=== PATIENT | female | born 1940 | race Two or more races ===

== ENCOUNTER 2020-02-18 16:39 | Inpatient (IN) | payer MEDICAID ==
[~2020-02-18] VITALS: Ht 152.4 cm; Wt 72.6 kg
--- NOTE | 2020-02-18 00:45 | NUR ---
NURSE NOTES: Spoke to Dr. salomon. Informed pt on BIPAP and pt on NPO, Pt on IVF NS @50ml/hr, made him aware. Per Doctor its up to dr. Byrne judgement if he is gonna change the IVF to dextrose. No signs of hypoglycemia noted.
[2020-02-18] MEDS ORDERED: COZAAR25 MG ORAL (16:43)
--- NOTE | 2020-02-18 16:50 | Emergency Room Report ---
History of Present Illness General Chief Complaint: Dyspnea/Respdistress Source: Patient Present Illness HPI Disclaimer: Please note that this report is being documented using [employer] software[employer] technology. This can lead to erroneous entry secondary to incorrect interpretation by the dictating instrument. HPI: 79-year-old Nepalese-speaking female with a history of hypertension and hyperlipidemia presents for evaluation of shortness of breath. Symptoms worsening over the past few days. She reports fevers, generalized fatigue, mild headache. Denies chest pain or palpitations. Denies wheezing. Intermittent cough. Unknown COVID-19 status. She arrives from home. Denies diabetes, COPD, asthma or other lung disease. Denies smoking. Family on route to provide additional information. She was found hypoxic by EMS and only improved to 88% on 15 L nonrebreather. PMH: Hypertension, hypercholesterolemia PSH: Reviewed Allergies: Reviewed Social Hx: Non-smoker Allergies: Coded Allergies: No Known Allergies (Unverified , 02/18/20) COVID-19 Screening Contact w/high risk pt: No Experienced COVID-19 symptoms?: Yes COVID-19 Testing performed CHIEF OF PRODUCTION: No Patient History Now: No Nursing Documentation-PMH Hx Hypertension: Yes Review of Systems All Other Systems: negative except mentioned in HPI Physical Exam Vital Signs Date Time Temp Pulse Resp B/P (MAP) Pulse Ox O2 Delivery O2 Flow Rate FiO2 02/18/20 16:40 99.9 97 18 135/106 (116) 85 Non-Rebreather 15.0 General: Awake and alert, uncomfortable, respiratory distress HEENT: NC/AT. EOMI. Cardiovascular: Borderline tachycardia. Resp: Tachypnea, increased work of breathing. 85% on 15 L nonrebreather. Abdomen: Abdomen is soft, nondistended. Nontender Skin: Intact. No abrasions, laceration or rash over the exposed skin MSK: Normal tone and bulk. Moving all extremities. No obvious deformity. Neuro: Awake and alert. Mentating appropriately. Procedures Critical Care Time Critical Care Time Total critical care time: Approximately 45 minutes Due to a high probability of clinically significant, life threatening deterioration, the patient required the highest level of preparedness to intervene emergently and I personally spent this critical care time directly and personally managing the patient. This critical care time included obtaining a history, examining the patient, pulse oximetry, ordering and reviewing studies, ordering treatments, evaluating response to treatment and updating management plan as needed, frequent reassessment and discussion with other providers as well as arranging for ultimate disposition. This critical to care time was performed to assess and manage the high probability of life-threatening deterioration that could result in multiorgan failure. This critical care time is separate from the separately billable procedures and treating other patients. Medical Decision Making Diagnostic Impression: Primary Impression: Pneumonia due to COVID-19 virus Additional Impressions: Sepsis JARETH (acute kidney injury) Hypoxia UTI (urinary tract infection) Elevated d-dimer ER Course Is an 79-year-old female presents for evaluation of shortness of breath. Concern for pneumonia, bronchitis, COVID-19 infection, influenza, pneumothorax, COPD exacerbation, asthma exacerbation, ACS, sepsis among others. Patient started on BiPAP on arrival. Chest x-ray shows diffuse patchy infiltrates consistent with pneumonia. Treated with ceftriaxone azithromycin and IV steroids. Family is arrived stating that she has been sick for several days and the whole family has had flulike symptoms. She states that the patient is DNI and is filled out a new POLST form. These are accordance with her wishes not to be on mechanical intubation but would allow for some chest compressions. I expressed that chest compressions may be futile if intubation is now performed though she states this is how she wants to be treated. Consented to BiPAP and facemask oxygen as well as antibiotics and IV fluids as needed. Lactate elevated. Receiving IV fluids and bicarbonate. D-dimer elevated. Treated with Lovenox. UTI identified as well the patient already received ceftriaxone. Will await culture and sensitivity. Admitted to SDU under Dr. Evans who is panel physician today. Sepsis reevaluation: I, Dr. Lucas Pierre, reevaluated the patient Capillary refill: Less than 2 seconds MAP: 68 Heart rate: 85 Respiratory rate: 22 Initial Lactate: 7.6 Repeat Lactate: 2.8 Pressors: Not indicated No signs of fluid overload Laboratory Tests Test 02/18/20 17:18 02/18/20 17:30 02/18/20 18:18 White Blood Count 19.8 K/UL (4.8-10.8) H Red Blood Count 4.26 M/UL (4.20-5.40) Hemoglobin 13.2 G/DL (12.0-16.0) Hematocrit 39.8 % (37.0-47.0) Mean Corpuscular Volume 93 FL (80-99) Mean Corpuscular Hemoglobin 31.0 PG (27.0-31.0) Mean Corpuscular Hemoglobin Concent 33.2 G/DL (32.0-36.0) Red Cell Distribution Width 13.0 % (11.6-14.8) Platelet Count 306 K/UL (150-450) Mean Platelet Volume 7.5 FL (6.5-10.1) Neutrophils (%) (Auto) % (45.0-75.0) Lymphocytes (%) (Auto) % (20.0-45.0) Monocytes (%) (Auto) % (1.0-10.0) Eosinophils (%) (Auto) % (0.0-3.0) Basophils (%) (Auto) % (0.0-2.0) Neutrophils % (Manual) Pending Lymphocytes % (Manual) Pending Platelet Estimate Pending Platelet Morphology Pending Prothrombin Time 11.6 SEC (9.30-11.50) H Prothrombin Time INR 1.1 (0.9-1.1) Activated Partial Thromboplast Time 38 SEC (23-33) H D-Dimer Pending Sodium Level 132 MMOL/L (136-145) L Potassium Level 3.6 MMOL/L (3.5-5.1) Chloride Level 96 MMOL/L (98-107) L Carbon Dioxide Level 15 MMOL/L (21-32) L Anion Gap 21 mmol/L (5-15) H Blood Urea Nitrogen 51 mg/dL (7-18) H Creatinine 3.3 MG/DL (0.55-1.30) H Estimated Glomerular Filtration Rate 13.4 mL/min (>60) Glucose Level 171 MG/DL (74-106) H Lactic Acid Level 7.10 mmol/L (0.4-2.0) H Calcium Level 8.4 MG/DL (8.5-10.1) L Phosphorus Level 6.5 MG/DL (2.5-4.9) H Magnesium Level 2.2 MG/DL (1.8-2.4) Ferritin 1187 NG/ML (8-388) H Total Bilirubin 1.1 MG/DL (0.2-1.0) H Direct Bilirubin 0.0 MG/DL (0.0-0.3) Aspartate Amino Transferase (AST) 76 U/L (15-37) H Alanine Aminotransferase (ALT) 24 U/L (12-78) Alkaline Phosphatase 84 U/L (46-116) Lactate Dehydrogenase 627 U/L (81-234) H Total Creatine Kinase 157 U/L (26-308) Creatine Kinase MB 3.7 NG/ML (0.0-3.6) H Creatine Kinase MB Relative Index 2.3 Troponin I 0.965 ng/mL (0.000-0.056) C-Reactive Protein, Quantitative Pending Pro-B-Type Natriuretic Peptide 09322 pg/mL (0-125) H Total Protein 8.4 G/DL (6.4-8.2) H Albumin 2.7 G/DL (3.4-5.0) L Globulin 5.7 g/dL Albumin/Globulin Ratio 0.5 (1.0-2.7) L Lipase 85 U/L (73-393) Arterial Blood pH 7.319 (7.350-7.450) Arterial Blood Partial Pressure CO2 26.5 mmHg (35.0-45.0) L Arterial Blood Partial Pressure O2 mmHg (75.0-100.0) Arterial Blood HCO3 13.3 mmol/L (22.0-26.0) *L Arterial Blood Oxygen Saturation 87.5 % (95-100) *L Arterial Blood Base Excess -11.1 (-2-2) *L Trevon Test Positive Urine Color Pending Urine Appearance Pending Urine pH Pending Urine Specific [place] Pending Urine Protein Pending Urine Glucose (UA) Pending Urine Ketones Pending Urine Blood Pending Urine Nitrite Pending Urine Bilirubin Pending Urine Urobilinogen Pending Urine Leukocyte Esterase Pending Microbiology Date/Time Source Procedure Growth Status 02/18/20 17:30 Nasopharynx SARS-CoV-2 RdRp Gene Assay - Final Complete EKG Diagnostic Results Troponin ordered: Yes When was troponin ordered?: Feb 18, 2020 EKG Time: 17:45 Rate: normal Rhythm: NSR Other Impression Sinus rhythm with occasional PVC, left axis deviation. Inferior Q waves and diffuse T wave inversions. Rhythm Strip Diag. Results Rhythm Strip Time: 17:45 EP Interpretation: yes Rate: 90s Rhythm: other - PVCs Chest X-Ray Diagnostic Results Chest X-Ray Diagnostic Results : Chest X-Ray Ordered: Yes # of Views/Limited/Complete: 1 View Indication: Shortness of Breath EP Interpretation: Yes PA Xray: Interpretation reviewed Interpretation: no effusion - Bilateral patchy infiltrates consistent with pneumonia, no pneumothorax, other Impression: Other - Bilateral pneumonia Electronically Signed by: Electronically signed by Dr. Lucas Pierre MD Last Vital Signs Date Time Temp Pulse Resp B/P (MAP) Pulse Ox O2 Delivery O2 Flow Rate FiO2 02/18/20 16:40 99.9 97 18 135/106 (116) 85 Non-Rebreather 15.0 Disposition: ADMITTED INPATIENT Condition: Serious Lucas Pierre MD Feb 18, 2020 16:50
[2020-02-18] MEDS ORDERED: dexAMETHasone 10mg/ml Inj IV ONE (17:00)
[2020-02-18] MEDS ORDERED: Azithromycin 500 MG in NS 275 ML IVPB ONE (17:00)
[2020-02-18] MEDS ORDERED: cefTRIAXone 1 GM in NS 55 ML IV ONE (17:00)
--- NOTE | 2020-02-18 17:44 | NUR ---
Michelle pedraza in EDM - 02/18/20 at 1745 by GRACE ED Nurse Note: Pt unable to recall the name of her home meds.
--- NOTE | 2020-02-18 17:50 | NUR ---
ED Nurse Note:pt. was BIBA from home with respiratory distress pt. is A/Ox4, blood urine and covid swab sent tolabs, pt. placed on wad blanking press adjuster, then after ABG results she was placed on bi0pap per MD order, given iv fluids and meds
[2020-02-18] MEDS ORDERED: Sodium Bicarbonate 50ml Carp IV ONE (18:00)
[2020-02-18 18:02] LABS: CALCIUM 8.4 MG/DL (8.5-10.1); CREATININE 3.3 MG/DL (0.55-1.30); POTASSIUM 3.6 MMOL/L (3.5-5.1)
[2020-02-18 18:20] VITALS: BP 119/79
[2020-02-18 18:20] LABS: ALBUMIN 2.7 G/DL (3.4-5.0); BILIRUBIN,TOTAL 1.1 MG/DL (0.2-1.0); CKMB 3.7 NG/ML (0.0-3.6); PHOSPHORUS 6.5 MG/DL (2.5-4.9)
[2020-02-18 18:26] LABS: ALBUMIN/GLOBULIN RATIO 0.5 (1.0-2.7)
[2020-02-18] MEDS ORDERED: Sodium Chloride 2,200 ML IVLG ONE (18:30)
[2020-02-18 18:40] LABS: INR 1.1 (0.9-1.1)
[2020-02-18 18:41] LABS: HEMATOCRIT 39.8 % (37.0-47.0); HEMOGLOBIN 13.2 G/DL (12.0-16.0); MEAN CORPUSCULAR VOLUME 93 FL (80-99); PLATELET COUNT 306 K/UL (150-450); RED BLOOD COUNT 4.26 M/UL (4.20-5.40); WHITE BLOOD COUNT 19.8 K/UL (4.8-10.8)
[2020-02-18 19:13] LABS: APPEARANCE,URINE SLIGHTLY CLOUDY; BILIRUBIN, URINE NEGATIVE (NEGATIVE); COLOR,URINE PALE YELLOW; GLUCOSE, URINE (UA) NEGATIVE (NEGATIVE); KETONES,URINE NEGATIVE (NEGATIVE); LEUKOCYTE ESTERASE ,URINE 3+ (NEGATIVE); NITRITE,URINE NEGATIVE (NEGATIVE); PH,URINE 5 (4.5-8.0); PROTEIN,URINE 1+ (NEGATIVE); UROBILINOGEN,URINE NORMAL MG/DL (0.0-1.0)
--- NOTE | 2020-02-18 19:25 | NUR ---
ED Nurse Note: Recieved report from am nurse to resume care, pt in bed resting quietly, on BIPAP, tolerating well with o2 sat of 99%, pt is setswana speaking, has patent IV site in left AC area with fluids infusing, site intact, pt lactic level re-drawn and sent due to elevation, will resume care as ordered and continue to closely monitor.
[2020-02-18 19:30] VITALS: BP 145/80
[2020-02-18] MEDS ORDERED: Enoxaparin 100mg Inj SUBQ SCH (20:00)
[2020-02-18 21:00] VITALS: BP 155/83
--- NOTE | 2020-02-18 21:00 | NUR ---
ED Nurse Note: Pt continues to rest quietly in bed,a wake and alert, all iv fluids completed, tolerated well site intact and patent, pt remains on BIPAP, appears to be tolerating well, denies pain, no sob noted at rest, pt repeat lactic reported to MD, pt remains on Covid isolation precautions, will continue to closely monitor and preapare for hospital admission when bed is available.
[2020-02-18 22:00] VITALS: BP 152/80
--- NOTE | 2020-02-18 22:15 | NUR ---
ED Nurse Note: Pt has ready room for hospital admission, pt remains in bed awake and alert and on bipap for resp distress, tolerating well with o2 sat=99%, iv site intact and patent with fluids infusing, pt has all belongings and list completed, verbal report called to floor nurse OCHOA Otto, pt taken to unit via gurney with ACLS protocols with monitoring under Covid isolation precautions. nad noted during pt transport.
--- NOTE | 2020-02-18 22:30 | NUR ---
NURSE NOTES: Informed Dr. Evans pt needs polst for DNI ordered will refer to AM. Per Dr. torres pt wishes.
--- NOTE | 2020-02-18 22:48 | NUR ---
NURSE NOTES: Received pt from ER report from Elva, pt on BIPAP with settings 14/5, fio2-100%. O2 sat- 90%. LAC g20- intact and patent. Pt has no signs of respiratory distress, respiratory rate is normal, pt BP - 170/123. NSR in the cardiac rehabilitation program director, pt able to follow simple commands, alert oriented x 3, mostly togolese speaking, able to verbalize understanding. No pain noted. Not in distress. Pt gown provided, weighed pt, skin assessment done- no skin issues noted. Belongings noted 2 necklace and 1 set of earrings at pt bedside. Able to move side to side. Contacted Dr. Evans, unable to left voicemail. Awaiting for response. Bed in lowest position, bed in locked, alarm- on , call light within reach. Continue to plan of care.
--- NOTE | 2020-02-18 23:00 | NUR ---
NURSE NOTES: Inserted barker fr 16, intact and secured draining yellow urine.
[2020-02-19] VITALS: BP 220/103
--- NOTE | 2020-02-19 | NUR ---
NURSE NOTES: Noted BP 220/103, no pain noted. Informed Dr. Barboza ordered given prn.Will rechecked BP.
--- NOTE | 2020-02-19 03:07 | NUR ---
NURSE NOTES: Still noted BP 189/100 - given PRN meds as ordered. Pt is asymptomatic, no pain noted at this time.
--- NOTE | 2020-02-19 03:16 | NUR ---
NURSE NOTES: Polst received from ER for selective treatment, keep in the chart.
--- NOTE | 2020-02-19 03:28 | NUR ---
NURSE NOTES: Rechecked BP- 154/68. Continue to monitor pt closely.
[2020-02-19 04:00] VITALS: BP 151/70
--- NOTE | 2020-02-19 06:04 | NUR ---
NURSE NOTES: Not in respiratory distress, o2 sat- 100%. Pt not in pain. Continue to monitor BP.
[2020-02-19 06:25] LABS: HEMATOCRIT 35.1 % (37.0-47.0); HEMOGLOBIN 12.2 G/DL (12.0-16.0); MEAN CORPUSCULAR VOLUME 90 FL (80-99); PLATELET COUNT 291 K/UL (150-450); RED BLOOD COUNT 3.89 M/UL (4.20-5.40); RED CELL DISTRIBUTION WIDTH 12.8 % (11.6-14.8); WHITE BLOOD COUNT 16.7 K/UL (4.8-10.8)
--- NOTE | 2020-02-19 07:05 | NUR ---
NURSE NOTES: Received patient report from OCHOA Otto. Pt on BIPAP 14/5 FiO2 100%, no respiratory distress noted at this time. No pain or discomfort noted. Patient with L hand 22G SL and L AC 20G with NS @50ml/hr, IV site patent and intact. Bed in lowest position, locked with side rails x3 up. Call light within reach.
--- NOTE | 2020-02-19 07:10 | NUR ---
NURSE HAND-OFF REPORT: Important Events on Shift: Pt BP: high 150-170's Dr. Barboza aware, PRN meds given, onBIPAP, admission Patient Status: Guarded and critical Diet: NPO Pending Orders: None Pending Results/Labs: NOne Pending MD notification: None Latest Vital Signs: Temperature 97.7 , Pulse 88 , B/P 175 /90 , Respiratory Rate 23 , O2 SAT 98 , Bi-pap, O2 Flow Rate 15.0 . Vital Sign Comment: Hypertensive EKG Rhythm: Sinus Rhythm Rhythm change?: N MD Notified?: - MD Response: Latest Navarro Fall Score: 30 Fall Risk: Medium Risk Safety Measures: Call light Within Reach, Bed Alarm Zone 2, Side Rails Side Rails x3, Bed position Low and Locked. Fall Precautions: Yellow Socks Yellow Gown Door Sign Patient Fall Education Report given to [Connor RN].
[2020-02-19 07:52] LABS: ALANINE AMINOTRANSFERASE 46 U/L (12-78); ALBUMIN 2.4 G/DL (3.4-5.0); ALBUMIN/GLOBULIN RATIO 0.5 (1.0-2.7); ALKALINE PHOSPHATASE 73 U/L (46-116); ANION GAP 16 mmol/L (5-15); ASPARTATE AMINO TRANSFERASE 84 U/L (15-37); BILIRUBIN,TOTAL 0.6 MG/DL (0.2-1.0); BLOOD UREA NITROGEN 52 mg/dL (7-18); CALCIUM 7.8 MG/DL (8.5-10.1); CARBON DIOXIDE 22 MMOL/L (21-32); CHLORIDE 101 MMOL/L (98-107); CHOLESTEROL 188 MG/DL (< 200); CREATINE KINASE 134 U/L (26-308); CREATININE 2.2 MG/DL (0.55-1.30); GAMMA GLUTAMYL TRANSPEPTIDASE 12 U/L (5-85); HDL CHOLESTEROL 14 MG/DL (40-60); LACTATE DEHYDROGENASE 721 U/L (81-234); PHOSPHORUS 3.9 MG/DL (2.5-4.9); POTASSIUM 3.4 MMOL/L (3.5-5.1); SODIUM 139 MMOL/L (136-145); TRIGLYCERIDES 195 MG/DL (30-150)
[2020-02-19 08:00] VITALS: BP 159/74
--- NOTE | 2020-02-19 08:24 | Diagnostic Imaging Report ---
Indication: Shortness of breath Technique: One view of the chest Comparison: none Findings: There are extensive bilateral infiltrates, right greater than left. The heart is mildly enlarged. The pleural spaces are grossly clear. Impression: Bilateral extensive infiltrates, likely pneumonia but could also represent pulmonary edema. Correlate with clinical findings
[2020-02-19] MEDS: cefTRIAXone 1 GM in D5W 55 ML IVPB SCH (11:00)
[2020-02-19] MEDS: dexAMETHasone 10mg/ml Inj IV SCH (11:00)
--- NOTE | 2020-02-19 11:03 | Cardiac Electrophysiology PN ---
Subjective Subjective [id number] Objective Last 24 Hour Vital Signs Date Time Temp Pulse Resp B/P (MAP) Pulse Ox O2 Delivery O2 Flow Rate FiO2 02/19/20 09:10 90 169/74 02/19/20 08:40 90 02/19/20 07:15 90 25 97 100 02/19/20 05:54 175/90 02/19/20 04:00 97.7 88 23 151/70 (97) 98 02/19/20 04:00 Bi-pap 02/19/20 04:00 100 02/19/20 03:30 86 27 98 100 02/19/20 03:00 189/100 02/19/20 00:32 78 02/19/20 00:25 Bi-pap 02/19/20 00:19 220/103 02/19/20 00:00 97.9 89 22 220/103 (142) 98 02/19/20 00:00 100 02/18/20 23:17 Bi-pap 02/18/20 23:12 86 23 94 Bi-Pap 100 02/18/20 23:10 86 23 94 100 02/18/20 23:03 Bi-pap 02/18/20 22:52 86 02/18/20 22:25 98.8 80 20 152/80 99 Bi-pap 15.0 100 02/18/20 22:00 98.8 80 20 152/80 99 Bi-pap 15.0 100 02/18/20 21:00 98.8 82 20 155/83 98 Bi-pap 15.0 100 02/18/20 20:59 80 20 100 100 02/18/20 19:30 98.8 83 22 145/80 99 Bi-pap 15.0 100 02/18/20 18:20 99.9 103 22 119/79 99 Bi-pap 100 02/18/20 18:20 99 22 Non-Rebreather 15.0 100 02/18/20 18:01 99 22 95 100 02/18/20 16:40 99.9 97 18 135/106 (116) 85 Non-Rebreather 15.0 Intake and Output 02/18/20 02/19/20 19:00 07:00 Intake Total 400 ml Output Total 600 ml Balance -200 ml Intake IV Total 400 ml Output Urine Total 600 ml # Voids 1 Laboratory Tests Test 02/18/20 17:18 02/18/20 17:30 02/18/20 18:18 02/18/20 19:30 White Blood Count 19.8 K/UL (4.8-10.8) H Red Blood Count 4.26 M/UL (4.20-5.40) Hemoglobin 13.2 G/DL (12.0-16.0) Hematocrit 39.8 % (37.0-47.0) Mean Corpuscular Volume 93 FL (80-99) Mean Corpuscular Hemoglobin 31.0 PG (27.0-31.0) Mean Corpuscular Hemoglobin Concent 33.2 G/DL (32.0-36.0) Red Cell Distribution Width 13.0 % (11.6-14.8) Platelet Count 306 K/UL (150-450) Mean Platelet Volume 7.5 FL (6.5-10.1) Neutrophils (%) (Auto) % (45.0-75.0) Lymphocytes (%) (Auto) % (20.0-45.0) Monocytes (%) (Auto) % (1.0-10.0) Eosinophils (%) (Auto) % (0.0-3.0) Basophils (%) (Auto) % (0.0-2.0) Differential Total Cells Counted 100 Neutrophils % (Manual) 87 % (45-75) H Lymphocytes % (Manual) 4 % (20-45) L Monocytes % (Manual) 1 % (1-10) Eosinophils % (Manual) 0 % (0-3) Basophils % (Manual) 0 % (0-2) Band Neutrophils 8 % (0-8) Platelet Estimate Adequate Platelet Morphology Normal Red Blood Cell Morphology Normal Prothrombin Time 11.6 SEC (9.30-11.50) H Prothromb Time International Ratio 1.1 (0.9-1.1) Activated Partial Thromboplast Time 38 SEC (23-33) H D-Dimer 5.12 mg/L FEU (0.00-0.49) H Sodium Level 132 MMOL/L (136-145) L Potassium Level 3.6 MMOL/L (3.5-5.1) Chloride Level 96 MMOL/L (98-107) L Carbon Dioxide Level 15 MMOL/L (21-32) L Anion Gap 21 mmol/L (5-15) H Blood Urea Nitrogen 51 mg/dL (7-18) H Creatinine 3.3 MG/DL (0.55-1.30) H Estimat Glomerular Filtration Rate 13.4 mL/min (>60) Glucose Level 171 MG/DL (74-106) H Lactic Acid Level 7.10 mmol/L (0.4-2.0) H 2.80 mmol/L (0.66-2.22) H Calcium Level 8.4 MG/DL (8.5-10.1) L Phosphorus Level 6.5 MG/DL (2.5-4.9) H Magnesium Level 2.2 MG/DL (1.8-2.4) Ferritin 1187 NG/ML (8-388) H Total Bilirubin 1.1 MG/DL (0.2-1.0) H Direct Bilirubin 0.0 MG/DL (0.0-0.3) Aspartate Amino Transf (AST/SGOT) 76 U/L (15-37) H Alanine Aminotransferase (ALT/SGPT) 24 U/L (12-78) Alkaline Phosphatase 84 U/L (46-116) Lactate Dehydrogenase 627 U/L (81-234) H Total Creatine Kinase 157 U/L (26-308) Creatine Kinase MB 3.7 NG/ML (0.0-3.6) H Creatine Kinase MB Relative Index 2.3 Troponin I 0.965 ng/mL (0.000-0.056) C-Reactive Protein, Quantitative Pending Pro-B-Type Natriuretic Peptide 06174 pg/mL (0-125) H Total Protein 8.4 G/DL (6.4-8.2) H Albumin 2.7 G/DL (3.4-5.0) L Globulin 5.7 g/dL Albumin/Globulin Ratio 0.5 (1.0-2.7) L Lipase 85 U/L (73-393) Arterial Blood pH 7.319 (7.350-7.450) Arterial Blood Partial Pressure CO2 26.5 mmHg (35.0-45.0) L Arterial Blood Partial Pressure O2 mmHg (75.0-100.0) Arterial Blood HCO3 13.3 mmol/L (22.0-26.0) *L Arterial Blood Oxygen Saturation 87.5 % (95-100) *L Arterial Blood Base Excess -11.1 (-2-2) *L Trevon Test Positive Urine Color Pale yellow Urine Appearance Slightly cloudy Urine pH 5 (4.5-8.0) Urine Specific [place] 1.005 (1.005-1.035) Urine Protein 1+ (NEGATIVE) H Urine Glucose (UA) Negative (NEGATIVE) Urine Ketones Negative (NEGATIVE) Urine Blood 3+ (NEGATIVE) H Urine Nitrite Negative (NEGATIVE) Urine Bilirubin Negative (NEGATIVE) Urine Urobilinogen Normal MG/DL (0.0-1.0) Urine Leukocyte Esterase 3+ (NEGATIVE) H Urine RBC 15-20 /HPF (0 - 2) H Urine WBC 20-30 /HPF (0 - 2) H Urine Squamous Epithelial Cells Many /LPF (NONE/OCC) H Urine Bacteria Many /HPF (NONE) H Test 02/19/20 03:35 White Blood Count 16.7 K/UL (4.8-10.8) H Red Blood Count 3.89 M/UL (4.20-5.40) L Hemoglobin 12.2 G/DL (12.0-16.0) Hematocrit 35.1 % (37.0-47.0) L Mean Corpuscular Volume 90 FL (80-99) Mean Corpuscular Hemoglobin 31.4 PG (27.0-31.0) H Mean Corpuscular Hemoglobin Concent 34.7 G/DL (32.0-36.0) Red Cell Distribution Width 12.8 % (11.6-14.8) Platelet Count 291 K/UL (150-450) Mean Platelet Volume 7.1 FL (6.5-10.1) Neutrophils (%) (Auto) % (45.0-75.0) Lymphocytes (%) (Auto) % (20.0-45.0) Monocytes (%) (Auto) % (1.0-10.0) Eosinophils (%) (Auto) % (0.0-3.0) Basophils (%) (Auto) % (0.0-2.0) Differential Total Cells Counted 100 Neutrophils % (Manual) 89 % (45-75) H Lymphocytes % (Manual) 8 % (20-45) L Monocytes % (Manual) 3 % (1-10) Eosinophils % (Manual) 0 % (0-3) Basophils % (Manual) 0 % (0-2) Band Neutrophils 0 % (0-8) Platelet Estimate Adequate Platelet Morphology Normal Red Blood Cell Morphology Normal Sodium Level 139 MMOL/L (136-145) Potassium Level 3.4 MMOL/L (3.5-5.1) L Chloride Level 101 MMOL/L (98-107) Carbon Dioxide Level 22 MMOL/L (21-32) Anion Gap 16 mmol/L (5-15) H Blood Urea Nitrogen 52 mg/dL (7-18) H Creatinine 2.2 MG/DL (0.55-1.30) H Estimat Glomerular Filtration Rate 21.4 mL/min (>60) Glucose Level 120 MG/DL (74-106) H Lactic Acid Level 1.70 mmol/L (0.4-2.0) Uric Acid 9.2 MG/DL (2.6-7.2) H Calcium Level 7.8 MG/DL (8.5-10.1) L Phosphorus Level 3.9 MG/DL (2.5-4.9) Magnesium Level 2.1 MG/DL (1.8-2.4) Total Bilirubin 0.6 MG/DL (0.2-1.0) Gamma Glutamyl Transpeptidase 12 U/L (5-85) Aspartate Amino Transf (AST/SGOT) 84 U/L (15-37) H Alanine Aminotransferase (ALT/SGPT) 46 U/L (12-78) Alkaline Phosphatase 73 U/L (46-116) Lactate Dehydrogenase 721 U/L (81-234) H Total Creatine Kinase 134 U/L (26-308) C-Reactive Protein, Quantitative Pending Pro-B-Type Natriuretic Peptide 59172 pg/mL (0-125) H Total Protein 7.5 G/DL (6.4-8.2) Albumin 2.4 G/DL (3.4-5.0) L Globulin 5.1 g/dL Albumin/Globulin Ratio 0.5 (1.0-2.7) L Triglycerides Level 195 MG/DL (30-150) H Cholesterol Level 188 MG/DL (< 200) LDL Cholesterol 97 mg/dL (<100) HDL Cholesterol 14 MG/DL (40-60) L Cholesterol/HDL Ratio 13.4 (3.3-4.4) H Microbiology Date/Time Source Procedure Growth Status 02/18/20 17:30 Nasopharynx SARS-CoV-2 RdRp Gene Assay - Final Complete Adonay Guerra MD Feb 19, 2020 11:03
--- NOTE | 2020-02-19 11:14 | NUR ---
Right Of Way WorkerOrthodontic Technician Assistant 79 y/o female transported via ambulance from home CC: shortness of breath, fever. O2 saturation at 60% on room air SI: Respiratory Failure, COVID PNA, Leukocytosis Temp-99.9, HR 97, RR 18, 15L, BIPAP 14/5, O2 sat 98% WBC 16.7, K+ 3.4, Troponin 0.965, U/A Leuk Est 3+, WBC 20-30, Bacteria-Many, Blood-3+ cxray-Bilateral extensive infiltrates. IS: Lasix IV BID Rocephin IV QD Dexamethasone IV QD Apresoline IV Lovenox SQ BID Admit to Step Down Unit Step Down Status DCP: Pending hospitalization
[2020-02-19 12:00] VITALS: BP 161/72
--- NOTE | 2020-02-19 12:00 | Consultation ---
DATE OF CONSULTATION: 02/19/2020 INFECTIOUS DISEASES CONSULTATION CONSULTING PHYSICIAN: Genaro Sun MD PRIMARY ATTENDING PHYSICIAN: Gerson Evans MD REASON FOR CONSULTATION: COVID-19 disease, sepsis, UTI. HISTORY OF PRESENT ILLNESS: This is an 79-year-old female admitted yesterday from home complaining of shortness of breath, fever, fatigue. In the past few days, was hypoxemic when seen by paramedics and had O2 saturation of 88% on 15 L nonrebreather, currently she is on BiPAP. PAST MEDICAL HISTORY: Significant for hypertension and hyperlipidemia. ALLERGIES: No known drug allergies. MEDICATIONS: Get a dose of enoxaparin, sodium chloride, sodium bicarb, ceftriaxone, dexamethasone, dose of azithromycin in the ER. Currently amlodipine, hydralazine, and Tylenol. SOCIAL HISTORY: Single. No history of alcohol, drug abuse, or smoking. REVIEW OF SYSTEMS: Limited. She has cough and shortness of breath. PHYSICAL EXAMINATION: VITAL SIGNS: Temperature 97.7, pulse 90, blood pressure 169/74. GENERAL APPEARANCE: Seems overweight, well developed. HEAD AND NECK: [place] conjunctiva. HEART: Normal rate. LUNGS: On BiPAP, FiO2 100%. Slightly decreased sounds. ABDOMEN: Soft. EXTREMITIES: No edema. NEUROLOGIC: Awake, alert, responsive. LABORATORY AND DIAGNOSTIC DATA: WBC 16.7, hemoglobin 12.2, hematocrit 35.2, platelet 281. WBC at the time of admission was 19.8. Sodium 139, potassium 3.4, chloride 101, bicarb 22, BUN 52, creatinine 2.2. Creatinine at the time of admission was 3.3. Lactic acid is 1.7. Lactic acid at the time of admission was 7.1. Albumin is 2.4. LDH is 721. COVID-19 test was positive. Chest x-ray shows bilateral extensive infiltrate, pneumonia, and pulmonary edema. UA shows wbc's of 20 to 30, bacteria many, blood 3+. IMPRESSION: 1. Sepsis. 2. COVID-19 pneumonia. 3. Acute renal failure. 4. Hypoxemic respiratory failure. 5. Pyuria, bacteriuria, may have UTI. 6. Lactic acidosis. 7. Hypertension. 8. Hyperlipidemia. RECOMMENDATION: We will continue with ceftriaxone and dexamethasone. Because of acute renal failure, cannot use Remdesivir now. At the end of my exam, I thank Dr. Evans, for involving me in the care of this patient. Genaro Sun M.D. DR: Ted JOB#: [id number] CC: KEV
--- NOTE | 2020-02-19 13:30 | Consultation ---
DATE OF CONSULTATION: 02/19/2020 CARDIOLOGY CONSULTATION CONSULTING PHYSICIAN: Adonay Guerra MD. REFERRING PHYSICIAN: Gerson Evans MD. REASON FOR CONSULTATION: Tachycardia and hypoxia. HISTORY OF PRESENT ILLNESS: The patient is an 79-year-old speaking lady with history of hypertension and hyperlipidemia presented to the emergency room with increasing shortness of breath for the last few days. The patient denies any chest pain or palpitation. The patient arrives from home. Denies any COPD, asthma, diabetes, or smoking. The patient was hypoxic by paramedics but improved to 88% only on 15 L nonrebreather face mask. The patient was placed on BiPAP. At the time of my evaluation, the patient is on BiPAP and cannot communicate very well in view of her respiratory status. REVIEW OF SYSTEMS: Cannot be obtained. PAST MEDICAL HISTORY: As mentioned above. FAMILY HISTORY: Noncontributory. SOCIAL HISTORY: Nonsmoker. ALLERGIES: No known drug allergies. PHYSICAL EXAMINATION: VITAL SIGNS: Show blood pressure was 175/90, pulse is 90, respirations 25, temperature 97.7. HEAD AND SHOWED: No JVD. LUNGS: Decreased breath sounds. CARDIOVASCULAR: Regular S1 and S2 with no gallop. ABDOMEN: Soft. EXTREMITIES: No pitting edema. LABORATORY AND DIAGNOSTIC DATA: Labs show white count was 19.8, hemoglobin of 13.2, platelet count is 306. Sodium is 139, potassium 3.4, BUN of 52, creatinine 2.2, and glucose of 120. [place] 0[place] [address]. ASSESSMENT AND PLAN: 1. Congestive heart failure with BNP of more than 15,000. We will get an echocardiogram to evaluate for ejection fraction and wall motion abnormality. Start the patient on Lasix 40 mg IV b.i.d. especially the patient also has renal failure. 2. Elevated troponin could be due to renal failure in view of creatinine of . Repeat cardiac enzymes. The patient does not have any chest pain. We will repeat EKG and echocardiogram. 3. COVID pneumonia. The patient is on BiPAP. 4. Accelerated hypertension on amlodipine 5 mg b.i.d. and p.r.n. IV hydralazine. I will add Lasix for heart failure and BNP of more than 16,000 until we get echocardiogram. In the meantime, the patient continues on BiPAP. It is of note the patient's EKG shows sinus rhythm with LVH with ST-T wave abnormality and may be due to hypertensive heart disease. 5. Respiratory failure due to COVID. The patient is on BiPAP as well as dexamethasone. Thank you very much for allowing me to participate in the care of this patient. Please do not hesitate to contact me for any questions regarding my evaluation. Sincerely, Adonay Guerra M.D. DR: Aida JOB#: [id number] CC:
--- NOTE | 2020-02-19 15:32 | Consultation ---
Consult Note Consult Note I am asked to evaluate the patient at the request of Dr. Esteban for management of renal failure and fluid and electrolyte management Chief Complaint: Dyspnea/Respdistress HPI: 79-year-old [place] Islander-speaking female with a history of hypertension and hyperlipidemia presents for evaluation of shortness of breath. Symptoms worsening over the past few days. She reports fevers, generalized fatigue, mild headache. Denies chest pain or palpitations. Denies wheezing. Intermittent cough. Unknown COVID-19 status. She arrives from home. Denies diabetes, COPD, asthma or other lung disease. Denies smoking. Family on route to provide additional information. She was found hypoxic by EMS and only improved to 88% on 15 L nonrebreather. PMH: Hypertension, hypercholesterolemia Social Hx: Non-smoker Allergies: No Known Allergies (Unverified , 02/18/20) COVID-19 Screening Contact w/high risk pt: No Experienced COVID-19 symptoms?: Yes COVID-19 Testing performed PLANT OPERATIONS WORKER: No Hx Hypertension: Yes Vital Signs Date Time Temp Pulse Resp B/P (MAP) Pulse Ox O2 Delivery O2 Flow Rate FiO2 02/18/20 16:40 99.9 97 18 135/106 (116) 85 Non-Rebreather 15.0 Patient seen in room 237. Currently on BiPAP. PHYSICAL EXAMINATION: VITAL SIGNS: Temperature 97.7, pulse 90, blood pressure 169/74. GENERAL APPEARANCE: Seems overweight, well developed. HEAD AND NECK: [place] conjunctiva. HEART: Normal rate. LUNGS: On BiPAP, FiO2 100%. Slightly decreased sounds. ABDOMEN: Soft. EXTREMITIES: No edema. NEUROLOGIC: Awake, alert, responsive. LABORATORY AND DIAGNOSTIC DATA: WBC 16.7, hemoglobin 12.2, hematocrit 35.2, platelet 281. WBC at the time of admission was 19.8. Sodium 139, potassium 3.4, chloride 101, bicarb 22, BUN 52, creatinine 2.2. Creatinine at the time of admission was 3.3. Lactic acid is 1.7. Lactic acid at the time of admission was 7.1. Albumin is 2.4. LDH is 721. COVID-19 test was positive. Chest x-ray shows bilateral extensive infiltrate, pneumonia, and pulmonary edema. UA shows wbc's of 20 to 30, bacteria many, blood 3+. Assessment/Plan Acute renal failure Possible underlying chronic kidney disease Hypoxic respiratory failure Sepsis, COVID-19 pneumonia UTI Hypertension, uncontrolled Hyperlipemia Elevated troponin I Electrolyte abnormalities Slow hydrate, normal saline Watch renal parameters on Lasix Recheck chest x-ray tomorrow Keep the blood pressure in check Avoid nephrotoxic's Monitor electrolytes and urine output Per consultants Per orders Reji Byrne MD Feb 19, 2020 15:32
[2020-02-19 16:00] VITALS: BP 172/90
--- NOTE | 2020-02-19 19:10 | NUR ---
NURSE HAND-OFF REPORT: Important Events on Shift:NA Patient Status: Stable Diet: NPO Pending Orders: NA Pending Results/Labs:Chest XRAY inn AM Pending MD notification:NA Latest Vital Signs: Temperature 98.0 , Pulse 90 , B/P 172 /90 , Respiratory Rate 23 , O2 SAT 96 , Bi-pap, O2 Flow Rate 15.0 . Vital Sign Comment: Episodes of High BP EKG Rhythm: Sinus Rhythm Rhythm change?: N MD Notified?: - MD Response: Latest Navarro Fall Score: 30 Fall Risk: Medium Risk Safety Measures: Call light Within Reach, Bed Alarm Zone 2, Side Rails Side Rails x3, Bed position Low and Locked. Fall Precautions: Yellow Socks Yellow Gown Door Sign Patient Fall Education Report given to OCHOA Grimm.
[2020-02-19 20:00] VITALS: BP 166/73
--- NOTE | 2020-02-19 20:00 | NUR ---
NURSE NOTES: Report received from OCHOA Nettles. Observed pt lying in the bed, awake. SR noted. On bipap, saturating at 94%. IV on L H 22G, intact. L AC 20G, running NS at 50cc/hr. Reposition done. Bed in the lowest position. Side rails up x3. Bed alarm on. Will continue to monitor.
[2020-02-19] MEDS: Dyna-Hex 2% Top Sol 2oz TOPIC SCH (20:11)
[2020-02-19] MEDS: Metoprolol Tartrate 12.5mg TAB ORAL SCH (20:12)
--- NOTE | 2020-02-19 21:00 | NUR ---
NURSE NOTES: PO meds given, tolerating, no coughing or difficulty swallowing noted.
--- NOTE | 2020-02-19 21:29 | History and Physical Report ---
DATE OF ADMISSION: 02/18/2020 HISTORY OF PRESENT ILLNESS: The patient is a British-speaking female, presented with shortness of breath and some cough for a couple of days. She also had fever and fatigue and chills and body aches. Denied nausea, vomiting, or diarrhea. Denies chest pain. The patient also basically has leukocytosis. Apparently, the patient has elevated troponin, also had hypoxemia, was on BiPAP, and was found to be positive for cough with pneumonia according to the ER doctor, and was also admitted for acute renal failure, sepsis, hypoxia, and COVID-positive pneumonia. PAST MEDICAL HISTORY: Significant for hypertension and GERD. PAST SURGICAL HISTORY: None. SOCIAL HISTORY: Denies history of smoking. Denies history of alcohol abuse. Denies history of drug abuse. FAMILY HISTORY: Noncontributory. MEDICATIONS: Losartan 25 mg daily. ALLERGIES: No known allergies. REVIEW OF SYSTEMS: CONSTITUTIONAL: Denies headaches. RESPIRATORY: Reports shortness of breath and cough for a couple of days. CARDIOVASCULAR: Denies chest pain or orthopnea. GASTROINTESTINAL: Denies nausea, vomiting, or diarrhea. EXTREMITIES: Denies pain. NEUROLOGIC: Denies change in speech pattern. Feels very weak and has generalized body weakness and body pain. PHYSICAL EXAMINATION: VITAL SIGNS: Temperature 98, pulse is 90, blood pressure 170/90. HEENT: PERRLA. NECK: Supple. CHEST: Clear to auscultation. CARDIOVASCULAR: Regular rate and rhythm. No murmurs or extra sounds. GASTROINTESTINAL: Soft, nontender, nondistended. EXTREMITIES: No edema. Has generalized weakness. Reflexes on both sides. Moves all 4 extremities. LABORATORY DATA: WBC of 19.8, hemoglobin of 13.2, platelets 306. Sodium 139, potassium of 3.4, BUN of 52, creatinine of 2.2, carbon dioxide of 22. Troponin of 0.433. ASSESSMENT AND PLAN: Acute renal failure, elevated hypoxia, sepsis, respiratory failure, COVID-positive pneumonia, acute renal failure, and borderline low potassium and sepsis and elevated troponin. I have basically consulted Dr. Byrne, Dr. Guerra, Dr. Aroldo Briggs, Dr. Genaro Sun for the above-mentioned abnormal labs and abnormal symptoms and abnormal imaging. Elevated troponin treatment and diagnostic will be done with the help of Dr. Guerra, the powerbuilder. Gerson Evans M.D. DR: STEPHANIA JOB#: [id number] CC:
--- NOTE | 2020-02-19 21:44 | Consultation ---
DATE OF CONSULTATION: 02/19/2020 PULMONARY CONSULTATION HISTORY OF PRESENT ILLNESS: This is an 79-year-old female who came to the hospital with shortness of breath. She was found to be hypoxemic. She was placed on a BiPAP. She was markedly hypoxic, on oxygen. She underwent rapid COVID testing, which was positive. She underwent a chest x-ray, which showed that she has bilateral extensive infiltrates, suggestive of a pneumonic process. The patient was admitted to the hospital and currently is on BiPAP. PAST MEDICAL HISTORY: Not known except for history of hypertension, hyperlipidemia, . SURGERIES: None. CURRENT MEDICATIONS: Include Rocephin, amlodipine, aspirin, Lipitor, Decadron, Lasix. She received Lovenox as well. REVIEW OF SYSTEMS: Not reliable. PHYSICAL EXAMINATION: GENERAL: An 79-year-old female. HEENT: Unremarkable. LUNGS: Clear breath sounds bilaterally. ABDOMEN: Soft. EXTREMITIES: There is no edema. NEUROLOGIC: Nonfocal. VITAL SIGNS: Blood pressure 170/90, heart rate 94, respirations 18, O2 sat 96% on BiPAP, 100% FiO2. LABORATORY DATA: Lab testing shows white count 15.7, otherwise normal CBC. BMP notable for creatinine 2.2, lactic acid 2.8, now 1.7. Troponin 0.43, now 0.34. Albumin 2.4, AST 84. ABG shows pH of 7.31, pCO2 26, pO2 not known. Coags show D-dimer of 5.1. IMPRESSION: 1. COVID-19 pneumonia. 2. Respiratory failure, on BiPAP. 3. Renal failure. 4. Troponin leak. DISCUSSION: Admit to the hospital. The patient has been seen by ID specialist. She has been started on Decadron. I recommend initiating anticoagulation with Lovenox. However, with renal failure, this may be an issue. Also, remdesivir cannot be used because of renal failure. We will continue BiPAP. Follow carefully. Aroldo Briggs M.D. DR: SALAZAR JOB#: [id number] CC:
--- NOTE | 2020-02-19 22:56 | NUR ---
Pt lying in the bed, sleeping. SR noted. On bipap, 15/5, 100%, 94% noted. Reposition done. Will continue to monitor.
[2020-02-20] VITALS (26 sets, daily range): BP systolic 108–167; BP diastolic 35–64
--- NOTE | 2020-02-20 02:15 | Cardiology Report ---
APPROVED REPORT EKG Measurement Heart Spcs21MGNS ND [id number] [id number] <Conclusion> Sinus rhythm with occasional premature ventricular complexes and premature atrial complexes Possible Left atrial enlargement Left axis deviation Left ventricular hypertrophy Nonspecific ST and T wave abnormality Prolonged QT Abnormal ECG
--- NOTE | 2020-02-20 02:27 | Cardiology Report ---
APPROVED REPORT EXAM: Two-dimensional and M-mode echocardiogram with Doppler and color Doppler. INDICATION Cardiac Disease: CAD M-Mode DIMENSIONS IVSd1.2 (0.7-1.1cm)Left Atrium (MM)3.7 (1.6-4.0cm) LVDd3.6 (3.5-5.6cm)Aortic Root2.8 (2.0-3.7cm) PWd1.1 (0.7-1.1cm)Aortic Cusp Exc.1.6 (1.5-2.0cm) IVSs1.4 cmEPSS0.5 (>1.0cm) LVDs2.1 (2.5-4.0cm) PWs1.7 cm <Conclusion> Technically difficult study due to poor acoustical windows pt on a ventilator poor vavlualdefinition . Left ventricular ejection fraction estimated to be 65-70 %. Mild left ventricular hypertrophy. Anterior Echo-free space, may be due to pericardial fat or effusion. All other cardiac chamber sizes are within normal limits. Focal aortic valve sclerosis with adequate cusp excursion. Thickened mitral valve leaflets with normal excursion. Mitral annulus and aortic root calcification. Pulmonic valve not well visualized. Tricuspid valve not well visualized. IVC at normal size with physiologic collapse. A color flow and spectral Doppler study was performed and revealed: Mild aortic regurgitation. Trace mitral regurgitation. Mitral diastolic velocities suggest reduced left ventricular relaxation c/w mild LV diastolic dysfunction (Grade I ). Mild tricuspid regurgitation. Tricuspid systolic velocities suggests peak right ventricular systolic pressure of 36 mmHg,consistent with mild pulmonary hypertension.
[2020-02-20] MEDS ORDERED: dilTIAZem Premix 125mg/125ml 125 ML IVPB SCH (02:45)
[2020-02-20] MEDS ORDERED: dilTIAZem HCl 25mg/5ml Inj IVP SCH (03:00)
--- NOTE | 2020-02-20 03:10 | NUR ---
NURSE NOTES: Pt converted to Afib RVR with HR of 160s, BP 135/75. notified and new order received, and carried out. Will continue to monitor.
--- NOTE | 2020-02-20 04:00 | NUR ---
NURSE NOTES: Pt started on cardizem drip at this time. Afib, HR of 150s, pt awake, calm. Will continue to monitor.
--- NOTE | 2020-02-20 05:30 | NUR ---
NURSE NOTES: pt converted to back to SR on 10mg cardizem drip. No change in condition noted. Will continue to monitor.
[2020-02-20 06:00] LABS: ALBUMIN 2.2 G/DL (3.4-5.0); ALBUMIN/GLOBULIN RATIO 0.4 (1.0-2.7); BILIRUBIN,TOTAL 0.6 MG/DL (0.2-1.0); CALCIUM 8.5 MG/DL (8.5-10.1); CREATININE 1.4 MG/DL (0.55-1.30)
[2020-02-20 06:07] LABS: PHOSPHORUS 3.1 MG/DL (2.5-4.9)
--- NOTE | 2020-02-20 07:20 | NUR ---
NURSE NOTES: RECEIVED REPORT FROM ABDULLAHI HOURLY SHIFT MANAGER OF NOC SHIFT. RECEIVED PT ON DROPLET ISOLATION ROOM ,PT IS POSITIVE FOR COVID 19. PT IS DNI STATUS.RECEIVED PT WITH HOB ELEVATED 45 DEGREE USING BIPAP 14/5,FIO2 100%,O2 SAT 94%.PT IS NPO EXCEPT FOR P.O MEDICATIONS. PT RECEIVING CARDIZEM DRIP 2.5MG/HR CONNECTED TO H.L ON LT AC ,DRIP INFUSING WELL. PT IS ICU STATUS. FULL BODY ASSESSMENT DONE. PT WITH F/C DRAINING WELL YELLOW URINE COLOR. WILL CONT TO MONITOR.
--- NOTE | 2020-02-20 08:03 | NUR ---
NURSE HAND-OFF REPORT: On cardizem drip 2.5mg/hr. SR noted. BP stable. Important Events on Shift: tolerating bipap, saturating 93%. Patient Status: Diet: NPO noted. Pending Orders: [] Pending Results/Labs:[] Pending MD notification:[] Latest Vital Signs: Temperature 99.0 , Pulse 87 , B/P 127 /52 , Respiratory Rate 28 , O2 SAT 95 , Bi-pap, O2 Flow Rate 15.0 . Vital Sign Comment: [] EKG Rhythm: Sinus Rhythm Rhythm change?: N MD Notified?: - MD Response: Latest Navarro Fall Score: 30 Fall Risk: Medium Risk Safety Measures: Call light Within Reach, Bed Alarm Zone 2, Side Rails Side Rails x3, Bed position Low and Locked. Fall Precautions: Yellow Socks Yellow Gown Door Sign Patient Fall Education Report given to OCHOA Nieto.
[2020-02-20] MEDS: dexAMETHasone 10mg/ml Inj IV SCH (09:38)
[2020-02-20] MEDS: Aspirin EC 81mg tab ORAL SCH ×2 (09:38→10:30)
[2020-02-20] MEDS: Metoprolol Tartrate 12.5mg TAB ORAL SCH ×2 (10:31→21:07)
[2020-02-20] MEDS: cefTRIAXone 1 GM in D5W 55 ML IVPB SCH (10:43)
--- NOTE | 2020-02-20 12:20 | Diagnostic Imaging Report ---
Indication: Reason For Exam: COUGH Technique: One view of the chest Comparison: 02/18/2020 Findings: Bilateral infiltrates are unchanged. The heart is enlarged. There is a small left pleural effusion Impression: Small left pleural effusion. Otherwise unchanged over 2 days
--- NOTE | 2020-02-20 12:26 | Diagnostic Imaging Report ---
Indication: Reason For Exam: DVT Technique: Grayscale and duplex images of the bilateral lower extremity veins Comparison: None Findings: Bilaterally, grayscale and duplex images demonstrate no evidence of intraluminal thrombus. Normal phasic Doppler waveforms, demonstrating normal augmentation response and no evidence of valvular insufficiency. Greater saphenous vein(s) and tibial veins are patent. Normal compressibility. Impression: Negative for evidence of lower extremity deep venous thrombosis bilaterally
--- NOTE | 2020-02-20 12:34 | NUR ---
Inventory PlannerAcademic Services Coordinator SI: Respiratory Failure, COVID PNA, Leukocytosis, ARF Temp-98.8, HR 81, RR 26, 141/46 15L, BIPAP 100% 14/5, O2 sat 95% WBC 16.7, K+ 3.4, Troponin 0.316, BUN 49, creatinine 1.4 IS: Lasix IV BID KCL IV Rocephin IV QD Dexamethasone IV QD Apresoline IV Lovenox SQ BID Diltiazem IVP Step Down Status
--- NOTE | 2020-02-20 13:16 | Nephrology Progress Note ---
Assessment/Plan Problem List: (1) JARETH (acute kidney injury) (2) Pneumonia due to COVID-19 virus (3) UTI (urinary tract infection) (4) Sepsis (5) Hypoxia (6) Elevated troponin I level Assessment Acute renal failure Possible underlying chronic kidney disease Hypoxic respiratory failure Sepsis, COVID-19 pneumonia UTI Hypertension, uncontrolled Hyperlipemia Elevated troponin I Electrolyte abnormalities Plan February 19: Serum creatinine lowering. Abnormal electrolyte noted and addressed. Continue pulmonary care. Blood pressure under control. Continue to monitor renal parameters. Medication list reviewed. Slow hydrate, normal saline Watch renal parameters on Lasix Recheck chest x-ray tomorrow Keep the blood pressure in check Avoid nephrotoxic's Monitor electrolytes and urine output Per consultants Per orders Subjective ROS Limited/Unobtainable: Yes Objective Objective Last 24 Hour Vital Signs Date Time Temp Pulse Resp B/P (MAP) Pulse Ox O2 Delivery O2 Flow Rate FiO2 02/20/20 12:00 82 02/20/20 12:00 98.6 86 27 126/42 (70) 93 02/20/20 11:00 82 26 141/46 (77) 94 02/20/20 10:31 81 130/46 02/20/20 10:30 81 130/46 02/20/20 10:00 83 26 124/49 (74) 94 02/20/20 09:00 28 126/53 (77) 95 02/20/20 08:00 Bi-pap 02/20/20 08:00 98.8 81 130/46 (74) 02/20/20 08:00 100 02/20/20 07:34 83 02/20/20 07:00 87 127/52 (77) 02/20/20 06:45 87 121/50 (73) 02/20/20 06:30 84 108/43 (64) 02/20/20 06:15 86 112/40 (64) 02/20/20 06:00 85 111/37 (61) 02/20/20 05:45 79 108/51 (70) 02/20/20 05:30 90 28 129/46 (73) 95 02/20/20 05:15 120 28 129/46 (73) 95 02/20/20 05:00 145 24 120/55 (76) 93 02/20/20 04:45 159 28 121/57 (78) 95 02/20/20 04:30 150 28 112/48 (69) 95 02/20/20 04:15 150 28 117/50 (72) 95 02/20/20 04:00 100 02/20/20 04:00 99.0 140 28 117/54 (75) 93 02/20/20 04:00 150 02/20/20 04:00 Bi-pap 02/20/20 03:02 160 137/75 02/20/20 02:43 137 36 92 100 02/20/20 00:00 Bi-pap 02/20/20 00:00 99.0 62 28 153/64 (93) 94 02/20/20 00:00 89 02/19/20 23:00 61 29 95 100 02/19/20 20:12 97 166/73 02/19/20 20:00 Bi-pap 02/19/20 20:00 98.7 93 20 166/73 (104) 94 02/19/20 20:00 100 02/19/20 20:00 93 02/19/20 19:02 97 31 93 100 02/19/20 17:31 172/90 02/19/20 17:31 90 172/90 02/19/20 16:00 100 02/19/20 16:00 90 02/19/20 16:00 98.0 90 23 172/90 (117) 96 02/19/20 16:00 Bi-pap 02/19/20 15:25 96 27 94 100 Intake and Output 02/19/20 02/20/20 19:00 07:00 Intake Total 630 ml 405.0 ml Output Total 700 ml 1500 ml Balance -70 ml -1095.0 ml Intake IV Total 630 ml 405.0 ml Output Urine Total 700 ml 1500 ml Current Medications Medications (Trade) Dose Ordered Sig/Eze Route PRN Reason Start Time Stop Time Status Last Admin Dose Admin Acetaminophen (Tylenol) 500 mg Q6H PRN ORAL Mild Pain (Pain Scale 1-3) 02/19/20 00:00 03/20/20 00:00 Amlodipine Besylate (Norvasc) 5 mg BID ORAL 02/19/20 09:00 03/20/20 08:59 02/20/20 10:30 Aspirin (Ecotrin) 81 mg DAILY ORAL 02/20/20 09:00 04/05/20 08:59 02/20/20 10:30 Atorvastatin Calcium (Lipitor) 10 mg BEDTIME ORAL 02/19/20 21:00 05/19/20 20:59 02/19/20 20:11 Ceftriaxone Sodium 1 gm/ Dextrose 55 ml @ 110 mls/hr Q24H IVPB 02/19/20 11:00 02/26/20 10:59 02/20/20 10:43 Chlorhexidine Gluconate (Carole-Hex 2%) 1 applic DAILY@2000 TOPIC 02/19/20 20:00 05/19/20 19:59 02/19/20 20:11 Clonidine HCl (Catapres Tab) 0.1 mg Q4H PRN ORAL BP over 166 systolic 02/19/20 15:45 05/19/20 15:44 Dexamethasone Sodium Phosphate (Decadron 10mg/ ml Inj) 6 mg DAILY IV 02/19/20 10:15 02/28/20 09:01 02/20/20 09:38 Diltiazem HCl 125 ml @ 0 mls/hr Q24H IVPB 02/20/20 02:45 02/21/20 02:44 02/20/20 04:00 Furosemide (Lasix) 40 mg EVERY 12 HOURS IV 02/19/20 21:00 03/20/20 20:59 02/19/20 20:12 Hydralazine HCl (Apresoline) 10 mg Q2H PRN IV For High Blood Pressure 02/19/20 00:30 05/19/20 00:29 02/19/20 17:31 Metoprolol Tartrate (Lopressor) 12.5 mg Q12HR ORAL 02/19/20 21:00 05/19/20 20:59 02/20/20 10:31 Potassium Chloride 100 ml @ 100 mls/hr Q1H IVPB 02/20/20 10:30 02/20/20 14:29 02/20/20 12:16 Sodium Chloride 1,000 ml @ 50 mls/hr Q20H IV 02/18/20 21:30 03/19/20 21:29 02/19/20 17:30 Laboratory Tests 02/19/20 18:00: Troponin I 0.342H 02/20/20 03:00: Troponin I 0.316H, Sodium Level 145, Potassium Level 3.0L, Chloride Level 105, Carbon Dioxide Level 28, Anion Gap 12, Blood Urea Nitrogen 49H, Creatinine 1.4H, Estimat Glomerular Filtration Rate 36.2, Glucose Level 129H, Hemoglobin A1c 6.0, Uric Acid 9.7H, Calcium Level 8.5, Phosphorus Level 3.1, Magnesium Level 2.4, Total Bilirubin 0.6, Aspartate Amino Transf (AST/SGOT) 54H, Alanine Aminotransferase (ALT/SGPT) 42, Alkaline Phosphatase 85, Pro-B-Type Natriuretic Peptide 6344H, Total Protein 7.8, Albumin 2.2L, Globulin 5.6, Albumin/Globulin Ratio 0.4L Height (Feet): 5 Weight (Pounds): 160 General Appearance: mild distress EENT: other - On BiPAP Cardiovascular: normal rate Respiratory/Chest: decreased breath sounds Abdomen: distended Reji Byrne MD Feb 20, 2020 13:16
--- NOTE | 2020-02-20 13:30 | NUR ---
DR SANDERS CAME TO SEE THE PT AND ORDER TO STOOP CARDIZEN DRIP AND STARTED ON CARDIZEN 60MG P.O QID. ALL NEW ORDERS NOTED AND CARRIED OUT. PT CONT ON ICU STATUS . WILL CONT TO MONITOR.
--- NOTE | 2020-02-20 13:33 | NUR ---
RADIOLOGY DEPT., CHEST X-RAY DONE.-P.DYE
--- NOTE | 2020-02-20 13:40 | Infectious Diseases Prog Note ---
Assessment/Plan Assessment/Plan IMPRESSION: 1. Sepsis. 2. COVID-19 pneumonia. 3. Acute renal failure.improving 4. Hypoxemic respiratory failure. 5. Pyuria, bacteriuria, may have UTI. 6. Lactic acidosis. 7. Hypertension. 8. Hyperlipidemia. RECOMMENDATION: We will continue with ceftriaxone and dexamethasone. Subjective ROS Limited/Unobtainable: Yes Constitutional: Denies: fever Allergies: Coded Allergies: No Known Allergies (Unverified , 02/18/20) Objective Last 24 Hour Vital Signs Date Time Temp Pulse Resp B/P (MAP) Pulse Ox O2 Delivery O2 Flow Rate FiO2 02/20/20 12:00 Bi-pap 02/20/20 12:00 82 02/20/20 12:00 98.6 86 27 126/42 (70) 93 02/20/20 12:00 100 02/20/20 11:00 82 26 141/46 (77) 94 02/20/20 10:31 81 130/46 02/20/20 10:30 81 130/46 02/20/20 10:00 83 26 124/49 (74) 94 02/20/20 09:00 28 126/53 (77) 95 02/20/20 08:00 Bi-pap 02/20/20 08:00 98.8 81 130/46 (74) 02/20/20 08:00 100 02/20/20 07:34 83 02/20/20 07:00 87 127/52 (77) 02/20/20 06:45 87 121/50 (73) 02/20/20 06:30 84 108/43 (64) 02/20/20 06:15 86 112/40 (64) 02/20/20 06:00 85 111/37 (61) 02/20/20 05:45 79 108/51 (70) 02/20/20 05:30 90 28 129/46 (73) 95 02/20/20 05:15 120 28 129/46 (73) 95 02/20/20 05:00 145 24 120/55 (76) 93 02/20/20 04:45 159 28 121/57 (78) 95 02/20/20 04:30 150 28 112/48 (69) 95 02/20/20 04:15 150 28 117/50 (72) 95 02/20/20 04:00 100 02/20/20 04:00 99.0 140 28 117/54 (75) 93 02/20/20 04:00 150 02/20/20 04:00 Bi-pap 02/20/20 03:02 160 137/75 02/20/20 02:43 137 36 92 100 02/20/20 00:00 Bi-pap 02/20/20 00:00 99.0 62 28 153/64 (93) 94 02/20/20 00:00 89 02/19/20 23:00 61 29 95 100 02/19/20 20:12 97 166/73 02/19/20 20:00 Bi-pap 02/19/20 20:00 98.7 93 20 166/73 (104) 94 02/19/20 20:00 100 02/19/20 20:00 93 02/19/20 19:02 97 31 93 100 02/19/20 17:31 172/90 02/19/20 17:31 90 172/90 02/19/20 16:00 100 02/19/20 16:00 90 02/19/20 16:00 98.0 90 23 172/90 (117) 96 02/19/20 16:00 Bi-pap 02/19/20 15:25 96 27 94 100 Height (Feet): 5 Weight (Pounds): 160 HEENT: mucous membranes moist Respiratory/Chest: decreased breath sounds, other - on BIPAP Cardiovascular: normal rate Abdomen: soft, non tender Neurologic/Psychiatric: alert, responsive Microbiology Date/Time Source Procedure Growth Status 02/18/20 17:30 Nasopharynx SARS-CoV-2 RdRp Gene Assay - Final Complete Laboratory Tests Test 02/19/20 18:00 02/20/20 03:00 Troponin I 0.342 ng/mL (0.000-0.056) 0.316 ng/mL (0.000-0.056) Sodium Level 145 MMOL/L (136-145) Potassium Level 3.0 MMOL/L (3.5-5.1) L Chloride Level 105 MMOL/L (98-107) Carbon Dioxide Level 28 MMOL/L (21-32) Anion Gap 12 mmol/L (5-15) Blood Urea Nitrogen 49 mg/dL (7-18) H Creatinine 1.4 MG/DL (0.55-1.30) H Estimat Glomerular Filtration Rate 36.2 mL/min (>60) Glucose Level 129 MG/DL (74-106) H Hemoglobin A1c 6.0 % (4.3-6.0) Uric Acid 9.7 MG/DL (2.6-7.2) H Calcium Level 8.5 MG/DL (8.5-10.1) Phosphorus Level 3.1 MG/DL (2.5-4.9) Magnesium Level 2.4 MG/DL (1.8-2.4) Total Bilirubin 0.6 MG/DL (0.2-1.0) Aspartate Amino Transf (AST/SGOT) 54 U/L (15-37) H Alanine Aminotransferase (ALT/SGPT) 42 U/L (12-78) Alkaline Phosphatase 85 U/L (46-116) Pro-B-Type Natriuretic Peptide 6344 pg/mL (0-125) H Total Protein 7.8 G/DL (6.4-8.2) Albumin 2.2 G/DL (3.4-5.0) L Globulin 5.6 g/dL Albumin/Globulin Ratio 0.4 (1.0-2.7) L Current Medications Medications (Trade) Dose Ordered Sig/Eze Route PRN Reason Start Time Stop Time Status Last Admin Dose Admin Acetaminophen (Tylenol) 500 mg Q6H PRN ORAL Mild Pain (Pain Scale 1-3) 02/19/20 00:00 03/20/20 00:00 Amlodipine Besylate (Norvasc) 5 mg BID ORAL 02/19/20 09:00 03/20/20 08:59 02/20/20 10:30 Aspirin (Ecotrin) 81 mg DAILY ORAL 02/20/20 09:00 04/05/20 08:59 02/20/20 10:30 Atorvastatin Calcium (Lipitor) 10 mg BEDTIME ORAL 02/19/20 21:00 05/19/20 20:59 02/19/20 20:11 Ceftriaxone Sodium 1 gm/ Dextrose 55 ml @ 110 mls/hr Q24H IVPB 02/19/20 11:00 02/26/20 10:59 02/20/20 10:43 Chlorhexidine Gluconate (Carole-Hex 2%) 1 applic DAILY@2000 TOPIC 02/19/20 20:00 05/19/20 19:59 02/19/20 20:11 Clonidine HCl (Catapres Tab) 0.1 mg Q4H PRN ORAL BP over 166 systolic 02/19/20 15:45 05/19/20 15:44 Dexamethasone Sodium Phosphate (Decadron 10mg/ ml Inj) 6 mg DAILY IV 02/19/20 10:15 02/28/20 09:01 02/20/20 09:38 Diltiazem HCl 125 ml @ 0 mls/hr Q24H IVPB 02/20/20 02:45 02/21/20 02:44 02/20/20 04:00 Furosemide (Lasix) 40 mg EVERY 12 HOURS IV 02/19/20 21:00 03/20/20 20:59 02/19/20 20:12 Hydralazine HCl (Apresoline) 10 mg Q2H PRN IV For High Blood Pressure 02/19/20 00:30 05/19/20 00:29 02/19/20 17:31 Metoprolol Tartrate (Lopressor) 12.5 mg Q12HR ORAL 02/19/20 21:00 05/19/20 20:59 02/20/20 10:31 Potassium Chloride 100 ml @ 100 mls/hr Q1H IVPB 02/20/20 10:30 02/20/20 14:29 02/20/20 12:16 Sodium Chloride 1,000 ml @ 50 mls/hr Q20H IV 02/18/20 21:30 03/19/20 21:29 02/19/20 17:30 Genaro Sun MD Feb 20, 2020 13:40
--- NOTE | 2020-02-20 14:37 | Pulmonology Progress Note ---
Subjective ROS Limited/Unobtainable: Yes Interval Events: None new Constitutional: Reports: no symptoms HEENT: Repors: no symptoms Respiratory: Reports: no symptoms Cardiovascular: Reports: no symptoms Gastrointestinal/Abdominal: Reports: no symptoms Genitourinary: Reports: no symptoms Allergies: Coded Allergies: No Known Allergies (Unverified , 02/18/20) Objective Last 24 Hour Vital Signs Date Time Temp Pulse Resp B/P (MAP) Pulse Ox O2 Delivery O2 Flow Rate FiO2 02/20/20 14:00 83 25 122/53 (76) 95 02/20/20 13:00 85 26 123/47 (72) 94 02/20/20 12:00 Bi-pap 02/20/20 12:00 82 02/20/20 12:00 98.6 86 27 126/42 (70) 93 02/20/20 12:00 100 02/20/20 11:00 82 26 141/46 (77) 94 02/20/20 10:31 81 130/46 02/20/20 10:30 81 130/46 02/20/20 10:00 83 26 124/49 (74) 94 02/20/20 09:00 28 126/53 (77) 95 02/20/20 08:00 Bi-pap 02/20/20 08:00 98.8 81 130/46 (74) 02/20/20 08:00 100 02/20/20 07:34 83 02/20/20 07:09 84 26 95 100 02/20/20 07:00 87 127/52 (77) 02/20/20 06:45 87 121/50 (73) 02/20/20 06:30 84 108/43 (64) 02/20/20 06:15 86 112/40 (64) 02/20/20 06:00 85 111/37 (61) 02/20/20 05:45 79 108/51 (70) 02/20/20 05:30 90 28 129/46 (73) 95 02/20/20 05:15 120 28 129/46 (73) 95 02/20/20 05:00 145 24 120/55 (76) 93 02/20/20 04:45 159 28 121/57 (78) 95 02/20/20 04:30 150 28 112/48 (69) 95 02/20/20 04:15 150 28 117/50 (72) 95 02/20/20 04:00 100 02/20/20 04:00 99.0 140 28 117/54 (75) 93 02/20/20 04:00 150 02/20/20 04:00 Bi-pap 02/20/20 03:02 160 137/75 02/20/20 02:43 137 36 92 100 02/20/20 00:00 Bi-pap 02/20/20 00:00 99.0 62 28 153/64 (93) 94 02/20/20 00:00 89 02/19/20 23:00 61 29 95 100 02/19/20 20:12 97 166/73 02/19/20 20:00 Bi-pap 02/19/20 20:00 98.7 93 20 166/73 (104) 94 02/19/20 20:00 100 02/19/20 20:00 93 02/19/20 19:02 97 31 93 100 02/19/20 17:31 172/90 02/19/20 17:31 90 172/90 02/19/20 16:00 100 02/19/20 16:00 90 02/19/20 16:00 98.0 90 23 172/90 (117) 96 02/19/20 16:00 Bi-pap 02/19/20 15:25 96 27 94 100 Intake and Output 02/19/20 02/20/20 19:00 07:00 Intake Total 630 ml 405.0 ml Output Total 700 ml 1500 ml Balance -70 ml -1095.0 ml Intake IV Total 630 ml 405.0 ml Output Urine Total 700 ml 1500 ml General Appearance: no acute distress HEENT: normocephalic Respiratory: chest wall non-tender, lungs clear Cardiovascular: normal peripheral pulses Abdomen: normal bowel sounds Microbiology Date/Time Source Procedure Growth Status 02/18/20 17:30 Nasopharynx SARS-CoV-2 RdRp Gene Assay - Final Complete Laboratory Tests 02/19/20 18:00: Troponin I 0.342H 02/20/20 03:00: Troponin I 0.316H, Sodium Level 145, Potassium Level 3.0L, Chloride Level 105, Carbon Dioxide Level 28, Anion Gap 12, Blood Urea Nitrogen 49H, Creatinine 1.4H, Estimat Glomerular Filtration Rate 36.2, Glucose Level 129H, Hemoglobin A1c 6.0, Uric Acid 9.7H, Calcium Level 8.5, Phosphorus Level 3.1, Magnesium Level 2.4, Total Bilirubin 0.6, Aspartate Amino Transf (AST/SGOT) 54H, Alanine Aminotransferase (ALT/SGPT) 42, Alkaline Phosphatase 85, Pro-B-Type Natriuretic Peptide 6344H, Total Protein 7.8, Albumin 2.2L, Globulin 5.6, Albumin/Globulin Ratio 0.4L Current Medications Medications (Trade) Dose Ordered Sig/Eze Route PRN Reason Start Time Stop Time Status Last Admin Dose Admin Acetaminophen (Tylenol) 500 mg Q6H PRN ORAL Mild Pain (Pain Scale 1-3) 02/19/20 00:00 03/20/20 00:00 Amlodipine Besylate (Norvasc) 5 mg BID ORAL 02/19/20 09:00 03/20/20 08:59 02/20/20 10:30 Aspirin (Ecotrin) 81 mg DAILY ORAL 02/20/20 09:00 04/05/20 08:59 02/20/20 10:30 Atorvastatin Calcium (Lipitor) 10 mg BEDTIME ORAL 02/19/20 21:00 05/19/20 20:59 02/19/20 20:11 Ceftriaxone Sodium 1 gm/ Dextrose 55 ml @ 110 mls/hr Q24H IVPB 02/19/20 11:00 02/26/20 10:59 02/20/20 10:43 Chlorhexidine Gluconate (Carole-Hex 2%) 1 applic DAILY@2000 TOPIC 02/19/20 20:00 05/19/20 19:59 02/19/20 20:11 Clonidine HCl (Catapres Tab) 0.1 mg Q4H PRN ORAL BP over 166 systolic 02/19/20 15:45 05/19/20 15:44 Dexamethasone Sodium Phosphate (Decadron 10mg/ ml Inj) 6 mg DAILY IV 02/19/20 10:15 02/28/20 09:01 02/20/20 09:38 Diltiazem HCl 125 ml @ 0 mls/hr Q24H IVPB 02/20/20 02:45 02/21/20 02:44 02/20/20 04:00 Furosemide (Lasix) 40 mg EVERY 12 HOURS IV 02/19/20 21:00 03/20/20 20:59 02/20/20 14:06 Hydralazine HCl (Apresoline) 10 mg Q2H PRN IV For High Blood Pressure 02/19/20 00:30 05/19/20 00:29 02/19/20 17:31 Metoprolol Tartrate (Lopressor) 12.5 mg Q12HR ORAL 02/19/20 21:00 05/19/20 20:59 02/20/20 10:31 Sodium Chloride 1,000 ml @ 50 mls/hr Q20H IV 02/18/20 21:30 03/19/20 21:29 02/20/20 13:30 Assessment/Plan Assessment/Plan IMPRESSION: 1. COVID-19 pneumonia. 2. Respiratory failure, on BiPAP. 3. Renal failure.Improved 4. Troponin leak. DISCUSSION: Continue Decadron. Start Lovenox, creatinine now 1.4I Defer Remdesivir use to ID Continue BiPAP. FiO2 100% Jorge Pollock Omar Syed MD Feb 20, 2020 14:37
--- NOTE | 2020-02-20 15:56 | Cardiology Report ---
APPROVED REPORT EKG Measurement Heart [id number] <Conclusion> Atrial fibrillation with rapid ventricular response Left axis deviation Voltage criteria for left ventricular hypertrophy Marked ST abnormality, possible lateral subendocardial injury Abnormal ECG
--- NOTE | 2020-02-20 16:03 | Cardiac Electrophysiology PN ---
Assessment/Plan Assessment/Plan 1. Congestive heart failure with BNP of more than 15,000. EF 60% on Lasix 40 mg IV b.i.d. 2. Elevated troponin could be due to renal failure The patient does not have any chest pain and echocardiogram Nl EF 3. Atrial fib with RVR. DC Cardizem drip. Start Cardizem 60Q6hr. 4. Accelerated hypertension DC amlodipine Continue Lasix and Cardizem 5. Respiratory failure due to COVID. The patient is on BiPAP as well as dexamethasone. Subjective Subjective Transferred to ICU on Cardizem drip for atrial fib with RVR Objective Last 24 Hour Vital Signs Date Time Temp Pulse Resp B/P (MAP) Pulse Ox O2 Delivery O2 Flow Rate FiO2 02/20/20 15:00 75 24 118/52 (74) 92 02/20/20 14:00 83 25 122/53 (76) 95 02/20/20 13:00 85 26 123/47 (72) 94 02/20/20 12:00 Bi-pap 02/20/20 12:00 82 02/20/20 12:00 98.6 86 27 126/42 (70) 93 02/20/20 12:00 100 02/20/20 11:00 82 26 141/46 (77) 94 02/20/20 10:31 81 130/46 02/20/20 10:30 81 130/46 02/20/20 10:00 83 26 124/49 (74) 94 02/20/20 09:00 28 126/53 (77) 95 02/20/20 08:00 Bi-pap 02/20/20 08:00 98.8 81 130/46 (74) 02/20/20 08:00 100 02/20/20 07:34 83 02/20/20 07:09 84 26 95 100 02/20/20 07:00 87 127/52 (77) 02/20/20 06:45 87 121/50 (73) 02/20/20 06:30 84 108/43 (64) 02/20/20 06:15 86 112/40 (64) 02/20/20 06:00 85 111/37 (61) 02/20/20 05:45 79 108/51 (70) 02/20/20 05:30 90 28 129/46 (73) 95 02/20/20 05:15 120 28 129/46 (73) 95 02/20/20 05:00 145 24 120/55 (76) 93 02/20/20 04:45 159 28 121/57 (78) 95 02/20/20 04:30 150 28 112/48 (69) 95 02/20/20 04:15 150 28 117/50 (72) 95 02/20/20 04:00 100 02/20/20 04:00 99.0 140 28 117/54 (75) 93 02/20/20 04:00 150 02/20/20 04:00 Bi-pap 02/20/20 03:02 160 137/75 02/20/20 02:43 137 36 92 100 02/20/20 00:00 Bi-pap 02/20/20 00:00 99.0 62 28 153/64 (93) 94 02/20/20 00:00 89 02/19/20 23:00 61 29 95 100 02/19/20 20:12 97 166/73 02/19/20 20:00 Bi-pap 02/19/20 20:00 98.7 93 20 166/73 (104) 94 02/19/20 20:00 100 02/19/20 20:00 93 02/19/20 19:02 97 31 93 100 02/19/20 17:31 172/90 02/19/20 17:31 90 172/90 Intake and Output 02/19/20 02/20/20 19:00 07:00 Intake Total 630 ml 405.0 ml Output Total 700 ml 1500 ml Balance -70 ml -1095.0 ml Intake IV Total 630 ml 405.0 ml Output Urine Total 700 ml 1500 ml Laboratory Tests Test 02/19/20 18:00 02/20/20 03:00 Troponin I 0.342 ng/mL (0.000-0.056) 0.316 ng/mL (0.000-0.056) Sodium Level 145 MMOL/L (136-145) Potassium Level 3.0 MMOL/L (3.5-5.1) L Chloride Level 105 MMOL/L (98-107) Carbon Dioxide Level 28 MMOL/L (21-32) Anion Gap 12 mmol/L (5-15) Blood Urea Nitrogen 49 mg/dL (7-18) H Creatinine 1.4 MG/DL (0.55-1.30) H Estimat Glomerular Filtration Rate 36.2 mL/min (>60) Glucose Level 129 MG/DL (74-106) H Hemoglobin A1c 6.0 % (4.3-6.0) Uric Acid 9.7 MG/DL (2.6-7.2) H Calcium Level 8.5 MG/DL (8.5-10.1) Phosphorus Level 3.1 MG/DL (2.5-4.9) Magnesium Level 2.4 MG/DL (1.8-2.4) Total Bilirubin 0.6 MG/DL (0.2-1.0) Aspartate Amino Transf (AST/SGOT) 54 U/L (15-37) H Alanine Aminotransferase (ALT/SGPT) 42 U/L (12-78) Alkaline Phosphatase 85 U/L (46-116) Pro-B-Type Natriuretic Peptide 6344 pg/mL (0-125) H Total Protein 7.8 G/DL (6.4-8.2) Albumin 2.2 G/DL (3.4-5.0) L Globulin 5.6 g/dL Albumin/Globulin Ratio 0.4 (1.0-2.7) L Microbiology Date/Time Source Procedure Growth Status 02/18/20 17:30 Nasopharynx SARS-CoV-2 RdRp Gene Assay - Final Complete Objective HEAD AND SHOWED: No JVD. LUNGS: Decreased breath sounds. CARDIOVASCULAR: Regular S1 and S2 with no gallop. ABDOMEN: Soft. EXTREMITIES: No pitting edema. Adonay Guerra MD Feb 20, 2020 16:03
[2020-02-20] MEDS ORDERED: SIMVASTATIN10 MG ORAL (16:54)
[2020-02-20] MEDS ORDERED: METOPROLOL SUCC50 MG ORAL (16:54)
[2020-02-20] MEDS: dilTIAZem HCl 60mg tab ORAL SCH (17:41)
--- NOTE | 2020-02-20 19:15 | NUR ---
NURSE NOTES: Report received from OCHOA Cardozo. Upon assessment pt is awake, alert, [place] speaking. PERRLA. Able to make needs known. 5-lead EKG shows SR at 87 BPM. BP elevated at 163/59. Afebrile. Saturating 99% on BiPAP with settings of 14/5 100% fiO2. RLQ sounds auscultated. Left hand gauge #22 patent and intact; Lef AC gauge #20 patent and intact running NS at 50 mL/hr. Pt is NPO. Continues to ask for water. No distress noted. Bed kept in lowest and locked position. Call light within reach. Side rails up x3. Will monitor.
--- NOTE | 2020-02-20 21:25 | General Progress Note ---
Subjective ROS Limited/Unobtainable: Yes Allergies: Coded Allergies: No Known Allergies (Unverified , 02/18/20) Objective Last 24 Hour Vital Signs Date Time Temp Pulse Resp B/P (MAP) Pulse Ox O2 Delivery O2 Flow Rate FiO2 02/20/20 21:07 80 167/59 02/20/20 19:30 88 23 92 100 02/20/20 18:00 100 02/20/20 18:00 85 26 111/35 (60) 94 02/20/20 17:41 89 127/47 02/20/20 17:00 89 26 127/47 (73) 94 02/20/20 16:00 Bi-pap 02/20/20 16:00 97.9 83 28 123/48 (73) 92 02/20/20 16:00 82 02/20/20 15:20 84 16 100 100 02/20/20 15:00 75 24 118/52 (74) 92 02/20/20 14:00 83 25 122/53 (76) 95 02/20/20 13:00 85 26 123/47 (72) 94 02/20/20 12:00 Bi-pap 02/20/20 12:00 82 02/20/20 12:00 98.6 86 27 126/42 (70) 93 02/20/20 12:00 100 02/20/20 11:00 82 26 141/46 (77) 94 02/20/20 10:35 84 29 92 90 02/20/20 10:31 81 130/46 02/20/20 10:30 81 130/46 02/20/20 10:00 83 26 124/49 (74) 94 02/20/20 09:00 28 126/53 (77) 95 02/20/20 08:00 Bi-pap 02/20/20 08:00 98.8 81 130/46 (74) 02/20/20 08:00 100 02/20/20 07:34 83 02/20/20 07:09 84 26 95 100 02/20/20 07:00 87 127/52 (77) 02/20/20 06:45 87 121/50 (73) 02/20/20 06:30 84 108/43 (64) 02/20/20 06:15 86 112/40 (64) 02/20/20 06:00 85 111/37 (61) 02/20/20 05:45 79 108/51 (70) 02/20/20 05:30 90 28 129/46 (73) 95 02/20/20 05:15 120 28 129/46 (73) 95 02/20/20 05:00 145 24 120/55 (76) 93 02/20/20 04:45 159 28 121/57 (78) 95 02/20/20 04:30 150 28 112/48 (69) 95 02/20/20 04:15 150 28 117/50 (72) 95 02/20/20 04:00 100 02/20/20 04:00 99.0 140 28 117/54 (75) 93 02/20/20 04:00 150 02/20/20 04:00 Bi-pap 02/20/20 03:02 160 137/75 02/20/20 02:43 137 36 92 100 02/20/20 00:00 Bi-pap 02/20/20 00:00 99.0 62 28 153/64 (93) 94 02/20/20 00:00 89 02/19/20 23:00 61 29 95 100 Intake and Output 02/19/20 02/20/20 19:00 07:00 Intake Total 630 ml 405.0 ml Output Total 700 ml 1500 ml Balance -70 ml -1095.0 ml IV Total 630 ml 405.0 ml Output Urine Total 700 ml 1500 ml Laboratory Tests 02/20/20 03:00: Sodium Level 145, Potassium Level 3.0L, Chloride Level 105, Carbon Dioxide Level 28, Anion Gap 12, Blood Urea Nitrogen 49H, Creatinine 1.4H, Estimat Glomerular Filtration Rate 36.2, Glucose Level 129H, Hemoglobin A1c 6.0, Uric Acid 9.7H, Calcium Level 8.5, Phosphorus Level 3.1, Magnesium Level 2.4, Total Bilirubin 0.6, Aspartate Amino Transf (AST/SGOT) 54H, Alanine Aminotransferase (ALT/SGPT) 42, Alkaline Phosphatase 85, Troponin I 0.316H, Pro-B-Type Natriuretic Peptide 6344H, Total Protein 7.8, Albumin 2.2L, Globulin 5.6, Albumin/Globulin Ratio 0.4L Height (Feet): 5 Weight (Pounds): 160 Assessment/Plan Problem List: (1) UTI (urinary tract infection) ICD Codes: N39.0 - Urinary tract infection, site not specified SNOMED: 75804634 (2) Hypoxia ICD Codes: R09.02 - Hypoxemia; J12.82 - Pneumonia due to coronavirus disease 2019 SNOMED: 752755469 (3) Sepsis ICD Codes: A41.9 - Sepsis, unspecified organism SNOMED: 07044726 (4) JARETH (acute kidney injury) ICD Codes: N17.9 - Acute kidney failure, unspecified SNOMED: 50565852, 7386228 (5) Pneumonia due to COVID-19 virus ICD Codes: U07.1 - COVID-19; J12.82 - Pneumonia due to coronavirus disease 2019 SNOMED: 523266534812024429 Status: progressing Assessment/Plan: afebrile s/p hypoxic covid + resp insuff sepsis pna abx per id Gerson Evans MD Feb 20, 2020 21:25
[2020-02-20] MEDS: Dyna-Hex 2% Top Sol 2oz TOPIC SCH (22:39)
[2020-02-21] VITALS (7 sets, daily range): BP systolic 130–177; BP diastolic 64–97
[2020-02-21] MEDS: Acetaminophen 500mg (ES) tab ORAL PRN (00:35)
[2020-02-21] MEDS: dilTIAZem HCl 60mg tab ORAL SCH ×4 (00:36→17:55)
--- NOTE | 2020-02-21 01:12 | NUR ---
NURSE NOTES: Pt c/o generalized pain throughout body. Repositioned as needed and gave tylenol PRN. Currently observed sleeping. Will monitor.
--- NOTE | 2020-02-21 03:10 | NUR ---
NURSE NOTES: BP 176/63. HR 78 bpm. Hydralazine PRN given. Will monitor.
--- NOTE | 2020-02-21 07:00 | NUR ---
NURSE HAND-OFF REPORT: Important Events on Shift: Hypertensive episode of SBP 176 Patient Status: Stable Diet: NPO for BiPAP Pending Orders: N Pending Results/Labs: Pending MD notification: Latest Vital Signs: Temperature 97.9 , Pulse 88 , B/P 112 /94 , Respiratory Rate 22 , O2 SAT 94 , Bi-pap, O2 Flow Rate 15.0 . Vital Sign Comment: WNL EKG Rhythm: Sinus Rhythm Rhythm change?: N MD Notified?: - MD Response: Latest Navarro Fall Score: 30 Fall Risk: Medium Risk Safety Measures: Call light Within Reach, Bed Alarm Zone 1, Side Rails Side Rails x3, Bed position Low and Locked. Fall Precautions: Yellow Socks Yellow Gown Door Sign Patient Fall Education Report given to OCHOA Hernandez.
--- NOTE | 2020-02-21 07:15 | NUR ---
NURSE NOTES: RECEIVED REPORT FROM [employer] [facility]. RECEIVED PT ON DROPLET PRECAUTION ISOLATION ROOM . PT IS COVID -19 POSITIVE. RECEIVED PT WITH HOB ELEVATED 45 DEGREE ,USING BIPAP 14/5 , FIO2 100%,o2 sat 95% ,noted at this time. PTN REPOSITIONED IN BED MADE COMFORTABLE POSSIBLE. F/C DRAINING WELL YELLOW URINE COLOR . H.L ON LT AC G# 20 PATENT RECEIVING NS @ 50cc/hrs INFUSING WELL. FULL BODY ASSESSMENT DONE. WILL CONT TRO MONITOR.
[2020-02-21] MEDS ORDERED: Enoxaparin 40mg Inj SUBQ SCH (09:00)
--- NOTE | 2020-02-21 09:12 | Infectious Diseases Prog Note ---
Assessment/Plan Assessment/Plan IMPRESSION: 1. Sepsis. 2. COVID-19 pneumonia. 3. Acute renal failure.improving 4. Hypoxemic respiratory failure. 5. Pyuria, bacteriuria, may have UTI. 6. Lactic acidosis. 7. Hypertension. 8. Hyperlipidemia. RECOMMENDATION: We will continue with ceftriaxone and dexamethasone. f/u CBC & BMP Subjective ROS Limited/Unobtainable: Yes Constitutional: Denies: fever Respiratory: Reports: shortness of breath Allergies: Coded Allergies: No Known Allergies (Unverified , 02/18/20) Objective Last 24 Hour Vital Signs Date Time Temp Pulse Resp B/P (MAP) Pulse Ox O2 Delivery O2 Flow Rate FiO2 02/21/20 07:30 80 18 99 100 02/21/20 06:11 88 112/94 02/21/20 04:00 80 02/21/20 04:00 Bi-pap 02/21/20 04:00 97.9 77 22 130/64 (86) 94 02/21/20 04:00 100 02/21/20 03:00 100 176/73 (107) 02/21/20 03:00 176/73 02/21/20 01:24 79 28 92 100 02/21/20 01:05 97.2 02/21/20 00:36 82 152/81 02/21/20 00:00 Bi-pap 02/21/20 00:00 97.2 80 18 152/81 (104) 96 02/21/20 00:00 76 02/20/20 21:07 80 167/59 02/20/20 20:00 100 02/20/20 20:00 Bi-pap 02/20/20 20:00 97.2 88 24 167/59 (95) 92 02/20/20 19:30 88 23 92 100 02/20/20 19:06 87 02/20/20 18:00 100 02/20/20 18:00 85 26 111/35 (60) 94 02/20/20 17:41 89 127/47 02/20/20 17:00 89 26 127/47 (73) 94 02/20/20 16:00 Bi-pap 02/20/20 16:00 97.9 83 28 123/48 (73) 92 02/20/20 16:00 82 02/20/20 15:20 84 16 100 100 02/20/20 15:00 75 24 118/52 (74) 92 02/20/20 14:00 83 25 122/53 (76) 95 02/20/20 13:00 85 26 123/47 (72) 94 02/20/20 12:00 Bi-pap 02/20/20 12:00 82 02/20/20 12:00 98.6 86 27 126/42 (70) 93 02/20/20 12:00 100 02/20/20 11:00 82 26 141/46 (77) 94 02/20/20 10:35 84 29 92 90 02/20/20 10:31 81 130/46 02/20/20 10:30 81 130/46 02/20/20 10:00 83 26 124/49 (74) 94 Height (Feet): 5 Weight (Pounds): 160 HEENT: mucous membranes moist Respiratory/Chest: lungs clear, other - on BIPAP Cardiovascular: normal rate Abdomen: soft, non tender Extremities: no edema Neurologic/Psychiatric: alert, responsive Microbiology Date/Time Source Procedure Growth Status 02/18/20 18:18 Urine,Clean Catch Urine Culture - Preliminary Gram Negative Moody Resulted 02/18/20 17:30 Nasopharynx SARS-CoV-2 RdRp Gene Assay - Final Complete Current Medications Medications (Trade) Dose Ordered Sig/Eze Route PRN Reason Start Time Stop Time Status Last Admin Dose Admin Acetaminophen (Tylenol) 500 mg Q6H PRN ORAL Mild Pain (Pain Scale 1-3) 02/19/20 00:00 03/20/20 00:00 02/21/20 00:35 Aspirin (Ecotrin) 81 mg DAILY ORAL 02/20/20 09:00 04/05/20 08:59 02/20/20 10:30 Atorvastatin Calcium (Lipitor) 10 mg BEDTIME ORAL 02/19/20 21:00 05/19/20 20:59 02/20/20 21:07 Ceftriaxone Sodium 1 gm/ Dextrose 55 ml @ 110 mls/hr Q24H IVPB 02/19/20 11:00 02/26/20 10:59 02/20/20 10:43 Chlorhexidine Gluconate (Carole-Hex 2%) 1 applic DAILY@2000 TOPIC 02/19/20 20:00 05/19/20 19:59 02/20/20 22:39 Clonidine HCl (Catapres Tab) 0.1 mg Q4H PRN ORAL BP over 166 systolic 02/19/20 15:45 05/19/20 15:44 Dexamethasone Sodium Phosphate (Decadron 10mg/ ml Inj) 6 mg DAILY IV 02/19/20 10:15 02/28/20 09:01 02/20/20 09:38 Diltiazem HCl (Cardizem Tab) 60 mg EVERY 6 HOURS ORAL 02/20/20 18:00 03/21/20 17:59 02/21/20 06:11 Enoxaparin Sodium (Lovenox) 40 mg DAILY SUBQ 02/21/20 09:00 05/21/20 08:59 Furosemide (Lasix) 40 mg EVERY 12 HOURS IV 02/19/20 21:00 03/20/20 20:59 02/20/20 21:10 Hydralazine HCl (Apresoline) 10 mg Q2H PRN IV For High Blood Pressure 02/19/20 00:30 05/19/20 00:29 02/21/20 03:00 Metoprolol Tartrate (Lopressor) 12.5 mg Q12HR ORAL 02/19/20 21:00 05/19/20 20:59 02/20/20 21:07 Sodium Chloride 1,000 ml @ 50 mls/hr Q20H IV 02/18/20 21:30 03/19/20 21:29 02/20/20 13:30 Genaro Sun MD Feb 21, 2020 09:12
[2020-02-21] MEDS: Aspirin EC 81mg tab ORAL SCH (09:36)
[2020-02-21] MEDS: Metoprolol Tartrate 12.5mg TAB ORAL SCH ×2 (09:36→20:40)
[2020-02-21] MEDS: dexAMETHasone 10mg/ml Inj IV SCH (09:36)
--- NOTE | 2020-02-21 10:12 | NUR ---
RD ASSESSMENT & RECOMMENDATIONS SEE CARE ACTIVITY FOR COMPLETE ASSESSMENT DAILY ESTIMATED NEEDS: Needs based on Pulmonary, 53kg adj 25-30 kcals/kg 0111-3951 total kcals 1-1.5 g protein/kg 53-80 g total protein 25-30 mL/kg 3995-8261 total fluid mLs NUTRITION DIAGNOSIS: Altered nutrition related lab values r/t clinical status as evidenced by low K(3.0), elev BUN(49), creat(1.4), and elev BNP(6344). CURRENT DIET: NPO PO DIET RECOMMENDATIONS: Advance as able to Low Na diet / texture as tolerated ADDITIONAL RECOMMENDATIONS: 1) Monitor resp status and ability to eat/ feed 2) Maintain daily wts on calibrated bed scale 3) Consider D5 while NPO 4) Replete lytes as needed
--- NOTE | 2020-02-21 10:15 | Pulmonology Progress Note ---
Subjective ROS Limited/Unobtainable: Yes Interval Events: Remains on BiPAP Constitutional: Reports: no symptoms HEENT: Repors: no symptoms Respiratory: Reports: no symptoms Cardiovascular: Reports: no symptoms Gastrointestinal/Abdominal: Reports: no symptoms Genitourinary: Reports: no symptoms Allergies: Coded Allergies: No Known Allergies (Unverified , 02/18/20) Objective Last 24 Hour Vital Signs Date Time Temp Pulse Resp B/P (MAP) Pulse Ox O2 Delivery O2 Flow Rate FiO2 02/21/20 09:36 85 155/73 02/21/20 08:00 98.0 85 22 155/73 (100) 96 02/21/20 07:30 80 18 99 100 02/21/20 06:11 88 112/94 02/21/20 04:00 80 02/21/20 04:00 Bi-pap 02/21/20 04:00 97.9 77 22 130/64 (86) 94 02/21/20 04:00 100 02/21/20 03:00 100 176/73 (107) 02/21/20 03:00 176/73 02/21/20 01:24 79 28 92 100 02/21/20 01:05 97.2 02/21/20 00:36 82 152/81 02/21/20 00:00 Bi-pap 02/21/20 00:00 97.2 80 18 152/81 (104) 96 02/21/20 00:00 76 02/20/20 21:07 80 167/59 02/20/20 20:00 100 02/20/20 20:00 Bi-pap 02/20/20 20:00 97.2 88 24 167/59 (95) 92 02/20/20 19:30 88 23 92 100 02/20/20 19:06 87 02/20/20 18:00 100 02/20/20 18:00 85 26 111/35 (60) 94 02/20/20 17:41 89 127/47 02/20/20 17:00 89 26 127/47 (73) 94 02/20/20 16:00 Bi-pap 02/20/20 16:00 97.9 83 28 123/48 (73) 92 02/20/20 16:00 82 02/20/20 15:20 84 16 100 100 02/20/20 15:00 75 24 118/52 (74) 92 02/20/20 14:00 83 25 122/53 (76) 95 02/20/20 13:00 85 26 123/47 (72) 94 02/20/20 12:00 Bi-pap 02/20/20 12:00 82 02/20/20 12:00 98.6 86 27 126/42 (70) 93 02/20/20 12:00 100 02/20/20 11:00 82 26 141/46 (77) 94 02/20/20 10:35 84 29 92 90 02/20/20 10:31 81 130/46 02/20/20 10:30 81 130/46 Intake and Output 02/20/20 02/21/20 19:00 07:00 Intake Total 820.0 ml 700 ml Output Total 1200 ml 1300 ml Balance -380.0 ml -600 ml Intake Oral 100 ml 100 ml IV Total 720.0 ml 600 ml Output Urine Total 1200 ml 1300 ml General Appearance: no acute distress HEENT: normocephalic Respiratory: chest wall non-tender, lungs clear Cardiovascular: normal peripheral pulses Abdomen: normal bowel sounds Microbiology Date/Time Source Procedure Growth Status 02/18/20 18:18 Urine,Clean Catch Urine Culture - Preliminary Gram Negative Moody Resulted 02/18/20 17:30 Nasopharynx SARS-CoV-2 RdRp Gene Assay - Final Complete Current Medications Medications (Trade) Dose Ordered Sig/Eze Route PRN Reason Start Time Stop Time Status Last Admin Dose Admin Acetaminophen (Tylenol) 500 mg Q6H PRN ORAL Mild Pain (Pain Scale 1-3) 02/19/20 00:00 03/20/20 00:00 02/21/20 00:35 Aspirin (Ecotrin) 81 mg DAILY ORAL 02/20/20 09:00 04/05/20 08:59 02/21/20 09:36 Atorvastatin Calcium (Lipitor) 10 mg BEDTIME ORAL 02/19/20 21:00 05/19/20 20:59 02/20/20 21:07 Ceftriaxone Sodium 1 gm/ Dextrose 55 ml @ 110 mls/hr Q24H IVPB 02/19/20 11:00 02/26/20 10:59 02/20/20 10:43 Chlorhexidine Gluconate (Carole-Hex 2%) 1 applic DAILY@2000 TOPIC 02/19/20 20:00 05/19/20 19:59 02/20/20 22:39 Clonidine HCl (Catapres Tab) 0.1 mg Q4H PRN ORAL BP over 166 systolic 02/19/20 15:45 05/19/20 15:44 Dexamethasone Sodium Phosphate (Decadron 10mg/ ml Inj) 6 mg DAILY IV 02/19/20 10:15 02/28/20 09:01 02/21/20 09:36 Diltiazem HCl (Cardizem Tab) 60 mg EVERY 6 HOURS ORAL 02/20/20 18:00 03/21/20 17:59 02/21/20 06:11 Enoxaparin Sodium (Lovenox) 40 mg DAILY SUBQ 02/21/20 09:00 05/21/20 08:59 02/21/20 09:35 Furosemide (Lasix) 40 mg EVERY 12 HOURS IV 02/19/20 21:00 03/20/20 20:59 02/20/20 21:10 Hydralazine HCl (Apresoline) 10 mg Q2H PRN IV For High Blood Pressure 02/19/20 00:30 05/19/20 00:29 02/21/20 03:00 Metoprolol Tartrate (Lopressor) 12.5 mg Q12HR ORAL 02/19/20 21:00 05/19/20 20:59 02/21/20 09:36 Sodium Chloride 1,000 ml @ 50 mls/hr Q20H IV 02/18/20 21:30 03/19/20 21:29 02/21/20 09:49 Assessment/Plan Assessment/Plan IMPRESSION: 1. COVID-19 pneumonia. 2. Respiratory failure, on BiPAP. 3. Renal failure.Improved 4. Troponin leak. DISCUSSION: Continue Decadron. Start Lovenox, creatinine now 1.4 Defer Remdesivir use to ID Continue BiPAP. Saturating 96%. FiO2 100%. Discussed with RN Jorge Pollock Omar Syed MD Feb 21, 2020 10:14
--- NOTE | 2020-02-21 10:47 | Nephrology Progress Note ---
Assessment/Plan Problem List: (1) JARETH (acute kidney injury) (2) Pneumonia due to COVID-19 virus (3) UTI (urinary tract infection) (4) Sepsis (5) Hypoxia (6) Elevated troponin I level Assessment Acute renal failure Possible underlying chronic kidney disease Hypoxic respiratory failure Sepsis, COVID-19 pneumonia UTI Hypertension, uncontrolled Hyperlipemia Elevated troponin I Electrolyte abnormalities Plan February 20: No CHEM panel drawn today. Previously low potassium replaced. Medication reviewed. Check lab tomorrow. Continue per consultants. February 19: Serum creatinine lowering. Abnormal electrolyte noted and addressed. Continue pulmonary care. Blood pressure under control. Continue to monitor renal parameters. Medication list reviewed. Slow hydrate, normal saline Watch renal parameters on Lasix Recheck chest x-ray tomorrow Keep the blood pressure in check Avoid nephrotoxic's Monitor electrolytes and urine output Per consultants Per orders Subjective ROS Limited/Unobtainable: Yes Objective Objective Last 24 Hour Vital Signs Date Time Temp Pulse Resp B/P (MAP) Pulse Ox O2 Delivery O2 Flow Rate FiO2 02/21/20 09:36 85 155/73 02/21/20 08:00 100 02/21/20 08:00 98.0 85 22 155/73 (100) 96 02/21/20 08:00 88 02/21/20 08:00 Bi-pap 02/21/20 07:30 80 18 99 100 02/21/20 06:11 88 112/94 02/21/20 04:00 80 02/21/20 04:00 Bi-pap 02/21/20 04:00 97.9 77 22 130/64 (86) 94 02/21/20 04:00 100 02/21/20 03:00 100 176/73 (107) 02/21/20 03:00 176/73 02/21/20 01:24 79 28 92 100 02/21/20 01:05 97.2 02/21/20 00:36 82 152/81 02/21/20 00:00 Bi-pap 02/21/20 00:00 97.2 80 18 152/81 (104) 96 02/21/20 00:00 76 02/20/20 21:07 80 167/59 02/20/20 20:00 100 02/20/20 20:00 Bi-pap 02/20/20 20:00 97.2 88 24 167/59 (95) 92 02/20/20 19:30 88 23 92 100 02/20/20 19:06 87 02/20/20 18:00 100 02/20/20 18:00 85 26 111/35 (60) 94 02/20/20 17:41 89 127/47 02/20/20 17:00 89 26 127/47 (73) 94 02/20/20 16:00 Bi-pap 02/20/20 16:00 97.9 83 28 123/48 (73) 92 02/20/20 16:00 82 02/20/20 15:20 84 16 100 100 02/20/20 15:00 75 24 118/52 (74) 92 02/20/20 14:00 83 25 122/53 (76) 95 02/20/20 13:00 85 26 123/47 (72) 94 02/20/20 12:00 Bi-pap 02/20/20 12:00 82 02/20/20 12:00 98.6 86 27 126/42 (70) 93 02/20/20 12:00 100 02/20/20 11:00 82 26 141/46 (77) 94 Intake and Output 02/20/20 02/21/20 19:00 07:00 Intake Total 820.0 ml 700 ml Output Total 1200 ml 1300 ml Balance -380.0 ml -600 ml Intake Oral 100 ml 100 ml IV Total 720.0 ml 600 ml Output Urine Total 1200 ml 1300 ml Height (Feet): 5 Weight (Pounds): 160 General Appearance: mild distress EENT: other - On BiPAP Cardiovascular: normal rate - Mid 80s Respiratory/Chest: decreased breath sounds Abdomen: distended Reji Byrne MD Feb 21, 2020 10:47
--- NOTE | 2020-02-21 12:20 | NUR ---
Farm Equipment AssemblerChief Strategy Officer SI: Respiratory Failure, COVID PNA, Leukocytosis, ARF Temp-98 (ax), HR 85, RR 22, 155/73 15L, BIPAP 100% 14/5, O2 sat 96% WBC 16.7, K+ 3.4, Troponin 0.316, BUN 49, creatinine 1.4 cxray 02-20-20 unchanged, bilateral infiltrates, small left pleural effusion IS: Lasix IV BID KCL IV @100ml/hr Rocephin IV QD Dexamethasone IV QD Lovenox SQ BID cardizem gtt Step Down Status
[2020-02-21] MEDS: cefTRIAXone 1 GM in D5W 55 ML IVPB SCH (12:53)
[2020-02-21] MEDS ORDERED: NS 275ml ONE (14:06)
--- NOTE | 2020-02-21 16:20 | NUR ---
NURSE NOTES:PT WITH HI B/P 177/97, MEDICATED WITH HYDRALAZINE 10ML/0.5 ML IVP FOR HI B/P PER M.D ORDERS. WILL CONT TO MONITOR.
--- NOTE | 2020-02-21 16:22 | Cardiac Electrophysiology PN ---
Assessment/Plan Assessment/Plan 1. Congestive heart failure with BNP of more than 15,000. EF 60% on Lasix 40 mg IV b.i.d. 2. Elevated troponin could be due to renal failure The patient does not have any chest pain and echocardiogram Nl EF 3. Atrial fib with RVR. On Cardizem 60Q6hr. Add Eliquis 5 bid 4. Accelerated hypertension. Continue Lasix 40 iv bid and Cardizem 5. Respiratory failure due to COVID. The patient is on BiPAP as well as dexamethasone. Transfer to [facility] Subjective Subjective In ICU on Cardizem po for atrial fib with RVR. In SR Objective Last 24 Hour Vital Signs Date Time Temp Pulse Resp B/P (MAP) Pulse Ox O2 Delivery O2 Flow Rate FiO2 02/21/20 15:10 75 23 95 100 02/21/20 12:56 80 172/80 02/21/20 12:00 Bi-pap 02/21/20 12:00 100 02/21/20 12:00 98.2 80 22 172/80 (110) 95 02/21/20 11:44 65 02/21/20 11:30 77 24 96 100 02/21/20 09:36 85 155/73 02/21/20 08:00 100 02/21/20 08:00 98.0 85 22 155/73 (100) 96 02/21/20 08:00 88 02/21/20 08:00 Bi-pap 02/21/20 07:30 80 18 99 100 02/21/20 06:11 88 112/94 02/21/20 04:00 80 02/21/20 04:00 Bi-pap 02/21/20 04:00 97.9 77 22 130/64 (86) 94 02/21/20 04:00 100 02/21/20 03:00 100 176/73 (107) 02/21/20 03:00 176/73 02/21/20 01:24 79 28 92 100 02/21/20 01:05 97.2 02/21/20 00:36 82 152/81 02/21/20 00:00 Bi-pap 02/21/20 00:00 97.2 80 18 152/81 (104) 96 02/21/20 00:00 76 02/20/20 21:07 80 167/59 02/20/20 20:00 100 02/20/20 20:00 Bi-pap 02/20/20 20:00 97.2 88 24 167/59 (95) 92 02/20/20 19:30 88 23 92 100 02/20/20 19:06 87 02/20/20 18:00 100 02/20/20 18:00 85 26 111/35 (60) 94 02/20/20 17:41 89 127/47 02/20/20 17:00 89 26 127/47 (73) 94 Intake and Output 02/20/20 02/21/20 19:00 07:00 Intake Total 820.0 ml 700 ml Output Total 1200 ml 1300 ml Balance -380.0 ml -600 ml Intake Oral 100 ml 100 ml IV Total 720.0 ml 600 ml Output Urine Total 1200 ml 1300 ml Microbiology Date/Time Source Procedure Growth Status 02/18/20 18:18 Urine,Clean Catch Urine Culture - Preliminary Gram Negative Moody Resulted 02/18/20 17:30 Nasopharynx SARS-CoV-2 RdRp Gene Assay - Final Complete Objective HEAD AND SHOWED: No JVD. LUNGS: Decreased breath sounds. CARDIOVASCULAR: Regular S1 and S2 with no gallop. ABDOMEN: Soft. EXTREMITIES: No pitting edema. Adonay Guerra MD Feb 21, 2020 16:22
[2020-02-21] MEDS: Eliquis 5mg tablet ORAL SCH (17:55)
--- NOTE | 2020-02-21 19:10 | NUR ---
NURSE NOTES: Received report from OCHOA Cardozo. Pt is seen in semi- vo's position. Pt is on BIPAP with settings 14/5, fio2- 100%. Pt is alert oriented x 3, follow simple commands. Pt open eyes spontaneously. O2sat- 99%, with no signs of respiratory distress. Pt has no pain noted. Pt is NPO, MD aware. With Left hand g22 and LAC g20 intact and patent running NS @50ml/ hr. BP- 157/67. Bed in lowest position, call light within reach. Continue to monitor pt.
--- NOTE | 2020-02-21 19:25 | NUR ---
HAND-OFF: Report given to .SIDNEY PACKER.
--- NOTE | 2020-02-21 20:25 | General Progress Note ---
Subjective ROS Limited/Unobtainable: Yes Allergies: Coded Allergies: No Known Allergies (Unverified , 02/18/20) Objective Last 24 Hour Vital Signs Date Time Temp Pulse Resp B/P (MAP) Pulse Ox O2 Delivery O2 Flow Rate FiO2 02/21/20 19:25 78 17 96 100 02/21/20 17:55 76 177/97 02/21/20 16:19 177/97 02/21/20 16:00 100 02/21/20 16:00 Bi-pap 02/21/20 16:00 97.8 76 22 177/97 (123) 95 02/21/20 15:36 77 02/21/20 15:10 75 23 95 100 02/21/20 12:56 80 172/80 02/21/20 12:00 Bi-pap 02/21/20 12:00 100 02/21/20 12:00 98.2 80 22 172/80 (110) 95 02/21/20 11:44 65 02/21/20 11:30 77 24 96 100 02/21/20 09:36 85 155/73 02/21/20 08:00 100 02/21/20 08:00 98.0 85 22 155/73 (100) 96 02/21/20 08:00 88 02/21/20 08:00 Bi-pap 02/21/20 07:30 80 18 99 100 02/21/20 06:11 88 112/94 02/21/20 04:00 80 02/21/20 04:00 Bi-pap 02/21/20 04:00 97.9 77 22 130/64 (86) 94 02/21/20 04:00 100 02/21/20 03:00 100 176/73 (107) 02/21/20 03:00 176/73 02/21/20 01:24 79 28 92 100 02/21/20 01:05 97.2 02/21/20 00:36 82 152/81 02/21/20 00:00 Bi-pap 02/21/20 00:00 97.2 80 18 152/81 (104) 96 02/21/20 00:00 76 02/20/20 21:07 80 167/59 Intake and Output 02/20/20 02/21/20 19:00 07:00 Intake Total 820.0 ml 700 ml Output Total 1200 ml 1300 ml Balance -380.0 ml -600 ml Intake Oral 100 ml 100 ml IV Total 720.0 ml 600 ml Output Urine Total 1200 ml 1300 ml Height (Feet): 5 Weight (Pounds): 160 Assessment/Plan Problem List: (1) UTI (urinary tract infection) ICD Codes: N39.0 - Urinary tract infection, site not specified SNOMED: 07686845 (2) Hypoxia ICD Codes: R09.02 - Hypoxemia; J12.82 - Pneumonia due to coronavirus disease 2019 SNOMED: 419697856 (3) Sepsis ICD Codes: A41.9 - Sepsis, unspecified organism SNOMED: 76451715 (4) JARETH (acute kidney injury) ICD Codes: N17.9 - Acute kidney failure, unspecified SNOMED: 25434137, 1397706 (5) Pneumonia due to COVID-19 virus ICD Codes: U07.1 - COVID-19; J12.82 - Pneumonia due to coronavirus disease 2018 SNOMED: 241678739265256780 Status: progressing Assessment/Plan: no change reviewed chart poor intake covid + resp insuff sepsis pna abx per id Gerson Evans MD Feb 21, 2020 20:25
[2020-02-21] MEDS: Dyna-Hex 2% Top Sol 2oz TOPIC SCH (20:39)
[2020-02-22] VITALS: BP 153/68
[2020-02-22] MEDS: dilTIAZem HCl 60mg tab ORAL SCH ×5 (00:08→23:43)
--- NOTE | 2020-02-22 02:12 | NUR ---
NURSE NOTES: Sponge bath given, pt has no signs of respiratory distress. No any pain noted. o2 sat- 98%. Continue current management.
[2020-02-22 04:00] VITALS: BP 144/76
--- NOTE | 2020-02-22 04:31 | NUR ---
NURSE NOTES: Pt is lying in bed in semi- vo's position. No signs of respiratory distress. o2 sat- 95%. No pain noted. Continue to monitor pt.
--- NOTE | 2020-02-22 06:06 | NUR ---
NURSE NOTES: Pt is sleeping in bed, o2 sat- 98%. No signs of distress. BS- 130mg/dl.
[2020-02-22 07:09] LABS: HEMATOCRIT 40.9 % (37.0-47.0); HEMOGLOBIN 12.8 G/DL (12.0-16.0); MEAN CORPUSCULAR VOLUME 95 FL (80-99); PLATELET COUNT 425 K/UL (150-450); RED BLOOD COUNT 4.29 M/UL (4.20-5.40); RED CELL DISTRIBUTION WIDTH 13.5 % (11.6-14.8); WHITE BLOOD COUNT 14.2 K/UL (4.8-10.8)
--- NOTE | 2020-02-22 07:10 | NUR ---
RESPIRATORY THERAPY NOTES Titrated O2 to 80% FiO2 and is tolerating well with no signs of respiratory distress or sob noted at this time. SpO2 96% HR 88. Will continue to monitor. RN aware.
--- NOTE | 2020-02-22 07:15 | NUR ---
NURSE HAND-OFF REPORT: Important Events on Shift: Pt is stable, Pt stillon NS at 50ml/hr, NPO x 3 days- referred to [facility] Patient Status: Stable and guarded Diet: NPO except meds Pending Orders: None Pending Results/Labs: None Pending MD notification: None Latest Vital Signs: Temperature 98.5 , Pulse 76 , B/P 154 /66 , Respiratory Rate 19 , O2 SAT 96 , Bi-pap, O2 Flow Rate 15.0 . Vital Sign Comment: WNL EKG Rhythm: Sinus Rhythm Rhythm change?: N MD Notified?: - MD Response: Latest Navarro Fall Score: 30 Fall Risk: Medium Risk Safety Measures: Call light Within Reach, Bed Alarm Zone 1, Side Rails Side Rails x3, Bed position Low and Locked. Fall Precautions: Yellow Socks Yellow Gown Door Sign Patient Fall Education Report given to [Brayden RN].
--- NOTE | 2020-02-22 07:18 | NUR ---
NURSE NOTES: Received report from OCHOA Davila. Patient is resting in bed, in stable condition. No s/sx of SOB, breathing is even and unlabored, on Bipap 14/5 FiO2 100% SpO2 100%. Informed RT to titrate FiO2 as tolerated. Denies any presence of pain or discomfort at this time. Bed is in lowest position, brakes engaged. Call light is kept within easy reach. Will continue to monitor patient.
[2020-02-22 08:00] VITALS: BP 147/57
[2020-02-22 08:00] LABS: ALBUMIN 2.3 G/DL (3.4-5.0); ALBUMIN/GLOBULIN RATIO 0.4 (1.0-2.7); BILIRUBIN,TOTAL 0.6 MG/DL (0.2-1.0); CALCIUM 8.9 MG/DL (8.5-10.1); CREATININE 1.4 MG/DL (0.55-1.30); PHOSPHORUS 2.5 MG/DL (2.5-4.9); POTASSIUM 4.3 MMOL/L (3.5-5.1)
[2020-02-22] MEDS: Metoprolol Tartrate 12.5mg TAB ORAL SCH ×2 (09:33→21:00)
[2020-02-22] MEDS: Aspirin EC 81mg tab ORAL SCH (09:33)
[2020-02-22] MEDS: dexAMETHasone 10mg/ml Inj IV SCH (09:34)
[2020-02-22] MEDS: Eliquis 5mg tablet ORAL SCH ×2 (09:34→17:06)
[2020-02-22] MEDS: cefTRIAXone 1 GM in D5W 55 ML IVPB SCH (10:17)
--- NOTE | 2020-02-22 10:44 | Nephrology Progress Note ---
Assessment/Plan Problem List: (1) JARETH (acute kidney injury) (2) Pneumonia due to COVID-19 virus (3) UTI (urinary tract infection) (4) Sepsis (5) Hypoxia (6) Elevated troponin I level Assessment Acute renal failure Possible underlying chronic kidney disease Hypoxic respiratory failure Sepsis, COVID-19 pneumonia UTI Hypertension, uncontrolled Hyperlipemia Elevated troponin I Electrolyte abnormalities Plan February 21: Labs reviewed. Serum sodium rising. Change IV to D5W. Continue to monitor renal parameters. Continue per pulmonary. Patient remains on BiPAP. February 20: No CHEM panel drawn today. Previously low potassium replaced. Medication reviewed. Check lab tomorrow. Continue per consultants. February 19: Serum creatinine lowering. Abnormal electrolyte noted and addressed. Continue pulmonary care. Blood pressure under control. Continue to monitor renal parameters. Medication list reviewed. Slow hydrate, normal saline Watch renal parameters on Lasix Recheck chest x-ray tomorrow Keep the blood pressure in check Avoid nephrotoxic's Monitor electrolytes and urine output Per consultants Per orders Subjective ROS Limited/Unobtainable: Yes Objective Objective Last 24 Hour Vital Signs Date Time Temp Pulse Resp B/P (MAP) Pulse Ox O2 Delivery O2 Flow Rate FiO2 02/22/20 09:33 91 147/57 02/22/20 08:00 83 02/22/20 08:00 98.3 91 17 147/57 (87) 93 91 91 02/22/20 08:00 80 02/22/20 08:00 Bi-pap 02/22/20 07:10 88 16 96 80 02/22/20 05:08 76 154/66 02/22/20 04:00 100 02/22/20 04:00 75 02/22/20 04:00 Bi-pap 02/22/20 04:00 98.5 76 19 144/76 (98) 96 02/22/20 02:37 78 18 97 100 02/22/20 00:08 80 153/68 02/22/20 00:00 98.5 80 20 153/68 (96) 95 02/22/20 00:00 72 02/22/20 00:00 Bi-pap 02/21/20 22:38 80 16 95 100 02/21/20 20:40 78 157/67 02/21/20 20:00 100 02/21/20 20:00 Bi-pap 1/7/21 20:00 76 02/21/20 20:00 98.1 85 21 157/67 (97) 98 02/21/20 19:25 78 17 96 100 02/21/20 17:55 76 177/97 02/21/20 16:19 177/97 02/21/20 16:00 100 02/21/20 16:00 Bi-pap 02/21/20 16:00 97.8 76 22 177/97 (123) 95 02/21/20 15:36 77 02/21/20 15:10 75 23 95 100 02/21/20 12:56 80 172/80 02/21/20 12:00 Bi-pap 02/21/20 12:00 100 02/21/20 12:00 98.2 80 22 172/80 (110) 95 02/21/20 11:44 65 02/21/20 11:30 77 24 96 100 Intake and Output 02/21/20 02/22/20 19:00 07:00 Intake Total 755 ml 600 ml Output Total 1000 ml 1000 ml Balance -245 ml -400 ml Intake Oral 150 ml 50 ml IV Total 605 ml 550 ml Output Urine Total 1000 ml 1000 ml Current Medications Medications (Trade) Dose Ordered Sig/Eze Route PRN Reason Start Time Stop Time Status Last Admin Dose Admin Acetaminophen (Tylenol) 500 mg Q6H PRN ORAL Mild Pain (Pain Scale 1-3) 02/19/20 00:00 03/20/20 00:00 02/21/20 00:35 Apixaban (Eliquis) 5 mg BID ORAL 02/21/20 18:00 05/21/20 17:59 02/22/20 09:34 Aspirin (Ecotrin) 81 mg DAILY ORAL 02/20/20 09:00 04/05/20 08:59 02/22/20 09:33 Atorvastatin Calcium (Lipitor) 10 mg BEDTIME ORAL 02/19/20 21:00 05/19/20 20:59 02/21/20 20:39 Ceftriaxone Sodium 1 gm/ Dextrose 55 ml @ 110 mls/hr Q24H IVPB 02/19/20 11:00 02/26/20 10:59 02/22/20 10:17 Chlorhexidine Gluconate (Carole-Hex 2%) 1 applic DAILY@2000 TOPIC 02/19/20 20:00 05/19/20 19:59 02/21/20 20:39 Clonidine HCl (Catapres Tab) 0.1 mg Q4H PRN ORAL BP over 166 systolic 02/19/20 15:45 05/19/20 15:44 Dexamethasone Sodium Phosphate (Decadron 10mg/ ml Inj) 6 mg DAILY IV 02/19/20 10:15 02/28/20 09:01 02/22/20 09:34 Diltiazem HCl (Cardizem Tab) 60 mg EVERY 6 HOURS ORAL 02/20/20 18:00 03/21/20 17:59 02/22/20 05:08 Furosemide (Lasix) 40 mg EVERY 12 HOURS IV 02/19/20 21:00 03/20/20 20:59 02/22/20 09:35 Hydralazine HCl (Apresoline) 10 mg Q2H PRN IV For High Blood Pressure 02/19/20 00:30 05/19/20 00:29 02/21/20 16:19 Metoprolol Tartrate (Lopressor) 12.5 mg Q12HR ORAL 02/19/20 21:00 05/19/20 20:59 02/22/20 09:33 Potassium Chloride (K-Dur) 20 meq TWICE A DAY ORAL 02/21/20 18:00 02/22/20 17:59 02/22/20 09:34 Laboratory Tests 02/22/20 03:50: White Blood Count 14.2H, Red Blood Count 4.29, Hemoglobin 12.8, Hematocrit 40.9, Mean Corpuscular Volume 95, Mean Corpuscular Hemoglobin 29.9, Mean Corpuscular Hemoglobin Concent 31.3L, Red Cell Distribution Width 13.5, Platelet Count 425, Mean Platelet Volume 6.5, Neutrophils (%) (Auto) , Lymphocytes (%) (Auto) , Monocytes (%) (Auto) , Eosinophils (%) (Auto) , Basophils (%) (Auto) , Neutrophils % (Manual) [Pending], Lymphocytes % (Manual) [Pending], Platelet Estimate [Pending], Platelet Morphology [Pending], Sodium Level 152H, Potassium Level 4.3, Chloride Level 112H, Carbon Dioxide Level 29, Anion Gap 11, Blood Urea Nitrogen 65H, Creatinine 1.4H, Estimat Glomerular Filtration Rate 36.2, Glucose Level 127H, Calcium Level 8.9, Phosphorus Level 2.5, Magnesium Level 2.7H, Total Bilirubin 0.6, Aspartate Amino Transf (AST/SGOT) 60H, Alanine Aminotransferase (ALT/SGPT) 43, Alkaline Phosphatase 104, C-Reactive Protein, Quantitative [Pending], Pro-B-Type Natriuretic Peptide 952H, Total Protein 8.0, Albumin 2.3L, Globulin 5.7, Albumin/Globulin Ratio 0.4L Height (Feet): 5 Weight (Pounds): 160 General Appearance: mild distress Cardiovascular: tachycardia Respiratory/Chest: decreased breath sounds Abdomen: distended Reji Byrne MD Feb 22, 2020 10:44
--- NOTE | 2020-02-22 11:50 | Infectious Diseases Prog Note ---
Assessment/Plan Assessment/Plan IMPRESSION: 1. Leukocytosis improving 2. COVID-19 pneumonia. 3. Acute renal failure.improving 4. Hypoxemic respiratory failure. 5. UTI. 6. Lactic acidosis. 7. Hypertension. 8. Hyperlipidemia. RECOMMENDATION: We will continue with ceftriaxone and dexamethasone. Subjective ROS Limited/Unobtainable: Yes Allergies: Coded Allergies: No Known Allergies (Unverified , 02/18/20) Objective Last 24 Hour Vital Signs Date Time Temp Pulse Resp B/P (MAP) Pulse Ox O2 Delivery O2 Flow Rate FiO2 02/22/20 09:33 91 147/57 02/22/20 08:00 83 02/22/20 08:00 98.3 91 17 147/57 (87) 93 91 91 02/22/20 08:00 80 02/22/20 08:00 Bi-pap 02/22/20 07:10 88 16 96 80 02/22/20 05:08 76 154/66 02/22/20 04:00 100 02/22/20 04:00 75 02/22/20 04:00 Bi-pap 02/22/20 04:00 98.5 76 19 144/76 (98) 96 02/22/20 02:37 78 18 97 100 02/22/20 00:08 80 153/68 02/22/20 00:00 98.5 80 20 153/68 (96) 95 02/22/20 00:00 72 02/22/20 00:00 Bi-pap 02/21/20 22:38 80 16 95 100 02/21/20 20:40 78 157/67 02/21/20 20:00 100 02/21/20 20:00 Bi-pap 02/21/20 20:00 76 02/21/20 20:00 98.1 85 21 157/67 (97) 98 02/21/20 19:25 78 17 96 100 02/21/20 17:55 76 177/97 02/21/20 16:19 177/97 02/21/20 16:00 100 02/21/20 16:00 Bi-pap 02/21/20 16:00 97.8 76 22 177/97 (123) 95 02/21/20 15:36 77 02/21/20 15:10 75 23 95 100 02/21/20 12:56 80 172/80 02/21/20 12:00 Bi-pap 02/21/20 12:00 100 02/21/20 12:00 98.2 80 22 172/80 (110) 95 Height (Feet): 5 Weight (Pounds): 160 HEENT: mucous membranes moist Respiratory/Chest: other - on BIPAP, FIO2=80% Cardiovascular: normal rate Abdomen: soft, non tender Extremities: no edema Neurologic/Psychiatric: other - sleeping Laboratory Tests Test 02/22/20 03:50 White Blood Count 14.2 K/UL (4.8-10.8) H Red Blood Count 4.29 M/UL (4.20-5.40) Hemoglobin 12.8 G/DL (12.0-16.0) Hematocrit 40.9 % (37.0-47.0) Mean Corpuscular Volume 95 FL (80-99) Mean Corpuscular Hemoglobin 29.9 PG (27.0-31.0) Mean Corpuscular Hemoglobin Concent 31.3 G/DL (32.0-36.0) L Red Cell Distribution Width 13.5 % (11.6-14.8) Platelet Count 425 K/UL (150-450) Mean Platelet Volume 6.5 FL (6.5-10.1) Neutrophils (%) (Auto) % (45.0-75.0) Lymphocytes (%) (Auto) % (20.0-45.0) Monocytes (%) (Auto) % (1.0-10.0) Eosinophils (%) (Auto) % (0.0-3.0) Basophils (%) (Auto) % (0.0-2.0) Differential Total Cells Counted 100 Neutrophils % (Manual) 91 % (45-75) H Lymphocytes % (Manual) 4 % (20-45) L Monocytes % (Manual) 5 % (1-10) Eosinophils % (Manual) 0 % (0-3) Basophils % (Manual) 0 % (0-2) Band Neutrophils 0 % (0-8) Platelet Estimate Adequate Platelet Morphology Normal Hypochromasia 1+ Sodium Level 152 MMOL/L (136-145) H Potassium Level 4.3 MMOL/L (3.5-5.1) Chloride Level 112 MMOL/L (98-107) H Carbon Dioxide Level 29 MMOL/L (21-32) Anion Gap 11 mmol/L (5-15) Blood Urea Nitrogen 65 mg/dL (7-18) H Creatinine 1.4 MG/DL (0.55-1.30) H Estimat Glomerular Filtration Rate 36.2 mL/min (>60) Glucose Level 127 MG/DL (74-106) H Calcium Level 8.9 MG/DL (8.5-10.1) Phosphorus Level 2.5 MG/DL (2.5-4.9) Magnesium Level 2.7 MG/DL (1.8-2.4) H Total Bilirubin 0.6 MG/DL (0.2-1.0) Aspartate Amino Transf (AST/SGOT) 60 U/L (15-37) H Alanine Aminotransferase (ALT/SGPT) 43 U/L (12-78) Alkaline Phosphatase 104 U/L (46-116) C-Reactive Protein, Quantitative Pending Pro-B-Type Natriuretic Peptide 952 pg/mL (0-125) H Total Protein 8.0 G/DL (6.4-8.2) Albumin 2.3 G/DL (3.4-5.0) L Globulin 5.7 g/dL Albumin/Globulin Ratio 0.4 (1.0-2.7) L Current Medications Medications (Trade) Dose Ordered Sig/Eze Route PRN Reason Start Time Stop Time Status Last Admin Dose Admin Acetaminophen (Tylenol) 500 mg Q6H PRN ORAL Mild Pain (Pain Scale 1-3) 02/19/20 00:00 03/20/20 00:00 02/21/20 00:35 Apixaban (Eliquis) 5 mg BID ORAL 02/21/20 18:00 05/21/20 17:59 02/22/20 09:34 Aspirin (Ecotrin) 81 mg DAILY ORAL 02/20/20 09:00 04/05/20 08:59 02/22/20 09:33 Atorvastatin Calcium (Lipitor) 10 mg BEDTIME ORAL 02/19/20 21:00 05/19/20 20:59 02/21/20 20:39 Ceftriaxone Sodium 1 gm/ Dextrose 55 ml @ 110 mls/hr Q24H IVPB 02/19/20 11:00 02/26/20 10:59 02/22/20 10:17 Chlorhexidine Gluconate (Carole-Hex 2%) 1 applic DAILY@2000 TOPIC 02/19/20 20:00 4/5/21 19:59 02/21/20 20:39 Clonidine HCl (Catapres Tab) 0.1 mg Q4H PRN ORAL BP over 166 systolic 02/19/20 15:45 05/19/20 15:44 Dexamethasone Sodium Phosphate (Decadron 10mg/ ml Inj) 6 mg DAILY IV 02/19/20 10:15 02/28/20 09:01 02/22/20 09:34 Dextrose 1,000 ml @ 50 mls/hr Q20H IV 02/22/20 10:45 03/23/20 10:44 Diltiazem HCl (Cardizem Tab) 60 mg EVERY 6 HOURS ORAL 02/20/20 18:00 03/21/20 17:59 02/22/20 05:08 Furosemide (Lasix) 40 mg EVERY 12 HOURS IV 02/19/20 21:00 03/20/20 20:59 02/22/20 09:35 Hydralazine HCl (Apresoline) 10 mg Q2H PRN IV For High Blood Pressure 02/19/20 00:30 05/19/20 00:29 02/21/20 16:19 Metoprolol Tartrate (Lopressor) 12.5 mg Q12HR ORAL 02/19/20 21:00 05/19/20 20:59 02/22/20 09:33 Potassium Chloride (K-Dur) 20 meq DAILY ORAL 02/22/20 10:45 02/22/20 17:59 Genaro Sun MD Feb 22, 2020 11:50
[2020-02-22 12:00] VITALS: BP 125/47
--- NOTE | 2020-02-22 12:00 | NUR ---
NURSE NOTES: Dr. Briggs at nurse station, informed Dr. Briggs weaning patient from BiPAP, current setting 14/5 FiO2 80% SpO2 95% and continuing to wean as tolerated. Dr. Briggs acknowledged and gave no new orders at this time. Will continue to monitor patient.
--- NOTE | 2020-02-22 12:50 | NUR ---
Plant ControllerGetterer SI: Respiratory Failure, COVID PNA, Leukocytosis, ARF Temp-98.3 (ax), HR 91, RR 20, 125/47 15L, BIPAP 80% 14/5, O2 sat 94% WBC 14.2, NA+ 152, BUN 65, creatinine 1.4 IS: Lasix IV BID Rocephin IV QD Dexamethasone IV QD Eliquis PO BID Apresoline IV q 2 hr prn Step Down Status
--- NOTE | 2020-02-22 14:12 | Pulmonology Progress Note ---
Subjective ROS Limited/Unobtainable: Yes Interval Events: Remains on BiPAP Constitutional: Reports: no symptoms HEENT: Repors: no symptoms Respiratory: Reports: no symptoms Cardiovascular: Reports: no symptoms Gastrointestinal/Abdominal: Reports: no symptoms Genitourinary: Reports: no symptoms Allergies: Coded Allergies: No Known Allergies (Unverified , 02/18/20) Objective Last 24 Hour Vital Signs Date Time Temp Pulse Resp B/P (MAP) Pulse Ox O2 Delivery O2 Flow Rate FiO2 02/22/20 12:00 Bi-pap 02/22/20 12:00 74 02/22/20 12:00 80 02/22/20 12:00 98.3 89 20 125/47 (73) 94 89 89 02/22/20 11:50 84 125/43 02/22/20 11:20 86 18 97 80 02/22/20 09:33 91 147/57 02/22/20 08:00 83 02/22/20 08:00 98.3 91 17 147/57 (87) 93 91 91 02/22/20 08:00 80 02/22/20 08:00 Bi-pap 02/22/20 07:10 88 16 96 80 02/22/20 05:08 76 154/66 02/22/20 04:00 100 02/22/20 04:00 75 02/22/20 04:00 Bi-pap 02/22/20 04:00 98.5 76 19 144/76 (98) 96 02/22/20 02:37 78 18 97 100 02/22/20 00:08 80 153/68 02/22/20 00:00 98.5 80 20 153/68 (96) 95 02/22/20 00:00 72 02/22/20 00:00 Bi-pap 02/21/20 22:38 80 16 95 100 02/21/20 20:40 78 157/67 02/21/20 20:00 100 02/21/20 20:00 Bi-pap 02/21/20 20:00 76 02/21/20 20:00 98.1 85 21 157/67 (97) 98 02/21/20 19:25 78 17 96 100 02/21/20 17:55 76 177/97 02/21/20 16:19 177/97 02/21/20 16:00 100 02/21/20 16:00 Bi-pap 02/21/20 16:00 97.8 76 22 177/97 (123) 95 02/21/20 15:36 77 02/21/20 15:10 75 23 95 100 Intake and Output 02/21/20 02/22/20 19:00 07:00 Intake Total 755 ml 600 ml Output Total 1000 ml 1000 ml Balance -245 ml -400 ml Intake Oral 150 ml 50 ml IV Total 605 ml 550 ml Output Urine Total 1000 ml 1000 ml General Appearance: no acute distress HEENT: normocephalic Respiratory: chest wall non-tender, lungs clear Cardiovascular: normal peripheral pulses Abdomen: normal bowel sounds Laboratory Tests 02/22/20 03:50: White Blood Count 14.2H, Red Blood Count 4.29, Hemoglobin 12.8, Hematocrit 40.9, Mean Corpuscular Volume 95, Mean Corpuscular Hemoglobin 29.9, Mean Corpuscular Hemoglobin Concent 31.3L, Red Cell Distribution Width 13.5, Platelet Count 425, Mean Platelet Volume 6.5, Neutrophils (%) (Auto) , Lymphocytes (%) (Auto) , Monocytes (%) (Auto) , Eosinophils (%) (Auto) , Basophils (%) (Auto) , Differential Total Cells Counted 100, Neutrophils % (Manual) 91H, Lymphocytes % (Manual) 4L, Monocytes % (Manual) 5, Eosinophils % (Manual) 0, Basophils % (Manual) 0, Band Neutrophils 0, Platelet Estimate Adequate, Platelet Morphology Normal, Hypochromasia 1+, Sodium Level 152H, Potassium Level 4.3, Chloride Level 112H, Carbon Dioxide Level 29, Anion Gap 11, Blood Urea Nitrogen 65H, Creatinine 1.4H, Estimat Glomerular Filtration Rate 36.2, Glucose Level 127H, Calcium Level 8.9, Phosphorus Level 2.5, Magnesium Level 2.7H, Total Bilirubin 0.6, Aspartate Amino Transf (AST/SGOT) 60H, Alanine Aminotransferase (ALT/SGPT) 43, Alkaline Phosphatase 104, C-Reactive Protein, Quantitative [Pending], Pro-B-Type Natriur etic Peptide 952H, Total Protein 8.0, Albumin 2.3L, Globulin 5.7, Albumin/Globulin Ratio 0.4L Current Medications Medications (Trade) Dose Ordered Sig/Eze Route PRN Reason Start Time Stop Time Status Last Admin Dose Admin Acetaminophen (Tylenol) 500 mg Q6H PRN ORAL Mild Pain (Pain Scale 1-3) 02/19/20 00:00 03/20/20 00:00 02/21/20 00:35 Apixaban (Eliquis) 5 mg BID ORAL 02/21/20 18:00 05/21/20 17:59 02/22/20 09:34 Aspirin (Ecotrin) 81 mg DAILY ORAL 02/20/20 09:00 04/05/20 08:59 02/22/20 09:33 Atorvastatin Calcium (Lipitor) 10 mg BEDTIME ORAL 02/19/20 21:00 05/19/20 20:59 02/21/20 20:39 Ceftriaxone Sodium 1 gm/ Dextrose 55 ml @ 110 mls/hr Q24H IVPB 02/19/20 11:00 02/26/20 10:59 02/22/20 10:17 Chlorhexidine Gluconate (Carole-Hex 2%) 1 applic DAILY@2000 TOPIC 02/19/20 20:00 05/19/20 19:59 02/21/20 20:39 Clonidine HCl (Catapres Tab) 0.1 mg Q4H PRN ORAL BP over 166 systolic 02/19/20 15:45 05/19/20 15:44 Dexamethasone Sodium Phosphate (Decadron 10mg/ ml Inj) 6 mg DAILY IV 02/19/20 10:15 02/28/20 09:01 02/22/20 09:34 Dextrose 1,000 ml @ 50 mls/hr Q20H IV 02/22/20 10:45 03/23/20 10:44 02/22/20 11:50 Diltiazem HCl (Cardizem Tab) 60 mg EVERY 6 HOURS ORAL 02/20/20 18:00 03/21/20 17:59 02/22/20 11:50 Furosemide (Lasix) 40 mg EVERY 12 HOURS IV 02/19/20 21:00 03/20/20 20:59 02/22/20 09:35 Hydralazine HCl (Apresoline) 10 mg Q2H PRN IV For High Blood Pressure 02/19/20 00:30 05/19/20 00:29 02/21/20 16:19 Metoprolol Tartrate (Lopressor) 12.5 mg Q12HR ORAL 1/5/21 21:00 05/19/20 20:59 02/22/20 09:33 Potassium Chloride (K-Dur) 20 meq DAILY ORAL 02/22/20 10:45 02/22/20 17:59 Assessment/Plan Assessment/Plan IMPRESSION: 1. COVID-19 pneumonia. 2. Respiratory failure, on BiPAP. 3. Renal failure.Improved 4. Troponin leak. DISCUSSION: Continue Decadron. Start Lovenox, creatinine now 1.4 Defer Remdesivir use to ID Continue BiPAP. Saturating 96%. FiO2 now decreased to 80%. Discussed with RN Jorge Pollock Omar Syed MD Feb 22, 2020 14:12
--- NOTE | 2020-02-22 15:27 | Cardiac Electrophysiology PN ---
Assessment/Plan Assessment/Plan 1. Congestive heart failure with BNP of more than 15,000. EF 60% on Lasix 40 mg IV b.i.d. 2. Elevated troponin could be due to renal failure No CP and echocardiogram Nl EF 3. Atrial fib with RVR. On Cardizem 60Q6hr and Eliquis 5 bid 4. Accelerated hypertension. Continue Lasix 40 iv bid and Cardizem 5. Respiratory failure due to COVID. The patient is on BiPAP as well as dexamethasone. Transfer to tele [facility] Subjective In SR on Cardizem po for atrial fib with RVR. On BIPAP and 80% Fio2 Objective Last 24 Hour Vital Signs Date Time Temp Pulse Resp B/P (MAP) Pulse Ox O2 Delivery O2 Flow Rate FiO2 02/22/20 14:56 70 02/22/20 12:00 Bi-pap 02/22/20 12:00 74 02/22/20 12:00 80 02/22/20 12:00 98.3 89 20 125/47 (73) 94 89 89 02/22/20 11:50 84 125/43 02/22/20 11:20 86 18 97 80 02/22/20 09:33 91 147/57 02/22/20 08:00 83 02/22/20 08:00 98.3 91 17 147/57 (87) 93 91 91 02/22/20 08:00 80 02/22/20 08:00 Bi-pap 02/22/20 07:10 88 16 96 80 02/22/20 05:08 76 154/66 02/22/20 04:00 100 02/22/20 04:00 75 02/22/20 04:00 Bi-pap 02/22/20 04:00 98.5 76 19 144/76 (98) 96 02/22/20 02:37 78 18 97 100 02/22/20 00:08 80 153/68 02/22/20 00:00 98.5 80 20 153/68 (96) 95 02/22/20 00:00 72 02/22/20 00:00 Bi-pap 02/21/20 22:38 80 16 95 100 02/21/20 20:40 78 157/67 02/21/20 20:00 100 02/21/20 20:00 Bi-pap 02/21/20 20:00 76 02/21/20 20:00 98.1 85 21 157/67 (97) 98 02/21/20 19:25 78 17 96 100 02/21/20 17:55 76 177/97 02/21/20 16:19 177/97 02/21/20 16:00 100 02/21/20 16:00 Bi-pap 02/21/20 16:00 97.8 76 22 177/97 (123) 95 02/21/20 15:36 77 Intake and Output 02/21/20 02/22/20 19:00 07:00 Intake Total 755 ml 600 ml Output Total 1000 ml 1000 ml Balance -245 ml -400 ml Intake Oral 150 ml 50 ml IV Total 605 ml 550 ml Output Urine Total 1000 ml 1000 ml Laboratory Tests Test 02/22/20 03:50 White Blood Count 14.2 K/UL (4.8-10.8) H Red Blood Count 4.29 M/UL (4.20-5.40) Hemoglobin 12.8 G/DL (12.0-16.0) Hematocrit 40.9 % (37.0-47.0) Mean Corpuscular Volume 95 FL (80-99) Mean Corpuscular Hemoglobin 29.9 PG (27.0-31.0) Mean Corpuscular Hemoglobin Concent 31.3 G/DL (32.0-36.0) L Red Cell Distribution Width 13.5 % (11.6-14.8) Platelet Count 425 K/UL (150-450) Mean Platelet Volume 6.5 FL (6.5-10.1) Neutrophils (%) (Auto) % (45.0-75.0) Lymphocytes (%) (Auto) % (20.0-45.0) Monocytes (%) (Auto) % (1.0-10.0) Eosinophils (%) (Auto) % (0.0-3.0) Basophils (%) (Auto) % (0.0-2.0) Differential Total Cells Counted 100 Neutrophils % (Manual) 91 % (45-75) H Lymphocytes % (Manual) 4 % (20-45) L Monocytes % (Manual) 5 % (1-10) Eosinophils % (Manual) 0 % (0-3) Basophils % (Manual) 0 % (0-2) Band Neutrophils 0 % (0-8) Platelet Estimate Adequate Platelet Morphology Normal Hypochromasia 1+ Sodium Level 152 MMOL/L (136-145) H Potassium Level 4.3 MMOL/L (3.5-5.1) Chloride Level 112 MMOL/L (98-107) H Carbon Dioxide Level 29 MMOL/L (21-32) Anion Gap 11 mmol/L (5-15) Blood Urea Nitrogen 65 mg/dL (7-18) H Creatinine 1.4 MG/DL (0.55-1.30) H Estimat Glomerular Filtration Rate 36.2 mL/min (>60) Glucose Level 127 MG/DL (74-106) H Calcium Level 8.9 MG/DL (8.5-10.1) Phosphorus Level 2.5 MG/DL (2.5-4.9) Magnesium Level 2.7 MG/DL (1.8-2.4) H Total Bilirubin 0.6 MG/DL (0.2-1.0) Aspartate Amino Transf (AST/SGOT) 60 U/L (15-37) H Alanine Aminotransferase (ALT/SGPT) 43 U/L (12-78) Alkaline Phosphatase 104 U/L (46-116) C-Reactive Protein, Quantitative Pending Pro-B-Type Natriuretic Peptide 952 pg/mL (0-125) H Total Protein 8.0 G/DL (6.4-8.2) Albumin 2.3 G/DL (3.4-5.0) L Globulin 5.7 g/dL Albumin/Globulin Ratio 0.4 (1.0-2.7) L Objective HEAD AND SHOWED: No JVD. LUNGS: Decreased breath sounds. CARDIOVASCULAR: Regular S1 and S2 with no gallop. ABDOMEN: Soft. EXTREMITIES: No pitting edema. Adonay Guerra MD Feb 22, 2020 15:27
--- NOTE | 2020-02-22 15:28 | Cardiac Electrophysiology PN ---
Assessment/Plan Assessment/Plan 1. Congestive heart failure with BNP of more than 15,000. EF 60% on Lasix 40 mg IV b.i.d. 2. Elevated troponin could be due to renal failure No CP and echocardiogram Nl EF On Lopressor 12.5 bid 3. Atrial fib with RVR. On Cardizem 60Q6hr, Lopressor 12.5 bid and Eliquis 5 bid 4. Accelerated hypertension. Continue Lasix 40 iv bid, Lopressor and Cardizem 5. Respiratory failure due to COVID. The patient is on BiPAP as well as dexamethasone. Transfer to tele Subjective Subjective In SR on Cardizem and lopressor po for atrial fib with RVR. On BIPAP and 80% Fio2 Objective Last 24 Hour Vital Signs Date Time Temp Pulse Resp B/P (MAP) Pulse Ox O2 Delivery O2 Flow Rate FiO2 02/22/20 14:56 70 02/22/20 12:00 Bi-pap 02/22/20 12:00 74 02/22/20 12:00 80 02/22/20 12:00 98.3 89 20 125/47 (73) 94 89 89 02/22/20 11:50 84 125/43 02/22/20 11:20 86 18 97 80 02/22/20 09:33 91 147/57 02/22/20 08:00 83 02/22/20 08:00 98.3 91 17 147/57 (87) 93 91 91 02/22/20 08:00 80 02/22/20 08:00 Bi-pap 02/22/20 07:10 88 16 96 80 02/22/20 05:08 76 154/66 02/22/20 04:00 100 02/22/20 04:00 75 02/22/20 04:00 Bi-pap 02/22/20 04:00 98.5 76 19 144/76 (98) 96 02/22/20 02:37 78 18 97 100 02/22/20 00:08 80 153/68 02/22/20 00:00 98.5 80 20 153/68 (96) 95 02/22/20 00:00 72 02/22/20 00:00 Bi-pap 02/21/20 22:38 80 16 95 100 02/21/20 20:40 78 157/67 02/21/20 20:00 100 02/21/20 20:00 Bi-pap 02/21/20 20:00 76 02/21/20 20:00 98.1 85 21 157/67 (97) 98 02/21/20 19:25 78 17 96 100 02/21/20 17:55 76 177/97 02/21/20 16:19 177/97 02/21/20 16:00 100 02/21/20 16:00 Bi-pap 02/21/20 16:00 97.8 76 22 177/97 (123) 95 02/21/20 15:36 77 Intake and Output 02/21/20 02/22/20 19:00 07:00 Intake Total 755 ml 600 ml Output Total 1000 ml 1000 ml Balance -245 ml -400 ml Intake Oral 150 ml 50 ml IV Total 605 ml 550 ml Output Urine Total 1000 ml 1000 ml Laboratory Tests Test 02/22/20 03:50 White Blood Count 14.2 K/UL (4.8-10.8) H Red Blood Count 4.29 M/UL (4.20-5.40) Hemoglobin 12.8 G/DL (12.0-16.0) Hematocrit 40.9 % (37.0-47.0) Mean Corpuscular Volume 95 FL (80-99) Mean Corpuscular Hemoglobin 29.9 PG (27.0-31.0) Mean Corpuscular Hemoglobin Concent 31.3 G/DL (32.0-36.0) L Red Cell Distribution Width 13.5 % (11.6-14.8) Platelet Count 425 K/UL (150-450) Mean Platelet Volume 6.5 FL (6.5-10.1) Neutrophils (%) (Auto) % (45.0-75.0) Lymphocytes (%) (Auto) % (20.0-45.0) Monocytes (%) (Auto) % (1.0-10.0) Eosinophils (%) (Auto) % (0.0-3.0) Basophils (%) (Auto) % (0.0-2.0) Differential Total Cells Counted 100 Neutrophils % (Manual) 91 % (45-75) H Lymphocytes % (Manual) 4 % (20-45) L Monocytes % (Manual) 5 % (1-10) Eosinophils % (Manual) 0 % (0-3) Basophils % (Manual) 0 % (0-2) Band Neutrophils 0 % (0-8) Platelet Estimate Adequate Platelet Morphology Normal Hypochromasia 1+ Sodium Level 152 MMOL/L (136-145) H Potassium Level 4.3 MMOL/L (3.5-5.1) Chloride Level 112 MMOL/L (98-107) H Carbon Dioxide Level 29 MMOL/L (21-32) Anion Gap 11 mmol/L (5-15) Blood Urea Nitrogen 65 mg/dL (7-18) H Creatinine 1.4 MG/DL (0.55-1.30) H Estimat Glomerular Filtration Rate 36.2 mL/min (>60) Glucose Level 127 MG/DL (74-106) H Calcium Level 8.9 MG/DL (8.5-10.1) Phosphorus Level 2.5 MG/DL (2.5-4.9) Magnesium Level 2.7 MG/DL (1.8-2.4) H Total Bilirubin 0.6 MG/DL (0.2-1.0) Aspartate Amino Transf (AST/SGOT) 60 U/L (15-37) H Alanine Aminotransferase (ALT/SGPT) 43 U/L (12-78) Alkaline Phosphatase 104 U/L (46-116) C-Reactive Protein, Quantitative Pending Pro-B-Type Natriuretic Peptide 952 pg/mL (0-125) H Total Protein 8.0 G/DL (6.4-8.2) Albumin 2.3 G/DL (3.4-5.0) L Globulin 5.7 g/dL Albumin/Globulin Ratio 0.4 (1.0-2.7) L Objective HEAD AND SHOWED: No JVD. LUNGS: Decreased breath sounds. CARDIOVASCULAR: Regular S1 and S2 with no gallop. ABDOMEN: Soft. EXTREMITIES: No pitting edema. Adonay Guerra MD Feb 22, 2020 15:28
[2020-02-22 15:53] VITALS: BP 157/67
--- NOTE | 2020-02-22 16:12 | NUR ---
NURSE NOTES: Dr. Guerra at nurse station, made aware patient has episodes of PVCs, Dr. Guerra acknowledged and gave no new orders at this time. Will continue to monitor patient.
--- NOTE | 2020-02-22 17:58 | NUR ---
RESPIRATORY NOTE: Patient placed back on 100% FiO2 due to desaturation of 87%. Patient SpO2 now at 94% and is stable with no signs of respiratory distress or shortness of breath noted. Will continue to monitor. Rn aware.
--- NOTE | 2020-02-22 19:14 | NUR ---
NURSE HAND-OFF REPORT: Important Events on Shift: Patient Status: Stable Diet: NPO except ice chips and medications. Pending Orders: None Pending Results/Labs:None Pending MD notification:None Latest Vital Signs: Temperature 97.3 , Pulse 71 , B/P 157 /67 , Respiratory Rate 20 , O2 SAT 93 , Bi-pap, O2 Flow Rate 15.0 . Vital Sign Comment: Stable EKG Rhythm: Sinus Rhythm Rhythm change?: N MD Notified?: - MD Response: Latest Navarro Fall Score: 30 Fall Risk: Medium Risk Safety Measures: Call light Within Reach, Bed Alarm Zone 1, Side Rails Side Rails x3, Bed position Low and Locked. Fall Precautions: Yellow Socks Yellow Gown Door Sign Patient Fall Education Report given to OCHOA Flaherty.
--- NOTE | 2020-02-22 19:37 | NUR ---
NURSE NOTES: Report received from OCHOA Owen. Patient is awake on bed, alert and oriented x 3. compliance monitor is in place shows sinus rhythm with no chest pain reported. With Bipap 14/5, FiO2 100 %. On NPO except medication, may crush meds. With Cano catheter f-16, drained via gravity. IV site is on left hand g-22 running D5W @ 50 cc/hour, and IV site on right AC g-20 saline locked that is patent and intact. Safety measures are in place, bed in lowest and locked position, side rails up x 2, call light button and bedside table within reach, instructed to call for any assistance needed, will continue plan of care.
[2020-02-22 20:00] VITALS: BP 164/65
--- NOTE | 2020-02-22 20:10 | General Progress Note ---
Subjective ROS Limited/Unobtainable: Yes Allergies: Coded Allergies: No Known Allergies (Unverified , 02/18/20) Objective Last 24 Hour Vital Signs Date Time Temp Pulse Resp B/P (MAP) Pulse Ox O2 Delivery O2 Flow Rate FiO2 02/22/20 19:37 75 15 97 80 02/22/20 18:00 100 02/22/20 17:06 71 157/67 02/22/20 16:00 Bi-pap 02/22/20 16:00 71 02/22/20 15:53 97.3 82 20 157/67 (97) 93 82 82 02/22/20 15:20 84 17 96 80 02/22/20 14:56 70 02/22/20 12:00 Bi-pap 02/22/20 12:00 74 02/22/20 12:00 80 02/22/20 12:00 98.3 89 20 125/47 (73) 94 89 89 02/22/20 11:50 84 125/43 02/22/20 11:20 86 18 97 80 02/22/20 09:33 91 147/57 02/22/20 08:00 83 02/22/20 08:00 98.3 91 17 147/57 (87) 93 91 91 02/22/20 08:00 80 02/22/20 08:00 Bi-pap 02/22/20 07:10 88 16 96 80 02/22/20 05:08 76 154/66 02/22/20 04:00 100 02/22/20 04:00 75 02/22/20 04:00 Bi-pap 02/22/20 04:00 98.5 76 19 144/76 (98) 96 02/22/20 02:37 78 18 97 100 02/22/20 00:08 80 153/68 02/22/20 00:00 98.5 80 20 153/68 (96) 95 02/22/20 00:00 72 02/22/20 00:00 Bi-pap 02/21/20 22:38 80 16 95 100 02/21/20 20:40 78 157/67 Intake and Output 02/21/20 02/22/20 19:00 07:00 Intake Total 755 ml 600 ml Output Total 1000 ml 1000 ml Balance -245 ml -400 ml Intake Oral 150 ml 50 ml IV Total 605 ml 550 ml Output Urine Total 1000 ml 1000 ml Laboratory Tests 02/22/20 03:50: White Blood Count 14.2H, Red Blood Count 4.29, Hemoglobin 12.8, Hematocrit 40.9, Mean Corpuscular Volume 95, Mean Corpuscular Hemoglobin 29.9, Mean Corpuscular Hemoglobin Concent 31.3L, Red Cell Distribution Width 13.5, Platelet Count 425, Mean Platelet Volume 6.5, Neutrophils (%) (Auto) , Lymphocytes (%) (Auto) , Monocytes (%) (Auto) , Eosinophils (%) (Auto) , Basophils (%) (Auto) , Differential Total Cells Counted 100, Neutrophils % (Manual) 91H, Lymphocytes % (Manual) 4L, Monocytes % (Manual) 5, Eosinophils % (Manual) 0, Basophils % (Manual) 0, Band Neutrophils 0, Platelet Estimate Adequate, Platelet Morphology Normal, Hypochromasia 1+, Sodium Level 152H, Potassium Level 4.3, Chloride Level 112H, Carbon Dioxide Level 29, Anion Gap 11, Blood Urea Nitrogen 65H, Creatinine 1.4H, Estimat Glomerular Filtration Rate 36.2, Glucose Level 127H, Calcium Level 8.9, Phosphorus Level 2.5, Magnesium Level 2.7H, Total Bilirubin 0.6, Aspartate Amino Transf (AST/SGOT) 60H, Alanine Aminotransferase (ALT/SGPT) 43, Alkaline Phosphatase 104, C-Reactive Protein, Quantitative [Pending], Pro-B-Type Natriuretic Peptide 952H, Total Protein 8.0, Albumin 2.3L, Globulin 5.7, Albumin/Globulin Ratio 0.4L Height (Feet): 5 Weight (Pounds): 160 Assessment/Plan Problem List: (1) UTI (urinary tract infection) ICD Codes: N39.0 - Urinary tract infection, site not specified SNOMED: 03371293 (2) Hypoxia ICD Codes: R09.02 - Hypoxemia; J12.82 - Pneumonia due to coronavirus disease 2019 SNOMED: 341149900 (3) Sepsis ICD Codes: A41.9 - Sepsis, unspecified organism SNOMED: 16563028 (4) JARETH (acute kidney injury) ICD Codes: N17.9 - Acute kidney failure, unspecified SNOMED: 81170120, 8533563 (5) Pneumonia due to COVID-19 virus ICD Codes: U07.1 - COVID-19; J12.82 - Pneumonia due to coronavirus disease 2019 SNOMED: [id number] Status: progressing Assessment/Plan: uti supportive care poor po intake covid + resp insuff sepsis pna abx per id Gerson Evans MD Feb 22, 2020 20:10
--- NOTE | 2020-02-22 21:10 | NUR ---
NURSE NOTES: Oral medications given, crushed and mixed with small amount of apple sauce, no aspiration noted, able to tolerate thickened liquids. Will closely monitor.
[2020-02-23] VITALS: BP 163/67
[2020-02-23 04:00] VITALS: BP 158/57
[2020-02-23] MEDS: dilTIAZem HCl 60mg tab ORAL SCH ×4 (05:19→23:57)
--- NOTE | 2020-02-23 06:54 | NUR ---
NURSE HAND-OFF REPORT: Important Events on Shift: Patient has been sating 95-96% on Bipap, no complaints of destaration nor chest pain reported Patient Status: Patient is awake on bed, alert and oriented x 4. Plan of care endorsed. Diet: NPO except medications. Pending Orders: none Pending Results/Labs:none Pending MD notification:none Latest Vital Signs: Temperature 97.4 , Pulse 79 , B/P 163 /67 , Respiratory Rate 19 , O2 SAT 97 , Bi-pap, O2 Flow Rate 15.0 . Vital Sign Comment: stable EKG Rhythm: Sinus Rhythm Rhythm change?: N MD Notified?: - MD Response: Latest Navarro Fall Score: 30 Fall Risk: Medium Risk Safety Measures: Call light Within Reach, Bed Alarm Zone 1, Side Rails Side Rails x3, Bed position Low and Locked. Fall Precautions: Yellow Socks Yellow Gown Door Sign Patient Fall Education Report given to OCHOA Owen.
--- NOTE | 2020-02-23 07:14 | NUR ---
NURSE NOTES: Received report from OCHOA Flaherty. Patient is resting in bed in stable condition. No s/sx of SOB, breathing is even and unlabored, on Bipap 14/5 FiO2 100% SpO2 95%. Denies any presence of pain or discomfort at this time. Bed is in lowest position, brakes engaged. Call light is kept within easy reach. Will continue to monitor patient.
[2020-02-23 07:48] VITALS: BP 143/55
[2020-02-23] MEDS: Eliquis 5mg tablet ORAL SCH ×2 (09:40→17:13)
[2020-02-23] MEDS: Metoprolol Tartrate 12.5mg TAB ORAL SCH ×2 (09:40→20:17)
[2020-02-23] MEDS: dexAMETHasone 10mg/ml Inj IV SCH (09:40)
[2020-02-23] MEDS: Aspirin EC 81mg tab ORAL SCH (09:40)
[2020-02-23] MEDS: cefTRIAXone 1 GM in D5W 55 ML IVPB SCH (10:31)
--- NOTE | 2020-02-23 10:37 | Infectious Diseases Prog Note ---
Assessment/Plan Assessment/Plan IMPRESSION: 1. Leukocytosis improving 2. COVID-19 pneumonia. 3. Acute renal failure.improving 4. Hypoxemic respiratory failure. 5. UTI. 6. Lactic acidosis. 7. Hypertension. 8. Hyperlipidemia. RECOMMENDATION: continue ceftriaxone and dexamethasone. Started on tapering from BIPAP f/u CBC Subjective ROS Limited/Unobtainable: Yes Constitutional: Denies: fever Allergies: Coded Allergies: No Known Allergies (Unverified , 02/18/20) Objective Last 24 Hour Vital Signs Date Time Temp Pulse Resp B/P (MAP) Pulse Ox O2 Delivery O2 Flow Rate FiO2 02/23/20 09:40 75 143/55 02/23/20 08:00 Bi-pap 02/23/20 08:00 80 02/23/20 08:00 76 02/23/20 07:48 97.3 75 19 143/55 (84) 97 02/23/20 06:52 67 14 94 80 02/23/20 05:19 79 163/67 02/23/20 04:00 Bi-pap 02/23/20 04:00 97.4 77 19 158/57 (90) 97 02/23/20 04:00 100 02/23/20 03:45 79 02/23/20 03:29 63 16 97 80 02/23/20 00:00 98.5 79 16 163/67 (99) 99 02/23/20 00:00 Bi-pap 02/23/20 00:00 100 02/22/20 23:43 73 164/65 02/22/20 23:43 79 02/22/20 23:09 73 22 98 90 02/22/20 21:00 82 164/65 02/22/20 20:00 Bi-pap 02/22/20 20:00 98.0 82 19 164/65 (98) 97 02/22/20 19:37 75 15 97 100 02/22/20 19:24 82 02/22/20 18:00 100 02/22/20 17:06 71 157/67 02/22/20 16:00 Bi-pap 02/22/20 16:00 71 02/22/20 15:53 97.3 82 20 157/67 (97) 93 82 82 02/22/20 15:20 84 17 96 80 02/22/20 14:56 70 02/22/20 12:00 Bi-pap 02/22/20 12:00 74 02/22/20 12:00 80 02/22/20 12:00 98.3 89 20 125/47 (73) 94 89 89 02/22/20 11:50 84 125/43 02/22/20 11:20 86 18 97 80 Height (Feet): 5 Weight (Pounds): 160 HEENT: mucous membranes moist Respiratory/Chest: other - on BIPAP, FIO2=80% Cardiovascular: normal rate Abdomen: soft, non tender Extremities: no edema Neurologic/Psychiatric: alert, responsive Current Medications Medications (Trade) Dose Ordered Sig/Eze Route PRN Reason Start Time Stop Time Status Last Admin Dose Admin Acetaminophen (Tylenol) 500 mg Q6H PRN ORAL Mild Pain (Pain Scale 1-3) 02/19/20 00:00 03/20/20 00:00 02/21/20 00:35 Apixaban (Eliquis) 5 mg BID ORAL 02/21/20 18:00 05/21/20 17:59 02/23/20 09:40 Aspirin (ASA) 81 mg DAILY ORAL 02/24/20 09:00 04/09/20 08:59 Atorvastatin Calcium (Lipitor) 10 mg BEDTIME ORAL 02/19/20 21:00 05/19/20 20:59 02/22/20 21:00 Ceftriaxone Sodium 1 gm/ Dextrose 55 ml @ 110 mls/hr Q24H IVPB 02/19/20 11:00 02/26/20 10:59 02/23/20 10:31 Clonidine HCl (Catapres Tab) 0.1 mg Q4H PRN ORAL BP over 166 systolic 02/19/20 15:45 05/19/20 15:44 Dexamethasone Sodium Phosphate (Decadron 10mg/ ml Inj) 6 mg DAILY IV 02/19/20 10:15 02/28/20 09:01 02/23/20 09:40 Dextrose 1,000 ml @ 50 mls/hr Q20H IV 02/22/20 10:45 03/23/20 10:44 02/23/20 06:11 Diltiazem HCl (Cardizem Tab) 60 mg EVERY 6 HOURS ORAL 02/20/20 18:00 03/21/20 17:59 02/23/20 05:19 Furosemide (Lasix) 40 mg EVERY 12 HOURS IV 02/19/20 21:00 03/20/20 20:59 02/23/20 09:41 Hydralazine HCl (Apresoline) 10 mg Q2H PRN IV For High Blood Pressure 02/19/20 00:30 05/19/20 00:29 02/21/20 16:19 Metoprolol Tartrate (Lopressor) 12.5 mg Q12HR ORAL 02/19/20 21:00 05/19/20 20:59 02/23/20 09:40 Genaro Sun MD Feb 23, 2020 10:37
--- NOTE | 2020-02-23 11:21 | Nephrology Progress Note ---
Assessment/Plan Problem List: (1) JARETH (acute kidney injury) (2) Pneumonia due to COVID-19 virus (3) UTI (urinary tract infection) (4) Sepsis (5) Hypoxia (6) Elevated troponin I level Assessment Acute renal failure Possible underlying chronic kidney disease Hypoxic respiratory failure Sepsis, COVID-19 pneumonia UTI Hypertension, uncontrolled Hyperlipemia Elevated troponin I Electrolyte abnormalities Plan February 22: No labs drawn today. Medication list reviewed. Patient remains on BiPAP. Patient is a DNI. Continue to monitor renal parameters and electro lytes. Continue per consultants. February 21: Labs reviewed. Serum sodium rising. Change IV to D5W. Continue to monitor renal parameters. Continue per pulmonary. Patient remains on BiPAP. February 20: No CHEM panel drawn today. Previously low potassium replaced. Medication reviewed. Check lab tomorrow. Continue per consultants. February 19: Serum creatinine lowering. Abnormal electrolyte noted and addressed. Continue pulmonary care. Blood pressure under control. Continue to monitor renal parameters. Medication list reviewed. Slow hydrate, normal saline Watch renal parameters on Lasix Recheck chest x-ray tomorrow Keep the blood pressure in check Avoid nephrotoxic's Monitor electrolytes and urine output Per consultants Per orders Subjective ROS Limited/Unobtainable: Yes Objective Objective Last 24 Hour Vital Signs Date Time Temp Pulse Resp B/P (MAP) Pulse Ox O2 Delivery O2 Flow Rate FiO2 02/23/20 09:40 75 143/55 02/23/20 08:00 Bi-pap 02/23/20 08:00 80 02/23/20 08:00 76 02/23/20 07:48 97.3 75 19 143/55 (84) 97 02/23/20 06:52 67 14 94 80 02/23/20 05:19 79 163/67 02/23/20 04:00 Bi-pap 02/23/20 04:00 97.4 77 19 158/57 (90) 97 02/23/20 04:00 100 02/23/20 03:45 79 02/23/20 03:29 63 16 97 80 02/23/20 00:00 98.5 79 16 163/67 (99) 99 02/23/20 00:00 Bi-pap 02/23/20 00:00 100 02/22/20 23:43 73 164/65 02/22/20 23:43 79 02/22/20 23:09 73 22 98 90 02/22/20 21:00 82 164/65 02/22/20 20:00 Bi-pap 02/22/20 20:00 98.0 82 19 164/65 (98) 97 02/22/20 19:37 75 15 97 100 02/22/20 19:24 82 02/22/20 18:00 100 02/22/20 17:06 71 157/67 02/22/20 16:00 Bi-pap 02/22/20 16:00 71 02/22/20 15:53 97.3 82 20 157/67 (97) 93 82 82 02/22/20 15:20 84 17 96 80 02/22/20 14:56 70 02/22/20 12:00 Bi-pap 02/22/20 12:00 74 02/22/20 12:00 80 02/22/20 12:00 98.3 89 20 125/47 (73) 94 89 89 02/22/20 11:50 84 125/43 Intake and Output 02/22/20 02/23/20 19:00 07:00 Intake Total 505 ml 420 ml Output Total 1200 ml 1000 ml Balance -695 ml -580 ml Intake Oral 100 ml 120 ml IV Total 405 ml 300 ml Output Urine Total 1200 ml 1000 ml No CHEM panel drawn today Height (Feet): 5 Weight (Pounds): 160 General Appearance: mild distress EENT: other - On BiPAP Cardiovascular: normal rate Respiratory/Chest: decreased breath sounds Abdomen: distended Reji Byrne MD Feb 23, 2020 11:21
[2020-02-23 12:00] VITALS: BP 146/45
--- NOTE | 2020-02-23 12:35 | NUR ---
NURSE NOTES: Dr. Briggs at nurse station, made aware patient is still on Bipap 14/5 FiO2 80%, patient unable to be weaned below FiO2 70% patient noted desaturating to SpO2 88%. Patient comfortable on Bipap 14/5 FiO2 80% SpO2 96%. Dr. Briggs acknowledged and gave no new orders at this time. Will continue to monitor patient.
--- NOTE | 2020-02-23 12:51 | Pulmonology Progress Note ---
Subjective ROS Limited/Unobtainable: Yes Interval Events: Remains on BiPAP HEENT: Repors: no symptoms Respiratory: Reports: no symptoms Cardiovascular: Reports: no symptoms Gastrointestinal/Abdominal: Reports: no symptoms Genitourinary: Reports: no symptoms Allergies: Coded Allergies: No Known Allergies (Unverified , 02/18/20) Objective Last 24 Hour Vital Signs Date Time Temp Pulse Resp B/P (MAP) Pulse Ox O2 Delivery O2 Flow Rate FiO2 02/23/20 12:00 97.1 69 19 146/45 (78) 96 02/23/20 12:00 80 02/23/20 12:00 Bi-pap 02/23/20 11:36 69 147/45 02/23/20 09:40 75 143/55 02/23/20 08:00 Bi-pap 02/23/20 08:00 80 02/23/20 08:00 76 02/23/20 07:48 97.3 75 19 143/55 (84) 97 02/23/20 06:52 67 14 94 80 02/23/20 05:19 79 163/67 02/23/20 04:00 Bi-pap 02/23/20 04:00 97.4 77 19 158/57 (90) 97 02/23/20 04:00 100 02/23/20 03:45 79 02/23/20 03:29 63 16 97 80 02/23/20 00:00 98.5 79 16 163/67 (99) 99 02/23/20 00:00 Bi-pap 02/23/20 00:00 100 02/22/20 23:43 73 164/65 02/22/20 23:43 79 02/22/20 23:09 73 22 98 90 02/22/20 21:00 82 164/65 02/22/20 20:00 Bi-pap 02/22/20 20:00 98.0 82 19 164/65 (98) 97 02/22/20 19:37 75 15 97 100 02/22/20 19:24 82 02/22/20 18:00 100 02/22/20 17:06 71 157/67 02/22/20 16:00 Bi-pap 02/22/20 16:00 71 02/22/20 15:53 97.3 82 20 157/67 (97) 93 82 82 02/22/20 15:20 84 17 96 80 1/8/21 14:56 70 Intake and Output 02/22/20 02/23/20 19:00 07:00 Intake Total 505 ml 420 ml Output Total 1200 ml 1000 ml Balance -695 ml -580 ml Intake Oral 100 ml 120 ml IV Total 405 ml 300 ml Output Urine Total 1200 ml 1000 ml General Appearance: no acute distress HEENT: normocephalic Respiratory: chest wall non-tender, lungs clear Cardiovascular: normal peripheral pulses Abdomen: normal bowel sounds Current Medications Medications (Trade) Dose Ordered Sig/Eze Route PRN Reason Start Time Stop Time Status Last Admin Dose Admin Acetaminophen (Tylenol) 500 mg Q6H PRN ORAL Mild Pain (Pain Scale 1-3) 02/19/20 00:00 03/20/20 00:00 02/21/20 00:35 Apixaban (Eliquis) 5 mg BID ORAL 02/21/20 18:00 05/21/20 17:59 02/23/20 09:40 Aspirin (ASA) 81 mg DAILY ORAL 02/24/20 09:00 04/09/20 08:59 Atorvastatin Calcium (Lipitor) 10 mg BEDTIME ORAL 02/19/20 21:00 05/19/20 20:59 02/22/20 21:00 Ceftriaxone Sodium 1 gm/ Dextrose 55 ml @ 110 mls/hr Q24H IVPB 02/19/20 11:00 02/26/20 10:59 02/23/20 10:31 Clonidine HCl (Catapres Tab) 0.1 mg Q4H PRN ORAL BP over 166 systolic 02/19/20 15:45 05/19/20 15:44 Dexamethasone Sodium Phosphate (Decadron 10mg/ ml Inj) 6 mg DAILY IV 02/19/20 10:15 02/28/20 09:01 02/23/20 09:40 Dextrose 1,000 ml @ 50 mls/hr Q20H IV 02/22/20 10:45 03/23/20 10:44 02/23/20 06:11 Diltiazem HCl (Cardizem Tab) 60 mg EVERY 6 HOURS ORAL 02/20/20 18:00 03/21/20 17:59 02/23/20 11:36 Furosemide (Lasix) 40 mg EVERY 12 HOURS IV 02/19/20 21:00 03/20/20 20:59 02/23/20 09:41 Hydralazine HCl (Apresoline) 10 mg Q2H PRN IV For High Blood Pressure 02/19/20 00:30 05/19/20 00:29 02/21/20 16:19 Metoprolol Tartrate (Lopressor) 12.5 mg Q12HR ORAL 02/19/20 21:00 05/19/20 20:59 02/23/20 09:40 Assessment/Plan Assessment/Plan IMPRESSION: 1. COVID-19 pneumonia. 2. Respiratory failure, on BiPAP. 3. Renal failure.Improved 4. Troponin leak. DISCUSSION: Continue Decadron. On Lovenox, creatinine now 1.4 Defer Remdesivir use to ID Continue BiPAP. Saturating 96%. FiO2 now decreased to 80%. Discussed with RN Jorge Pollock Omar Syed MD Feb 23, 2020 12:51
[2020-02-23 16:00] VITALS: BP 154/57
--- NOTE | 2020-02-23 19:06 | Cardiac Electrophysiology PN ---
Assessment/Plan Assessment/Plan 1. Congestive heart failure with BNP of more than 15,000. EF 60% on Lasix 40 mg IV b.i.d. 2. Elevated troponin could be due to renal failure No CP and echo Nl EF. On Lopressor 12.5 bid 3. Atrial fib with RVR. On Cardizem 60 Q 6hr, Lopressor 12.5 bid and Eliquis 5 bid 4. Accelerated hypertension. Continue Lasix 40 iv bid, Lopressor and Cardizem 5. Respiratory failure due to COVID. The patient is on BiPAP as well as dexamethasone. Subjective Subjective In SR on Cardizem and Lopressor for atrial fib with RVR. On BIPAP 14/5 and 80% Fio2 Objective Last 24 Hour Vital Signs Date Time Temp Pulse Resp B/P (MAP) Pulse Ox O2 Delivery O2 Flow Rate FiO2 02/23/20 17:12 78 154/57 02/23/20 16:00 80 02/23/20 16:00 Bi-pap 02/23/20 16:00 75 02/23/20 16:00 97.5 79 19 154/57 (89) 96 02/23/20 15:15 68 16 92 80 02/23/20 12:00 97.1 69 19 146/45 (78) 96 02/23/20 12:00 80 02/23/20 12:00 Bi-pap 02/23/20 12:00 70 02/23/20 11:36 69 147/45 02/23/20 10:35 65 15 93 80 02/23/20 09:40 75 143/55 02/23/20 08:00 Bi-pap 02/23/20 08:00 80 02/23/20 08:00 76 02/23/20 07:48 97.3 75 19 143/55 (84) 97 02/23/20 06:52 67 14 94 80 02/23/20 05:19 79 163/67 02/23/20 04:00 Bi-pap 02/23/20 04:00 97.4 77 19 158/57 (90) 97 02/23/20 04:00 100 02/23/20 03:45 79 02/23/20 03:29 63 16 97 80 02/23/20 00:00 98.5 79 16 163/67 (99) 99 02/23/20 00:00 Bi-pap 02/23/20 00:00 100 02/22/20 23:43 73 164/65 02/22/20 23:43 79 02/22/20 23:09 73 22 98 90 02/22/20 21:00 82 164/65 02/22/20 20:00 Bi-pap 02/22/20 20:00 98.0 82 19 164/65 (98) 97 02/22/20 19:37 75 15 97 100 02/22/20 19:24 82 Intake and Output 02/22/20 02/23/20 19:00 07:00 Intake Total 505 ml 420 ml Output Total 1200 ml 1000 ml Balance -695 ml -580 ml Intake Oral 100 ml 120 ml IV Total 405 ml 300 ml Output Urine Total 1200 ml 1000 ml Objective HEAD AND SHOWED: No JVD. LUNGS: Decreased breath sounds. CARDIOVASCULAR: Regular S1 and S2 with no gallop. ABDOMEN: Soft. EXTREMITIES: No pitting edema. Adonay Guerra MD Feb 23, 2020 19:06
--- NOTE | 2020-02-23 19:23 | NUR ---
NURSE HAND-OFF REPORT: Important Events on Shift: Patient Status: Stable Diet: NPO except ice chips and medications. Pending Orders: None Pending Results/Labs:None Pending MD notification:None Latest Vital Signs: Temperature 97.5 , Pulse 78 , B/P 154 /57 , Respiratory Rate 19 , O2 SAT 96 , Bi-pap, O2 Flow Rate 15.0 . Vital Sign Comment: Stable EKG Rhythm: Sinus Rhythm Rhythm change?: N MD Notified?: - MD Response: Latest Navarro Fall Score: 30 Fall Risk: Medium Risk Safety Measures: Call light Within Reach, Bed Alarm Zone 1, Side Rails Side Rails x3, Bed position Low and Locked. Fall Precautions: Yellow Socks Yellow Gown Door Sign Patient Fall Education Report given to OCHOA Kay.
--- NOTE | 2020-02-23 19:30 | NUR ---
NURSE NOTES: Received report from OCHOA Owen. Pt is asleep, not in acute distress. On Bipap 14/5, FiO2 80%, saturating 98%. Vital signs are stable. Cano catheter is intact and patent. Peripheral IV in left AC 20G is intact and patent running D5W @ 50cc/hr. No skin issues noted. Bed is locked and in lowest position, bed alarm on, call light is with the pt. Head of bed is elevated. Will continue to monitor pt. Will continue with the plan of care.
--- NOTE | 2020-02-23 19:38 | General Progress Note ---
Subjective ROS Limited/Unobtainable: Yes Allergies: Coded Allergies: No Known Allergies (Unverified , 02/18/20) Objective Last 24 Hour Vital Signs Date Time Temp Pulse Resp B/P (MAP) Pulse Ox O2 Delivery O2 Flow Rate FiO2 02/23/20 17:12 78 154/57 02/23/20 16:00 80 02/23/20 16:00 Bi-pap 02/23/20 16:00 75 02/23/20 16:00 97.5 79 19 154/57 (89) 96 02/23/20 15:15 68 16 92 80 02/23/20 12:00 97.1 69 19 146/45 (78) 96 02/23/20 12:00 80 02/23/20 12:00 Bi-pap 02/23/20 12:00 70 02/23/20 11:36 69 147/45 02/23/20 10:35 65 15 93 80 02/23/20 09:40 75 143/55 02/23/20 08:00 Bi-pap 02/23/20 08:00 80 02/23/20 08:00 76 02/23/20 07:48 97.3 75 19 143/55 (84) 97 02/23/20 06:52 67 14 94 80 02/23/20 05:19 79 163/67 02/23/20 04:00 Bi-pap 02/23/20 04:00 97.4 77 19 158/57 (90) 97 02/23/20 04:00 100 02/23/20 03:45 79 02/23/20 03:29 63 16 97 80 02/23/20 00:00 98.5 79 16 163/67 (99) 99 02/23/20 00:00 Bi-pap 02/23/20 00:00 100 02/22/20 23:43 73 164/65 02/22/20 23:43 79 02/22/20 23:09 73 22 98 90 02/22/20 21:00 82 164/65 02/22/20 20:00 Bi-pap 02/22/20 20:00 98.0 82 19 164/65 (98) 97 Intake and Output 02/22/20 02/23/20 19:00 07:00 Intake Total 505 ml 420 ml Output Total 1200 ml 1000 ml Balance -695 ml -580 ml Intake Oral 100 ml 120 ml IV Total 405 ml 300 ml Output Urine Total 1200 ml 1000 ml Height (Feet): 5 Weight (Pounds): 160 Assessment/Plan Problem List: (1) UTI (urinary tract infection) ICD Codes: N39.0 - Urinary tract infection, site not specified SNOMED: 62673195 (2) Hypoxia ICD Codes: R09.02 - Hypoxemia; J12.82 - Pneumonia due to coronavirus disease 2019 SNOMED: 194894469 (3) Sepsis ICD Codes: A41.9 - Sepsis, unspecified organism SNOMED: 11419645 (4) JARETH (acute kidney injury) ICD Codes: N17.9 - Acute kidney failure, unspecified SNOMED: 19715791, 5063451 (5) Pneumonia due to COVID-19 virus ICD Codes: U07.1 - COVID-19; J12.82 - Pneumonia due to coronavirus disease 2019 SNOMED: 987641513312815658 Status: progressing Assessment/Plan: worsening azotemia improving leukocytosis hypernatremia due to dehydration covid + resp insuff sepsis pna abx per id Gerson Evans MD Feb 23, 2020 19:38
[2020-02-23 20:00] VITALS: BP 152/63
--- NOTE | 2020-02-23 22:30 | NUR ---
NURSE NOTES: Initial assessment done. Evening medications given. Pt is tolerating Bipap setting with O2 saturation 96-99%. Vital signs are stable. Pt denies pain. Will continue to closely monitor pt. Will continue with the plan of care.
[2020-02-24] VITALS: BP 142/67
--- NOTE | 2020-02-24 01:00 | NUR ---
NURSE NOTES: Sponge bath given. Gown and linens changed. Pt is turned and reposition. No skin issues noted. Denies pain. Tolerating BiPap setting saturating 96-99%. Will continue to closely monitor pt.
[2020-02-24 04:00] VITALS: BP 140/58
--- NOTE | 2020-02-24 04:00 | NUR ---
NURSE NOTES: Pt is asleep, not in acute distress. Tolerating Bipap setting saturating 96-99%. Vital signs remain stable. Will continue to monitor pt.
[2020-02-24] MEDS: dilTIAZem HCl 60mg tab ORAL SCH ×4 (05:06→23:50)
--- NOTE | 2020-02-24 07:13 | Pulmonology Progress Note ---
Subjective ROS Limited/Unobtainable: Yes Interval Events: Remains on BiPAP HEENT: Repors: no symptoms Respiratory: Reports: no symptoms Cardiovascular: Reports: no symptoms Gastrointestinal/Abdominal: Reports: no symptoms Genitourinary: Reports: no symptoms Allergies: Coded Allergies: No Known Allergies (Unverified , 02/18/20) Objective Last 24 Hour Vital Signs Date Time Temp Pulse Resp B/P (MAP) Pulse Ox O2 Delivery O2 Flow Rate FiO2 02/24/20 05:06 75 140/58 02/24/20 04:00 Bi-pap 02/24/20 04:00 66 02/24/20 04:00 98.0 75 17 140/58 (85) 98 02/24/20 04:00 80 02/24/20 02:33 72 26 95 80 02/24/20 00:00 98.1 73 18 142/67 (92) 98 02/24/20 00:00 71 02/24/20 00:00 Bi-pap 02/23/20 23:57 74 132/59 02/23/20 23:49 80 26 96 Bi-Pap 100 02/23/20 23:49 80 26 96 80 02/23/20 20:17 80 152/63 02/23/20 20:00 98.4 77 19 152/63 (92) 97 02/23/20 20:00 75 02/23/20 20:00 Bi-pap 02/23/20 20:00 80 02/23/20 19:54 78 23 98 80 02/23/20 17:12 78 154/57 02/23/20 16:00 80 02/23/20 16:00 Bi-pap 02/23/20 16:00 75 02/23/20 16:00 97.5 79 19 154/57 (89) 96 02/23/20 15:15 68 16 92 80 02/23/20 12:00 97.1 69 19 146/45 (78) 96 02/23/20 12:00 80 02/23/20 12:00 Bi-pap 02/23/20 12:00 70 02/23/20 11:36 69 147/45 02/23/20 10:35 65 15 93 80 02/23/20 09:40 75 143/55 02/23/20 08:00 Bi-pap 02/23/20 08:00 80 02/23/20 08:00 76 02/23/20 07:48 97.3 75 19 143/55 (84) 97 Intake and Output 02/23/20 02/24/20 19:00 07:00 Intake Total 50 ml 661.67 ml Output Total 700 ml 600 ml Balance -650 ml 61.67 ml Intake Oral 120 ml IV Total 50 ml 541.67 ml Output Urine Total 700 ml 600 ml General Appearance: no acute distress HEENT: normocephalic Respiratory: chest wall non-tender, lungs clear Cardiovascular: normal peripheral pulses Abdomen: normal bowel sounds Current Medications Medications (Trade) Dose Ordered Sig/Eze Route PRN Reason Start Time Stop Time Status Last Admin Dose Admin Acetaminophen (Tylenol) 500 mg Q6H PRN ORAL Mild Pain (Pain Scale 1-3) 02/19/20 00:00 03/20/20 00:00 02/21/20 00:35 Apixaban (Eliquis) 5 mg BID ORAL 02/21/20 18:00 05/21/20 17:59 02/23/20 17:13 Aspirin (ASA) 81 mg DAILY ORAL 02/24/20 09:00 04/09/20 08:59 Atorvastatin Calcium (Lipitor) 10 mg BEDTIME ORAL 02/19/20 21:00 05/19/20 20:59 02/23/20 20:16 Ceftriaxone Sodium 1 gm/ Dextrose 55 ml @ 110 mls/hr Q24H IVPB 02/19/20 11:00 02/26/20 10:59 02/23/20 10:31 Clonidine HCl (Catapres Tab) 0.1 mg Q4H PRN ORAL BP over 166 systolic 02/19/20 15:45 05/19/20 15:44 Dexamethasone Sodium Phosphate (Decadron 10mg/ ml Inj) 6 mg DAILY IV 02/19/20 10:15 02/28/20 09:01 02/23/20 09:40 Dextrose 1,000 ml @ 50 mls/hr Q20H IV 02/22/20 10:45 03/23/20 10:44 02/24/20 02:10 Diltiazem HCl (Cardizem Tab) 60 mg EVERY 6 HOURS ORAL 02/20/20 18:00 03/21/20 17:59 02/24/20 05:06 Furosemide (Lasix) 40 mg EVERY 12 HOURS IV 02/19/20 21:00 03/20/20 20:59 02/23/20 20:17 Hydralazine HCl (Apresoline) 10 mg Q2H PRN IV For High Blood Pressure 02/19/20 00:30 05/19/20 00:29 02/21/20 16:19 Metoprolol Tartrate (Lopressor) 12.5 mg Q12HR ORAL 02/19/20 21:00 05/19/20 20:59 02/23/20 20:17 Assessment/Plan Assessment/Plan IMPRESSION: 1. COVID-19 pneumonia. 2. Respiratory failure, on BiPAP. 3. Renal failure.Improved 4. Troponin leak. DISCUSSION: Continue Decadron. On Lovenox, creatinine now 1.4 Defer Remdesivir use to ID Continue BiPAP. Saturating 96%. FiO2 now decreased to 80%. Discussed with RN Jorge Pollock Omar Syed MD Feb 24, 2020 07:13
--- NOTE | 2020-02-24 07:24 | NUR ---
NURSE HAND-OFF REPORT: Important Events on Shift:None Patient Status: DNI Diet: NPO Pending Orders: N Pending Results/Labs:n Pending MD notification:n Latest Vital Signs: Temperature 98.0 , Pulse 75 , B/P 140 /58 , Respiratory Rate 17 , O2 SAT 98 , Bi-pap, O2 Flow Rate 15.0 . Vital Sign Comment: Stable EKG Rhythm: Sinus Rhythm Rhythm change?: N MD Notified?: - MD Response: Latest Navarro Fall Score: 30 Fall Risk: Medium Risk Safety Measures: Call light Within Reach, Bed Alarm Zone 1, Side Rails Side Rails x3, Bed position Low and Locked. Fall Precautions: Yellow Socks Yellow Gown Door Sign Patient Fall Education Report given to lavell Ferrell RN.
--- NOTE | 2020-02-24 07:25 | NUR ---
NURSE NOTES: Received patient in bed awake. Bipap in place, no acute distress. IV line intact and patent. FC intact, draining yellow colored urine. HOB elevated. Bed locked in low position. Call light within reach. Will continue plan of care.
[2020-02-24 08:00] VITALS: BP 138/53
[2020-02-24 08:18] LABS: HEMATOCRIT 40.3 % (37.0-47.0); HEMOGLOBIN 13.2 G/DL (12.0-16.0); MEAN CORPUSCULAR VOLUME 94 FL (80-99); PLATELET COUNT 430 K/UL (150-450); RED BLOOD COUNT 4.29 M/UL (4.20-5.40); WHITE BLOOD COUNT 17.6 K/UL (4.8-10.8)
[2020-02-24] MEDS: Eliquis 5mg tablet ORAL SCH ×2 (08:43→17:08)
[2020-02-24] MEDS: Metoprolol Tartrate 12.5mg TAB ORAL SCH ×2 (08:43→20:00)
[2020-02-24] MEDS: dexAMETHasone 10mg/ml Inj IV SCH (08:43)
[2020-02-24] MEDS: Aspirin Baby 81mg ORAL SCH (08:44)
[2020-02-24 08:45] LABS: ALBUMIN 2.3 G/DL (3.4-5.0); ALBUMIN/GLOBULIN RATIO 0.5 (1.0-2.7); BILIRUBIN,TOTAL 0.5 MG/DL (0.2-1.0); CALCIUM 8.8 MG/DL (8.5-10.1); CREATININE 1.6 MG/DL (0.55-1.30); PHOSPHORUS 4.2 MG/DL (2.5-4.9); POTASSIUM 3.5 MMOL/L (3.5-5.1)
--- NOTE | 2020-02-24 11:40 | NUR ---
NURSE NOTES: Dr Sun aware of wbc 17.6, no new orders.
[2020-02-24 12:00] VITALS: BP 130/70
[2020-02-24] MEDS: cefTRIAXone 1 GM in D5W 55 ML IVPB SCH (12:10)
--- NOTE | 2020-02-24 13:30 | NUR ---
NURSE NOTES: Dr Palomares made aware that patient needs stool softener, left message, awaiting response.
--- NOTE | 2020-02-24 15:53 | Nephrology Progress Note ---
Assessment/Plan Problem List: (1) JARETH (acute kidney injury) (2) Pneumonia due to COVID-19 virus (3) UTI (urinary tract infection) (4) Sepsis (5) Hypoxia (6) Elevated troponin I level Assessment Acute renal failure Possible underlying chronic kidney disease Hypoxic respiratory failure Sepsis, COVID-19 pneumonia UTI Hypertension, uncontrolled Hyperlipemia Elevated troponin I Electrolyte abnormalities Plan February 23: Labs reviewed. Serum creatinine up to 1.6. Serum sodium 152. D5W IV to be continued patient remains on intravenous Lasix. Allopurinol for high uric acid added chest x-ray ordered. February 22: No labs drawn today. Medication list reviewed. Patient remains on BiPAP. Patient is a DNI. Continue to monitor renal parameters and electrolytes. Continue per consultants. February 21: Labs reviewed. Serum sodium rising. Change IV to D5W. Continue to monitor renal parameters. Continue per pulmonary. Patient remains on BiPAP. February 20: No CHEM panel drawn today. Previously low potassium replaced. Medication reviewed. Check lab tomorrow. Continue per consultants. February 19: Serum creatinine lowering. Abnormal electrolyte noted and addressed. Continue pulmonary care. Blood pressure under control. Continue to monitor renal parameters. Medication list reviewed. Slow hydrate, normal saline Watch renal parameters on Lasix Recheck chest x-ray tomorrow Keep the blood pressure in check Avoid nephrotoxic's Monitor electrolytes and urine output Per consultants Per orders Subjective ROS Limited/Unobtainable: Yes Objective Objective Last 24 Hour Vital Signs Date Time Temp Pulse Resp B/P (MAP) Pulse Ox O2 Delivery O2 Flow Rate FiO2 02/24/20 12:16 69 130/70 02/24/20 12:00 80 02/24/20 12:00 70 02/24/20 12:00 Bi-pap 02/24/20 12:00 96.8 69 18 130/70 (90) 97 02/24/20 11:23 75 26 98 80 02/24/20 08:43 75 138/53 02/24/20 08:00 80 02/24/20 08:00 78 02/24/20 08:00 96.8 75 18 138/53 (81) 94 02/24/20 08:00 Bi-pap 02/24/20 07:12 70 16 97 80 02/24/20 05:06 75 140/58 02/24/20 04:00 Bi-pap 02/24/20 04:00 66 02/24/20 04:00 98.0 75 17 140/58 (85) 98 02/24/20 04:00 80 02/24/20 02:33 72 26 95 80 02/24/20 00:00 98.1 73 18 142/67 (92) 98 02/24/20 00:00 71 02/24/20 00:00 Bi-pap 02/23/20 23:57 74 132/59 02/23/20 23:49 80 26 96 Bi-Pap 100 02/23/20 23:49 80 26 96 80 02/23/20 20:17 80 152/63 02/23/20 20:00 98.4 77 19 152/63 (92) 97 02/23/20 20:00 75 02/23/20 20:00 Bi-pap 02/23/20 20:00 80 02/23/20 19:54 78 23 98 80 02/23/20 17:12 78 154/57 02/23/20 16:00 80 02/23/20 16:00 Bi-pap 02/23/20 16:00 75 02/23/20 16:00 97.5 79 19 154/57 (89) 96 Intake and Output 02/23/20 02/24/20 19:00 07:00 Intake Total 50 ml 661.67 ml Output Total 700 ml 600 ml Balance -650 ml 61.67 ml Intake Oral 120 ml IV Total 50 ml 541.67 ml Output Urine Total 700 ml 600 ml Current Medications Medications (Trade) Dose Ordered Sig/Eze Route PRN Reason Start Time Stop Time Status Last Admin Dose Admin Acetaminophen (Tylenol) 500 mg Q6H PRN ORAL Mild Pain (Pain Scale 1-3) 02/19/20 00:00 03/20/20 00:00 02/21/20 00:35 Allopurinol (allopurinoL) 300 mg DAILY ORAL 02/25/20 09:00 03/26/20 08:59 UNV Allopurinol (allopurinoL) 300 mg ONCE ONCE ORAL 02/24/20 16:00 02/24/20 16:01 UNV Apixaban (Eliquis) 5 mg BID ORAL 02/21/20 18:00 05/21/20 17:59 02/24/20 08:43 Aspirin (ASA) 81 mg DAILY ORAL 02/24/20 09:00 04/09/20 08:59 02/24/20 08:44 Atorvastatin Calcium (Lipitor) 10 mg BEDTIME ORAL 02/19/20 21:00 05/19/20 20:59 02/23/20 20:16 Ceftriaxone Sodium 1 gm/ Dextrose 55 ml @ 110 mls/hr Q24H IVPB 02/19/20 11:00 02/26/20 10:59 02/24/20 12:10 Clonidine HCl (Catapres Tab) 0.1 mg Q4H PRN ORAL BP over 166 systolic 02/19/20 15:45 05/19/20 15:44 Dexamethasone Sodium Phosphate (Decadron 10mg/ ml Inj) 6 mg DAILY IV 02/19/20 10:15 02/28/20 09:01 02/24/20 08:43 Dextrose 1,000 ml @ 75 mls/hr [id number] IV 02/22/20 10:45 03/23/20 10:44 02/24/20 02:10 Diltiazem HCl (Cardizem Tab) 60 mg EVERY 6 HOURS ORAL 02/20/20 18:00 03/21/20 17:59 02/24/20 12:16 Furosemide (Lasix) 40 mg EVERY 12 HOURS IV 02/19/20 21:00 03/20/20 20:59 02/24/20 08:43 Hydralazine HCl (Apresoline) 10 mg Q2H PRN IV For High Blood Pressure 02/19/20 00:30 05/19/20 00:29 02/21/20 16:19 Metoprolol Tartrate (Lopressor) 12.5 mg Q12HR ORAL 02/19/20 21:00 05/19/20 20:59 02/24/20 08:43 Laboratory Tests 02/24/20 07:45: White Blood Count 17.6H, Red Blood Count 4.29, Hemoglobin 13.2, Hematocrit 40.3, Mean Corpuscular Volume 94, Mean Corpuscular Hemoglobin 30.9, Mean Corpuscular Hemoglobin Concent 32.8, Red Cell Distribution Width 15.0H, Platelet Count 430, Mean Platelet Volume 7.3, Neutrophils (%) (Auto) , Lymphocytes (%) (Auto) , Monocytes (%) (Auto) , Eosinophils (%) (Auto) , Basophils (%) (Auto) , Differential Total Cells Counted 100, Neutrophils % (Manual) 93H, Lymphocytes % (Manual) 2L, Monocytes % (Manual) 5, Eosinophils % (Manual) 0, Basophils % (Manual) 0, Band Neutrophils 0, Platelet Estimate Adequate, Platelet Morphology Normal, Anisocytosis 1+, Sodium Level 152H, Potassium Level 3.5, Chloride Level 111H, Carbon Dioxide Level 32, Anion Gap 9, Blood Urea Nitrogen 82H, Creatinine 1.6H, Estimat Glomerular Filtration Rate 31.0, Glucose Level 152H, Uric Acid 13.3H, Calcium Level 8.8, Phosphorus Level 4.2, Magnesium Level 2.7H, Total Bilirubin 0.5, Aspartate Amino Transf (AST/SGOT) 70H, Alanine Aminotransferase (ALT/SGPT) 51, Alkaline Phosphatase 99, C-Reactive Protein, Quantitative [Pending], Pro-B-Type Natriuretic Peptide 285H, Total Protein 7.4, Albumin 2.3L, Globulin 5.1, Albumin/Globulin Ratio 0.5L Height (Feet): 5 Weight (Pounds): 160 General Appearance: no apparent distress EENT: other - On BiPAP Cardiovascular: normal rate Respiratory/Chest: decreased breath sounds Abdomen: distended Reji Byrne MD Feb 24, 2020 15:53
[2020-02-24 16:00] VITALS: BP 148/65
--- NOTE | 2020-02-24 17:57 | General Progress Note ---
Subjective ROS Limited/Unobtainable: Yes Allergies: Coded Allergies: No Known Allergies (Unverified , 02/18/20) Objective Last 24 Hour Vital Signs Date Time Temp Pulse Resp B/P (MAP) Pulse Ox O2 Delivery O2 Flow Rate FiO2 02/24/20 17:07 80 148/65 02/24/20 16:00 70 02/24/20 16:00 97.5 80 21 148/65 (92) 95 02/24/20 15:26 77 21 97 70 02/24/20 12:16 69 130/70 02/24/20 12:00 80 02/24/20 12:00 70 02/24/20 12:00 Bi-pap 02/24/20 12:00 96.8 69 18 130/70 (90) 97 02/24/20 11:23 75 26 98 80 02/24/20 08:43 75 138/53 02/24/20 08:00 80 02/24/20 08:00 78 02/24/20 08:00 96.8 75 18 138/53 (81) 94 02/24/20 08:00 Bi-pap 02/24/20 07:12 70 16 97 80 02/24/20 05:06 75 140/58 02/24/20 04:00 Bi-pap 02/24/20 04:00 66 02/24/20 04:00 98.0 75 17 140/58 (85) 98 02/24/20 04:00 80 02/24/20 02:33 72 26 95 80 02/24/20 00:00 98.1 73 18 142/67 (92) 98 02/24/20 00:00 71 02/24/20 00:00 Bi-pap 02/23/20 23:57 74 132/59 02/23/20 23:49 80 26 96 Bi-Pap 100 02/23/20 23:49 80 26 96 80 02/23/20 20:17 80 152/63 02/23/20 20:00 98.4 77 19 152/63 (92) 97 02/23/20 20:00 75 02/23/20 20:00 Bi-pap 02/23/20 20:00 80 02/23/20 19:54 78 23 98 80 Intake and Output 02/23/20 02/24/20 19:00 07:00 Intake Total 50 ml 661.67 ml Output Total 700 ml 600 ml Balance -650 ml 61.67 ml Intake Oral 120 ml IV Total 50 ml 541.67 ml Output Urine Total 700 ml 600 ml Laboratory Tests 02/24/20 07:45: White Blood Count 17.6H, Red Blood Count 4.29, Hemoglobin 13.2, Hematocrit 40.3, Mean Corpuscular Volume 94, Mean Corpuscular Hemoglobin 30.9, Mean Corpuscular Hemoglobin Concent 32.8, Red Cell Distribution Width 15.0H, Platelet Count 430, Mean Platelet Volume 7.3, Neutrophils (%) (Auto) , Lymphocytes (%) (Auto) , Monocytes (%) (Auto) , Eosinophils (%) (Auto) , Basophils (%) (Auto) , Differential Total Cells Counted 100, Neutrophils % (Manual) 93H, Lymphocytes % (Manual) 2L, Monocytes % (Manual) 5, Eosinophils % (Manual) 0, Basophils % (Manual) 0, Band Neutrophils 0, Platelet Estimate Adequate, Platelet Morphology Normal, Anisocytosis 1+, Sodium Level 152H, Potassium Level 3.5, Chloride Level 111H, Carbon Dioxide Level 32, Anion Gap 9, Blood Urea Nitrogen 82H, Creatinine 1.6H, Estimat Glomerular Filtration Rate 31.0, Glucose Level 152H, Uric Acid 13.3H, Calcium Level 8.8, Phosphorus Level 4.2, Magnesium Level 2.7H, Total Bilirubin 0.5, Aspartate Amino Transf (AST/SGOT) 70H, Alanine Aminotransferase (ALT/SGPT) 51, Alkaline Phosphatase 99, C-Reactive Protein, Quantitative [Pending], Pro-B-Type Natriuretic Peptide 285H, Total Protein 7.4, Albumin 2.3L, Globulin 5.1, Albumin/Globulin Ratio 0.5L Height (Feet): 5 Weight (Pounds): 160 Assessment/Plan Problem List: (1) UTI (urinary tract infection) ICD Codes: N39.0 - Urinary tract infection, site not specified SNOMED: 31219976 (2) Hypoxia ICD Codes: R09.02 - Hypoxemia; J12.82 - Pneumonia due to coronavirus disease 2019 SNOMED: 219125147 (3) Sepsis ICD Codes: A41.9 - Sepsis, unspecified organism SNOMED: 14459226 (4) JARETH (acute kidney injury) ICD Codes: N17.9 - Acute kidney failure, unspecified SNOMED: 52329895, 4095649 (5) Pneumonia due to COVID-19 virus ICD Codes: U07.1 - COVID-19; J12.82 - Pneumonia due to coronavirus disease 2018 SNOMED: 585650788223766367 Status: progressing Assessment/Plan: continue supportive rx not improving afebrile covid + resp insuff sepsis pna abx per id Gerson Evans MD Feb 24, 2020 17:57
--- NOTE | 2020-02-24 19:13 | NUR ---
NURSE HAND-OFF REPORT: Important Events on Shift: RT titrated bipap to 70%, tolerating well. Still awaiting stool softener orders from Dr Palomares. Patient Status: alert Diet: npo except meds and ice chips Pending Orders: Pending Results/Labs: Pending MD notification: Latest Vital Signs: Temperature 97.5 , Pulse 80 , B/P 148 /65 , Respiratory Rate 21 , O2 SAT 95 , Bi-pap, O2 Flow Rate 15.0 . Vital Sign Comment: EKG Rhythm: Sinus Rhythm Rhythm change?: N MD Notified?: - MD Response: Latest Navarro Fall Score: 30 Fall Risk: Medium Risk Safety Measures: Call light Within Reach, Bed Alarm Zone 1, Side Rails Side Rails x3, Bed position Low and Locked. Fall Precautions: Yellow Socks Yellow Gown Door Sign Patient Fall Education Report given to Brody PACKER.
--- NOTE | 2020-02-24 19:20 | NUR ---
NURSE NOTES: Received report from Mariaelena RN, pt. in bed awake, appears to be A/O x's 3- able to make needs known, no signs or symptoms of acute cardiac or respiratory distress noted, bed alarm on, side rails x's 3 and safety brakes engaged, call light within easy reach, pt. appears to be tolerating current BIPAP settings well 14/5 fio2 at 70%- no distress noted- sating at 96%, pt. is NPO per endorsement, Cano intact and draining to gravity, pt. appears to be resting comfortably in bed, Left AC 20G running D5W at 75cc/hr- iv intact and patent, isolation precautions observed, safety measures continued, will continue with plan of care.
[2020-02-24 20:00] VITALS: BP 121/51
[2020-02-25] VITALS: BP 106/66
--- NOTE | 2020-02-25 | NUR ---
NURSE NOTES: complete bed bath given- all linens changed, oral care provided, pt. appears to be tolerating current BIPAP settings well- sating at 98%- no signs of distress noted- pt. appears to be resting comfortably in bed, repositioned and turned pt., isolation precautions observed, will continue to monitor pt. and with plan of care.
[2020-02-25 04:00] VITALS: BP 133/55
[2020-02-25] MEDS: dilTIAZem HCl 60mg tab ORAL SCH ×4 (05:04→23:12)
--- NOTE | 2020-02-25 06:53 | NUR ---
NURSE HAND-OFF REPORT: Important Events on Shift:none Patient Status: stable Diet: NPO Pending Orders: Pending Results/Labs: Pending MD notification: Latest Vital Signs: Temperature 98.2 , Pulse 73 , B/P 136 /58 , Respiratory Rate 18 , O2 SAT 97 , Bi-pap, O2 Flow Rate 15.0 . Vital Sign Comment: EKG Rhythm: Sinus Rhythm Rhythm change?: N MD Notified?: - MD Response: Latest Navarro Fall Score: 30 Fall Risk: Medium Risk Safety Measures: Call light Within Reach, Bed Alarm Zone 1, Side Rails Side Rails x3, Bed position Low and Locked. Fall Precautions: Yellow Socks Yellow Gown Door Sign Patient Fall Education Report given to OCHOA Neves- aware to f/u on any abnormal am labs.
--- NOTE | 2020-02-25 07:10 | NUR ---
RESPIRATORY NOTE: Pt received on Bipap with current settings. 27/06 RR:14, 75%. Alarms are on and audible. Foam tape in place. No facial wounds found. No SOB noted at this time. Will continue to monitor.
--- NOTE | 2020-02-25 07:25 | NUR ---
NURSE NOTES: Pt received from Reginaldo PACKER. Pt in bed resting. Bipap in place. Bed low and locked, call light within reach. No distress noted.
[2020-02-25 07:53] LABS: ALBUMIN 2.3 G/DL (3.4-5.0); ALBUMIN/GLOBULIN RATIO 0.5 (1.0-2.7); BILIRUBIN,TOTAL 0.5 MG/DL (0.2-1.0); CALCIUM 8.4 MG/DL (8.5-10.1); CREATININE 1.7 MG/DL (0.55-1.30); PHOSPHORUS 4.4 MG/DL (2.5-4.9); POTASSIUM 3.5 MMOL/L (3.5-5.1)
[2020-02-25 08:00] VITALS: BP 132/55
--- NOTE | 2020-02-25 08:18 | NUR ---
RD ASSESSMENT & RECOMMENDATIONS SEE CARE ACTIVITY FOR COMPLETE ASSESSMENT DAILY ESTIMATED NEEDS: Needs based on Pulmonary, 53kg adj 25-30 kcals/kg 6195-2917 total kcals 1-1.5 g protein/kg 53-80 g total protein 25-30 mL/kg 3217-9218 total fluid mLs NUTRITION DIAGNOSIS: Altered nutrition related lab values r/t clinical status as evidenced by low K(3.0-> wnl), elev BUN(49->94), creat(1.7), elev Na (150), and elev BNP(63030->282) on Lasix. . CURRENT DIET: NPO PO DIET RECOMMENDATIONS: Advance as able to Low Na diet / texture as tolerated ENTERAL NUTRITION RECOMMENDATIONS: CONSIDER LOW RATE OF NGT FEEDS IF NOT SAFE FOR ORAL DIET, REMAINS ON BIPAP to provide ADDITIONAL RECOMMENDATIONS: 1) Monitor resp status and ability to eat/ feed- NPO DAY 7 TODAY -> nonoral feeds? -> low rate of NGT feeds vs TPN if unable to wean from BIPAP 2) Maintain daily wts on calibrated bed scale 3) Monitor lytes, replete as needed 4) Maintain D5 while NPO .
[2020-02-25] MEDS: dexAMETHasone 10mg/ml Inj IV SCH (09:44)
[2020-02-25] MEDS: Metoprolol Tartrate 12.5mg TAB ORAL SCH ×2 (09:45→20:51)
[2020-02-25] MEDS: Aspirin Baby 81mg ORAL SCH (09:46)
[2020-02-25] MEDS: Eliquis 5mg tablet ORAL SCH ×2 (09:46→17:42)
[2020-02-25] MEDS: cefTRIAXone 1 GM in D5W 55 ML IVPB SCH (10:17)
--- NOTE | 2020-02-25 10:26 | Cardiac Electrophysiology PN ---
Assessment/Plan Assessment/Plan 1. Congestive heart failure with BNP of more than 15,000. EF 60% on Lasix 40 mg IV b.i.d. 2. Elevated troponin could be due to renal failure No CP and echo Nl EF. On Lopressor 12.5 bid 3. Atrial fib with RVR. On Cardizem 60 Q 6hr, Lopressor 12.5 bid and Eliquis 5 bid 4. Accelerated hypertension. Continue Lasix 40 iv bid Lopressor and Cardizem 5. Respiratory failure due to COVID on BiPAP as well as dexamethasone. DW RN Subjective Subjective In SR on Cardizem and Lopressor. On BIPAP 14/5 and 80% Fio2. No atrial fib overnight Objective Last 24 Hour Vital Signs Date Time Temp Pulse Resp B/P (MAP) Pulse Ox O2 Delivery O2 Flow Rate FiO2 02/25/20 09:45 73 132/55 02/25/20 08:00 70 02/25/20 08:00 70 02/25/20 08:00 97.3 73 20 132/55 (80) 97 02/25/20 05:04 73 136/58 02/25/20 04:00 Bi-pap 02/25/20 04:00 70 02/25/20 04:00 98.2 71 18 133/55 (81) 97 02/25/20 03:30 73 21 92 75 02/25/20 02:41 68 02/25/20 00:00 70 02/25/20 00:00 Bi-pap 02/25/20 00:00 98.1 73 18 106/66 (79) 97 02/24/20 23:50 73 144/61 02/24/20 23:18 68 02/24/20 23:03 70 18 96 70 02/24/20 20:00 Bi-pap 02/24/20 20:00 73 116/79 02/24/20 20:00 98.3 70 20 121/51 (74) 96 02/24/20 20:00 70 02/24/20 19:30 75 25 96 70 02/24/20 19:30 75 02/24/20 17:07 80 148/65 02/24/20 16:00 70 02/24/20 16:00 97.5 80 21 148/65 (92) 95 02/24/20 16:00 Bi-pap 02/24/20 16:00 68 02/24/20 15:26 77 21 97 70 02/24/20 12:16 69 130/70 02/24/20 12:00 80 02/24/20 12:00 70 02/24/20 12:00 Bi-pap 02/24/20 12:00 96.8 69 18 130/70 (90) 97 02/24/20 11:23 75 26 98 80 Intake and Output 02/24/20 02/25/20 19:00 07:00 Intake Total 605 ml 750 ml Output Total 700 ml 600 ml Balance -95 ml 150 ml IV Total 605 ml 750 ml Output Urine Total 700 ml 600 ml Laboratory Tests Test 02/25/20 04:22 Sodium Level 150 MMOL/L (136-145) H Potassium Level 3.5 MMOL/L (3.5-5.1) Chloride Level 109 MMOL/L (98-107) H Carbon Dioxide Level 31 MMOL/L (21-32) Anion Gap 11 mmol/L (5-15) Blood Urea Nitrogen 94 mg/dL (7-18) H Creatinine 1.7 MG/DL (0.55-1.30) H Estimat Glomerular Filtration Rate 28.9 mL/min (>60) Glucose Level 146 MG/DL (74-106) H Calcium Level 8.4 MG/DL (8.5-10.1) L Phosphorus Level 4.4 MG/DL (2.5-4.9) Magnesium Level 2.7 MG/DL (1.8-2.4) H Total Bilirubin 0.5 MG/DL (0.2-1.0) Aspartate Amino Transf (AST/SGOT) 102 U/L (15-37) H Alanine Aminotransferase (ALT/SGPT) 85 U/L (12-78) H Alkaline Phosphatase 96 U/L (46-116) Total Protein 7.4 G/DL (6.4-8.2) Albumin 2.3 G/DL (3.4-5.0) L Globulin 5.1 g/dL Albumin/Globulin Ratio 0.5 (1.0-2.7) L Objective HEAD AND SHOWED: No JVD. LUNGS: Decreased breath sounds. CARDIOVASCULAR: Regular S1 and S2 with no gallop. ABDOMEN: Soft. EXTREMITIES: No pitting edema. Adonay Guerra MD Feb 25, 2020 10:25
--- NOTE | 2020-02-25 10:57 | Pulmonology Progress Note ---
Subjective ROS Limited/Unobtainable: Yes Interval Events: Remains on BiPAP HEENT: Repors: no symptoms Respiratory: Reports: no symptoms Cardiovascular: Reports: no symptoms Gastrointestinal/Abdominal: Reports: no symptoms Genitourinary: Reports: no symptoms Allergies: Coded Allergies: No Known Allergies (Unverified , 02/18/20) Objective Last 24 Hour Vital Signs Date Time Temp Pulse Resp B/P (MAP) Pulse Ox O2 Delivery O2 Flow Rate FiO2 02/25/20 09:45 73 132/55 02/25/20 08:00 70 02/25/20 08:00 70 02/25/20 08:00 97.3 73 20 132/55 (80) 97 02/25/20 05:04 73 136/58 02/25/20 04:00 Bi-pap 02/25/20 04:00 70 02/25/20 04:00 98.2 71 18 133/55 (81) 97 02/25/20 03:30 73 21 92 75 02/25/20 02:41 68 02/25/20 00:00 70 02/25/20 00:00 Bi-pap 02/25/20 00:00 98.1 73 18 106/66 (79) 97 02/24/20 23:50 73 144/61 02/24/20 23:18 68 02/24/20 23:03 70 18 96 70 02/24/20 20:00 Bi-pap 02/24/20 20:00 73 116/79 02/24/20 20:00 98.3 70 20 121/51 (74) 96 02/24/20 20:00 70 02/24/20 19:30 75 25 96 70 02/24/20 19:30 75 02/24/20 17:07 80 148/65 02/24/20 16:00 70 02/24/20 16:00 97.5 80 21 148/65 (92) 95 02/24/20 16:00 Bi-pap 02/24/20 16:00 68 02/24/20 15:26 77 21 97 70 02/24/20 12:16 69 130/70 02/24/20 12:00 80 02/24/20 12:00 70 02/24/20 12:00 Bi-pap 02/24/20 12:00 96.8 69 18 130/70 (90) 97 02/24/20 11:23 75 26 98 80 Intake and Output 02/24/20 02/25/20 19:00 07:00 Intake Total 605 ml 750 ml Output Total 700 ml 600 ml Balance -95 ml 150 ml IV Total 605 ml 750 ml Output Urine Total 700 ml 600 ml General Appearance: no acute distress HEENT: normocephalic Respiratory: chest wall non-tender, lungs clear Cardiovascular: normal peripheral pulses Abdomen: normal bowel sounds Laboratory Tests 02/25/20 04:22: Sodium Level 150H, Potassium Level 3.5, Chloride Level 109H, Carbon Dioxide Level 31, Anion Gap 11, Blood Urea Nitrogen 94H, Creatinine 1.7H, Estimat Glome rular Filtration Rate 28.9, Glucose Level 146H, Calcium Level 8.4L, Phosphorus Level 4.4, Magnesium Level 2.7H, Total Bilirubin 0.5, Aspartate Amino Transf (AST/SGOT) 102H, Alanine Aminotransferase (ALT/SGPT) 85H, Alkaline Phosphatase 96, Total Protein 7.4, Albumin 2.3L, Globulin 5.1, Albumin/Globulin Ratio 0.5L Current Medications Medications (Trade) Dose Ordered Sig/Eze Route PRN Reason Start Time Stop Time Status Last Admin Dose Admin Acetaminophen (Tylenol) 500 mg Q6H PRN ORAL Mild Pain (Pain Scale 1-3) 02/19/20 00:00 03/20/20 00:00 02/21/20 00:35 Allopurinol (allopurinoL) 300 mg DAILY ORAL 02/25/20 09:00 03/26/20 08:59 02/25/20 09:46 Apixaban (Eliquis) 5 mg BID ORAL 02/21/20 18:00 05/21/20 17:59 02/25/20 09:46 Aspirin (ASA) 81 mg DAILY ORAL 02/24/20 09:00 04/09/20 08:59 02/25/20 09:46 Atorvastatin Calcium (Lipitor) 10 mg BEDTIME ORAL 02/19/20 21:00 05/19/20 20:59 02/24/20 20:00 Ceftriaxone Sodium 1 gm/ Dextrose 55 ml @ 110 mls/hr Q24H IVPB 02/19/20 11:00 02/26/20 10:59 02/25/20 10:17 Clonidine HCl (Catapres Tab) 0.1 mg Q4H PRN ORAL BP over 166 systolic 02/19/20 15:45 05/19/20 15:44 Dexamethasone Sodium Phosphate (Decadron 10mg/ ml Inj) 6 mg DAILY IV 02/19/20 10:15 02/28/20 09:01 02/25/20 09:44 Dextrose 1,000 ml @ 75 mls/hr [id number] IV 02/22/20 10:45 03/23/20 10:44 02/25/20 09:47 Diltiazem HCl (Cardizem Tab) 60 mg EVERY 6 HOURS ORAL 02/20/20 18:00 03/21/20 17:59 02/25/20 05:04 Furosemide (Lasix) 40 mg EVERY 12 HOURS IV 02/19/20 21:00 03/20/20 20:59 02/25/20 09:45 Hydralazine HCl (Apresoline) 10 mg Q2H PRN IV For High Blood Pressure 02/19/20 00:30 05/19/20 00:29 02/21/20 16:19 Metoprolol Tartrate (Lopressor) 12.5 mg Q12HR ORAL 02/19/20 21:00 05/19/20 20:59 02/25/20 09:45 Assessment/Plan Assessment/Plan IMPRESSION: 1. COVID-19 pneumonia. 2. Respiratory failure, on BiPAP. 3. Renal failure.Improved 4. Troponin leak. DISCUSSION: Continue Decadron. On Lovenox, creatinine now 1.4 Defer Remdesivir use to ID Continue BiPAP. Saturating 96%. FiO2 now decreased to 80m -> 70%%. Discussed with RN Jorge Pollock Omar Syed MD Feb 25, 2020 10:57
--- NOTE | 2020-02-25 11:00 | NUR ---
[employer] FAXED TO [facility] (02/22-02/24) FX [phone] PH [phone]
[2020-02-25 12:00] VITALS: BP 133/65
--- NOTE | 2020-02-25 12:12 | Infectious Diseases Prog Note ---
Assessment/Plan Assessment/Plan IMPRESSION: 1. Leukocytosis 2. COVID-19 pneumonia. 3. Acute renal failure.improving 4. Hypoxemic respiratory failure. 5. UTI. 6. Lactic acidosis. 7. Hypertension. 8. Hyperlipidemia. 9. Hypernatremia RECOMMENDATION: continue ceftriaxone and dexamethasone. Started on tapering from BIPAP f/u CBC Subjective ROS Limited/Unobtainable: Yes Constitutional: Denies: fever Allergies: Coded Allergies: No Known Allergies (Unverified , 02/18/20) Objective Last 24 Hour Vital Signs Date Time Temp Pulse Resp B/P (MAP) Pulse Ox O2 Delivery O2 Flow Rate FiO2 02/25/20 09:45 73 132/55 02/25/20 08:00 Bi-pap 02/25/20 08:00 70 02/25/20 08:00 70 02/25/20 08:00 97.3 73 20 132/55 (80) 97 02/25/20 05:04 73 136/58 02/25/20 04:00 Bi-pap 02/25/20 04:00 70 02/25/20 04:00 98.2 71 18 133/55 (81) 97 02/25/20 03:30 73 21 92 75 02/25/20 02:41 68 02/25/20 00:00 70 02/25/20 00:00 Bi-pap 02/25/20 00:00 98.1 73 18 106/66 (79) 97 02/24/20 23:50 73 144/61 02/24/20 23:18 68 02/24/20 23:03 70 18 96 70 02/24/20 20:00 Bi-pap 02/24/20 20:00 73 116/79 02/24/20 20:00 98.3 70 20 121/51 (74) 96 02/24/20 20:00 70 02/24/20 19:30 75 25 96 70 02/24/20 19:30 75 02/24/20 17:07 80 148/65 02/24/20 16:00 70 02/24/20 16:00 97.5 80 21 148/65 (92) 95 02/24/20 16:00 Bi-pap 02/24/20 16:00 68 02/24/20 15:26 77 21 97 70 02/24/20 12:16 69 130/70 Height (Feet): 5 Weight (Pounds): 160 HEENT: mucous membranes moist Respiratory/Chest: other - on BIPAP 70% FIO2 Cardiovascular: normal rate Abdomen: soft, non tender Extremities: no edema Neurologic/Psychiatric: alert, responsive Laboratory Tests Test 02/25/20 04:22 Sodium Level 150 MMOL/L (136-145) H Potassium Level 3.5 MMOL/L (3.5-5.1) Chloride Level 109 MMOL/L (98-107) H Carbon Dioxide Level 31 MMOL/L (21-32) Anion Gap 11 mmol/L (5-15) Blood Urea Nitrogen 94 mg/dL (7-18) H Creatinine 1.7 MG/DL (0.55-1.30) H Estimat Glomerular Filtration Rate 28.9 mL/min (>60) Glucose Level 146 MG/DL (74-106) H Calcium Level 8.4 MG/DL (8.5-10.1) L Phosphorus Level 4.4 MG/DL (2.5-4.9) Magnesium Level 2.7 MG/DL (1.8-2.4) H Total Bilirubin 0.5 MG/DL (0.2-1.0) Aspartate Amino Transf (AST/SGOT) 102 U/L (15-37) H Alanine Aminotransferase (ALT/SGPT) 85 U/L (12-78) H Alkaline Phosphatase 96 U/L (46-116) Total Protein 7.4 G/DL (6.4-8.2) Albumin 2.3 G/DL (3.4-5.0) L Globulin 5.1 g/dL Albumin/Globulin Ratio 0.5 (1.0-2.7) L Current Medications Medications (Trade) Dose Ordered Sig/Eze Route PRN Reason Start Time Stop Time Status Last Admin Dose Admin Acetaminophen (Tylenol) 500 mg Q6H PRN ORAL Mild Pain (Pain Scale 1-3) 02/19/20 00:00 03/20/20 00:00 02/21/20 00:35 Allopurinol (allopurinoL) 300 mg DAILY ORAL 02/25/20 09:00 03/26/20 08:59 02/25/20 09:46 Apixaban (Eliquis) 5 mg BID ORAL 02/21/20 18:00 05/21/20 17:59 02/25/20 09:46 Aspirin (ASA) 81 mg DAILY ORAL 02/24/20 09:00 04/09/20 08:59 02/25/20 09:46 Atorvastatin Calcium (Lipitor) 10 mg BEDTIME ORAL 02/19/20 21:00 05/19/20 20:59 02/24/20 20:00 Ceftriaxone Sodium 1 gm/ Dextrose 55 ml @ 110 mls/hr Q24H IVPB 02/19/20 11:00 02/26/20 10:59 02/25/20 10:17 Clonidine HCl (Catapres Tab) 0.1 mg Q4H PRN ORAL BP over 166 systolic 02/19/20 15:45 05/19/20 15:44 Dexamethasone Sodium Phosphate (Decadron 10mg/ ml Inj) 6 mg DAILY IV 02/19/20 10:15 02/28/20 09:01 02/25/20 09:44 Dextrose 1,000 ml @ 75 mls/hr [id number] IV 02/22/20 10:45 03/23/20 10:44 02/25/20 09:47 Diltiazem HCl (Cardizem Tab) 60 mg EVERY 6 HOURS ORAL 02/20/20 18:00 03/21/20 17:59 02/25/20 05:04 Furosemide (Lasix) 40 mg EVERY 12 HOURS IV 02/19/20 21:00 03/20/20 20:59 02/25/20 09:45 Hydralazine HCl (Apresoline) 10 mg Q2H PRN IV For High Blood Pressure 02/19/20 00:30 05/19/20 00:29 02/21/20 16:19 Metoprolol Tartrate (Lopressor) 12.5 mg Q12HR ORAL 02/19/20 21:00 05/19/20 20:59 02/25/20 09:45 Genaro Sun MD Feb 25, 2020 12:12
--- NOTE | 2020-02-25 13:33 | Nephrology Progress Note ---
Assessment/Plan Problem List: (1) JARETH (acute kidney injury) (2) Pneumonia due to COVID-19 virus (3) UTI (urinary tract infection) (4) Sepsis (5) Hypoxia (6) Elevated troponin I level Assessment Acute renal failure Possible underlying chronic kidney disease Hypoxic respiratory failure Sepsis, COVID-19 pneumonia UTI Hypertension, uncontrolled Hyperlipemia Elevated troponin I Electrolyte abnormalities Plan February 24: Labs reviewed. Serum sodium lower at 150. Serum creatinine slightly higher at 1.7. Will discuss with cardiology regarding possible decreases on Lasix dosage. Today's chest x-ray is pending. February 23: Labs reviewed. Serum creatinine up to 1.6. Serum sodium 152. D5W IV to be continued patient remains on intravenous Lasix. Allopurinol for high uric acid added chest x-ray ordered. February 22: No labs drawn today. Medication list reviewed. Patient remains on BiPAP. Patient is a DNI. Continue to monitor renal parameters and electrolytes. Continue per consultants. February 21: Labs reviewed. Serum sodium rising. Change IV to D5W. Continue to monitor renal parameters. Continue per pulmonary. Patient remains on BiPAP. February 20: No CHEM panel drawn today. Previously low potassium replaced. Medication reviewed. Check lab tomorrow. Continue per consultants. February 19: Serum creatinine lowering. Abnormal electrolyte noted and addressed. Continue pulmonary care. Blood pressure under control. Continue to monitor renal parameters. Medication list reviewed. Slow hydrate, normal saline Watch renal parameters on Lasix Recheck chest x-ray tomorrow Keep the blood pressure in check Avoid nephrotoxic's Monitor electrolytes and urine output Per consultants Per orders Subjective ROS Limited/Unobtainable: Yes Objective Objective Last 24 Hour Vital Signs Date Time Temp Pulse Resp B/P (MAP) Pulse Ox O2 Delivery O2 Flow Rate FiO2 02/25/20 12:00 70 02/25/20 12:00 Bi-pap 02/25/20 12:00 71 02/25/20 12:00 97.7 87 18 133/65 (87) 94 02/25/20 09:45 73 132/55 02/25/20 08:00 Bi-pap 02/25/20 08:00 70 02/25/20 08:00 70 02/25/20 08:00 97.3 73 20 132/55 (80) 97 02/25/20 05:04 73 136/58 02/25/20 04:00 Bi-pap 02/25/20 04:00 70 02/25/20 04:00 98.2 71 18 133/55 (81) 97 02/25/20 03:30 73 21 92 75 02/25/20 02:41 68 02/25/20 00:00 70 02/25/20 00:00 Bi-pap 02/25/20 00:00 98.1 73 18 106/66 (79) 97 02/24/20 23:50 73 144/61 02/24/20 23:18 68 02/24/20 23:03 70 18 96 70 02/24/20 20:00 Bi-pap 02/24/20 20:00 73 116/79 02/24/20 20:00 98.3 70 20 121/51 (74) 96 02/24/20 20:00 70 02/24/20 19:30 75 25 96 70 02/24/20 19:30 75 02/24/20 17:07 80 148/65 02/24/20 16:00 70 02/24/20 16:00 97.5 80 21 148/65 (92) 95 02/24/20 16:00 Bi-pap 02/24/20 16:00 68 02/24/20 15:26 77 21 97 70 Intake and Output 02/24/20 02/25/20 19:00 07:00 Intake Total 605 ml 750 ml Output Total 700 ml 600 ml Balance -95 ml 150 ml IV Total 605 ml 750 ml Output Urine Total 700 ml 600 ml Current Medications Medications (Trade) Dose Ordered Sig/Eze Route PRN Reason Start Time Stop Time Status Last Admin Dose Admin Acetaminophen (Tylenol) 500 mg Q6H PRN ORAL Mild Pain (Pain Scale 1-3) 02/19/20 00:00 03/20/20 00:00 02/21/20 00:35 Allopurinol (allopurinoL) 300 mg DAILY ORAL 02/25/20 09:00 03/26/20 08:59 02/25/20 09:46 Apixaban (Eliquis) 5 mg BID ORAL 02/21/20 18:00 05/21/20 17:59 02/25/20 09:46 Aspirin (ASA) 81 mg DAILY ORAL 02/24/20 09:00 04/09/20 08:59 02/25/20 09:46 Atorvastatin Calcium (Lipitor) 10 mg BEDTIME ORAL 02/19/20 21:00 05/19/20 20:59 02/24/20 20:00 Ceftriaxone Sodium 1 gm/ Dextrose 55 ml @ 110 mls/hr Q24H IVPB 02/19/20 11:00 02/26/20 10:59 02/25/20 10:17 Clonidine HCl (Catapres Tab) 0.1 mg Q4H PRN ORAL BP over 166 systolic 02/19/20 15:45 05/19/20 15:44 Dexamethasone Sodium Phosphate (Decadron 10mg/ ml Inj) 6 mg DAILY IV 02/19/20 10:15 02/28/20 09:01 02/25/20 09:44 Dextrose 1,000 ml @ 75 mls/hr [id number] IV 02/22/20 10:45 03/23/20 10:44 02/25/20 09:47 Diltiazem HCl (Cardizem Tab) 60 mg EVERY 6 HOURS ORAL 02/20/20 18:00 03/21/20 17:59 02/25/20 05:04 Furosemide (Lasix) 40 mg EVERY 12 HOURS IV 02/19/20 21:00 03/20/20 20:59 02/25/20 09:45 Hydralazine HCl (Apresoline) 10 mg Q2H PRN IV For High Blood Pressure 02/19/20 00:30 05/19/20 00:29 02/21/20 16:19 Metoprolol Tartrate (Lopressor) 12.5 mg Q12HR ORAL 02/19/20 21:00 05/19/20 20:59 02/25/20 09:45 Laboratory Tests 02/25/20 04:22: Sodium Level 150H, Potassium Level 3.5, Chloride Level 109H, Carbon Dioxide Level 31, Anion Gap 11, Blood Urea Nitrogen 94H, Creatinine 1.7H, Estimat Glomerular Filtration Rate 28.9, Glucose Level 146H, Calcium Level 8.4L, Phosphorus Level 4.4, Magnesium Level 2.7H, Total Bilirubin 0.5, Aspartate Amino Transf (AST/SGOT) 102H, Alanine Aminotransferase (ALT/SGPT) 85H, Alkaline Phosphatase 96, Total Protein 7.4, Albumin 2.3L, Globulin 5.1, Albumin/Globulin Ratio 0.5L Height (Feet): 5 Weight (Pounds): 160 General Appearance: no apparent distress EENT: other - Remains on BiPAP Cardiovascular: normal rate Respiratory/Chest: decreased breath sounds Abdomen: distended Reji Byrne MD Feb 25, 2020 13:33
--- NOTE | 2020-02-25 13:44 | Diagnostic Imaging Report ---
Indication: Shortness of breath Technique: One view of the chest Comparison: 02/20/2020 Findings: Bilateral infiltrates are unchanged. The heart size is borderline enlarged. Impression: Unchanged, over one day, findings as above.
--- NOTE | 2020-02-25 14:00 | NUR ---
[employer] Picker SI: Respiratory Failure, COVID PNA, Leukocytosis, ARF Temp-97.7 (ax), HR 71, RR 18, 133/65 15L, BIPAP 70% 14/5, O2 sat 94% WBC 17.6, NA+ 150, BUN 94, creatinine 1.7 IS: Lasix IV BID Rocephin IV QD Dexamethasone IV QD Eliquis PO BID Apresoline IV q 2 hr prn Step Down Status
[2020-02-25 16:00] VITALS: BP 127/52
--- NOTE | 2020-02-25 18:42 | NUR ---
NURSE HAND-OFF REPORT: Important Events on Shift:[No remarkable events, pt tolerating bipap well but desats when off. Discussed with Dr. Suarez that pt has not had a bm since the 4th. ] Patient Status: [DNI] Diet: [NPO] Pending Orders: [] Pending Results/Labs:[] Pending MD notification:[] Latest Vital Signs: Temperature 97.3 , Pulse 75 , B/P 127 /52 , Respiratory Rate 19 , O2 SAT 97 , Bi-pap, O2 Flow Rate 15.0 . Vital Sign Comment: [] EKG Rhythm: Sinus Rhythm Rhythm change?: N MD Notified?: - MD Response: Latest Navarro Fall Score: 30 Fall Risk: Medium Risk Safety Measures: Call light Within Reach, Bed Alarm Zone 1, Side Rails Side Rails x3, Bed position Low and Locked. Fall Precautions: Yellow Socks Yellow Gown Door Sign Patient Fall Education Report given to [Pending rn assignment]. Addendum: 02/25/20 at 1919 by Laurel Neves RN Report given to Perla PACKER
--- NOTE | 2020-02-25 19:08 | NUR ---
NURSE NOTES: Received report from OCHOA Barragan, PT is A/O x3 and Slovenian with simple Vietnamese and verbally responsive. No SOB or acute distress noted. monitoring tech shows SR. No pain noted. Pt appears to be tolerating current BIPAP settings well 14/5 fio2 @ 70% saturation @ 96%. Pt is NPO per endorsement. Pt has a barker which is intact and draining to gravity with evonne urine. Pt has a LFA 22G running D5W at 75cc/hr which is intact and patent. Bed alarm on with side rails x 3 and safety brakes engaged and in lowest position. Call light placed within reach. Will continue with plan of care.
[2020-02-25 20:00] VITALS: BP 127/50
--- NOTE | 2020-02-25 20:39 | General Progress Note ---
Subjective ROS Limited/Unobtainable: Yes Allergies: Coded Allergies: No Known Allergies (Unverified , 02/18/20) Objective Last 24 Hour Vital Signs Date Time Temp Pulse Resp B/P (MAP) Pulse Ox O2 Delivery O2 Flow Rate FiO2 02/25/20 20:37 70 02/25/20 20:37 Bi-pap 02/25/20 19:25 76 16 98 75 02/25/20 17:41 75 127/52 02/25/20 16:00 70 02/25/20 16:00 97.3 87 19 127/52 (77) 97 02/25/20 16:00 Bi-pap 02/25/20 16:00 78 02/25/20 15:03 75 16 97 75 02/25/20 13:31 72 133/65 02/25/20 12:00 70 02/25/20 12:00 Bi-pap 02/25/20 12:00 71 02/25/20 12:00 97.7 87 18 133/65 (87) 94 02/25/20 11:00 70 14 95 75 02/25/20 09:45 73 132/55 02/25/20 08:00 Bi-pap 02/25/20 08:00 70 02/25/20 08:00 70 02/25/20 08:00 97.3 73 20 132/55 (80) 97 02/25/20 07:10 75 18 96 75 02/25/20 05:04 73 136/58 02/25/20 04:00 Bi-pap 02/25/20 04:00 70 02/25/20 04:00 98.2 71 18 133/55 (81) 97 02/25/20 03:30 73 21 92 75 02/25/20 02:41 68 02/25/20 00:00 70 02/25/20 00:00 Bi-pap 02/25/20 00:00 98.1 73 18 106/66 (79) 97 02/24/20 23:50 73 144/61 02/24/20 23:18 68 02/24/20 23:03 70 18 96 70 Intake and Output 02/24/20 02/25/20 19:00 07:00 Intake Total 605 ml 750 ml Output Total 700 ml 600 ml Balance -95 ml 150 ml IV Total 605 ml 750 ml Output Urine Total 700 ml 600 ml Laboratory Tests 02/25/20 04:22: Sodium Level 150H, Potassium Level 3.5, Chloride Level 109H, Carbon Dioxide Level 31, Anion Gap 11, Blood Urea Nitrogen 94H, Creatinine 1.7H, Estimat Glomerular Filtration Rate 28.9, Glucose Level 146H, Calcium Level 8.4L, Phosphorus Level 4.4, Magnesium Level 2.7H, Total Bilirubin 0.5, Aspartate Amino Transf (AST/SGOT) 102H, Alanine Aminotransferase (ALT/SGPT) 85H, Alkaline Phosphatase 96, Total Protein 7.4, Albumin 2.3L, Globulin 5.1, Albumin/Globulin Ratio 0.5L Height (Feet): 5 Weight (Pounds): 160 Assessment/Plan Problem List: (1) UTI (urinary tract infection) ICD Codes: N39.0 - Urinary tract infection, site not specified SNOMED: 62292332 (2) Hypoxia ICD Codes: R09.02 - Hypoxemia; J12.82 - Pneumonia due to coronavirus disease 2019 SNOMED: 559266181 (3) Sepsis ICD Codes: A41.9 - Sepsis, unspecified organism SNOMED: 84050932 (4) JARETH (acute kidney injury) ICD Codes: N17.9 - Acute kidney failure, unspecified SNOMED: 85908553, 8532483 (5) Pneumonia due to COVID-19 virus ICD Codes: U07.1 - COVID-19; J12.82 - Pneumonia due to coronavirus disease 2019 SNOMED: 215788061466106517 Status: progressing Assessment/Plan: malnutrition afebrile no acute events intermittent hypoxia covid + resp insuff sepsis pna abx per id Gerson Evans MD Feb 25, 2020 20:39
--- NOTE | 2020-02-25 21:38 | General Progress Note ---
Subjective Allergies: Coded Allergies: No Known Allergies (Unverified , 02/18/20) Objective Last 24 Hour Vital Signs Date Time Temp Pulse Resp B/P (MAP) Pulse Ox O2 Delivery O2 Flow Rate FiO2 02/25/20 20:51 76 127/52 02/25/20 20:37 70 02/25/20 20:37 Bi-pap 02/25/20 19:25 76 16 98 75 02/25/20 17:41 75 127/52 02/25/20 16:00 70 02/25/20 16:00 97.3 87 19 127/52 (77) 97 02/25/20 16:00 Bi-pap 02/25/20 16:00 78 02/25/20 15:03 75 16 97 75 02/25/20 13:31 72 133/65 02/25/20 12:00 70 02/25/20 12:00 Bi-pap 02/25/20 12:00 71 02/25/20 12:00 97.7 87 18 133/65 (87) 94 02/25/20 11:00 70 14 95 75 02/25/20 09:45 73 132/55 02/25/20 08:00 Bi-pap 02/25/20 08:00 70 02/25/20 08:00 70 02/25/20 08:00 97.3 73 20 132/55 (80) 97 02/25/20 07:10 75 18 96 75 02/25/20 05:04 73 136/58 02/25/20 04:00 Bi-pap 02/25/20 04:00 70 02/25/20 04:00 98.2 71 18 133/55 (81) 97 02/25/20 03:30 73 21 92 75 02/25/20 02:41 68 02/25/20 00:00 70 02/25/20 00:00 Bi-pap 02/25/20 00:00 98.1 73 18 106/66 (79) 97 02/24/20 23:50 73 144/61 02/24/20 23:18 68 02/24/20 23:03 70 18 96 70 Intake and Output 02/24/20 02/25/20 19:00 07:00 Intake Total 605 ml 750 ml Output Total 700 ml 600 ml Balance -95 ml 150 ml IV Total 605 ml 750 ml Output Urine Total 700 ml 600 ml Laboratory Tests 02/25/20 04:22: Sodium Level 150H, Potassium Level 3.5, Chloride Level 109H, Carbon Dioxide Level 31, Anion Gap 11, Blood Urea Nitrogen 94H, Creatinine 1.7H, Estimat Glomerular Filtration Rate 28.9, Glucose Level 146H, Calcium Level 8.4L, Phosphorus Level 4.4, Magnesium Level 2.7H, Total Bilirubin 0.5, Aspartate Amino Transf (AST/SGOT) 102H, Alanine Aminotransferase (ALT/SGPT) 85H, Alkaline Phosphatase 96, Total Protein 7.4, Albumin 2.3L, Globulin 5.1, Albumin/Globulin Ratio 0.5L Height (Feet): 5 Weight (Pounds): 160 Assessment/Plan Status: progressing Assessment/Plan: Assessment ---> NPO since 02/18, due to respiratory failure No BM x 6 days, partly since NPO COVID PNA Resp failure Renal failure abnormal LFT Elevated troponin malnutrition, low albumin Recommendations Gentle laxatives ---> consider short term TPN, until off of BIPAP - Defer to Renal follow labs and exam Respiratory care Colin Pollock MD Feb 25, 2020 21:38
--- NOTE | 2020-02-25 22:45 | Consultation ---
DATE OF CONSULTATION: 02/25/2020 GASTROENTEROLOGY CONSULTATION CONSULTING PHYSICIAN: Colin Palomares MD CHIEF COMPLAINT: I was asked to see this patient by Dr. Gerson Evans for evaluation of abdominal issues and nutrition and constipation. HISTORY OF PRESENT ILLNESS: The patient is an 79-year-old woman who presented to the hospital with shortness of breath. She was shortly thereafter diagnosed with COVID pneumonia and has been noted to have respiratory failure. She has been placed on BiPAP treatment and has been kept NPO since 02/19/2020, which was about 6 days ago. Patient was noted to not have any bowel movements for the same approximate time. Patient denies any abdominal pain, nausea, or vomiting. She is on around the clock BiPAP and therefore oral diet or tube feedings have not been able to be established. She is able to take medications with a sip of water without significant coughing or aspiration. PAST MEDICAL HISTORY: History of hypertension, history of gastroesophageal reflux disease, current COVID pneumonia, renal failure, respiratory failure, abnormal liver tests, which have been discovered during this admission. FAMILY HISTORY: Noncontributory. SOCIAL HISTORY: Patient is Ethiopian speaking. MEDICATIONS: See chart list for details. REVIEW OF SYSTEMS: Otherwise negative. PHYSICAL EXAMINATION: GENERAL: Elderly woman, seen in her room with BiPAP mask on. HEENT: Normocephalic and atraumatic. NECK: Supple. CHEST: Revealed scattered rhonchi. CARDIOVASCULAR: Revealed a regular rate. ABDOMEN: Soft, nontender, nondistended. Good bowel sounds. EXTREMITIES: Revealed no edema. LABORATORY DATA: Noted. ASSESSMENT: This patient has respiratory failure and she was unable to tolerate oral diet or tube feeding due to her compromised respiratory status. Since this has been going on for about 6 days, the patient will be a candidate at this time for possible total parenteral nutrition on a short-term basis to support her nutritional needs. Once the respiratory status improves, then a consideration will be made to oral nutritional therapy. In the meantime, the patient has also not had a bowel movement for several days, but this may be partially explained by lack of oral diet. RECOMMENDATIONS: 1. Laxatives either orally or rectally (I will try Dulcolax suppository first). 2. Respiratory toilet and pulmonary support. 3. Antibiotics per Infectious Disease. 4. Consider short-term total parenteral nutrition. 5. Follow laboratory parameters and exam. Thank you for asking me to participate in the care of this patient. Colin Palomares M.D. DR: IESHA JOB#: [id number] CC: KEV
[2020-02-26] VITALS: BP 124/54
--- NOTE | 2020-02-26 03:00 | NUR ---
NURSE NOTES: Pt has a moderate amount of stool after suppository given. Pt cleaned and optifoam replaced.
[2020-02-26 04:00] VITALS: BP 124/54
--- NOTE | 2020-02-26 04:00 | NUR ---
NURSE NOTES: Oral given to pt and tolerated well. Pt did not de saturate. Will endorse to next shift.
[2020-02-26] MEDS: dilTIAZem HCl 60mg tab ORAL SCH ×3 (05:01→17:35)
[2020-02-26 06:06] LABS: HEMATOCRIT 40.9 % (37.0-47.0); HEMOGLOBIN 13.6 G/DL (12.0-16.0); MEAN CORPUSCULAR VOLUME 95 FL (80-99); PLATELET COUNT 430 K/UL (150-450); RED BLOOD COUNT 4.32 M/UL (4.20-5.40); RED CELL DISTRIBUTION WIDTH 14.1 % (11.6-14.8)
[2020-02-26 07:02] LABS: ALBUMIN 2.5 G/DL (3.4-5.0); ALBUMIN/GLOBULIN RATIO 0.5 (1.0-2.7); BILIRUBIN,TOTAL 0.7 MG/DL (0.2-1.0); POTASSIUM 3.9 MMOL/L (3.5-5.1)
--- NOTE | 2020-02-26 07:10 | NUR ---
NURSE NOTES: Received report from OCHOA Duncan. Patient is AO x3. No pain or discomfort noted at this time. Patient on bipap 14/5 fio2 @ 70% saturation @ 95%. Pt has a LFA 22G running D5W at 75cc/hr, patent and intact. Pt has a barker draining well with evonne urine. Bed in lowest position locked, with side rails x2 up. Call light within reach.
[2020-02-26 07:22] LABS: PHOSPHORUS 5.7 MG/DL (2.5-4.9)
--- NOTE | 2020-02-26 07:25 | NUR ---
NURSE HAND-OFF REPORT: Important Events on Shift:Had a BM Patient Status: Stable Diet: NPO Pending Orders: Pending Results/Labs: Pending MD notification: Latest Vital Signs: Temperature 97.6 , Pulse 82 , B/P 124 /54 , Respiratory Rate 16 , O2 SAT 96 , Bi-pap, O2 Flow Rate 15.0 . Vital Sign Comment: EKG Rhythm: Sinus Rhythm Rhythm change?: N MD Notified?: - MD Response: Latest Navarro Fall Score: 30 Fall Risk: Medium Risk Safety Measures: Call light Within Reach, Bed Alarm Zone 1, Side Rails Side Rails x3, Bed position Low and Locked. Fall Precautions: Yellow Socks Yellow Gown Door Sign Patient Fall Education Report given to Bree.
[2020-02-26 07:29] LABS: CALCIUM 8.7 MG/DL (8.5-10.1)
[2020-02-26 08:00] VITALS: BP 137/63
[2020-02-26] MEDS: dexAMETHasone 10mg/ml Inj IV SCH (09:08)
[2020-02-26] MEDS: Eliquis 5mg tablet ORAL SCH ×2 (09:09→17:35)
[2020-02-26] MEDS: Metoprolol Tartrate 12.5mg TAB ORAL SCH ×2 (09:09→20:36)
[2020-02-26] MEDS: Aspirin Baby 81mg ORAL SCH (09:09)
--- NOTE | 2020-02-26 10:06 | Nephrology Progress Note ---
Assessment/Plan Problem List: (1) JARETH (acute kidney injury) (2) Pneumonia due to COVID-19 virus (3) UTI (urinary tract infection) (4) Sepsis (5) Hypoxia (6) Elevated troponin I level Assessment Acute renal failure Possible underlying chronic kidney disease Hypoxic respiratory failure Sepsis, COVID-19 pneumonia UTI Hypertension, uncontrolled Hyperlipemia Elevated troponin I Electrolyte abnormalities Plan February 25: Labs reviewed. Renal parameters are worsening. IV Lasix discontinued. Chest x-ray reviewed. Vitamin D level ordered. Continue to monitor renal parameters. February 24: Labs reviewed. Serum sodium lower at 150. Serum creatinine slightly higher at 1.7. Will discuss with cardiology regarding possible decreases on Lasix dosage. Today's chest x-ray is pending. February 23: Labs reviewed. Serum creatinine up to 1.6. Serum sodium 152. D5W IV to be continued patient remains on intravenous Lasix. Allopurinol for high u mary acid added chest x-ray ordered. February 22: No labs drawn today. Medication list reviewed. Patient remains on BiPAP. Patient is a DNI. Continue to monitor renal parameters and electrolytes. Continue per consultants. February 21: Labs reviewed. Serum sodium rising. Change IV to D5W. Continue to monitor renal parameters. Continue per pulmonary. Patient remains on BiPAP. February 20: No CHEM panel drawn today. Previously low potassium replaced. Medication reviewed. Check lab tomorrow. Continue per consultants. February 19: Serum creatinine lowering. Abnormal electrolyte noted and addressed. Continue pulmonary care. Blood pressure under control. Continue to monitor renal parameters. Medication list reviewed. Slow hydrate, normal saline Watch renal parameters on Lasix Recheck chest x-ray tomorrow Keep the blood pressure in check Avoid nephrotoxic's Monitor electrolytes and urine output Per consultants Per orders Subjective ROS Limited/Unobtainable: Yes Objective Objective Last 24 Hour Vital Signs Date Time Temp Pulse Resp B/P (MAP) Pulse Ox O2 Delivery O2 Flow Rate FiO2 02/26/20 09:09 71 142/63 02/26/20 05:01 82 124/54 02/26/20 04:00 70 02/26/20 04:00 97.6 72 16 124/54 (77) 96 02/26/20 04:00 82 02/26/20 04:00 Bi-pap 02/26/20 03:24 74 16 96 75 02/26/20 00:00 97.6 72 16 124/54 (77) 96 02/26/20 00:00 72 02/26/20 00:00 Bi-pap 02/25/20 23:30 77 14 97 75 02/25/20 23:12 76 127/52 02/25/20 20:51 76 127/52 02/25/20 20:37 70 02/25/20 20:37 Bi-pap 02/25/20 20:00 78 02/25/20 20:00 97.7 74 22 127/50 (75) 95 02/25/20 19:25 76 16 98 75 02/25/20 17:41 75 127/52 02/25/20 16:00 70 02/25/20 16:00 97.3 87 19 127/52 (77) 97 02/25/20 16:00 Bi-pap 02/25/20 16:00 78 02/25/20 15:03 75 16 97 75 02/25/20 13:31 72 133/65 02/25/20 12:00 70 02/25/20 12:00 Bi-pap 02/25/20 12:00 71 02/25/20 12:00 97.7 87 18 133/65 (87) 94 02/25/20 11:00 70 14 95 75 Intake and Output 02/25/20 02/26/20 19:00 07:00 Intake Total 120 ml Output Total 700 ml 650 ml Balance -700 ml -530 ml Intake Oral 120 ml Output Urine Total 700 ml 650 ml Current Medications Medications (Trade) Dose Ordered Sig/Eze Route PRN Reason Start Time Stop Time Status Last Admin Dose Admin Acetaminophen (Tylenol) 500 mg Q6H PRN ORAL Mild Pain (Pain Scale 1-3) 02/19/20 00:00 03/20/20 00:00 02/21/20 00:35 Allopurinol (allopurinoL) 300 mg DAILY ORAL 02/25/20 09:00 03/26/20 08:59 02/26/20 09:09 Apixaban (Eliquis) 5 mg BID ORAL 02/21/20 18:00 05/21/20 17:59 02/26/20 09:09 Aspirin (ASA) 81 mg DAILY ORAL 02/24/20 09:00 04/09/20 08:59 02/26/20 09:09 Atorvastatin Calcium (Lipitor) 10 mg BEDTIME ORAL 02/19/20 21:00 05/19/20 20:59 02/25/20 20:51 Ceftriaxone Sodium 1 gm/ Dextrose 55 ml @ 110 mls/hr Q24H IVPB 02/19/20 11:00 02/28/20 10:59 02/25/20 10:17 Clonidine HCl (Catapres Tab) 0.1 mg Q4H PRN ORAL BP over 166 systolic 02/19/20 15:45 05/19/20 15:44 Dexamethasone Sodium Phosphate (Decadron 10mg/ ml Inj) 6 mg DAILY IV 02/19/20 10:15 02/28/20 09:01 02/26/20 09:08 Dextrose 1,000 ml @ 75 mls/hr [id number] IV 02/22/20 10:45 03/23/20 10:44 02/25/20 23:12 Diltiazem HCl (Cardizem Tab) 60 mg EVERY 6 HOURS ORAL 02/20/20 18:00 03/21/20 17:59 02/26/20 05:01 Hydralazine HCl (Apresoline) 10 mg Q2H PRN IV For High Blood Pressure 02/19/20 00:30 05/19/20 00:29 02/21/20 16:19 Metoprolol Tartrate (Lopressor) 12.5 mg Q12HR ORAL 02/19/20 21:00 05/19/20 20:59 02/26/20 09:09 Laboratory Tests 02/26/20 05:25: White Blood Count 20.0H, Red Blood Count 4.32, Hemoglobin 13.6, Hematocrit 40.9, Mean Corpuscular Volume 95, Mean Corpuscular Hemoglobin 31.4H, Mean Corpuscular Hemoglobin Concent 33.2, Red Cell Distribution Width 14.1, Platelet Count 430, Mean Platelet Volume 7.3, Neutrophils (%) (Auto) , Lymphocytes (%) (Auto) , Monocytes (%) (Auto) , Eosinophils (%) (Auto) , Basophils (%) (Auto) , Neutrophils % (Manual) [Pending], Lymphocytes % (Manual) [Pending], Platelet Estimate [Pending], Platelet Morphology [Pending], Sodium Level 148H, Potassium Level 3.9, Chloride Level 107, Carbon Dioxide Level 26, Anion Gap 15, Blood Urea Nitrogen 118H, Creatinine 2.0H, Estimat Glomerular Filtration Rate 24.0, Glucose Level 153H, Uric Acid 11.4H, Calcium Level 8.7, Phosphorus Level 5.7H, Magnesium Level 2.9H, Total Bilirubin 0.7, Aspartate Amino Transf (AST/SGOT) 113H, Alanine Aminotransferase (ALT/SGPT) 112H, Alkaline Phosphatase 98, C- Reactive Protein, Quantitative 7.1H, Total Protein 7.4, Albumin 2.5L, Globulin 4.9, Albumin/Globulin Ratio 0.5L Height (Feet): 5 Weight (Pounds): 160 General Appearance: mild distress EENT: other - On BiPAP Cardiovascular: normal rate Respiratory/Chest: decreased breath sounds Abdomen: distended Reji Byrne MD Feb 26, 2020 10:06
--- NOTE | 2020-02-26 10:09 | Infectious Diseases Prog Note ---
Assessment/Plan Assessment/Plan IMPRESSION: 1. Leukocytosis worsening 2. COVID-19 pneumonia. 3. Acute renal failure.improving 4. Hypoxemic respiratory failure. 5. UTI. 6. Lactic acidosis. 7. Hypertension. 8. Hyperlipidemia. 9. Hypernatremia RECOMMENDATION: Discontinue ceftriaxone Continue dexamethasone. Started on tapering from BIPAP f/u CBC Subjective ROS Limited/Unobtainable: Yes Constitutional: Denies: fever Allergies: Coded Allergies: No Known Allergies (Unverified , 02/18/20) Objective Last 24 Hour Vital Signs Date Time Temp Pulse Resp B/P (MAP) Pulse Ox O2 Delivery O2 Flow Rate FiO2 02/26/20 09:09 71 142/63 02/26/20 05:01 82 124/54 02/26/20 04:00 70 02/26/20 04:00 97.6 72 16 124/54 (77) 96 02/26/20 04:00 82 02/26/20 04:00 Bi-pap 02/26/20 03:24 74 16 96 75 02/26/20 00:00 97.6 72 16 124/54 (77) 96 02/26/20 00:00 72 02/26/20 00:00 Bi-pap 02/25/20 23:30 77 14 97 75 02/25/20 23:12 76 127/52 02/25/20 20:51 76 127/52 02/25/20 20:37 70 02/25/20 20:37 Bi-pap 02/25/20 20:00 78 02/25/20 20:00 97.7 74 22 127/50 (75) 95 02/25/20 19:25 76 16 98 75 02/25/20 17:41 75 127/52 02/25/20 16:00 70 02/25/20 16:00 97.3 87 19 127/52 (77) 97 02/25/20 16:00 Bi-pap 02/25/20 16:00 78 02/25/20 15:03 75 16 97 75 02/25/20 13:31 72 133/65 02/25/20 12:00 70 02/25/20 12:00 Bi-pap 02/25/20 12:00 71 02/25/20 12:00 97.7 87 18 133/65 (87) 94 02/25/20 11:00 70 14 95 75 Height (Feet): 5 Weight (Pounds): 160 HEENT: mucous membranes moist Respiratory/Chest: other - on BIPAP, FIO2=70% Cardiovascular: normal rate Abdomen: soft, non tender Extremities: no edema Neurologic/Psychiatric: other - sleeping Laboratory Tests Test 02/26/20 05:25 White Blood Count 20.0 K/UL (4.8-10.8) H Red Blood Count 4.32 M/UL (4.20-5.40) Hemoglobin 13.6 G/DL (12.0-16.0) Hematocrit 40.9 % (37.0-47.0) Mean Corpuscular Volume 95 FL (80-99) Mean Corpuscular Hemoglobin 31.4 PG (27.0-31.0) H Mean Corpuscular Hemoglobin Concent 33.2 G/DL (32.0-36.0) Red Cell Distribution Width 14.1 % (11.6-14.8) Platelet Count 430 K/UL (150-450) Mean Platelet Volume 7.3 FL (6.5-10.1) Neutrophils (%) (Auto) % (45.0-75.0) Lymphocytes (%) (Auto) % (20.0-45.0) Monocytes (%) (Auto) % (1.0-10.0) Eosinophils (%) (Auto) % (0.0-3.0) Basophils (%) (Auto) % (0.0-2.0) Neutrophils % (Manual) Pending Lymphocytes % (Manual) Pending Platelet Estimate Pending Platelet Morphology Pending Sodium Level 148 MMOL/L (136-145) H Potassium Level 3.9 MMOL/L (3.5-5.1) Chloride Level 107 MMOL/L (98-107) Carbon Dioxide Level 26 MMOL/L (21-32) Anion Gap 15 mmol/L (5-15) Blood Urea Nitrogen 118 mg/dL (7-18) H Creatinine 2.0 MG/DL (0.55-1.30) H Estimat Glomerular Filtration Rate 24.0 mL/min (>60) Glucose Level 153 MG/DL (74-106) H Uric Acid 11.4 MG/DL (2.6-7.2) H Calcium Level 8.7 MG/DL (8.5-10.1) Phosphorus Level 5.7 MG/DL (2.5-4.9) H Magnesium Level 2.9 MG/DL (1.8-2.4) H Total Bilirubin 0.7 MG/DL (0.2-1.0) Aspartate Amino Transf (AST/SGOT) 113 U/L (15-37) H Alanine Aminotransferase (ALT/SGPT) 112 U/L (12-78) H Alkaline Phosphatase 98 U/L (46-116) C-Reactive Protein, Quantitative 7.1 mg/dL (0.00-0.90) H Total Protein 7.4 G/DL (6.4-8.2) Albumin 2.5 G/DL (3.4-5.0) L Globulin 4.9 g/dL Albumin/Globulin Ratio 0.5 (1.0-2.7) L Current Medications Medications (Trade) Dose Ordered Sig/Eze Route PRN Reason Start Time Stop Time Status Last Admin Dose Admin Acetaminophen (Tylenol) 500 mg Q6H PRN ORAL Mild Pain (Pain Scale 1-3) 02/19/20 00:00 03/20/20 00:00 02/21/20 00:35 Allopurinol (allopurinoL) 300 mg DAILY ORAL 02/25/20 09:00 03/26/20 08:59 02/26/20 09:09 Apixaban (Eliquis) 5 mg BID ORAL 02/21/20 18:00 05/21/20 17:59 02/26/20 09:09 Aspirin (ASA) 81 mg DAILY ORAL 02/24/20 09:00 04/09/20 08:59 02/26/20 09:09 Atorvastatin Calcium (Lipitor) 10 mg BEDTIME ORAL 02/19/20 21:00 05/19/20 20:59 02/25/20 20:51 Ceftriaxone Sodium 1 gm/ Dextrose 55 ml @ 110 mls/hr Q24H IVPB 02/19/20 11:00 02/28/20 10:59 02/25/20 10:17 Clonidine HCl (Catapres Tab) 0.1 mg Q4H PRN ORAL BP over 166 systolic 02/19/20 15:45 05/19/20 15:44 Dexamethasone Sodium Phosphate (Decadron 10mg/ ml Inj) 6 mg DAILY IV 02/19/20 10:15 02/28/20 09:01 02/26/20 09:08 Dextrose 1,000 ml @ 75 mls/hr [id number] IV 02/22/20 10:45 03/23/20 10:44 02/25/20 23:12 Diltiazem HCl (Cardizem Tab) 60 mg EVERY 6 HOURS ORAL 02/20/20 18:00 03/21/20 17:59 02/26/20 05:01 Hydralazine HCl (Apresoline) 10 mg Q2H PRN IV For High Blood Pressure 02/19/20 00:30 05/19/20 00:29 02/21/20 16:19 Metoprolol Tartrate (Lopressor) 12.5 mg Q12HR ORAL 02/19/20 21:00 05/19/20 20:59 02/26/20 09:09 Genaro Sun MD Feb 26, 2020 10:09
--- NOTE | 2020-02-26 10:54 | NUR ---
[employer] SI: Respiratory Failure, COVID PNA, Leukocytosis, ARF Temp-98.2 (ax), HR 71, RR 18, 137/63 BIPAP 14/5 FiO2 70% O2 sat 95% WBC 20.0, NA+ 148, BUN 118, creatinine 2.0 IS: Dexamethasone IV QD Eliquis PO BID Allopurinol PO QD ASA PO QD D5 IV @ 75cc/hr Cardizem PO q 6 h Lopressor PO Q 12 h Step Down Status
--- NOTE | 2020-02-26 11:56 | Cardiac Electrophysiology PN ---
Assessment/Plan Assessment/Plan 1. Congestive heart failure with BNP of more than 15,000. EF 60%. DC lasix in view of ARF 2. Elevated troponin could be due to renal failure No CP and echo Nl EF. On Lopressor 12.5 bid 3. Atrial fib with RVR. On Cardizem 60 Q 6hr, Lopressor 12.5 bid and Eliquis 5 bid 4. Accelerated hypertension. Continue Lopressor and Cardizem 5. Respiratory failure due to COVID on BiPAP as well as dexamethasone. 6. Acute renal failure BUN/Cr 118/2.0 . DC Lasix per Dr Chavez DAVIES RN Subjective Subjective In SR on Cardizem and Lopressor. On 70% Fio2. No atrial fib overnight Objective Last 24 Hour Vital Signs Date Time Temp Pulse Resp B/P (MAP) Pulse Ox O2 Delivery O2 Flow Rate FiO2 02/26/20 09:09 71 142/63 02/26/20 08:00 70 02/26/20 08:00 98.2 71 18 137/63 (87) 95 02/26/20 08:00 67 02/26/20 08:00 Bi-pap 02/26/20 05:01 82 124/54 02/26/20 04:00 70 02/26/20 04:00 97.6 72 16 124/54 (77) 96 02/26/20 04:00 82 02/26/20 04:00 Bi-pap 02/26/20 03:24 74 16 96 75 02/26/20 00:00 97.6 72 16 124/54 (77) 96 02/26/20 00:00 72 02/26/20 00:00 Bi-pap 02/25/20 23:30 77 14 97 75 02/25/20 23:12 76 127/52 02/25/20 20:51 76 127/52 02/25/20 20:37 70 02/25/20 20:37 Bi-pap 02/25/20 20:00 78 02/25/20 20:00 97.7 74 22 127/50 (75) 95 02/25/20 19:25 76 16 98 75 02/25/20 17:41 75 127/52 02/25/20 16:00 70 02/25/20 16:00 97.3 87 19 127/52 (77) 97 02/25/20 16:00 Bi-pap 02/25/20 16:00 78 02/25/20 15:03 75 16 97 75 02/25/20 13:31 72 133/65 02/25/20 12:00 70 02/25/20 12:00 Bi-pap 02/25/20 12:00 71 02/25/20 12:00 97.7 87 18 133/65 (87) 94 Intake and Output 02/25/20 02/26/20 19:00 07:00 Intake Total 120 ml Output Total 700 ml 650 ml Balance -700 ml -530 ml Intake Oral 120 ml Output Urine Total 700 ml 650 ml Laboratory Tests Test 02/26/20 05:25 White Blood Count 20.0 K/UL (4.8-10.8) H Red Blood Count 4.32 M/UL (4.20-5.40) Hemoglobin 13.6 G/DL (12.0-16.0) Hematocrit 40.9 % (37.0-47.0) Mean Corpuscular Volume 95 FL (80-99) Mean Corpuscular Hemoglobin 31.4 PG (27.0-31.0) H Mean Corpuscular Hemoglobin Concent 33.2 G/DL (32.0-36.0) Red Cell Distribution Width 14.1 % (11.6-14.8) Platelet Count 430 K/UL (150-450) Mean Platelet Volume 7.3 FL (6.5-10.1) Neutrophils (%) (Auto) % (45.0-75.0) Lymphocytes (%) (Auto) % (20.0-45.0) Monocytes (%) (Auto) % (1.0-10.0) Eosinophils (%) (Auto) % (0.0-3.0) Basophils (%) (Auto) % (0.0-2.0) Differential Total Cells Counted 100 Neutrophils % (Manual) 91 % (45-75) H Lymphocytes % (Manual) 5 % (20-45) L Monocytes % (Manual) 4 % (1-10) Eosinophils % (Manual) 0 % (0-3) Basophils % (Manual) 0 % (0-2) Band Neutrophils 0 % (0-8) Platelet Estimate Adequate Platelet Morphology Normal Hypochromasia 1+ Anisocytosis 1+ Sodium Level 148 MMOL/L (136-145) H Potassium Level 3.9 MMOL/L (3.5-5.1) Chloride Level 107 MMOL/L (98-107) Carbon Dioxide Level 26 MMOL/L (21-32) Anion Gap 15 mmol/L (5-15) Blood Urea Nitrogen 118 mg/dL (7-18) H Creatinine 2.0 MG/DL (0.55-1.30) H Estimat Glomerular Filtration Rate 24.0 mL/min (>60) Glucose Level 153 MG/DL (74-106) H Uric Acid 11.4 MG/DL (2.6-7.2) H Calcium Level 8.7 MG/DL (8.5-10.1) Phosphorus Level 5.7 MG/DL (2.5-4.9) H Magnesium Level 2.9 MG/DL (1.8-2.4) H Total Bilirubin 0.7 MG/DL (0.2-1.0) Aspartate Amino Transf (AST/SGOT) 113 U/L (15-37) H Alanine Aminotransferase (ALT/SGPT) 112 U/L (12-78) H Alkaline Phosphatase 98 U/L (46-116) C-Reactive Protein, Quantitative 7.1 mg/dL (0.00-0.90) H Total Protein 7.4 G/DL (6.4-8.2) Albumin 2.5 G/DL (3.4-5.0) L Globulin 4.9 g/dL Albumin/Globulin Ratio 0.5 (1.0-2.7) L Objective HEAD AND SHOWED: No JVD. LUNGS: Decreased breath sounds. CARDIOVASCULAR: Regular S1 and S2 with no gallop. ABDOMEN: Soft. EXTREMITIES: No pitting edema. Adonay Guerra MD Feb 26, 2020 11:56
[2020-02-26 12:00] VITALS: BP 131/80
--- NOTE | 2020-02-26 12:43 | Pulmonology Progress Note ---
Subjective ROS Limited/Unobtainable: Yes Interval Events: Remains on BiPAP Constitutional: Denies: fever HEENT: Repors: no symptoms Respiratory: Reports: no symptoms Cardiovascular: Reports: no symptoms Gastrointestinal/Abdominal: Reports: no symptoms Genitourinary: Reports: no symptoms Allergies: Coded Allergies: No Known Allergies (Unverified , 02/18/20) Objective Last 24 Hour Vital Signs Date Time Temp Pulse Resp B/P (MAP) Pulse Ox O2 Delivery O2 Flow Rate FiO2 02/26/20 12:28 95 131/80 02/26/20 12:00 97.9 95 18 131/80 (97) 95 02/26/20 12:00 Bi-pap 02/26/20 09:09 71 142/63 02/26/20 08:00 70 02/26/20 08:00 98.2 71 18 137/63 (87) 95 02/26/20 08:00 67 02/26/20 08:00 Bi-pap 02/26/20 05:01 82 124/54 02/26/20 04:00 70 02/26/20 04:00 97.6 72 16 124/54 (77) 96 02/26/20 04:00 82 02/26/20 04:00 Bi-pap 02/26/20 03:24 74 16 96 75 02/26/20 00:00 97.6 72 16 124/54 (77) 96 02/26/20 00:00 72 02/26/20 00:00 Bi-pap 02/25/20 23:30 77 14 97 75 02/25/20 23:12 76 127/52 02/25/20 20:51 76 127/52 02/25/20 20:37 70 02/25/20 20:37 Bi-pap 02/25/20 20:00 78 02/25/20 20:00 97.7 74 22 127/50 (75) 95 02/25/20 19:25 76 16 98 75 02/25/20 17:41 75 127/52 02/25/20 16:00 70 02/25/20 16:00 97.3 87 19 127/52 (77) 97 02/25/20 16:00 Bi-pap 02/25/20 16:00 78 02/25/20 15:03 75 16 97 75 02/25/20 13:31 72 133/65 Intake and Output 02/25/20 02/26/20 19:00 07:00 Intake Total 120 ml Output Total 700 ml 650 ml Balance -700 ml -530 ml Intake Oral 120 ml Output Urine Total 700 ml 650 ml General Appearance: no acute distress HEENT: normocephalic Respiratory: chest wall non-tender, lungs clear Cardiovascular: normal peripheral pulses Abdomen: normal bowel sounds Laboratory Tests 02/26/20 05:25: White Blood Count 20.0H, Red Blood Count 4.32, Hemoglobin 13.6, Hematocrit 40.9, Mean Corpuscular Volume 95, Mean Corpuscular Hemoglobin 31.4H, Mean Corpuscular Hemoglobin Concent 33.2, Red Cell Distribution Width 14.1, Platelet Count 430, Mean Platelet Volume 7.3, Neutrophils (%) (Auto) , Lymphocytes (%) (Auto) , Monocytes (%) (Auto) , Eosinophils (%) (Auto) , Basophils (%) (Auto) , Differential Total Cells Counted 100, Neutrophils % (Manual) 91H, Lymphocytes % (Manual) 5L, Monocytes % (Manual) 4, Eosinophils % (Manual) 0, Basophils % (Manual) 0, Band Neutrophils 0, Platelet Estimate Adequate, Platelet Morphology Normal, Hypochromasia 1+, Anisocytosis 1+, Sodium Level 148H, Potassium Level 3.9, Chloride Level 107, Carbon Dioxide Level 26, Anion Gap 15, Blood Urea Nitrogen 118H, Creatinine 2.0H, Estimat Glomerular Filtration Rate 24.0, Glucose Level 153H, Uric Acid 11.4H, Calcium Level 8.7, Phosphorus Level 5.7H, Magnesium Level 2.9H, Total Bilirubin 0.7, Aspartate Amino Transf (AST/SGOT) 113H, Alanine Aminotransferase (ALT/SGPT) 112H, Alkaline Phosphatase 98, C-Reactive Protein, Quantitative 7.1H, Total Protein 7.4, Albumin 2.5L, Globulin 4.9, Albumin/Globulin Ratio 0.5L Current Medications Medications (Trade) Dose Ordered Sig/Eze Route PRN Reason Start Time Stop Time Status Last Admin Dose Admin Acetaminophen (Tylenol) 500 mg Q6H PRN ORAL Mild Pain (Pain Scale 1-3) 02/19/20 00:00 03/20/20 00:00 02/21/20 00:35 Allopurinol (allopurinoL) 300 mg DAILY ORAL 02/25/20 09:00 03/26/20 08:59 02/26/20 09:09 Apixaban (Eliquis) 5 mg BID ORAL 02/21/20 18:00 05/21/20 17:59 02/26/20 09:09 Aspirin (ASA) 81 mg DAILY ORAL 02/24/20 09:00 04/09/20 08:59 02/26/20 09:09 Atorvastatin Calcium (Lipitor) 10 mg BEDTIME ORAL 02/19/20 21:00 05/19/20 20:59 02/25/20 20:51 Clonidine HCl (Catapres Tab) 0.1 mg Q4H PRN ORAL BP over 166 systolic 02/19/20 15:45 05/19/20 15:44 Dexamethasone Sodium Phosphate (Decadron 10mg/ ml Inj) 6 mg DAILY IV 02/19/20 10:15 02/28/20 09:01 02/26/20 09:08 Dextrose 1,000 ml @ 75 mls/hr [id number] IV 02/22/20 10:45 03/23/20 10:44 02/26/20 12:05 Diltiazem HCl (Cardizem Tab) 60 mg EVERY 6 HOURS ORAL 02/20/20 18:00 03/21/20 17:59 02/26/20 12:28 Hydralazine HCl (Apresoline) 10 mg Q2H PRN IV For High Blood Pressure 02/19/20 00:30 05/19/20 00:29 02/21/20 16:19 Metoprolol Tartrate (Lopressor) 12.5 mg Q12HR ORAL 02/19/20 21:00 05/19/20 20:59 02/26/20 09:09 Assessment/Plan Assessment/Plan IMPRESSION: 1. COVID-19 pneumonia. 2. Respiratory failure, on BiPAP. 3. Renal failure.Improved 4. Troponin leak. DISCUSSION: Continue Decadron. On Lovenox Defer Remdesivir use to ID Continue BiPAP. Saturating 96%. FiO2 now decreased to 80m -> 70%%. Discussed with RN Jorge Pollockmizi,Aroldo Miguel Angel MD Feb 26, 2020 12:43
[2020-02-26 16:00] VITALS: BP 113/57
[2020-02-26] MEDS ORDERED: Tubing IV Secondary IV ONE (17:32)
--- NOTE | 2020-02-26 18:18 | General Progress Note ---
Subjective Allergies: Coded Allergies: No Known Allergies (Unverified , 02/18/20) Subjective patient seen this am calm, comfortable (+) BIPAP (+) BM with suppository d/w Renal re starting TPN tomorrow Objective Last 24 Hour Vital Signs Date Time Temp Pulse Resp B/P (MAP) Pulse Ox O2 Delivery O2 Flow Rate FiO2 02/26/20 17:35 105 113/57 02/26/20 16:00 70 02/26/20 16:00 105 02/26/20 16:00 Bi-pap 02/26/20 16:00 98.0 99 18 113/57 (75) 96 02/26/20 13:40 75 16 96 75 02/26/20 12:28 95 131/80 02/26/20 12:00 78 02/26/20 12:00 70 02/26/20 12:00 97.9 95 18 131/80 (97) 95 02/26/20 12:00 Bi-pap 02/26/20 09:09 71 142/63 02/26/20 08:00 70 02/26/20 08:00 98.2 71 18 137/63 (87) 95 02/26/20 08:00 67 02/26/20 08:00 Bi-pap 02/26/20 07:30 76 15 99 75 02/26/20 05:01 82 124/54 02/26/20 04:00 70 02/26/20 04:00 97.6 72 16 124/54 (77) 96 02/26/20 04:00 82 02/26/20 04:00 Bi-pap 02/26/20 03:24 74 16 96 75 02/26/20 00:00 97.6 72 16 124/54 (77) 96 02/26/20 00:00 72 02/26/20 00:00 Bi-pap 02/25/20 23:30 77 14 97 75 02/25/20 23:12 76 127/52 02/25/20 20:51 76 127/52 02/25/20 20:37 70 02/25/20 20:37 Bi-pap 02/25/20 20:00 78 02/25/20 20:00 97.7 74 22 127/50 (75) 95 02/25/20 19:25 76 16 98 75 Intake and Output 02/25/20 02/26/20 19:00 07:00 Intake Total 120 ml Output Total 700 ml 650 ml Balance -700 ml -530 ml Intake Oral 120 ml Output Urine Total 700 ml 650 ml Laboratory Tests 02/26/20 05:25: White Blood Count 20.0H, Red Blood Count 4.32, Hemoglobin 13.6, Hematocrit 40.9, Mean Corpuscular Volume 95, Mean Corpuscular Hemoglobin 31.4H, Mean Corpuscular Hemoglobin Concent 33.2, Red Cell Distribution Width 14.1, Platelet Count 430, Mean Platelet Volume 7.3, Neutrophils (%) (Auto) , Lymphocytes (%) (Auto) , Monocytes (%) (Auto) , Eosinophils (%) (Auto) , Basophils (%) (Auto) , Differential Total Cells Counted 100, Neutrophils % (Manual) 91H, Lymphocytes % (Manual) 5L, Monocytes % (Manual) 4, Eosinophils % (Manual) 0, Basophils % (Manual) 0, Band Neutrophils 0, Platelet Estimate Adequate, Platelet Morphology Normal, Hypochromasia 1+, Anisocytosis 1+, Sodium Level 148H, Potassium Level 3.9, Chloride Level 107, Carbon Dioxide Level 26, Anion Gap 15, Blood Urea Nitrogen 118H, Creatinine 2.0H, Estimat Glomerular Filtration Rate 24.0, Glucose Level 153H, Uric Acid 11.4H, Calcium Level 8.7, Phosphorus Level 5.7H, Magnesium Level 2.9H, Total Bilirubin 0.7, Aspartate Amino Transf (AST/SGOT) 113H, Alanine Aminotransferase (ALT/SGPT) 112H, Alkaline Phosphatase 98, C-Reactive Protein, Quantitative 7.1H, Total Protein 7.4, Albumin 2.5L, Globulin 4.9, Albumin/Globulin Ratio 0.5L Height (Feet): 5 Weight (Pounds): 160 Objective WDWN NCAT, (+) BIPAP (+) coarse BS RR abd soft no edema Assessment/Plan Status: progressing Assessment/Plan: Assessment NPO due to respiratory failure/BIPAP COVID PNA Resp failure / BIPAP Renal failure abnormal LFT Elevated troponin malnutrition, low albumin constipation - resolved Recommendations PRN laxatives PICC line ordered for am TPN to be started tomorrow night watch renal parameters follow labs and exam Respiratory care Colin Pollock MD Feb 26, 2020 18:18
[2020-02-26] MEDS ORDERED: Lidocaine 1% Plain 30 ml INJ PRN (19:00)
[2020-02-26] MEDS ORDERED: Heparin1,000 units/500ml Premix(Conc:2 units/ml) IV PRN (19:00)
--- NOTE | 2020-02-26 19:05 | NUR ---
NURSE HAND-OFF REPORT: Important Events on Shift:New Picc line order, consent obtained Patient Status: Stable Diet: NPO Pending Orders: NA Pending Results/Labs:NA Pending MD notification:NA Latest Vital Signs: Temperature 98.0 , Pulse 84 , B/P 113 /57 , Respiratory Rate 15 , O2 SAT 98 , Bi-pap, O2 Flow Rate 15.0 . Vital Sign Comment: Stable EKG Rhythm: Sinus Tachycardia Rhythm change?: N MD Notified?: - MD Response: Latest Navarro Fall Score: 30 Fall Risk: Medium Risk Safety Measures: Call light Within Reach, Bed Alarm Zone 1, Side Rails Side Rails x3, Bed position Low and Locked. Fall Precautions: Yellow Socks Yellow Gown Door Sign Patient Fall Education Report given to OCHOA Duncan.
--- NOTE | 2020-02-26 19:29 | NUR ---
NURSE NOTES: Received report from OCHOA Giron. PT is A/O x3 and Hebrew speaking with simple Romanian and verbally responsive. No SOB or acute distress noted. personnel monitor shows SR. No pain noted. Pt appears to be tolerating current BIPAP settings well 14/5 Fio2 70% saturation @ 96%. Pt is NPO per endorsement with TPN pending. Pt has a barker which is intact and draining to gravity with evonne urine. Pt has a LFA 22G running D5W at 75cc/hr which is intact and patent. Bed alarm on with side rails x 2 and safety brakes engaged and in lowest position. Call light placed within reach. Will continue with plan of care.
[2020-02-26 20:00] VITALS: BP 113/54
[2020-02-26] MEDS: Dyna-Hex 2% Top Sol 2oz TOPIC SCH (20:00)
--- NOTE | 2020-02-26 22:03 | NUR ---
NURSE NOTES: PM care done along with oral which was tolerated well. Pt linens changed along with bed bath given.
--- NOTE | 2020-02-26 23:02 | General Progress Note ---
Subjective ROS Limited/Unobtainable: Yes Allergies: Coded Allergies: No Known Allergies (Unverified , 02/18/20) Objective Last 24 Hour Vital Signs Date Time Temp Pulse Resp B/P (MAP) Pulse Ox O2 Delivery O2 Flow Rate FiO2 02/26/20 20:36 87 113/57 02/26/20 20:00 83 02/26/20 20:00 98.2 87 20 113/54 (73) 97 02/26/20 19:35 Bi-pap 02/26/20 19:35 70 02/26/20 19:11 84 15 98 75 02/26/20 17:35 105 113/57 02/26/20 16:00 70 02/26/20 16:00 105 02/26/20 16:00 Bi-pap 02/26/20 16:00 98.0 99 18 113/57 (75) 96 02/26/20 13:40 75 16 96 75 02/26/20 12:28 95 131/80 02/26/20 12:00 78 02/26/20 12:00 70 02/26/20 12:00 97.9 95 18 131/80 (97) 95 02/26/20 12:00 Bi-pap 02/26/20 09:09 71 142/63 02/26/20 08:00 70 02/26/20 08:00 98.2 71 18 137/63 (87) 95 02/26/20 08:00 67 02/26/20 08:00 Bi-pap 02/26/20 07:30 76 15 99 75 02/26/20 05:01 82 124/54 02/26/20 04:00 70 02/26/20 04:00 97.6 72 16 124/54 (77) 96 02/26/20 04:00 82 02/26/20 04:00 Bi-pap 02/26/20 03:24 74 16 96 75 02/26/20 00:00 97.6 72 16 124/54 (77) 96 02/26/20 00:00 72 02/26/20 00:00 Bi-pap 02/25/20 23:30 77 14 97 75 02/25/20 23:12 76 127/52 Intake and Output 02/25/20 02/26/20 19:00 07:00 Intake Total 120 ml Output Total 700 ml 650 ml Balance -700 ml -530 ml Intake Oral 120 ml Output Urine Total 700 ml 650 ml Laboratory Tests 02/26/20 05:25: White Blood Count 20.0H, Red Blood Count 4.32, Hemoglobin 13.6, Hematocrit 40.9, Mean Corpuscular Volume 95, Mean Corpuscular Hemoglobin 31.4H, Mean Corpuscular Hemoglobin Concent 33.2, Red Cell Distribution Width 14.1, Platelet Count 430, Mean Platelet Volume 7.3, Neutrophils (%) (Auto) , Lymphocytes (%) (Auto) , Monocytes (%) (Auto) , Eosinophils (%) (Auto) , Basophils (%) (Auto) , Differential Total Cells Counted 100, Neutrophils % (Manual) 91H, Lymphocytes % (Manual) 5L, Monocytes % (Manual) 4, Eosinophils % (Manual) 0, Basophils % (Manual) 0, Band Neutrophils 0, Platelet Estimate Adequate, Platelet Morphology Normal, Hypochromasia 1+, Anisocytosis 1+, Sodium Level 148H, Potassium Level 3.9, Chloride Level 107, Carbon Dioxide Level 26, Anion Gap 15, Blood Urea Nitrogen 118H, Creatinine 2.0H, Estimat Glomerular Filtration Rate 24.0, Glucose Level 153H, Uric Acid 11.4H, Calcium Level 8.7, Phosphorus Level 5.7H, Magnesium Level 2.9H, Total Bilirubin 0.7, Aspartate Amino Transf (AST/SGOT) 113H, Alanine Aminotransferase (ALT/SGPT) 112H, Alkaline Phosphatase 98, C-Reactive Protein, Quantitative 7.1H, Total Protein 7.4, Albumin 2.5L, Globulin 4.9, Albumin/Globulin Ratio 0.5L Height (Feet): 5 Weight (Pounds): 160 Assessment/Plan Problem List: (1) UTI (urinary tract infection) ICD Codes: N39.0 - Urinary tract infection, site not specified SNOMED: 03795371 (2) Hypoxia ICD Codes: R09.02 - Hypoxemia; J12.82 - Pneumonia due to coronavirus disease 2019 SNOMED: 787306344 (3) Sepsis ICD Codes: A41.9 - Sepsis, unspecified organism SNOMED: 62058485 (4) JARETH (acute kidney injury) ICD Codes: N17.9 - Acute kidney failure, unspecified SNOMED: 91579300, 6561274 (5) Pneumonia due to COVID-19 virus ICD Codes: U07.1 - COVID-19; J12.82 - Pneumonia due to coronavirus disease 2019 SNOMED: 879643278474369916 Status: progressing Assessment/Plan: supportive care needs oxygen not improving covid + resp insuff sepsis pna abx per id Gerson Evans MD Feb 26, 2020 23:02
[2020-02-27] VITALS (7 sets, daily range): BP systolic 105–147; BP diastolic 48–76
[2020-02-27] MEDS: dilTIAZem HCl 60mg tab ORAL SCH ×2 (00:41→04:58)
[2020-02-27 06:00] LABS: HEMATOCRIT 40.1 % (37.0-47.0); MEAN CORPUSCULAR VOLUME 92 FL (80-99); PLATELET COUNT 405 K/UL (150-450); RED BLOOD COUNT 4.35 M/UL (4.20-5.40); RED CELL DISTRIBUTION WIDTH 13.2 % (11.6-14.8); WHITE BLOOD COUNT 19.8 K/UL (4.8-10.8)
[2020-02-27 06:51] LABS: ALBUMIN 2.2 G/DL (3.4-5.0); ALBUMIN/GLOBULIN RATIO 0.5 (1.0-2.7); BILIRUBIN,TOTAL 0.7 MG/DL (0.2-1.0); CREATININE 1.9 MG/DL (0.55-1.30); PHOSPHORUS 5.7 MG/DL (2.5-4.9); POTASSIUM 3.7 MMOL/L (3.5-5.1)
--- NOTE | 2020-02-27 07:09 | NUR ---
NURSE HAND-OFF REPORT: Important Events on Shift: Stable Picc today and TPN tonight Patient Status: Stable Diet: NPO Pending Orders: Pending Results/Labs: Pending MD notification: Latest Vital Signs: Temperature 98.0 , Pulse 61 , B/P 121 /49 , Respiratory Rate 15 , O2 SAT 96 , Bi-pap, O2 Flow Rate 15.0 . Vital Sign Comment: EKG Rhythm: Sinus Rhythm Rhythm change?: N MD Notified?: - MD Response: Latest Navarro Fall Score: 30 Fall Risk: Medium Risk Safety Measures: Call light Within Reach, Bed Alarm Zone 1, Side Rails Side Rails x3, Bed position Low and Locked. Fall Precautions: Yellow Socks Yellow Gown Door Sign Patient Fall Education Report given to Gifty.
--- NOTE | 2020-02-27 07:30 | NUR ---
NURSE NOTES: Received pt from RN Ivan, pt is awake and confused, pt has bipap 14/5 spo2 75%, pt has intact iv access LFA 22G is running well. Pt is on continues heart monitoring. Pt is NPO due to PICC placement. Pt has Cano cath in place is working well. no complain of pain at this moment. all needs attended, bed is locked and is in the lowest position, call light within easy reach. will continue to monitor.
[2020-02-27] MEDS: Aspirin Baby 81mg ORAL SCH (09:00)
[2020-02-27] MEDS: Eliquis 5mg tablet ORAL SCH ×2 (09:00→17:09)
[2020-02-27] MEDS: dexAMETHasone 10mg/ml Inj IV SCH (09:14)
[2020-02-27] MEDS: Metoprolol Tartrate 12.5mg TAB ORAL SCH (09:15)
--- NOTE | 2020-02-27 10:10 | Cardiac Electrophysiology PN ---
Assessment/Plan Assessment/Plan 1. Congestive heart failure with BNP of more than 15,000. EF 60%. Off lasix in view of ARF 2. Elevated troponin could be due to renal failure No CP and echo Nl EF. 3. Atrial fib with RVR. Increase Cardizem to 90 Q 8hr and DC Lopressor 12.5 bid On Eliquis 5 bid 4. Accelerated hypertension. Continue Cardizem 5. Respiratory failure due to COVID on BiPAP as well as dexamethasone. WBC still 20K 6. Acute renal failure BUN/Cr 118/2.0 . Off Lasix per Dr Byrne 7. NPO due to BIPAP. PICC line for TPN pending DW RN Subjective Subjective In SR on Cardizem and Lopressor. On BIPAP. No atrial fib overnight. PICC line for TPN pending. NPO due to BIPAP Objective Last 24 Hour Vital Signs Date Time Temp Pulse Resp B/P (MAP) Pulse Ox O2 Delivery O2 Flow Rate FiO2 02/27/20 09:15 66 120/49 02/27/20 08:00 96.8 66 19 120/49 (72) 98 02/27/20 08:00 75 02/27/20 08:00 Bi-pap 02/27/20 04:58 61 121/49 02/27/20 04:00 Bi-pap 02/27/20 04:00 98.0 60 15 121/49 (73) 96 02/27/20 04:00 70 02/27/20 04:00 61 02/27/20 03:30 65 16 96 75 02/27/20 00:41 64 107/48 02/27/20 00:00 Bi-pap 02/27/20 00:00 97.7 64 14 107/48 (67) 98 02/27/20 00:00 70 02/27/20 00:00 63 02/26/20 23:18 66 18 99 75 02/26/20 20:36 87 113/57 02/26/20 20:00 83 02/26/20 20:00 98.2 87 20 113/54 (73) 97 02/26/20 19:35 Bi-pap 02/26/20 19:35 70 02/26/20 19:11 84 15 98 75 02/26/20 17:35 105 113/57 02/26/20 16:00 70 02/26/20 16:00 105 02/26/20 16:00 Bi-pap 02/26/20 16:00 98.0 99 18 113/57 (75) 96 02/26/20 13:40 75 16 96 75 02/26/20 12:28 95 131/80 02/26/20 12:00 78 02/26/20 12:00 70 02/26/20 12:00 97.9 95 18 131/80 (97) 95 02/26/20 12:00 Bi-pap Intake and Output 02/26/20 02/27/20 19:00 07:00 Intake Total 100 ml 120 ml Output Total 800 ml 650 ml Balance -700 ml -530 ml Intake Oral 100 ml 120 ml Output Urine Total 800 ml 650 ml Laboratory Tests Test 02/27/20 05:28 White Blood Count 19.8 K/UL (4.8-10.8) H Red Blood Count 4.35 M/UL (4.20-5.40) Hemoglobin 13.0 G/DL (12.0-16.0) Hematocrit 40.1 % (37.0-47.0) Mean Corpuscular Volume 92 FL (80-99) Mean Corpuscular Hemoglobin 30.0 PG (27.0-31.0) Mean Corpuscular Hemoglobin Concent 32.5 G/DL (32.0-36.0) Red Cell Distribution Width 13.2 % (11.6-14.8) Platelet Count 405 K/UL (150-450) Mean Platelet Volume 8.0 FL (6.5-10.1) Neutrophils (%) (Auto) % (45.0-75.0) Lymphocytes (%) (Auto) % (20.0-45.0) Monocytes (%) (Auto) % (1.0-10.0) Eosinophils (%) (Auto) % (0.0-3.0) Basophils (%) (Auto) % (0.0-2.0) Differential Total Cells Counted 100 Neutrophils % (Manual) 93 % (45-75) H Lymphocytes % (Manual) 3 % (20-45) L Monocytes % (Manual) 4 % (1-10) Eosinophils % (Manual) 0 % (0-3) Basophils % (Manual) 0 % (0-2) Band Neutrophils 0 % (0-8) Platelet Estimate Adequate Platelet Morphology Normal Hypochromasia 1+ Sodium Level 148 MMOL/L (136-145) H Potassium Level 3.7 MMOL/L (3.5-5.1) Chloride Level 107 MMOL/L (98-107) Carbon Dioxide Level 28 MMOL/L (21-32) Anion Gap 13 mmol/L (5-15) Blood Urea Nitrogen 118 mg/dL (7-18) H Creatinine 1.9 MG/DL (0.55-1.30) H Estimat Glomerular Filtration Rate 25.5 mL/min (>60) Glucose Level 148 MG/DL (74-106) H Uric Acid 11.3 MG/DL (2.6-7.2) H Calcium Level 9.0 MG/DL (8.5-10.1) Phosphorus Level 5.7 MG/DL (2.5-4.9) H Magnesium Level 3.0 MG/DL (1.8-2.4) H Total Bilirubin 0.7 MG/DL (0.2-1.0) Aspartate Amino Transf (AST/SGOT) 90 U/L (15-37) H Alanine Aminotransferase (ALT/SGPT) 90 U/L (12-78) H Alkaline Phosphatase 90 U/L (46-116) C-Reactive Protein, Quantitative 2.2 mg/dL (0.00-0.90) H Pro-B-Type Natriuretic Peptide 383 pg/mL (0-125) H Total Protein 7.0 G/DL (6.4-8.2) Albumin 2.2 G/DL (3.4-5.0) L Globulin 4.8 g/dL Albumin/Globulin Ratio 0.5 (1.0-2.7) L Vitamin D 25-Hydroxy Pending 25-Hydroxy Vitamin D2 Pending 25-Hydroxy Vitamin D3 Pending Objective HEAD AND SHOWED: No JVD.BIPAP on LUNGS: Decreased breath sounds. CARDIOVASCULAR: Regular S1 and S2 with no gallop. ABDOMEN: Soft. EXTREMITIES: No pitting edema. Adonay Guerra MD Feb 27, 2020 10:10
--- NOTE | 2020-02-27 10:52 | NUR ---
NURSE NOTES: Dr Byrne visited pt and is aware about mg 3 ph 5.7 and other lab results and V/S, no new order received. will continue to monitor.
--- NOTE | 2020-02-27 10:56 | NUR ---
RD ASSESSMENT & RECOMMENDATIONS SEE CARE ACTIVITY FOR COMPLETE ASSESSMENT DAILY ESTIMATED NEEDS: Needs based on Pulmonary, 53kg abw 25-30 kcals/kg 8260-0536 total kcals 1-1.5 g protein/kg 53-80 g total protein 25-30 mL/kg 3347-7029 total fluid mLs NUTRITION DIAGNOSIS: Altered nutrition related lab values r/t clinical status as evidenced by low K(3.0-> wnl), elev BUN(49->94), creat(1.7), elev Na (150), and elev BNP(56578->282) on Lasix. . CURRENT DIET: NPO PARENTERAL NUTRITION RECOMMENDATIONS: D/AA Rate: 60 IL Rate: 6 Total Rate: 66 Volume: 1584 % Dextrose: 20 % AA: 5.0 Energy (kcals/kg): 1555 Protein (g/kg protein): 72 Nonprotein KCALS: 1267 GIR (mg CHO/kg/min): 2.8 % Fat KCALS: 19 NPC: N Ratio: 110:1 TPN Comment: - D20%, AA5.0% @60ml/hr + IL20% @6ml/hr-> total rate of 66ml/hr, all 3:1. - Start rate per MD, rec to start low @26ml/hr for 6 hrs, titrate slowly to goal. - TPN @goal meets 100% est needs - GIR<5 - IL<30% ADDITIONAL RECOMMENDATIONS: 1) Monitor resp status and ability to eat/ feed- NPO from adm -> nonoral feeds? -> low rate of NGT feeds vs TPN if unable to wean from BIPAP 2) Maintain daily wts on calibrated bed scale 3) Monitor lytes, replete as needed 4) Maintain D5 while NPO-> DC added D5 w/ TPN 5) Monitor BG, LFT's, lytes on TPN
--- NOTE | 2020-02-27 11:27 | NUR ---
NURSE NOTES: Dr Briggs visited pt and ordered to put pt on venturi mask, RT is aware and tried to put pt on venturi mask but SPO2 dropped immediately to 70, pt again backed to bipap, Dr Briggs notified and stated bipap is ok, noted and carried out. will continue to monitor.
--- NOTE | 2020-02-27 11:28 | NUR ---
Senior Director Of Global Commercial Technology SolutionsReplenishment Buyer SI: Respiratory Failure, COVID PNA, Leukocytosis, ARF Temp-96.8 (ax), HR 66, RR 19, 120/49 BIPAP 14/5 FiO2 75% O2 sat 98% WBC 19.8, NA+ 148, BUN 118, creatinine 1.9 IS: Dexamethasone IV QD Eliquis PO BID Allopurinol PO QD ASA PO QD D5 IV @ 75cc/hr Cardizem PO q 6 h TPN @ 66cc/hr Step Down Status
--- NOTE | 2020-02-27 12:26 | Nephrology Progress Note ---
Assessment/Plan Problem List: (1) JARETH (acute kidney injury) (2) Pneumonia due to COVID-19 virus (3) UTI (urinary tract infection) (4) Sepsis (5) Hypoxia (6) Elevated troponin I level Assessment Acute renal failure Possible underlying chronic kidney disease Hypoxic respiratory failure Sepsis, COVID-19 pneumonia UTI Hypertension, uncontrolled Hyperlipemia Elevated troponin I Electrolyte abnormalities Plan February 26: Labs reviewed. Discussed with GI. Initiating TPN as the patient has not been eating for the past 10 days. TPN ordered. Discussed with pharmacy and dietary. Continue to monitor electrolytes and renal parameters. Per orders. February 25: Labs reviewed. Renal parameters are worsening. IV Lasix discontinued. Chest x-ray reviewed. Vitamin D level ordered. Continue to monitor renal parameters. February 24: Labs reviewed. Serum sodium lower at 150. Serum creatinine slightly higher at 1.7. Will discuss with cardiology regarding possible decreases on Lasix dosage. Today's chest x-ray is pending. February 23: Labs reviewed. Serum creatinine up to 1.6. Serum sodium 152. D5W IV to be continued patient remains on intravenous Lasix. Allopurinol for high uric acid added chest x-ray ordered. February 22: No labs drawn today. Medication list reviewed. Patient remains on BiPAP. Patient is a DNI. Continue to monitor renal parameters and electrolytes. Continue per consultants. February 21: Labs reviewed. Serum sodium rising. Change IV to D5W. Continue to monitor renal parameters. Continue per pulmonary. Patient remains on BiPAP. February 20: No CHEM panel drawn today. Previously low potassium replaced. Medication reviewed. Check lab tomorrow. Continue per consultants. February 19: Serum creatinine lowering. Abnormal electrolyte noted and addressed. Continue pulmonary care. Blood pressure under control. Continue to monitor renal parameters. Medication list reviewed. Slow hydrate, normal saline Watch renal parameters on Lasix Recheck chest x-ray tomorrow Keep the blood pressure in check Avoid nephrotoxic's Monitor electrolytes and urine output Per consultants Per orders Subjective ROS Limited/Unobtainable: Yes Objective Objective Last 24 Hour Vital Signs Date Time Temp Pulse Resp B/P (MAP) Pulse Ox O2 Delivery O2 Flow Rate FiO2 02/27/20 12:00 75 02/27/20 12:00 97.9 65 19 105/58 (74) 96 02/27/20 12:00 Bi-pap 02/27/20 09:15 66 120/49 02/27/20 08:00 96.8 66 19 120/49 (72) 98 02/27/20 08:00 75 02/27/20 08:00 Bi-pap 02/27/20 07:47 65 02/27/20 07:20 68 16 98 75 02/27/20 04:58 61 121/49 02/27/20 04:00 Bi-pap 02/27/20 04:00 98.0 60 15 121/49 (73) 96 02/27/20 04:00 70 02/27/20 04:00 61 02/27/20 03:30 65 16 96 75 02/27/20 00:41 64 107/48 02/27/20 00:00 Bi-pap 02/27/20 00:00 97.7 64 14 107/48 (67) 98 02/27/20 00:00 70 02/27/20 00:00 63 02/26/20 23:18 66 18 99 75 02/26/20 20:36 87 113/57 02/26/20 20:00 83 02/26/20 20:00 98.2 87 20 113/54 (73) 97 02/26/20 19:35 Bi-pap 02/26/20 19:35 70 02/26/20 19:11 84 15 98 75 02/26/20 17:35 105 113/57 02/26/20 16:00 70 02/26/20 16:00 105 02/26/20 16:00 Bi-pap 02/26/20 16:00 98.0 99 18 113/57 (75) 96 02/26/20 13:40 75 16 96 75 02/26/20 12:28 95 131/80 Intake and Output 02/26/20 02/27/20 19:00 07:00 Intake Total 100 ml 195 ml Output Total 800 ml 650 ml Balance -700 ml -455 ml Intake Oral 100 ml 120 ml IV Total 75 ml Output Urine Total 800 ml 650 ml Current Medications Medications (Trade) Dose Ordered Sig/Eze Route PRN Reason Start Time Stop Time Status Last Admin Dose Admin Acetaminophen (Tylenol) 500 mg Q6H PRN ORAL Mild Pain (Pain Scale 1-3) 02/19/20 00:00 03/20/20 00:00 02/21/20 00:35 Allopurinol (allopurinoL) 300 mg DAILY ORAL 02/25/20 09:00 03/26/20 08:59 02/27/20 09:15 Apixaban (Eliquis) 5 mg BID ORAL 02/21/20 18:00 05/21/20 17:59 02/26/20 17:35 Aspirin (ASA) 81 mg DAILY ORAL 02/24/20 09:00 04/09/20 08:59 02/26/20 09:09 Atorvastatin Calcium (Lipitor) 10 mg BEDTIME ORAL 02/19/20 21:00 05/19/20 20:59 02/26/20 20:35 Chlorhexidine Gluconate (Carole-Hex 2%) 1 applic DAILY@2000 TOPIC 02/26/20 20:00 05/26/20 19:59 Clonidine HCl (Catapres Tab) 0.1 mg Q4H PRN ORAL BP over 166 systolic 02/19/20 15:45 05/19/20 15:44 Dexamethasone Sodium Phosphate (Decadron 10mg/ ml Inj) 6 mg DAILY IV 02/19/20 10:15 02/28/20 09:01 02/27/20 09:14 Dextrose 1,000 ml @ 0 mls/hr Q24H PRN IV PN interrupted or unavailable 02/27/20 20:00 03/28/20 19:59 Dextrose 1,000 ml @ 75 mls/hr [id number] IV 02/22/20 10:45 03/23/20 10:44 02/27/20 02:12 Dextrose (Dextrose 50%) 25 ml Q30M PRN IV Hypoglycemia 02/27/20 20:00 05/27/20 19:59 Dextrose (Dextrose 50%) 50 ml Q30M PRN IV Hypoglycemia 02/27/20 20:00 05/27/20 19:59 Diltiazem HCl (Cardizem Tab) 90 mg EVERY 8 HOURS ORAL 02/27/20 14:00 03/21/20 13:59 Fat Emulsion Intravenous 144 ml/Amino Acids/ Electrolytes/ Dextrose 1,584 ml @ 66 mls/hr Q24H IV 02/27/20 20:00 03/28/20 19:59 Heparin Sodium/ Sodium Chloride (Heparin 1000 units/500ml Premix) 1,000 unit ONCE PRN IV PICC 02/26/20 19:00 02/27/20 23:59 Hydralazine HCl (Apresoline) 10 mg Q2H PRN IV For High Blood Pressure 02/19/20 00:30 05/19/20 00:29 02/21/20 16:19 Lidocaine HCl (Xylocaine 1% 30ml) 30 ml ONCE PRN INJ PICC 02/26/20 19:00 02/27/20 23:59 Laboratory Tests 02/27/20 05:28: White Blood Count 19.8H, Red Blood Count 4.35, Hemoglobin 13.0, Hematocrit 40.1, Mean Corpuscular Volume 92, Mean Corpuscular Hemoglobin 30.0, Mean Corpuscular Hemoglobin Concent 32.5, Red Cell Distribution Width 13.2, Platelet Count 405, Mean Platelet Volume 8.0, Neutrophils (%) (Auto) , Lymphocytes (%) (Auto) , Monocytes (%) (Auto) , Eosinophils (%) (Auto) , Basophils (%) (Auto) , Differential Total Cells Counted 100, Neutrophils % (Manual) 93H, Lymphocytes % (Manual) 3L, Monocytes % (Manual) 4, Eosinophils % (Manual) 0, Basophils % (Manual) 0, Band Neutrophils 0, Platelet Estimate Adequate, Platelet Morphology Normal, Hypochromasia 1+, Sodium Level 148H, Potassium Level 3.7, Chloride Level 107, Carbon Dioxide Level 28, Anion Gap 13, Blood Urea Nitrogen 118H, Creatinine 1.9H, Estimat Glomerular Filtration Rate 25.5, Glucose Level 148H, Uric Acid 11.3H, Calcium Level 9.0, Phosphorus Level 5.7H, Magnesium Level 3.0H, Total Bilirubin 0.7, Aspartate Amino Transf (AST/SGOT) 90H, Alanine Aminotransferase (ALT/SGPT) 90H, Alkaline Phosphatase 90, C-Reactive Protein, Quantitative 2.2H, Pro-B-Type Natriuretic Peptide 383H, Total Protein 7.0, Albumin 2.2L, Globulin 4.8, Albumin/Globulin Ratio 0.5L, Vitamin D 25-Hydroxy [Pending], 25-Hydroxy Vitamin D2 [Pending], 25-Hydroxy Vitamin D3 [Pending] Height (Feet): 5 Weight (Pounds): 160 General Appearance: no apparent distress Cardiovascular: normal rate Respiratory/Chest: decreased breath sounds Abdomen: distended Reji Byrne MD Feb 27, 2020 12:26
[2020-02-27] MEDS: dilTIAZem HCl 90mg tab ORAL SCH ×2 (14:00→20:39)
--- NOTE | 2020-02-27 14:36 | Infectious Diseases Prog Note ---
Assessment/Plan Assessment/Plan IMPRESSION: 1. Leukocytosis 2. COVID-19 pneumonia. 3. Acute renal failure.improving 4. Hypoxemic respiratory failure. 5. UTI. 6. Lactic acidosis. 7. Hypertension. 8. Hyperlipidemia. 9. Hypernatremia RECOMMENDATION: Discontinue ceftriaxone Continue dexamethasone. Started on tapering from BIPAP f/u CBC Subjective ROS Limited/Unobtainable: Yes Constitutional: Denies: fever Allergies: Coded Allergies: No Known Allergies (Unverified , 02/18/20) Objective Last 24 Hour Vital Signs Date Time Temp Pulse Resp B/P (MAP) Pulse Ox O2 Delivery O2 Flow Rate FiO2 02/27/20 12:00 75 02/27/20 12:00 97.9 65 19 105/58 (74) 96 02/27/20 12:00 Bi-pap 02/27/20 11:42 69 02/27/20 10:40 67 16 98 75 02/27/20 09:15 66 120/49 02/27/20 08:00 96.8 66 19 120/49 (72) 98 02/27/20 08:00 75 02/27/20 08:00 Bi-pap 02/27/20 07:47 65 02/27/20 07:20 68 16 98 75 02/27/20 04:58 61 121/49 02/27/20 04:00 Bi-pap 02/27/20 04:00 98.0 60 15 121/49 (73) 96 02/27/20 04:00 70 02/27/20 04:00 61 02/27/20 03:30 65 16 96 75 02/27/20 00:41 64 107/48 02/27/20 00:00 Bi-pap 02/27/20 00:00 97.7 64 14 107/48 (67) 98 02/27/20 00:00 70 02/27/20 00:00 63 02/26/20 23:18 66 18 99 75 02/26/20 20:36 87 113/57 02/26/20 20:00 83 02/26/20 20:00 98.2 87 20 113/54 (73) 97 02/26/20 19:35 Bi-pap 02/26/20 19:35 70 02/26/20 19:11 84 15 98 75 02/26/20 17:35 105 113/57 02/26/20 16:00 70 02/26/20 16:00 105 02/26/20 16:00 Bi-pap 02/26/20 16:00 98.0 99 18 113/57 (75) 96 Height (Feet): 5 Weight (Pounds): 160 HEENT: mucous membranes moist Respiratory/Chest: other - on BIPAP Cardiovascular: normal rate Abdomen: soft, non tender Extremities: no edema Neurologic/Psychiatric: other - sleeping Laboratory Tests Test 02/27/20 05:28 White Blood Count 19.8 K/UL (4.8-10.8) H Red Blood Count 4.35 M/UL (4.20-5.40) Hemoglobin 13.0 G/DL (12.0-16.0) Hematocrit 40.1 % (37.0-47.0) Mean Corpuscular Volume 92 FL (80-99) Mean Corpuscular Hemoglobin 30.0 PG (27.0-31.0) Mean Corpuscular Hemoglobin Concent 32.5 G/DL (32.0-36.0) Red Cell Distribution Width 13.2 % (11.6-14.8) Platelet Count 405 K/UL (150-450) Mean Platelet Volume 8.0 FL (6.5-10.1) Neutrophils (%) (Auto) % (45.0-75.0) Lymphocytes (%) (Auto) % (20.0-45.0) Monocytes (%) (Auto) % (1.0-10.0) Eosinophils (%) (Auto) % (0.0-3.0) Basophils (%) (Auto) % (0.0-2.0) Differential Total Cells Counted 100 Neutrophils % (Manual) 93 % (45-75) H Lymphocytes % (Manual) 3 % (20-45) L Monocytes % (Manual) 4 % (1-10) Eosinophils % (Manual) 0 % (0-3) Basophils % (Manual) 0 % (0-2) Band Neutrophils 0 % (0-8) Platelet Estimate Adequate Platelet Morphology Normal Hypochromasia 1+ Sodium Level 148 MMOL/L (136-145) H Potassium Level 3.7 MMOL/L (3.5-5.1) Chloride Level 107 MMOL/L (98-107) Carbon Dioxide Level 28 MMOL/L (21-32) Anion Gap 13 mmol/L (5-15) Blood Urea Nitrogen 118 mg/dL (7-18) H Creatinine 1.9 MG/DL (0.55-1.30) H Estimat Glomerular Filtration Rate 25.5 mL/min (>60) Glucose Level 148 MG/DL (74-106) H Uric Acid 11.3 MG/DL (2.6-7.2) H Calcium Level 9.0 MG/DL (8.5-10.1) Phosphorus Level 5.7 MG/DL (2.5-4.9) H Magnesium Level 3.0 MG/DL (1.8-2.4) H Total Bilirubin 0.7 MG/DL (0.2-1.0) Aspartate Amino Transf (AST/SGOT) 90 U/L (15-37) H Alanine Aminotransferase (ALT/SGPT) 90 U/L (12-78) H Alkaline Phosphatase 90 U/L (46-116) C-Reactive Protein, Quantitative 2.2 mg/dL (0.00-0.90) H Pro-B-Type Natriuretic Peptide 383 pg/mL (0-125) H Total Protein 7.0 G/DL (6.4-8.2) Albumin 2.2 G/DL (3.4-5.0) L Globulin 4.8 g/dL Albumin/Globulin Ratio 0.5 (1.0-2.7) L Vitamin D 25-Hydroxy Pending 25-Hydroxy Vitamin D2 Pending 25-Hydroxy Vitamin D3 Pending Current Medications Medications (Trade) Dose Ordered Sig/Eze Route PRN Reason Start Time Stop Time Status Last Admin Dose Admin Acetaminophen (Tylenol) 500 mg Q6H PRN ORAL Mild Pain (Pain Scale 1-3) 02/19/20 00:00 03/20/20 00:00 02/21/20 00:35 Allopurinol (allopurinoL) 300 mg DAILY ORAL 02/25/20 09:00 03/26/20 08:59 02/27/20 09:15 Apixaban (Eliquis) 5 mg BID ORAL 02/21/20 18:00 05/21/20 17:59 02/26/20 17:35 Aspirin (ASA) 81 mg DAILY ORAL 02/24/20 09:00 04/09/20 08:59 02/26/20 09:09 Atorvastatin Calcium (Lipitor) 10 mg BEDTIME ORAL 02/19/20 21:00 05/19/20 20:59 02/26/20 20:35 Chlorhexidine Gluconate (Carole-Hex 2%) 1 applic DAILY@2000 TOPIC 02/26/20 20:00 05/26/20 19:59 Clonidine HCl (Catapres Tab) 0.1 mg Q4H PRN ORAL BP over 166 systolic 02/19/20 15:45 05/19/20 15:44 Dexamethasone Sodium Phosphate (Decadron 10mg/ ml Inj) 6 mg DAILY IV 02/19/20 10:15 02/28/20 09:01 02/27/20 09:14 Dextrose 1,000 ml @ 0 mls/hr Q24H PRN IV PN interrupted or unavailable 02/27/20 20:00 03/28/20 19:59 Dextrose 1,000 ml @ 75 mls/hr [id number] IV 02/22/20 10:45 02/27/20 19:59 02/27/20 02:12 Dextrose (Dextrose 50%) 25 ml Q30M PRN IV Hypoglycemia 02/27/20 20:00 05/27/20 19:59 Dextrose (Dextrose 50%) 50 ml Q30M PRN IV Hypoglycemia 02/27/20 20:00 05/27/20 19:59 Diltiazem HCl (Cardizem Tab) 90 mg EVERY 8 HOURS ORAL 02/27/20 14:00 03/21/20 13:59 Fat Emulsion Intravenous 144 ml/Amino Acids/ Electrolytes/ Dextrose 1,584 ml @ 66 mls/hr Q24H IV 02/27/20 20:00 03/28/20 19:59 Heparin Sodium/ Sodium Chloride (Heparin 1000 units/500ml Premix) 1,000 unit ONCE PRN IV PICC 02/26/20 19:00 02/27/20 23:59 Hydralazine HCl (Apresoline) 10 mg Q2H PRN IV For High Blood Pressure 02/19/20 00:30 05/19/20 00:29 02/21/20 16:19 Lidocaine HCl (Xylocaine 1% 30ml) 30 ml ONCE PRN INJ PICC 02/26/20 19:00 02/27/20 23:59 Genaro Sun MD Feb 27, 2020 14:36
--- NOTE | 2020-02-27 14:49 | Brief Operative Note ---
Immediate Post Operative Note Operative Note Pre-op Diagnosis: needs IV access Procedure: PICC Post-op Diagnosis: same Surgeon: Tre Ricardo Anesthesia: local Specimen: none Complications: none Fluids: none Implant(s) used?: No Uriel Ricardo MD Feb 27, 2020 14:49
--- NOTE | 2020-02-27 14:57 | Diagnostic Imaging Report ---
Indications: Needs long-term IV access Technique: Procedure performed at bedside. Procedural timeout performed. Ultrasound confirms patent compressible left basilic vein. Total sterile technique, including sterile probe cover and sterile gel, sterile gloves, hand hygiene, hat, mask,, sterile gown, large sterile drape, and preparation with 2% chlorhexidine utilized. Local anesthesia with 1% lidocaine. Under real-time ultrasound guidance, puncture basilic vein using 21-gauge needle, passage 0.018 guidewire, exchange for 4 Urdu peel-away sheath. 4 Urdu Bard dual-lumen power PICC cut to 47 cm. It was inserted through the peel-away sheath. Peel-away sheath and guidewire removed. Catheter fixed to the skin. Both catheter ports aspirated and flushed. Patient tolerated procedure well, without immediate complication. Followup chest x-ray obtained, documents catheter tip position at the cavoatrial junction Impression: Successful bedside placement of left arm PICC under sonographic guidance, as described above.
--- NOTE | 2020-02-27 17:03 | Pulmonology Progress Note ---
Subjective ROS Limited/Unobtainable: Yes Interval Events: Remains on BiPAP Constitutional: Denies: fever HEENT: Repors: no symptoms Respiratory: Reports: no symptoms Cardiovascular: Reports: no symptoms Gastrointestinal/Abdominal: Reports: no symptoms Genitourinary: Reports: no symptoms Allergies: Coded Allergies: No Known Allergies (Unverified , 02/18/20) Objective Last 24 Hour Vital Signs Date Time Temp Pulse Resp B/P (MAP) Pulse Ox O2 Delivery O2 Flow Rate FiO2 02/27/20 16:00 75 02/27/20 16:00 96.9 76 19 123/69 (87) 96 02/27/20 15:37 64 02/27/20 14:41 69 16 99 75 02/27/20 14:00 65 105/58 02/27/20 12:00 75 02/27/20 12:00 97.9 65 19 105/58 (74) 96 02/27/20 12:00 Bi-pap 02/27/20 11:42 69 02/27/20 10:40 67 16 98 75 02/27/20 09:15 66 120/49 02/27/20 08:00 96.8 66 19 120/49 (72) 98 02/27/20 08:00 75 02/27/20 08:00 Bi-pap 02/27/20 07:47 65 02/27/20 07:20 68 16 98 75 02/27/20 04:58 61 121/49 02/27/20 04:00 Bi-pap 02/27/20 04:00 98.0 60 15 121/49 (73) 96 02/27/20 04:00 70 02/27/20 04:00 61 02/27/20 03:30 65 16 96 75 02/27/20 00:41 64 107/48 02/27/20 00:00 Bi-pap 02/27/20 00:00 97.7 64 14 107/48 (67) 98 02/27/20 00:00 70 02/27/20 00:00 63 02/26/20 23:18 66 18 99 75 02/26/20 20:36 87 113/57 02/26/20 20:00 83 02/26/20 20:00 98.2 87 20 113/54 (73) 97 02/26/20 19:35 Bi-pap 02/26/20 19:35 70 02/26/20 19:11 84 15 98 75 02/26/20 17:35 105 113/57 Intake and Output 02/26/20 02/27/20 19:00 07:00 Intake Total 100 ml 195 ml Output Total 800 ml 650 ml Balance -700 ml -455 ml Intake Oral 100 ml 120 ml IV Total 75 ml Output Urine Total 800 ml 650 ml General Appearance: no acute distress HEENT: normocephalic Respiratory: chest wall non-tender, lungs clear Cardiovascular: normal peripheral pulses Abdomen: normal bowel sounds Laboratory Tests 02/27/20 05:28: White Blood Count 19.8H, Red Blood Count 4.35, Hemoglobin 13.0, Hematocrit 40.1, Mean Corpuscular Volume 92, Mean Corpuscular Hemoglobin 30.0, Mean Corpuscular Hemoglobin Concent 32.5, Red Cell Distribution Width 13.2, Platelet Count 405, Mean Platelet Volume 8.0, Neutrophils (%) (Auto) , Lymphocytes (%) (Auto) , Monocytes (%) (Auto) , Eosinophils (%) (Auto) , Basophils (%) (Auto) , Differential Total Cells Counted 100, Neutrophils % (Manual) 93H, Lymphocytes % (Manual) 3L, Monocytes % (Manual) 4, Eosinophils % (Manual) 0, Basophils % (Manual) 0, Band Neutrophils 0, Platelet Estimate Adequate, Platelet Morphology Normal, Hypochromasia 1+, Sodium Level 148H, Potassium Level 3.7, Chloride Level 107, Carbon Dioxide Level 28, Anion Gap 13, Blood Urea Nitrogen 118H, Creatinine 1.9H, Estimat Glomerular Filtration Rate 25.5, Glucose Level 148H, Uric Acid 11.3H, Calcium Level 9.0, Phosphorus Level 5.7H, Magnesium Level 3.0H, Total Bilirubin 0.7, Aspartate Amino Transf (AST/SGOT) 90H, Alanine Aminotransferase (ALT/SGPT) 90H, Alkaline Phosphatase 90, C-Reactive Protein, Quantitative 2.2H, Pro-B-Type Natriuretic Peptide 383H, Total Protein 7.0, Albumin 2.2L, Globulin 4.8, Albumin/Globulin Ratio 0.5L, Vitamin D 25-Hydroxy [Pending], 25-Hydroxy Vitamin D2 [Pending], 25-Hydroxy Vitamin D3 [Pending] Current Medications Medications (Trade) Dose Ordered Sig/Eze Route PRN Reason Start Time Stop Time Status Last Admin Dose Admin Acetaminophen (Tylenol) 500 mg Q6H PRN ORAL Mild Pain (Pain Scale 1-3) 02/19/20 00:00 03/20/20 00:00 02/21/20 00:35 Allopurinol (allopurinoL) 300 mg DAILY ORAL 02/25/20 09:00 03/26/20 08:59 02/27/20 09:15 Apixaban (Eliquis) 5 mg BID ORAL 02/21/20 18:00 05/21/20 17:59 02/26/20 17:35 Aspirin (ASA) 81 mg DAILY ORAL 02/24/20 09:00 04/09/20 08:59 02/26/20 09:09 Atorvastatin Calcium (Lipitor) 10 mg BEDTIME ORAL 02/19/20 21:00 05/19/20 20:59 02/26/20 20:35 Chlorhexidine Gluconate (Carole-Hex 2%) 1 applic DAILY@2000 TOPIC 02/26/20 20:00 05/26/20 19:59 Clonidine HCl (Catapres Tab) 0.1 mg Q4H PRN ORAL BP over 166 systolic 02/19/20 15:45 05/19/20 15:44 Dexamethasone Sodium Phosphate (Decadron 10mg/ ml Inj) 6 mg DAILY IV 02/19/20 10:15 02/28/20 09:01 02/27/20 09:14 Dextrose 1,000 ml @ 0 mls/hr Q24H PRN IV PN interrupted or unavailable 02/27/20 20:00 03/28/20 19:59 Dextrose 1,000 ml @ 75 mls/hr [id number] IV 02/22/20 10:45 02/27/20 19:59 02/27/20 02:12 Dextrose (Dextrose 50%) 25 ml Q30M PRN IV Hypoglycemia 02/27/20 20:00 05/27/20 19:59 Dextrose (Dextrose 50%) 50 ml Q30M PRN IV Hypoglycemia 02/27/20 20:00 05/27/20 19:59 Diltiazem HCl (Cardizem Tab) 90 mg EVERY 8 HOURS ORAL 02/27/20 14:00 03/21/20 13:59 Fat Emulsion Intravenous 144 ml/Amino Acids/ Electrolytes/ Dextrose 1,584 ml @ 66 mls/hr Q24H IV 02/27/20 20:00 03/28/20 19:59 Heparin Sodium/ Sodium Chloride (Heparin 1000 units/500ml Premix) 1,000 unit ONCE PRN IV PICC 02/26/20 19:00 02/27/20 23:59 Hydralazine HCl (Apresoline) 10 mg Q2H PRN IV For High Blood Pressure 02/19/20 00:30 05/19/20 00:29 02/21/20 16:19 Lidocaine HCl (Xylocaine 1% 30ml) 30 ml ONCE PRN INJ PICC 02/26/20 19:00 02/27/20 23:59 Assessment/Plan Assessment/Plan IMPRESSION: 1. COVID-19 pneumonia. 2. Respiratory failure, on BiPAP. 3. Renal failure.Improved 4. Troponin leak. DISCUSSION: Continue Decadron. On Lovenox Defer Remdesivir use to ID Continue BiPAP. Saturating 96%. FiO2 now decreased to 80m -> 70%%. Discussed with RN Jorge Pollock Omar Syed MD Feb 27, 2020 17:03
--- NOTE | 2020-02-27 19:20 | General Progress Note ---
Subjective ROS Limited/Unobtainable: Yes Allergies: Coded Allergies: No Known Allergies (Unverified , 02/18/20) Objective Last 24 Hour Vital Signs Date Time Temp Pulse Resp B/P (MAP) Pulse Ox O2 Delivery O2 Flow Rate FiO2 02/27/20 16:00 75 02/27/20 16:00 75 02/27/20 16:00 Bi-pap 02/27/20 16:00 96.9 76 19 123/69 (87) 96 02/27/20 15:37 64 02/27/20 14:41 69 16 99 75 02/27/20 14:00 65 105/58 02/27/20 12:00 75 02/27/20 12:00 97.9 65 19 105/58 (74) 96 02/27/20 12:00 Bi-pap 02/27/20 11:42 69 02/27/20 10:40 67 16 98 75 02/27/20 09:15 66 120/49 02/27/20 08:00 96.8 66 19 120/49 (72) 98 02/27/20 08:00 75 02/27/20 08:00 Bi-pap 02/27/20 07:47 65 02/27/20 07:20 68 16 98 75 02/27/20 04:58 61 121/49 02/27/20 04:00 Bi-pap 02/27/20 04:00 98.0 60 15 121/49 (73) 96 02/27/20 04:00 70 02/27/20 04:00 61 02/27/20 03:30 65 16 96 75 02/27/20 00:41 64 107/48 02/27/20 00:00 Bi-pap 02/27/20 00:00 97.7 64 14 107/48 (67) 98 02/27/20 00:00 70 02/27/20 00:00 63 02/26/20 23:18 66 18 99 75 02/26/20 20:36 87 113/57 02/26/20 20:00 83 02/26/20 20:00 98.2 87 20 113/54 (73) 97 02/26/20 19:35 Bi-pap 02/26/20 19:35 70 Intake and Output 02/26/20 02/27/20 19:00 07:00 Intake Total 100 ml 195 ml Output Total 800 ml 650 ml Balance -700 ml -455 ml Intake Oral 100 ml 120 ml IV Total 75 ml Output Urine Total 800 ml 650 ml Laboratory Tests 02/27/20 05:28: White Blood Count 19.8H, Red Blood Count 4.35, Hemoglobin 13.0, Hematocrit 40.1, Mean Corpuscular Volume 92, Mean Corpuscular Hemoglobin 30.0, Mean Corpuscular Hemoglobin Concent 32.5, Red Cell Distribution Width 13.2, Platelet Count 405, Mean Platelet Volume 8.0, Neutrophils (%) (Auto) , Lymphocytes (%) (Auto) , Monocytes (%) (Auto) , Eosinophils (%) (Auto) , Basophils (%) (Auto) , Differential Total Cells Counted 100, Neutrophils % (Manual) 93H, Lymphocytes % (Manual) 3L, Monocytes % (Manual) 4, Eosinophils % (Manual) 0, Basophils % (Manual) 0, Band Neutrophils 0, Platelet Estimate Adequate, Platelet Morphology Normal, Hypochromasia 1+, Sodium Level 148H, Potassium Level 3.7, Chloride Level 107, Carbon Dioxide Level 28, Anion Gap 13, Blood Urea Nitrogen 118H, Creatinine 1.9H, Estimat Glomerular Filtration Rate 25.5, Glucose Level 148H, Uric Acid 11.3H, Calcium Level 9.0, Phosphorus Level 5.7H, Magnesium Level 3.0H, Total Bilirubin 0.7, Aspartate Amino Transf (AST/SGOT) 90H, Alanine Aminotransferase (ALT/SGPT) 90H, Alkaline Phosphatase 90, C-Reactive Protein, Quantitative 2.2H, Pro-B-Type Natriuretic Peptide 383H, Total Protein 7.0, Albumin 2.2L, Globulin 4.8, Albumin/Globulin Ratio 0.5L, Vitamin D 25-Hydroxy [Pending], 25-Hydroxy Vitamin D2 [Pending], 25-Hydroxy Vitamin D3 [Pending] Height (Feet): 5 Weight (Pounds): 160 Assessment/Plan Problem List: (1) UTI (urinary tract infection) ICD Codes: N39.0 - Urinary tract infection, site not specified SNOMED: 61185247 (2) Hypoxia ICD Codes: R09.02 - Hypoxemia; J12.82 - Pneumonia due to coronavirus disease 2019 SNOMED: 754050115 (3) Sepsis ICD Codes: A41.9 - Sepsis, unspecified organism SNOMED: 37245608 (4) JARETH (acute kidney injury) ICD Codes: N17.9 - Acute kidney failure, unspecified SNOMED: 78222696, 4720622 (5) Pneumonia due to COVID-19 virus ICD Codes: U07.1 - COVID-19; J12.82 - Pneumonia due to coronavirus disease 2018 SNOMED: 595932918885559598 Status: progressing Assessment/Plan: oxygen supportive care covid + resp insuff sepsis pna reviewed chart and labs Gerson Evans MD Feb 27, 2020 19:19
--- NOTE | 2020-02-27 19:21 | NUR ---
NURSE HAND-OFF REPORT: Important Events on Shift:PT COULDN'T TOLERATE VENTURI MASK AND STILL ON BIPAP. TPN WILL START . Patient Status: Diet: Pending Orders: Pending Results/Labs: Pending MD notification: Latest Vital Signs: Temperature 96.9 , Pulse 76 , B/P 123 /69 , Respiratory Rate 19 , O2 SAT 96 , Bi-pap, O2 Flow Rate 15.0 . Vital Sign Comment: EKG Rhythm: Sinus Rhythm Rhythm change?: N MD Notified?: - MD Response: Latest Navarro Fall Score: 30 Fall Risk: Medium Risk Safety Measures: Call light Within Reach, Bed Alarm Zone 1, Side Rails Side Rails x3, Bed position Low and Locked. Fall Precautions: Yellow Socks Yellow Gown Door Sign Patient Fall Education Report given to . pt is sleeping and stable, no stress noted, endorsed plan of care, endorsed to monitor spo2.
--- NOTE | 2020-02-27 19:31 | NUR ---
NURSE NOTES: Received report from OCHOA Durbin. Pt is awake, Malian speaking. No signs of distress noted. traffic court referee shows SR, O2 saturation 98% on BiPAP 14/5, FiO2 75%. Pt is NPO. Cano is intact and draining well gravity. L FA 22g intact, running D5W 75cc/hr. L UA PICC inserted today, asymptomatic, flushes well. Code status noted and reinforced. HOB elevated, call light within reach, bed alarmed, locked, and in lowest position. Will continue plan of care. Will continue to monitor.
[2020-02-27] MEDS ORDERED: Dextrose 10% 1,000 ML IV PRN (20:00)
--- NOTE | 2020-02-27 20:15 | NUR ---
NURSE NOTES: Spoke with RT Baron about titrating FiO2 down. Pt's BiPAP setting 27/06, FiO2 60% down from FiO2 75%. Currently saturating at 95%. Will continue to monitor. Will continue plan of care.
[2020-02-27] MEDS: Dyna-Hex 2% Top Sol 2oz TOPIC SCH (20:39)
[2020-02-27] MEDS: TPN IV SCH ×2 (20:41)
[2020-02-27] MEDS: FAT EMULSION 20% IV SCH ×2 (20:41)
--- NOTE | 2020-02-27 20:48 | General Progress Note ---
Subjective Allergies: Coded Allergies: No Known Allergies (Unverified , 02/18/20) Subjective patient seen this am calm, comfortable (+) BIPAP d/w RN desaturates quickly off of BIPAP Objective Last 24 Hour Vital Signs Date Time Temp Pulse Resp B/P (MAP) Pulse Ox O2 Delivery O2 Flow Rate FiO2 02/27/20 20:39 78 134/59 02/27/20 19:30 74 21 99 60 02/27/20 16:00 75 02/27/20 16:00 75 02/27/20 16:00 Bi-pap 02/27/20 16:00 96.9 76 19 123/69 (87) 96 02/27/20 15:37 64 02/27/20 14:41 69 16 99 75 02/27/20 14:00 65 105/58 02/27/20 12:00 75 02/27/20 12:00 97.9 65 19 105/58 (74) 96 02/27/20 12:00 Bi-pap 02/27/20 11:42 69 02/27/20 10:40 67 16 98 75 02/27/20 09:15 66 120/49 02/27/20 08:00 96.8 66 19 120/49 (72) 98 02/27/20 08:00 75 02/27/20 08:00 Bi-pap 02/27/20 07:47 65 02/27/20 07:20 68 16 98 75 02/27/20 04:58 61 121/49 02/27/20 04:00 Bi-pap 02/27/20 04:00 98.0 60 15 121/49 (73) 96 02/27/20 04:00 70 02/27/20 04:00 61 02/27/20 03:30 65 16 96 75 02/27/20 00:41 64 107/48 02/27/20 00:00 Bi-pap 02/27/20 00:00 97.7 64 14 107/48 (67) 98 02/27/20 00:00 70 02/27/20 00:00 63 02/26/20 23:18 66 18 99 75 Intake and Output 02/26/20 02/27/20 19:00 07:00 Intake Total 100 ml 195 ml Output Total 800 ml 650 ml Balance -700 ml -455 ml Intake Oral 100 ml 120 ml IV Total 75 ml Output Urine Total 800 ml 650 ml Laboratory Tests 02/27/20 05:28: White Blood Count 19.8H, Red Blood Count 4.35, Hemoglobin 13.0, Hematocrit 40.1, Mean Corpuscular Volume 92, Mean Corpuscular Hemoglobin 30.0, Mean Corpuscular Hemoglobin Concent 32.5, Red Cell Distribution Width 13.2, Platelet Count 405, Mean Platelet Volume 8.0, Neutrophils (%) (Auto) , Lymphocytes (%) (Auto) , Monocytes (%) (Auto) , Eosinophils (%) (Auto) , Basophils (%) (Auto) , Differential Total Cells Counted 100, Neutrophils % (Manual) 93H, Lymphocytes % (Manual) 3L, Monocytes % (Manual) 4, Eosinophils % (Manual) 0, Basophils % (Manual) 0, Band Neutrophils 0, Platelet Estimate Adequate, Platelet Morphology Normal, Hypochromasia 1+, Sodium Level 148H, Potassium Level 3.7, Chloride Level 107, Carbon Dioxide Level 28, Anion Gap 13, Blood Urea Nitrogen 118H, Creatinine 1.9H, Estimat Glomerular Filtration Rate 25.5, Glucose Level 148H, Uric Acid 11.3H, Calcium Level 9.0, Phosphorus Level 5.7H, Magnesium Level 3.0H, Total Bilirubin 0.7, Aspartate Amino Transf (AST/SGOT) 90H, Alanine Aminotransferase (ALT/SGPT) 90H, Alkaline Phosphatase 90, C-Reactive Protein, Quantitative 2.2H, Pro-B-Type Natriuretic Peptide 383H, Total Protein 7.0, Albumin 2.2L, Globulin 4.8, Albumin/Globulin Ratio 0.5L, Vitamin D 25-Hydroxy [Pending], 25-Hydroxy Vitamin D2 [Pending], 25-Hydroxy Vitamin D3 [Pending] Height (Feet): 5 Weight (Pounds): 160 Objective WDWN NCAT, (+) BIPAP (+) coarse BS RR abd soft no edema Assessment/Plan Status: progressing Assessment/Plan: Assessment NPO due to respiratory failure/BIPAP COVID PNA Resp failure / BIPAP Renal failure abnormal LFT Elevated troponin malnutrition, low albumin constipation - resolved Recommendations PRN laxatives PICC line TPN to be started t watch renal parameters follow labs and exam Respiratory care Colin Pollock MD Feb 27, 2020 20:48
[2020-02-27] MEDS ORDERED: Fat Emulsion Iv 20% 250 ML IV SCH (21:00)
--- NOTE | 2020-02-27 21:35 | NUR ---
NURSE NOTES: Gave PM meds and started pt on TPN. Called Dr. Arnold to request Q6H accucheck. Orders received and read back. PICC line dressing changed. Pt tolerated well. Will continue to monitor.
[2020-02-27] MEDS: NovoLOG Insulin Flexpen SUBQ SCH (23:30)
--- NOTE | 2020-02-28 02:32 | NUR ---
NURSE NOTES: Pt remains stable at this time. No signs of distress noted. SpO2 94% on BiPAP 14/5, 60% FiO2. Will continue to monitor.
[2020-02-28 04:00] VITALS: BP 153/57
[2020-02-28] MEDS: dilTIAZem HCl 90mg tab ORAL SCH ×3 (05:01→21:17)
[2020-02-28] MEDS: NovoLOG Insulin Flexpen SUBQ SCH ×4 (05:24→23:34)
[2020-02-28 05:50] LABS: HEMATOCRIT 36.7 % (37.0-47.0); HEMOGLOBIN 11.9 G/DL (12.0-16.0); MEAN CORPUSCULAR VOLUME 93 FL (80-99); PLATELET COUNT 400 K/UL (150-450); RED BLOOD COUNT 3.96 M/UL (4.20-5.40); RED CELL DISTRIBUTION WIDTH 13.2 % (11.6-14.8); WHITE BLOOD COUNT 16.2 K/UL (4.8-10.8)
--- NOTE | 2020-02-28 05:51 | NUR ---
NURSE NOTES: Pt's FiO2 titrated down to 50%, SpO2 95%, tolerating well. Cleaned pt, turned, changed linens. Tolerated well. Will continue plan of care.
[2020-02-28 06:53] LABS: PHOSPHORUS 3.5 MG/DL (2.5-4.9)
--- NOTE | 2020-02-28 07:10 | NUR ---
NURSE HAND-OFF REPORT: Important Events on Shift:[Titrated FiO2 from 75% to 50%] Patient Status: [Stable] Diet: [NPO] Pending Orders: [NA] Pending Results/Labs:[NA] Pending MD notification:[NA] Latest Vital Signs: Temperature 96.3 , Pulse 73 , B/P 153 /57 , Respiratory Rate 17 , O2 SAT 96 , Bi-pap, O2 Flow Rate 15.0 . Vital Sign Comment: [Stable] EKG Rhythm: Sinus Rhythm Rhythm change?: N MD Notified?: - MD Response: Latest Navarro Fall Score: 30 Fall Risk: Medium Risk Safety Measures: Call light Within Reach, Bed Alarm Zone 1, Side Rails Side Rails x3, Bed position Low and Locked. Fall Precautions: Yellow Socks Yellow Gown Door Sign Patient Fall Education Report given to OCHOA Durbin].
--- NOTE | 2020-02-28 07:30 | NUR ---
NURSE NOTES: Received pt from OCHOA Noel, pt is awake and confused, pt has bipap 14/5 spo2 50%, pt has intact iv access LFA 22G SL and PICC DRAKE TPN is running. Pt is on continues heart monitoring. Pt is NPO due to bipap. Pt has Cano cath in place is working well. no complain of pain at this moment. all needs attended, bed is locked and is in the lowest position, call light within easy reach. will continue to monitor.
[2020-02-28 08:00] VITALS: BP 156/78
[2020-02-28 08:57] LABS: CALCIUM 8.9 MG/DL (8.5-10.1); CREATININE 1.5 MG/DL (0.55-1.30); POTASSIUM 3.4 MMOL/L (3.5-5.1)
[2020-02-28] MEDS: dexAMETHasone 10mg/ml Inj IV SCH (08:59)
[2020-02-28] MEDS: Eliquis 5mg tablet ORAL SCH ×2 (08:59→17:05)
[2020-02-28] MEDS: Aspirin Baby 81mg ORAL SCH (08:59)
[2020-02-28 09:01] LABS: ALBUMIN 2.1 G/DL (3.4-5.0); ALBUMIN/GLOBULIN RATIO 0.5 (1.0-2.7); BILIRUBIN,TOTAL 0.6 MG/DL (0.2-1.0)
--- NOTE | 2020-02-28 09:04 | Cardiac Electrophysiology PN ---
Assessment/Plan Assessment/Plan 1. Congestive heart failure with BNP of more than 15,000. EF 60%. Off Lasix in view of ARF 2. Elevated troponin could be due to renal failure No CP and echo Nl EF. 3. Atrial fib with RVR. On Cardizem 90 Q 8hr and off Lopressor On Eliquis 5 bid 4. Accelerated hypertension. Continue Cardizem 5. Respiratory failure due to COVID on BiPAP as well as dexamethasone. 6. Acute renal failure BUN/Cr 118/2.0 . Off Lasix per Dr Byrne Slightly better 7. NPO due to BIPAP. Got PICC line on TPN DW RN Subjective Subjective In SR on BIPAP. No atrial fib overnight.S/P PICC line for TPN . NPO except meds due to BIPAP Objective Last 24 Hour Vital Signs Date Time Temp Pulse Resp B/P (MAP) Pulse Ox O2 Delivery O2 Flow Rate FiO2 02/28/20 08:00 50 02/28/20 07:58 Bi-pap 02/28/20 07:00 76 17 93 50 02/28/20 05:01 73 153/57 02/28/20 04:58 50 02/28/20 04:00 96.3 74 17 153/57 (89) 96 02/28/20 04:00 60 02/28/20 04:00 73 02/28/20 04:00 Bi-pap 02/28/20 03:30 78 20 92 50 02/27/20 23:55 70 02/27/20 23:55 75 02/27/20 23:50 Bi-pap 02/27/20 23:50 96.6 79 21 147/76 (99) 95 02/27/20 23:30 65 28 97 50 02/27/20 20:39 78 134/59 02/27/20 20:00 Bi-pap 02/27/20 20:00 97.0 81 14 134/59 (84) 96 02/27/20 20:00 75 02/27/20 20:00 68 02/27/20 19:30 74 21 99 60 02/27/20 16:00 75 02/27/20 16:00 75 02/27/20 16:00 Bi-pap 02/27/20 16:00 96.9 76 19 123/69 (87) 96 02/27/20 15:37 64 02/27/20 14:41 69 16 99 75 02/27/20 14:00 65 105/58 02/27/20 12:00 75 02/27/20 12:00 97.9 65 19 105/58 (74) 96 02/27/20 12:00 Bi-pap 02/27/20 11:42 69 02/27/20 10:40 67 16 98 75 02/27/20 09:15 66 120/49 Intake and Output 02/27/20 02/28/20 19:00 07:00 Intake Total 675 ml 614.9 ml Output Total 850 ml 1000 ml Balance -175 ml -385.1 ml IV Total 675 ml 614.9 ml Output Urine Total 850 ml 1000 ml # Bowel Movements 1 Laboratory Tests Test 02/27/20 23:29 02/28/20 03:35 02/28/20 05:22 POC Whole Blood Glucose 308 MG/DL (74-106) H 245 MG/DL (74-106) H White Blood Count 16.2 K/UL (4.8-10.8) H Red Blood Count 3.96 M/UL (4.20-5.40) L Hemoglobin 11.9 G/DL (12.0-16.0) L Hematocrit 36.7 % (37.0-47.0) L Mean Corpuscular Volume 93 FL (80-99) Mean Corpuscular Hemoglobin 30.1 PG (27.0-31.0) Mean Corpuscular Hemoglobin Concent 32.4 G/DL (32.0-36.0) Red Cell Distribution Width 13.2 % (11.6-14.8) Platelet Count 400 K/UL (150-450) Mean Platelet Volume 7.6 FL (6.5-10.1) Neutrophils (%) (Auto) % (45.0-75.0) Lymphocytes (%) (Auto) % (20.0-45.0) Monocytes (%) (Auto) % (1.0-10.0) Eosinophils (%) (Auto) % (0.0-3.0) Basophils (%) (Auto) % (0.0-2.0) Neutrophils % (Manual) Pending Lymphocytes % (Manual) Pending Platelet Estimate Pending Platelet Morphology Pending Sodium Level 144 MMOL/L (136-145) Potassium Level 3.4 MMOL/L (3.5-5.1) L Chloride Level 112 MMOL/L (98-107) H Carbon Dioxide Level 26 MMOL/L (21-32) Anion Gap 6 mmol/L (5-15) Blood Urea Nitrogen 107 mg/dL (7-18) H Creatinine 1.5 MG/DL (0.55-1.30) H Estimat Glomerular Filtration Rate 33.4 mL/min (>60) Glucose Level 247 MG/DL (74-106) #H Uric Acid 9.4 MG/DL (2.6-7.2) H Calcium Level 8.9 MG/DL (8.5-10.1) Phosphorus Level 3.5 MG/DL (2.5-4.9) Magnesium Level 3.1 MG/DL (1.8-2.4) H Total Bilirubin Pending Aspartate Amino Transf (AST/SGOT) Pending Alanine Aminotransferase (ALT/SGPT) Pending Alkaline Phosphatase Pending C-Reactive Protein, Quantitative 2.0 mg/dL (0.00-0.90) H Pro-B-Type Natriuretic Peptide 168 pg/mL (0-125) H Total Protein Pending Albumin Pending Globulin Pending Objective HEAD AND SHOWED: No JVD.BIPAP on LUNGS: Decreased breath sounds. CARDIOVASCULAR: Regular S1 and S2 with no gallop. ABDOMEN: Soft. EXTREMITIES: No pitting edema. Adonay Guerra MD Feb 28, 2020 09:04
--- NOTE | 2020-02-28 09:27 | Infectious Diseases Prog Note ---
Assessment/Plan Assessment/Plan IMPRESSION: 1. Leukocytosis improving 2. COVID-19 pneumonia. 3. Acute renal failure.improving 4. Hypoxemic respiratory failure. 5. UTI. 6. Lactic acidosis. 7. Hypertension. 8. Hyperlipidemia. 9. Hypernatremia RECOMMENDATION: Finished dexamethasone course Continue tapering from BIPAP f/u CBC Subjective Constitutional: Denies: fever Allergies: Coded Allergies: No Known Allergies (Unverified , 02/18/20) Objective Last 24 Hour Vital Signs Date Time Temp Pulse Resp B/P (MAP) Pulse Ox O2 Delivery O2 Flow Rate FiO2 02/28/20 08:00 50 02/28/20 08:00 97.2 78 21 156/78 (104) 96 02/28/20 07:58 Bi-pap 02/28/20 07:00 76 17 93 50 02/28/20 05:01 73 153/57 02/28/20 04:58 50 02/28/20 04:00 96.3 74 17 153/57 (89) 96 02/28/20 04:00 60 02/28/20 04:00 73 02/28/20 04:00 Bi-pap 02/28/20 03:30 78 20 92 50 02/27/20 23:55 70 02/27/20 23:55 75 02/27/20 23:50 Bi-pap 02/27/20 23:50 96.6 79 21 147/76 (99) 95 02/27/20 23:30 65 28 97 50 02/27/20 20:39 78 134/59 02/27/20 20:00 Bi-pap 02/27/20 20:00 97.0 81 14 134/59 (84) 96 02/27/20 20:00 75 02/27/20 20:00 68 02/27/20 19:30 74 21 99 60 02/27/20 16:00 75 02/27/20 16:00 75 02/27/20 16:00 Bi-pap 02/27/20 16:00 96.9 76 19 123/69 (87) 96 02/27/20 15:37 64 02/27/20 14:41 69 16 99 75 02/27/20 14:00 65 105/58 02/27/20 12:00 75 02/27/20 12:00 97.9 65 19 105/58 (74) 96 02/27/20 12:00 Bi-pap 02/27/20 11:42 69 02/27/20 10:40 67 16 98 75 Height (Feet): 5 Weight (Pounds): 160 General Appearance: no acute distress HEENT: mucous membranes moist Respiratory/Chest: other - on BIPAP, FIO2=50% Cardiovascular: normal rate Abdomen: soft, non tender Extremities: no edema Neurologic/Psychiatric: alert, responsive Laboratory Tests Test 02/27/20 23:29 02/28/20 03:35 02/28/20 05:22 POC Whole Blood Glucose 308 MG/DL (74-106) H 245 MG/DL (74-106) H White Blood Count 16.2 K/UL (4.8-10.8) H Red Blood Count 3.96 M/UL (4.20-5.40) L Hemoglobin 11.9 G/DL (12.0-16.0) L Hematocrit 36.7 % (37.0-47.0) L Mean Corpuscular Volume 93 FL (80-99) Mean Corpuscular Hemoglobin 30.1 PG (27.0-31.0) Mean Corpuscular Hemoglobin Concent 32.4 G/DL (32.0-36.0) Red Cell Distribution Width 13.2 % (11.6-14.8) Platelet Count 400 K/UL (150-450) Mean Platelet Volume 7.6 FL (6.5-10.1) Neutrophils (%) (Auto) % (45.0-75.0) Lymphocytes (%) (Auto) % (20.0-45.0) Monocytes (%) (Auto) % (1.0-10.0) Eosinophils (%) (Auto) % (0.0-3.0) Basophils (%) (Auto) % (0.0-2.0) Neutrophils % (Manual) Pending Lymphocytes % (Manual) Pending Platelet Estimate Pending Platelet Morphology Pending Sodium Level 144 MMOL/L (136-145) Potassium Level 3.4 MMOL/L (3.5-5.1) L Chloride Level 112 MMOL/L (98-107) H Carbon Dioxide Level 26 MMOL/L (21-32) Anion Gap 6 mmol/L (5-15) Blood Urea Nitrogen 107 mg/dL (7-18) H Creatinine 1.5 MG/DL (0.55-1.30) H Estimat Glomerular Filtration Rate 33.4 mL/min (>60) Glucose Level 247 MG/DL (74-106) #H Uric Acid 9.4 MG/DL (2.6-7.2) H Calcium Level 8.9 MG/DL (8.5-10.1) Phosphorus Level 3.5 MG/DL (2.5-4.9) Magnesium Level 3.1 MG/DL (1.8-2.4) H Total Bilirubin 0.6 MG/DL (0.2-1.0) Aspartate Amino Transf (AST/SGOT) 88 U/L (15-37) H Alanine Aminotransferase (ALT/SGPT) 92 U/L (12-78) H Alkaline Phosphatase 87 U/L (46-116) C-Reactive Protein, Quantitative 2.0 mg/dL (0.00-0.90) H Pro-B-Type Natriuretic Peptide 168 pg/mL (0-125) H Total Protein 6.7 G/DL (6.4-8.2) Albumin 2.1 G/DL (3.4-5.0) L Globulin 4.6 g/dL Albumin/Globulin Ratio 0.5 (1.0-2.7) L Current Medications Medications (Trade) Dose Ordered Sig/Eze Route PRN Reason Start Time Stop Time Status Last Admin Dose Admin Acetaminophen (Tylenol) 500 mg Q6H PRN ORAL Mild Pain (Pain Scale 1-3) 02/19/20 00:00 03/20/20 00:00 02/21/20 00:35 Allopurinol (allopurinoL) 300 mg DAILY ORAL 02/25/20 09:00 03/26/20 08:59 02/28/20 08:59 Apixaban (Eliquis) 5 mg BID ORAL 02/21/20 18:00 05/21/20 17:59 02/28/20 08:59 Aspirin (ASA) 81 mg DAILY ORAL 02/24/20 09:00 04/09/20 08:59 02/28/20 08:59 Atorvastatin Calcium (Lipitor) 10 mg BEDTIME ORAL 02/19/20 21:00 05/19/20 20:59 02/27/20 20:39 Chlorhexidine Gluconate (Carole-Hex 2%) 1 applic DAILY@1999 TOPIC 02/26/20 20:00 05/26/20 19:59 02/27/20 20:39 Clonidine HCl (Catapres Tab) 0.1 mg Q4H PRN ORAL BP over 166 systolic 02/19/20 15:45 05/19/20 15:44 Dextrose 1,000 ml @ 0 mls/hr Q24H PRN IV PN interrupted or unavailable 02/27/20 20:00 03/28/20 19:59 Dextrose (Dextrose 50%) 25 ml Q30M PRN IV Hypoglycemia 02/27/20 20:15 05/27/20 20:14 Dextrose (Dextrose 50%) 50 ml Q30M PRN IV Hypoglycemia 02/27/20 20:15 05/27/20 20:14 Diltiazem HCl (Cardizem Tab) 90 mg EVERY 8 HOURS ORAL 02/27/20 14:00 03/21/20 13:59 02/28/20 05:01 Fat Emulsion Intravenous 144 ml/Amino Acids/ Electrolytes/ Dextrose 1,584 ml @ 66 mls/hr Q24H IV 02/27/20 20:00 03/28/20 19:59 02/27/20 20:41 Hydralazine HCl (Apresoline) 10 mg Q2H PRN IV For High Blood Pressure 02/19/20 00:30 05/19/20 00:29 02/21/20 16:19 Insulin Aspart (NovoLOG) EVERY 6 HOURS SUBQ 02/28/20 00:00 05/28/20 00:00 02/28/20 05:24 Genaro Sun MD Feb 28, 2020 09:27
--- NOTE | 2020-02-28 09:55 | NUR ---
NURSE NOTES: Dr Byrne is aware about K 3.4 mg 3.1 and other lab results and V/S, will F/U. Will continue to monitor.
--- NOTE | 2020-02-28 10:34 | NUR ---
RESPIRATORY NOTE: FiO2 titrated to 45%; SpO2 96% HR 67. Tolerating well with no signs of respiratory distress or shortness of breath noted at this time. RN notified. Will continue to monitor.
[2020-02-28 11:47] VITALS: BP 154/69
[2020-02-28] MEDS: Levemir Flexpen SUBQ SCH ×2 (11:54→20:39)
--- NOTE | 2020-02-28 12:24 | NUR ---
NURSE NOTES: Dr Briggs visited pt and is aware spo2 88-92% with 45% fio2, stated it is good, NNO, will continue to monitor.
--- NOTE | 2020-02-28 12:32 | Nephrology Progress Note ---
Assessment/Plan Problem List: (1) JARETH (acute kidney injury) (2) Pneumonia due to COVID-19 virus (3) UTI (urinary tract infection) (4) Sepsis (5) Hypoxia (6) Elevated troponin I level Assessment Acute renal failure Possible underlying chronic kidney disease Hypoxic respiratory failure Sepsis, COVID-19 pneumonia UTI Hypertension, uncontrolled Hyperlipemia Elevated troponin I Electrolyte abnormalities Plan February 27: Patient started on TPN since last night. Serum creatinine improving. Electrolytes and chemistries reviewed. Too early to make adjustment as TPN started just a few hours ago. We will continue to monitor electrolytes and renal parameters and adjust the TPN as needed. Continue to monitor renal parameters. February 26: Labs reviewed. Discussed with GI. Initiating TPN as the patient has not been eating for the past 10 days. TPN ordered. Discussed with pharmacy and dietary. Continue to monitor electrolytes and renal parameters. Per orders. February 25: Labs reviewed. Renal parameters are worsening. IV Lasix discontinued. Chest x-ray reviewed. Vitamin D level ordered. Continue to monitor renal parameters. February 24: Labs reviewed. Serum sodium lower at 150. Serum creatinine slightly higher at 1.7. Will discuss with cardiology regarding possible decreases on Lasix dosage. Today's chest x-ray is pending. February 23: Labs reviewed. Serum creatinine up to 1.6. Serum sodium 152. D5W IV to be continued patient remains on intravenous Lasix. Allopurinol for high uric acid added chest x-ray ordered. February 22: No labs drawn today. Medication list reviewed. Patient remains on BiPAP. Patient is a DNI. Continue to monitor renal parameters and electrolytes. Continue per consultants. February 21: Labs reviewed. Serum sodium rising. Change IV to D5W. Continue to monitor renal parameters. Continue per pulmonary. Patient remains on BiPAP. February 20: No CHEM panel drawn today. Previously low potassium replaced. Medic ation reviewed. Check lab tomorrow. Continue per consultants. February 19: Serum creatinine lowering. Abnormal electrolyte noted and addressed. Continue pulmonary care. Blood pressure under control. Continue to monitor renal parameters. Medication list reviewed. Slow hydrate, normal saline Watch renal parameters on Lasix Recheck chest x-ray tomorrow Keep the blood pressure in check Avoid nephrotoxic's Monitor electrolytes and urine output Per consultants Per orders Subjective ROS Limited/Unobtainable: Yes Objective Objective Last 24 Hour Vital Signs Date Time Temp Pulse Resp B/P (MAP) Pulse Ox O2 Delivery O2 Flow Rate FiO2 02/28/20 12:00 Bi-pap 02/28/20 11:47 96.4 83 25 154/69 (97) 91 02/28/20 11:27 77 02/28/20 10:30 67 20 96 45 02/28/20 10:00 45 02/28/20 08:00 50 02/28/20 08:00 97.2 78 21 156/78 (104) 96 02/28/20 07:58 Bi-pap 02/28/20 07:45 63 02/28/20 07:00 76 17 93 50 02/28/20 05:01 73 153/57 02/28/20 04:58 50 02/28/20 04:00 96.3 74 17 153/57 (89) 96 02/28/20 04:00 60 02/28/20 04:00 73 02/28/20 04:00 Bi-pap 02/28/20 03:30 78 20 92 50 02/27/20 23:55 70 02/27/20 23:55 75 02/27/20 23:50 Bi-pap 02/27/20 23:50 96.6 79 21 147/76 (99) 95 02/27/20 23:30 65 28 97 50 02/27/20 20:39 78 134/59 02/27/20 20:00 Bi-pap 02/27/20 20:00 97.0 81 14 134/59 (84) 96 02/27/20 20:00 75 02/27/20 20:00 68 02/27/20 19:30 74 21 99 60 02/27/20 16:00 75 02/27/20 16:00 75 02/27/20 16:00 Bi-pap 02/27/20 16:00 96.9 76 19 123/69 (87) 96 02/27/20 15:37 64 02/27/20 14:41 69 16 99 75 02/27/20 14:00 65 105/58 Intake and Output 02/27/20 02/28/20 19:00 07:00 Intake Total 675 ml 680.9 ml Output Total 850 ml 1000 ml Balance -175 ml -319.1 ml IV Total 675 ml 680.9 ml Output Urine Total 850 ml 1000 ml # Bowel Movements 1 Current Medications Medications (Trade) Dose Ordered Sig/Eze Route PRN Reason Start Time Stop Time Status Last Admin Dose Admin Acetaminophen (Tylenol) 500 mg Q6H PRN ORAL Mild Pain (Pain Scale 1-3) 02/19/20 00:00 03/20/20 00:00 02/21/20 00:35 Allopurinol (allopurinoL) 300 mg DAILY ORAL 02/25/20 09:00 03/26/20 08:59 02/28/20 08:59 Apixaban (Eliquis) 5 mg BID ORAL 02/21/20 18:00 05/21/20 17:59 02/28/20 08:59 Aspirin (ASA) 81 mg DAILY ORAL 02/24/20 09:00 04/09/20 08:59 02/28/20 08:59 Atorvastatin Calcium (Lipitor) 10 mg BEDTIME ORAL 02/19/20 21:00 05/19/20 20:59 02/27/20 20:39 Chlorhexidine Gluconate (Carole-Hex 2%) 1 applic DAILY@2000 TOPIC 02/26/20 20:00 05/26/20 19:59 02/27/20 20:39 Clonidine HCl (Catapres Tab) 0.1 mg Q4H PRN ORAL BP over 166 systolic 02/19/20 15:45 05/19/20 15:44 Dextrose 1,000 ml @ 0 mls/hr Q24H PRN IV PN interrupted or unavailable 02/27/20 20:00 03/28/20 19:59 Dextrose (Dextrose 50%) 25 ml Q30M PRN IV Hypoglycemia 02/27/20 20:15 05/27/20 20:14 Dextrose (Dextrose 50%) 50 ml Q30M PRN IV Hypoglycemia 02/27/20 20:15 05/27/20 20:14 Diltiazem HCl (Cardizem Tab) 90 mg EVERY 8 HOURS ORAL 02/27/20 14:00 03/21/20 13:59 02/28/20 05:01 Fat Emulsion Intravenous 144 ml/Amino Acids/ Electrolytes/ Dextrose 1,584 ml @ 66 mls/hr Q24H IV 02/27/20 20:00 03/28/20 19:59 02/27/20 20:41 Hydralazine HCl (Apresoline) 10 mg Q2H PRN IV For High Blood Pressure 02/19/20 00:30 05/19/20 00:29 02/21/20 16:19 Insulin Aspart (NovoLOG) EVERY 6 HOURS SUBQ 02/28/20 00:00 05/28/20 00:00 02/28/20 11:55 Insulin Detemir (Levemir) 8 units Q12HR SUBQ 02/28/20 11:30 05/28/20 11:29 02/28/20 11:54 Potassium Chloride 100 ml @ 50 mls/hr ONCE IVPB 02/28/20 11:00 02/28/20 13:00 02/28/20 11:05 Laboratory Tests 02/27/20 23:29: POC Whole Blood Glucose 308H 02/28/20 03:35: White Blood Count 16.2H, Red Blood Count 3.96L, Hemoglobin 11.9L, Hematocrit 36.7L, Mean Corpuscular Volume 93, Mean Corpuscular Hemoglobin 30.1, Mean Corpuscular Hemoglobin Concent 32.4, Red Cell Distribution Width 13.2, Platelet Count 400, Mean Platelet Volume 7.6, Neutrophils (%) (Auto) , Lymphocytes (%) (Auto) , Monocytes (%) (Auto) , Eosinophils (%) (Auto) , Basophils (%) (Auto) , Differential Total Cells Counted 100, Neutrophils % (Manual) 88H, Lymphocytes % (Manual) 7L, Monocytes % (Manual) 5, Eosinophils % (Manual) 0, Basophils % (Manual) 0, Band Neutrophils 0, Platelet Estimate Adequate, Platelet Morphology Normal, Red Blood Cell Morphology Normal, Sodium Level 144, Potassium Level 3.4L , Chloride Level 112H, Carbon Dioxide Level 26, Anion Gap 6, Blood Urea Nitrogen 107H, Creatinine 1.5H, Estimat Glomerular Filtration Rate 33.4, Glucose Level 247#H, Uric Acid 9.4H, Calcium Level 8.9, Phosphorus Level 3.5, Magnesium Level 3.1H, Total Bilirubin 0.6, Aspartate Amino Transf (AST/SGOT) 88H, Alanine Aminotransferase (ALT/SGPT) 92H, Alkaline Phosphatase 87, C-Reactive Protein, Quantitative 2.0H, Pro-B-Type Natriuretic Peptide 168H, Total Protein 6.7, Album in 2.1L, Globulin 4.6, Albumin/Globulin Ratio 0.5L 02/28/20 05:22: POC Whole Blood Glucose 245H 02/28/20 11:27: POC Whole Blood Glucose [Pending] Height (Feet): 5 Weight (Pounds): 160 General Appearance: mild distress EENT: other - On BiPAP Cardiovascular: normal rate Respiratory/Chest: decreased breath sounds Abdomen: distended Reji Byrne MD Feb 28, 2020 12:32
--- NOTE | 2020-02-28 12:44 | NUR ---
[employer] SupervisorHumanities Teacher SI: Respiratory Failure, COVID PNA, Leukocytosis, ARF Temp-96.4 (ax), HR 83, RR 25, 154/69 BIPAP 14/5 FiO2 45% O2 sat 91% WBC 16.2, BUN 107, creatinine 1.5 IS: Eliquis PO BID Allopurinol PO QD ASA PO QD Cardizem PO q 6 h TPN @ 66cc/hr Step Down Status
--- NOTE | 2020-02-28 14:27 | NUR ---
NURSE NOTES: Dr Guerra notified pt has Afib HR 120-150, waiting to call back. will continue to monitor.
[2020-02-28] MEDS ORDERED: Tubing IV Secondary IV ONE (15:46)
[2020-02-28] MEDS ORDERED: D5NS 1000ml IV ONE (15:46)
[2020-02-28 16:00] VITALS: BP 131/73
--- NOTE | 2020-02-28 16:22 | NUR ---
NURSE NOTES: Dr Guerra called back and ordered Cardizem 10mg ivp once, noted and carried out. will continue to monitor.
[2020-02-28] MEDS ORDERED: dilTIAZem HCl 25mg/5ml Inj IVP SCH (16:30)
--- NOTE | 2020-02-28 16:42 | NUR ---
RESPIRATORY NOTE: Patient found with SpO2 of 89% on 45% FiO2. Placed on 50% FiO2; SpO2 93%. RN notified. Will continue to monitor.
--- NOTE | 2020-02-28 16:47 | NUR ---
NURSE NOTES: 15mg diltiazem wasted in med room.
--- NOTE | 2020-02-28 16:52 | Pulmonology Progress Note ---
Subjective ROS Limited/Unobtainable: Yes Interval Events: Remains on BiPAP; FiO2 better Constitutional: Denies: fever HEENT: Repors: no symptoms Respiratory: Reports: no symptoms Cardiovascular: Reports: no symptoms Gastrointestinal/Abdominal: Reports: no symptoms Genitourinary: Reports: no symptoms Allergies: Coded Allergies: No Known Allergies (Unverified , 02/18/20) Objective Last 24 Hour Vital Signs Date Time Temp Pulse Resp B/P (MAP) Pulse Ox O2 Delivery O2 Flow Rate FiO2 02/28/20 16:30 135 131/73 02/28/20 16:00 Bi-pap 02/28/20 16:00 96.1 133 25 131/73 (92) 90 02/28/20 15:51 50 02/28/20 15:40 90 24 95 50 02/28/20 13:38 89 154/69 02/28/20 12:00 Bi-pap 02/28/20 11:47 96.4 83 25 154/69 (97) 91 02/28/20 11:27 77 02/28/20 10:30 67 20 96 45 02/28/20 10:00 45 02/28/20 08:00 50 02/28/20 08:00 97.2 78 21 156/78 (104) 96 02/28/20 07:58 Bi-pap 02/28/20 07:45 63 02/28/20 07:00 76 17 93 50 02/28/20 05:01 73 153/57 02/28/20 04:58 50 02/28/20 04:00 96.3 74 17 153/57 (89) 96 02/28/20 04:00 60 02/28/20 04:00 73 02/28/20 04:00 Bi-pap 02/28/20 03:30 78 20 92 50 02/27/20 23:55 70 02/27/20 23:55 75 02/27/20 23:50 Bi-pap 02/27/20 23:50 96.6 79 21 147/76 (99) 95 02/27/20 23:30 65 28 97 50 02/27/20 20:39 78 134/59 02/27/20 20:00 Bi-pap 02/27/20 20:00 97.0 81 14 134/59 (84) 96 02/27/20 20:00 75 02/27/20 20:00 68 02/27/20 19:30 74 21 99 60 Intake and Output 02/27/20 02/28/20 19:00 07:00 Intake Total 675 ml 680.9 ml Output Total 850 ml 1000 ml Balance -175 ml -319.1 ml IV Total 675 ml 680.9 ml Output Urine Total 850 ml 1000 ml # Bowel Movements 1 General Appearance: no acute distress HEENT: normocephalic Respiratory: chest wall non-tender, lungs clear Cardiovascular: normal peripheral pulses Abdomen: normal bowel sounds Laboratory Tests 02/27/20 23:29: POC Whole Blood Glucose 308H 02/28/20 03:35: White Blood Count 16.2H, Red Blood Count 3.96L, Hemoglobin 11.9L, Hematocrit 36.7L, Mean Corpuscular Volume 93, Mean Corpuscular Hemoglobin 30.1, Mean Corpuscular Hemoglobin Concent 32.4, Red Cell Distribution Width 13.2, Platelet Count 400, Mean Platelet Volume 7.6, Neutrophils (%) (Auto) , Lymphocytes (%) (Auto) , Monocytes (%) (Auto) , Eosinophils (%) (Auto) , Basophils (%) (Auto) , Differential Total Cells Counted 100, Neutrophils % (Manual) 88H, Lymphocytes % (Manual) 7L, Monocytes % (Manual) 5, Eosinophils % (Manual) 0, Basophils % (Manual) 0, Band Neutrophils 0, Platelet Estimate Adequate, Platelet Morphology Normal, Red Blood Cell Morphology Normal, Sodium Level 144, Potassium Level 3.4L , Chloride Level 112H, Carbon Dioxide Level 26, Anion Gap 6, Blood Urea Nitrogen 107H, Creatinine 1.5H, Estimat Glomerular Filtration Rate 33.4, Glucose Level 247#H, Uric Acid 9.4H, Calcium Level 8.9, Phosphorus Level 3.5, Magnesium Level 3.1H, Total Bilirubin 0.6, Aspartate Amino Transf (AST/SGOT) 88H, Alanine Aminotransferase (ALT/SGPT) 92H, Alkaline Phosphatase 87, C-Reactive Protein, Quantitative 2.0H, Pro-B-Type Natriuretic Peptide 168H, Total Protein 6.7, Albumin 2.1L, Globulin 4.6, Albumin/Globulin Ratio 0.5L 02/28/20 05:22: POC Whole Blood Glucose 245H 02/28/20 11:27: POC Whole Blood Glucose [Pending] 02/28/20 16:37: POC Whole Blood Glucose [Pending] Current Medications Medications (Trade) Dose Ordered Sig/Eze Route PRN Reason Start Time Stop Time Status Last Admin Dose Admin Acetaminophen (Tylenol) 500 mg Q6H PRN ORAL Mild Pain (Pain Scale 1-3) 02/19/20 00:00 03/20/20 00:00 02/21/20 00:35 Allopurinol (allopurinoL) 300 mg DAILY ORAL 02/25/20 09:00 03/26/20 08:59 02/28/20 08:59 Apixaban (Eliquis) 5 mg BID ORAL 02/21/20 18:00 05/21/20 17:59 02/28/20 08:59 Aspirin (ASA) 81 mg DAILY ORAL 02/24/20 09:00 04/09/20 08:59 02/28/20 08:59 Atorvastatin Calcium (Lipitor) 10 mg BEDTIME ORAL 02/19/20 21:00 05/19/20 20:59 02/27/20 20:39 Chlorhexidine Gluconate (Carole-Hex 2%) 1 applic DAILY@2000 TOPIC 02/26/20 20:00 05/26/20 19:59 02/27/20 20:39 Clonidine HCl (Catapres Tab) 0.1 mg Q4H PRN ORAL BP over 166 systolic 02/19/20 15:45 05/19/20 15:44 Dextrose 1,000 ml @ 0 mls/hr Q24H PRN IV PN interrupted or unavailable 02/27/20 20:00 03/28/20 19:59 Dextrose (Dextrose 50%) 25 ml Q30M PRN IV Hypoglycemia 02/27/20 20:15 05/27/20 20:14 Dextrose (Dextrose 50%) 50 ml Q30M PRN IV Hypoglycemia 02/27/20 20:15 05/27/20 20:14 Diltiazem HCl (Cardizem Tab) 90 mg EVERY 8 HOURS ORAL 02/27/20 14:00 03/21/20 13:59 02/28/20 13:38 Diltiazem HCl (Cardizem) 10 mg ONCE IVP 02/28/20 16:30 02/28/20 17:30 02/28/20 16:30 Fat Emulsion Intravenous 144 ml/Amino Acids/ Electrolytes/ Dextrose 1,584 ml @ 66 mls/hr Q24H IV 02/27/20 20:00 03/28/20 19:59 02/27/20 20:41 Hydralazine HCl (Apresoline) 10 mg Q2H PRN IV For High Blood Pressure 02/19/20 00:30 05/19/20 00:29 02/21/20 16:19 Insulin Aspart (NovoLOG) EVERY 6 HOURS SUBQ 02/28/20 00:00 05/28/20 00:00 02/28/20 11:55 Insulin Detemir (Levemir) 8 units Q12HR SUBQ 02/28/20 11:30 05/28/20 11:29 02/28/20 11:54 Assessment/Plan Assessment/Plan IMPRESSION: 1. COVID-19 pneumonia. 2. Respiratory failure, on BiPAP. 3. Renal failure.Improved 4. Troponin leak. DISCUSSION: Continue Decadron. On Lovenox Defer Remdesivir use to ID Continue BiPAP. Saturating 96%. FiO2 now decreased to 80m -> 70 -> 50%. Will attempt VTM Discussed with RN Aroldo Briggs M.D. Aroldo Briggs MD Feb 28, 2020 16:52
--- NOTE | 2020-02-28 19:16 | NUR ---
NURSE HAND-OFF REPORT: Important Events on Shift:pt started a fib RVR, Dr Guerra is aware, cardizem iv given but HR still the same, Dr Guerra notified, no call back yet. Patient Status: Diet: Pending Orders: Pending Results/Labs: Pending MD notification: Latest Vital Signs: Temperature 96.1 , Pulse 126 , B/P 131 /73 , Respiratory Rate 20 , O2 SAT 96 , Bi-pap, O2 Flow Rate 15.0 . Vital Sign Comment: EKG Rhythm: A FIB RVR Rhythm change?: Chava ZUNIGA Notified?: Y -Dr Mari ZUNIGA Response: Message left await call Latest Navarro Fall Score: 30 Fall Risk: Medium Risk Safety Measures: Call light Within Reach, Bed Alarm Zone 1, Side Rails Side Rails x3, Bed position Low and Locked. Fall Precautions: Yellow Socks Yellow Gown Door Sign Patient Fall Education Report given to . Pt is awake, still a fib RVR with HE 135, endorsed plan of care, endorsed to F/U with Dr Ocampo regarding a fib RVR.
--- NOTE | 2020-02-28 19:30 | NUR ---
NURSE NOTES: Received report from OCHOA Durbin. Seen pt seen in semi-vo's position. Pt is alert x 2, with altered confusion right now. Ordered ABG for the signs of hypoxia pt on fi02-60% o2 sat-94%. Pt is a tachypneic, with episodes of AFIB RVR sustained and uncontrolled, LVM to Dr. Kincaid for additional cardizem medication. Pt has Left Upper arm PICC with double lumen, flushing and patent. Pt has barker draining yellow urine. No pain per pt , pt denies pain. Pt has Leaking on LFA g22- removed and discontinued. With TPN running at 66ml/ hr attached to picc line. Educated not to removed the BIPAP verbalized understanding, will continue to monitor pt. Bed in lowest position, call light within reach. EKG done- resulted AFIB with RVR left message to DR Osman.
--- NOTE | 2020-02-28 19:43 | NUR ---
NURSE NOTES: ABG ordered RT informed for Altered mental status. Will continue to monitor pt closely.
[2020-02-28 20:00] VITALS: BP 111/83
--- NOTE | 2020-02-28 20:01 | NUR ---
NURSE NOTES: ABG done and resulted. O2 sat in ABG- 92%, ph -7.4, Fio2 adjusted by RT to 60%, pt is not tachypneic now and o2 sat- 94%. Christellel waiting for Dr. Guerra message for the AFIB RVR.
[2020-02-28] MEDS: TPN IV SCH ×2 (20:16)
[2020-02-28] MEDS: Dyna-Hex 2% Top Sol 2oz TOPIC SCH (20:16)
[2020-02-28] MEDS: FAT EMULSION 20% IV SCH ×2 (20:16)
--- NOTE | 2020-02-28 20:53 | General Progress Note ---
Subjective ROS Limited/Unobtainable: Yes Allergies: Coded Allergies: No Known Allergies (Unverified , 02/18/20) Objective Last 24 Hour Vital Signs Date Time Temp Pulse Resp B/P (MAP) Pulse Ox O2 Delivery O2 Flow Rate FiO2 02/28/20 18:45 126 20 96 60 02/28/20 16:30 135 131/73 02/28/20 16:00 Bi-pap 02/28/20 16:00 96.1 133 25 131/73 (92) 90 02/28/20 15:51 50 02/28/20 15:40 90 24 95 50 02/28/20 15:32 133 02/28/20 14:18 154 02/28/20 13:38 89 154/69 02/28/20 12:00 Bi-pap 02/28/20 11:47 96.4 83 25 154/69 (97) 91 02/28/20 11:27 77 02/28/20 10:30 67 20 96 45 02/28/20 10:00 45 02/28/20 08:00 50 02/28/20 08:00 97.2 78 21 156/78 (104) 96 02/28/20 07:58 Bi-pap 02/28/20 07:45 63 02/28/20 07:00 76 17 93 50 02/28/20 05:01 73 153/57 02/28/20 04:58 50 02/28/20 04:00 96.3 74 17 153/57 (89) 96 02/28/20 04:00 60 02/28/20 04:00 73 02/28/20 04:00 Bi-pap 02/28/20 03:30 78 20 92 50 02/27/20 23:55 70 02/27/20 23:55 75 02/27/20 23:50 Bi-pap 02/27/20 23:50 96.6 79 21 147/76 (99) 95 02/27/20 23:30 65 28 97 50 Intake and Output 02/27/20 02/28/20 19:00 07:00 Intake Total 675 ml 680.9 ml Output Total 850 ml 1000 ml Balance -175 ml -319.1 ml IV Total 675 ml 680.9 ml Output Urine Total 850 ml 1000 ml # Bowel Movements 1 Laboratory Tests 02/27/20 23:29: POC Whole Blood Glucose 308H 02/28/20 03:35: White Blood Count 16.2H, Red Blood Count 3.96L, Hemoglobin 11.9L, Hematocrit 36.7L, Mean Corpuscular Volume 93, Mean Corpuscular Hemoglobin 30.1, Mean Corpuscular Hemoglobin Concent 32.4, Red Cell Distribution Width 13.2, Platelet Count 400, Mean Platelet Volume 7.6, Neutrophils (%) (Auto) , Lymphocytes (%) (Auto) , Monocytes (%) (Auto) , Eosinophils (%) (Auto) , Basophils (%) (Auto) , Differential Total Cells Counted 100, Neutrophils % (Manual) 88H, Lymphocytes % (Manual) 7L, Monocytes % (Manual) 5, Eosinophils % (Manual) 0, Basophils % (Manual) 0, Band Neutrophils 0, Platelet Estimate Adequate, Platelet Morphology Normal, Red Blood Cell Morphology Normal, Sodium Level 144, Potassium Level 3.4L , Chloride Level 112H, Carbon Dioxide Level 26, Anion Gap 6, Blood Urea Nitrogen 107H, Creatinine 1.5H, Estimat Glomerular Filtration Rate 33.4, Glucose Level 247#H, Uric Acid 9.4H, Calcium Level 8.9, Phosphorus Level 3.5, Magnesium Level 3.1H, Total Bilirubin 0.6, Aspartate Amino Transf (AST/SGOT) 88H, Alanine Aminotransferase (ALT/SGPT) 92H, Alkaline Phosphatase 87, C-Reactive Protein, Quantitative 2.0H, Pro-B-Type Natriuretic Peptide 168H, Total Protein 6.7, Alb umin 2.1L, Globulin 4.6, Albumin/Globulin Ratio 0.5L 02/28/20 05:22: POC Whole Blood Glucose 245H 02/28/20 11:27: POC Whole Blood Glucose [Pending] 02/28/20 16:37: POC Whole Blood Glucose [Pending] 02/28/20 19:45: Arterial Blood pH 7.482H, Arterial Blood Partial Pressure CO2 34.4L, Arterial Blood Partial Pressure O2 65.3L, Arterial Blood HCO3 25.2, Arterial Blood Oxygen Saturation 92.2L, Arterial Blood Base Excess 2.0, Trevon Test Positive Height (Feet): 5 Weight (Pounds): 160 Assessment/Plan Problem List: (1) UTI (urinary tract infection) ICD Codes: N39.0 - Urinary tract infection, site not specified SNOMED: 53732867 (2) Hypoxia ICD Codes: R09.02 - Hypoxemia; J12.82 - Pneumonia due to coronavirus disease 2019 SNOMED: 200475640 (3) Sepsis ICD Codes: A41.9 - Sepsis, unspecified organism SNOMED: 18924125 (4) JARETH (acute kidney injury) ICD Codes: N17.9 - Acute kidney failure, unspecified SNOMED: 56877347, 4751799 (5) Pneumonia due to COVID-19 virus ICD Codes: U07.1 - COVID-19; J12.82 - Pneumonia due to coronavirus disease 2019 SNOMED: 865205099982543772 Status: progressing Assessment/Plan: covid + resp insuff sepsis pna requires high oxygen still ftt Gerson Evans MD Feb 28, 2020 20:53
--- NOTE | 2020-02-28 21:00 | NUR ---
NURSE NOTES: Contacted Dr. Guerra again, Charge Nurse made aware, Dr. Evans was contacted and informed about AFIB with RVR. Pt has cardizem PO given as routine and pain pill given. Still the same rhythym but HR went down to 112. Per Dr. Evans he will made Dr. Guerra. Will continue to monitor pt closely. Fio2 increase to 100%, pt is desatting. Callled Dr. Lopez for restraints and consult, okay to restraints pt for pulling devices. Addendum: 02/29/20 at 0609 by Princess Giovanni RN NURSE NOTES: Ordered for restriants, 21:42 02/28/20, ordered in error, supposed to be Non violent restraints but ordered in error for renewal. Cant be done back order.
[2020-02-28] MEDS: Acetaminophen 500mg (ES) tab ORAL PRN (21:18)
--- NOTE | 2020-02-28 22:46 | General Progress Note ---
Subjective Allergies: Coded Allergies: No Known Allergies (Unverified , 02/18/20) Subjective patient seen this am calm, comfortable (+) BIPAP Objective Last 24 Hour Vital Signs Date Time Temp Pulse Resp B/P (MAP) Pulse Ox O2 Delivery O2 Flow Rate FiO2 02/28/20 21:17 150 129/75 02/28/20 20:00 97.7 119 24 111/83 (92) 90 02/28/20 20:00 100 02/28/20 20:00 Bi-pap 02/28/20 20:00 127 02/28/20 18:45 126 20 96 60 02/28/20 16:30 135 131/73 02/28/20 16:00 Bi-pap 02/28/20 16:00 96.1 133 25 131/73 (92) 90 02/28/20 15:51 50 02/28/20 15:40 90 24 95 50 02/28/20 15:32 133 02/28/20 14:18 154 02/28/20 13:38 89 154/69 02/28/20 12:00 Bi-pap 02/28/20 11:47 96.4 83 25 154/69 (97) 91 02/28/20 11:27 77 02/28/20 10:30 67 20 96 45 02/28/20 10:00 45 02/28/20 08:00 50 02/28/20 08:00 97.2 78 21 156/78 (104) 96 02/28/20 07:58 Bi-pap 02/28/20 07:45 63 02/28/20 07:00 76 17 93 50 02/28/20 05:01 73 153/57 02/28/20 04:58 50 02/28/20 04:00 96.3 74 17 153/57 (89) 96 02/28/20 04:00 60 02/28/20 04:00 73 02/28/20 04:00 Bi-pap 02/28/20 03:30 78 20 92 50 02/27/20 23:55 70 02/27/20 23:55 75 02/27/20 23:50 Bi-pap 02/27/20 23:50 96.6 79 21 147/76 (99) 95 02/27/20 23:30 65 28 97 50 Intake and Output 02/27/20 02/28/20 19:00 07:00 Intake Total 675 ml 680.9 ml Output Total 850 ml 1000 ml Balance -175 ml -319.1 ml IV Total 675 ml 680.9 ml Output Urine Total 850 ml 1000 ml # Bowel Movements 1 Laboratory Tests 02/27/20 23:29: POC Whole Blood Glucose 308H 02/28/20 03:35: White Blood Count 16.2H, Red Blood Count 3.96L, Hemoglobin 11.9L, Hematocrit 36.7L, Mean Corpuscular Volume 93, Mean Corpuscular Hemoglobin 30.1, Mean Corpuscular Hemoglobin Concent 32.4, Red Cell Distribution Width 13.2, Platelet Count 400, Mean Platelet Volume 7.6, Neutrophils (%) (Auto) , Lymphocytes (%) (Auto) , Monocytes (%) (Auto) , Eosinophils (%) (Auto) , Basophils (%) (Auto) , Differential Total Cells Counted 100, Neutrophils % (Manual) 88H, Lymphocytes % (Manual) 7L, Monocytes % (Manual) 5, Eosinophils % (Manual) 0, Basophils % (Manual) 0, Band Neutrophils 0, Platelet Estimate Adequate, Platelet Morphology Normal, Red Blood Cell Morphology Normal, Sodium Level 144, Potassium Level 3.4L , Chloride Level 112H, Carbon Dioxide Level 26, Anion Gap 6, Blood Urea Nitrogen 107H, Creatinine 1.5H, Estimat Glomerular Filtration Rate 33.4, Glucose Level 247#H, Uric Acid 9.4H, Calcium Level 8.9, Phosphorus Level 3.5, Magnesium Level 3.1H, Total Bilirubin 0.6, Aspartate Amino Transf (AST/SGOT) 88H, Alanine Aminotransferase (ALT/SGPT) 92H, Alkaline Phosphatase 87, C-Reactive Protein, Quantitative 2.0H, Pro-B-Type Natriuretic Peptide 168H, Total Protein 6.7, Albumin 2.1L, Globulin 4.6, Albumin/Globulin Ratio 0.5L 02/28/20 05:22: POC Whole Blood Glucose 245H 02/28/20 11:27: POC Whole Blood Glucose [Pending] 02/28/20 16:37: POC Whole Blood Glucose [Pending] 02/28/20 19:45: Arterial Blood pH 7.482H, Arterial Blood Partial Pressure CO2 34.4L, Arterial Blood Partial Pressure O2 65.3L, Arterial Blood HCO3 25.2, Arterial Blood Oxygen Saturation 92.2L, Arterial Blood Base Excess 2.0, Trevon Test Positive Height (Feet): 5 Weight (Pounds): 160 Objective WDWN NCAT, (+) BIPAP exam limited due to COVID isolation Assessment/Plan Status: progressing Assessment/Plan: Assessment NPO due to respiratory failure/BIPAP COVID PNA Resp failure / BIPAP Renal failure abnormal LFT Elevated troponin malnutrition, low albumin constipation - resolved Recommendations PRN laxatives TPN watch renal parameters follow labs and exam Respiratory care Abx Colin Palomares MD Feb 28, 2020 22:46
--- NOTE | 2020-02-28 22:57 | NUR ---
NURSE NOTES: Pt is sleeping, pt is asymptomatic, o2 sat- 100%, on restraints. HR- 110. Will continue to monitor pt.
[2020-02-29] VITALS (11 sets, daily range): BP systolic 67–172; BP diastolic 23–83
--- NOTE | 2020-02-29 02:00 | NUR ---
NURSE NOTES: LVM again to Dr. Guerra, pt has sustained AFIB with RVR of 150's. No response yet. BP- 120/74. O2 sat- 100%. Will closely monitor. Pt has Cardizem PO later at 0600.
[2020-02-29] MEDS ORDERED: dilTIAZem Premix 125mg/125ml 125 ML IVPB SCH (02:15)
[2020-02-29] MEDS ORDERED: dilTIAZem HCl 50mg/10ml Inj IVP SCH (02:15)
[2020-02-29] MEDS ORDERED: dilTIAZem HCl 25mg/5ml Inj ONE (02:26)
--- NOTE | 2020-02-29 02:30 | NUR ---
NURSE NOTES: Spoke to Dr. Briggs, Ordered to Cardizem IV push and Cardizem drip. As pt sustained AFIB with RVR 150's -160's. Carried and monitored pt closely. Awaiting to acknowledge it by Pharmacy.
--- NOTE | 2020-02-29 03:42 | NUR ---
NURSE NOTES: Held the Cardizem drip, pt converted to SR after the Cardizem IV push. HR-80's. Will continue to monitor pt.
--- NOTE | 2020-02-29 04:56 | NUR ---
NURSE NOTES: Pt is sleeping, converted to NSR. Bp went down to 117.61. Will continue monitor pt.
[2020-02-29] MEDS: dilTIAZem HCl 90mg tab ORAL SCH ×2 (05:26→13:14)
[2020-02-29] MEDS: NovoLOG Insulin Flexpen SUBQ SCH ×4 (05:33→23:35)
[2020-02-29 06:24] LABS: HEMATOCRIT 42.6 % (37.0-47.0); HEMOGLOBIN 13.3 G/DL (12.0-16.0); MEAN CORPUSCULAR VOLUME 94 FL (80-99); PLATELET COUNT 322 K/UL (150-450); RED BLOOD COUNT 4.55 M/UL (4.20-5.40); RED CELL DISTRIBUTION WIDTH 13.6 % (11.6-14.8)
--- NOTE | 2020-02-29 06:30 | NUR ---
RESPIRATORY NOTE: Pt received on Bipap with current settings. 27/06 RR:14, 100%. Fio2 titrated to 90% and PT is tolerating well. Alarms are on and audible. Foam tape in place. No facial wounds found. No SOB noted at this time. Will continue to monitor.
[2020-02-29 06:50] LABS: WHITE BLOOD COUNT 23.8 K/UL (4.8-10.8)
[2020-02-29 07:05] LABS: ALANINE AMINOTRANSFERASE 88 U/L (12-78); ALBUMIN 2.2 G/DL (3.4-5.0); ALBUMIN/GLOBULIN RATIO 0.4 (1.0-2.7); ALKALINE PHOSPHATASE 96 U/L (46-116); ANION GAP 10 mmol/L (5-15); ASPARTATE AMINO TRANSFERASE 81 U/L (15-37); BILIRUBIN,TOTAL 0.7 MG/DL (0.2-1.0); BLOOD UREA NITROGEN 106 mg/dL (7-18); CARBON DIOXIDE 27 MMOL/L (21-32); CHLORIDE 124 MMOL/L (98-107); CHOLESTEROL 171 MG/DL (< 200); CREATININE 1.7 MG/DL (0.55-1.30); HDL CHOLESTEROL 22 MG/DL (40-60); PHOSPHORUS 3.9 MG/DL (2.5-4.9); POTASSIUM 4.6 MMOL/L (3.5-5.1); TRIGLYCERIDES 244 MG/DL (30-150)
[2020-02-29 07:10] LABS: SODIUM 161 MMOL/L (136-145)
--- NOTE | 2020-02-29 07:10 | NUR ---
NURSE HAND-OFF REPORT: Important Events on Shift: Restraints applied to Pt for pulling devices, altered mental status, fio2 titrated to 100%, AFIB with RVR since 1900 then after cardizem converted to NSR. Patient Status: Guarded and Critical Diet:NPO on TPN at 66ml/hr Pending Orders: None Pending Results/Labs: None Pending MD notification: None Latest Vital Signs: Temperature 97.7 , Pulse 94 , B/P 130 /74 , Respiratory Rate 22 , O2 SAT 100 , Bi-pap, O2 Flow Rate 15.0 . Vital Sign Comment: WNL EKG Rhythm: Sinus Rhythm Rhythm change?: Y Notified?: N -Dr. Mari ZUNIGA Response: Dr. Evans, informed. Latest Navarro Fall Score: 30 Fall Risk: Medium Risk Safety Measures: Call light Within Reach, Bed Alarm Zone 2, Side Rails Side Rails x3, Bed position Low and Locked. Fall Precautions: Yellow Socks Yellow Gown Door Sign Patient Fall Education Report given to [Mariaelena, RN].
--- NOTE | 2020-02-29 07:11 | NUR ---
NURSE NOTES: Received patient in bed asleep. Bipap in place, no acute distress. PICC line intact and patent, TPN ongoing. Bilateral soft wrist restraints in place, no skin issues on site, peripheral pulses palpable. Will notify MD of WBC and Na levels. HOB elevated. Bed locked in low position. Call light within reach. Will continue plan of care.
--- NOTE | 2020-02-29 07:15 | NUR ---
NURSE NOTES: Currently endorsing to AM shift when lab called about WBC and the Sodium -161- Endorsed to AM shift.
[2020-02-29] MEDS: Eliquis 5mg tablet ORAL SCH ×2 (08:40→16:53)
[2020-02-29] MEDS: Aspirin Baby 81mg ORAL SCH (08:40)
[2020-02-29] MEDS: Levemir Flexpen SUBQ SCH ×2 (08:48→21:38)
--- NOTE | 2020-02-29 09:52 | NUR ---
NURSE NOTES: WBC 23.[address] Ty Sun, left message, awaiting callback.
--- NOTE | 2020-02-29 10:49 | NUR ---
Pacu NurseFront Desk Associate SI: Respiratory Failure, COVID PNA, Leukocytosis, ARF Temp-96.8 (ax), HR 85, RR 25, 126/51 BIPAP 14/5 FiO2 100% O2 sat 100% WBC 23.8, BUN 106, creatinine 1.5 IS: Eliquis PO BID Allopurinol PO QD Cardizem IVP x 2 1-15-20 ASA PO QD Cardizem PO q 6 h TPN @ 66cc/hr Step Down Status
--- NOTE | 2020-02-29 11:02 | Infectious Diseases Prog Note ---
Assessment/Plan Assessment/Plan IMPRESSION: 1. Leukocytosis worsening 2. COVID-19 pneumonia. 3. Acute renal failure.improving 4. Hypoxemic respiratory failure. 5. UTI. 6. Lactic acidosis. 7. Hypertension. 8. Hyperlipidemia. 9. Hypernatremia RECOMMENDATION: CXR start on Cefepime f/u CBC Subjective ROS Limited/Unobtainable: Yes Constitutional: Denies: fever Gastrointestinal/Abdominal: Reports: other - started on TPN Allergies: Coded Allergies: No Known Allergies (Unverified , 02/18/20) Objective Last 24 Hour Vital Signs Date Time Temp Pulse Resp B/P (MAP) Pulse Ox O2 Delivery O2 Flow Rate FiO2 02/29/20 08:00 96.8 85 25 126/51 (76) 100 02/29/20 08:00 82 02/29/20 08:00 100 02/29/20 08:00 Bi-pap 02/29/20 06:30 89 25 100 90 02/29/20 05:26 94 130/74 02/29/20 04:14 172/83 02/29/20 04:00 Bi-pap 02/29/20 04:00 97.7 93 22 172/83 (112) 100 02/29/20 04:00 84 02/29/20 04:00 100 02/29/20 03:05 79 02/29/20 02:50 91 27 99 100 02/29/20 02:48 131 02/29/20 02:47 141 02/29/20 02:30 135 127/74 02/29/20 00:00 105 02/29/20 00:00 97.9 105 19 124/67 (86) 96 02/29/20 00:00 Bi-pap 02/28/20 23:37 107 25 99 100 02/28/20 23:37 107 25 100 Bi-Pap 100 02/28/20 21:17 150 129/75 02/28/20 21:00 100 02/28/20 20:00 97.7 119 24 111/83 (92) 90 02/28/20 20:00 100 02/28/20 20:00 Bi-pap 02/28/20 20:00 127 02/28/20 18:45 126 20 96 60 02/28/20 16:30 135 131/73 02/28/20 16:00 Bi-pap 02/28/20 16:00 96.1 133 25 131/73 (92) 90 02/28/20 15:51 50 02/28/20 15:40 90 24 95 50 02/28/20 15:32 133 02/28/20 14:18 154 02/28/20 13:38 89 154/69 02/28/20 12:00 Bi-pap 02/28/20 11:47 96.4 83 25 154/69 (97) 91 02/28/20 11:27 77 Height (Feet): 5 Weight (Pounds): 160 HEENT: mucous membranes moist Respiratory/Chest: other - on BIPAP, OSZ1=368% Cardiovascular: normal rate, other - PICC line Abdomen: soft, non tender Extremities: no edema Neurologic/Psychiatric: alert, responsive Laboratory Tests Test 02/28/20 11:27 02/28/20 16:37 02/28/20 19:45 02/29/20 05:39 POC Whole Blood Glucose Pending Pending Arterial Blood pH 7.482 (7.350-7.450) Arterial Blood Partial Pressure CO2 34.4 mmHg (35.0-45.0) L Arterial Blood Partial Pressure O2 65.3 mmHg (75.0-100.0) L Arterial Blood HCO3 25.2 mmol/L (22.0-26.0) Arterial Blood Oxygen Saturation 92.2 % (95-100) L Arterial Blood Base Excess 2.0 (-2-2) Trevon Test Positive White Blood Count 23.8 K/UL (4.8-10.8) *H Red Blood Count 4.55 M/UL (4.20-5.40) Hemoglobin 13.3 G/DL (12.0-16.0) Hematocrit 42.6 % (37.0-47.0) Mean Corpuscular Volume 94 FL (80-99) Mean Corpuscular Hemoglobin 29.3 PG (27.0-31.0) Mean Corpuscular Hemoglobin Concent 31.3 G/DL (32.0-36.0) L Red Cell Distribution Width 13.6 % (11.6-14.8) Platelet Count 322 K/UL (150-450) Mean Platelet Volume 8.4 FL (6.5-10.1) Neutrophils (%) (Auto) % (45.0-75.0) Lymphocytes (%) (Auto) % (20.0-45.0) Monocytes (%) (Auto) % (1.0-10.0) Eosinophils (%) (Auto) % (0.0-3.0) Basophils (%) (Auto) % (0.0-2.0) Differential Total Cells Counted 100 Neutrophils % (Manual) 95 % (45-75) H Lymphocytes % (Manual) 3 % (20-45) L Monocytes % (Manual) 2 % (1-10) Eosinophils % (Manual) 0 % (0-3) Basophils % (Manual) 0 % (0-2) Band Neutrophils 0 % (0-8) Platelet Estimate Adequate Platelet Morphology Normal Red Blood Cell Morphology Hypochromasia 1+ Sodium Level 161 MMOL/L (136-145) *H Potassium Level 4.6 MMOL/L (3.5-5.1) Chloride Level 124 MMOL/L (98-107) H Carbon Dioxide Level 27 MMOL/L (21-32) Anion Gap 10 mmol/L (5-15) Blood Urea Nitrogen 106 mg/dL (7-18) H Creatinine 1.7 MG/DL (0.55-1.30) H Estimat Glomerular Filtration Rate 28.9 mL/min (>60) Glucose Level 175 MG/DL (74-106) H Uric Acid 8.4 MG/DL (2.6-7.2) H Calcium Level 10.0 MG/DL (8.5-10.1) Phosphorus Level 3.9 MG/DL (2.5-4.9) Magnesium Level 3.5 MG/DL (1.8-2.4) H Total Bilirubin 0.7 MG/DL (0.2-1.0) Aspartate Amino Transf (AST/SGOT) 81 U/L (15-37) H Alanine Aminotransferase (ALT/SGPT) 88 U/L (12-78) H Alkaline Phosphatase 96 U/L (46-116) Total Protein 7.1 G/DL (6.4-8.2) Albumin 2.2 G/DL (3.4-5.0) L Globulin 4.9 g/dL Albumin/Globulin Ratio 0.4 (1.0-2.7) L Triglycerides Level 244 MG/DL (30-150) H Cholesterol Level 171 MG/DL (< 200) LDL Cholesterol 107 mg/dL (<100) H HDL Cholesterol 22 MG/DL (40-60) L Cholesterol/HDL Ratio 7.8 (3.3-4.4) H Current Medications Medications (Trade) Dose Ordered Sig/Eze Route PRN Reason Start Time Stop Time Status Last Admin Dose Admin Acetaminophen (Tylenol) 500 mg Q6H PRN ORAL Mild Pain (Pain Scale 1-3) 02/19/20 00:00 03/20/20 00:00 02/28/20 21:18 Allopurinol (allopurinoL) 300 mg DAILY ORAL 02/25/20 09:00 03/26/20 08:59 02/29/20 08:40 Apixaban (Eliquis) 5 mg BID ORAL 02/21/20 18:00 05/21/20 17:59 02/29/20 08:40 Aspirin (ASA) 81 mg DAILY ORAL 02/24/20 09:00 04/09/20 08:59 02/29/20 08:40 Atorvastatin Calcium (Lipitor) 10 mg BEDTIME ORAL 02/19/20 21:00 05/19/20 20:59 02/28/20 20:17 Chlorhexidine Gluconate (Carole-Hex 2%) 1 applic DAILY@2000 TOPIC 02/26/20 20:00 05/26/20 19:59 02/28/20 20:16 Clonidine HCl (Catapres Tab) 0.1 mg Q4H PRN ORAL BP over 166 systolic 02/19/20 15:45 05/19/20 15:44 Dextrose 1,000 ml @ 0 mls/hr Q24H PRN IV PN interrupted or unavailable 02/27/20 20:00 03/28/20 19:59 Dextrose (Dextrose 50%) 25 ml Q30M PRN IV Hypoglycemia 02/27/20 20:15 05/27/20 20:14 Dextrose (Dextrose 50%) 50 ml Q30M PRN IV Hypoglycemia 02/27/20 20:15 05/27/20 20:14 Diltiazem HCl (Cardizem Tab) 90 mg EVERY 8 HOURS ORAL 02/27/20 14:00 03/21/20 13:59 02/29/20 05:26 Fat Emulsion Intravenous 144 ml/Amino Acids/ Electrolytes/ Dextrose 1,584 ml @ 66 mls/hr Q24H IV 02/27/20 20:00 02/29/20 19:59 02/28/20 20:16 Fat Emulsion Intravenous 144 ml/Amino Acids/ Electrolytes/ Dextrose 1,584 ml @ 66 mls/hr Q24H IV 02/29/20 20:00 03/30/20 19:59 Hydralazine HCl (Apresoline) 10 mg Q2H PRN IV For High Blood Pressure 02/19/20 00:30 05/19/20 00:29 02/29/20 04:14 Insulin Aspart (NovoLOG) EVERY 6 HOURS SUBQ 02/28/20 00:00 05/28/20 00:00 02/29/20 05:33 Insulin Detemir (Levemir) 8 units Q12HR SUBQ 02/28/20 11:30 05/28/20 11:29 02/29/20 08:48 Genaro Sun MD Feb 29, 2020 11:02
--- NOTE | 2020-02-29 11:11 | Pulmonology Progress Note ---
Subjective ROS Limited/Unobtainable: Yes Interval Events: Remains on BiPAP; FiO2 better Constitutional: Denies: fever HEENT: Repors: no symptoms Respiratory: Reports: no symptoms Cardiovascular: Reports: no symptoms Gastrointestinal/Abdominal: Reports: other - started on TPN Genitourinary: Reports: no symptoms Allergies: Coded Allergies: No Known Allergies (Unverified , 02/18/20) Objective Last 24 Hour Vital Signs Date Time Temp Pulse Resp B/P (MAP) Pulse Ox O2 Delivery O2 Flow Rate FiO2 02/29/20 08:00 96.8 85 25 126/51 (76) 100 02/29/20 08:00 82 02/29/20 08:00 100 02/29/20 08:00 Bi-pap 02/29/20 06:30 89 25 100 90 02/29/20 05:26 94 130/74 02/29/20 04:14 172/83 02/29/20 04:00 Bi-pap 02/29/20 04:00 97.7 93 22 172/83 (112) 100 02/29/20 04:00 84 02/29/20 04:00 100 02/29/20 03:05 79 02/29/20 02:50 91 27 99 100 02/29/20 02:48 131 02/29/20 02:47 141 02/29/20 02:30 135 127/74 02/29/20 00:00 105 02/29/20 00:00 97.9 105 19 124/67 (86) 96 02/29/20 00:00 Bi-pap 02/28/20 23:37 107 25 99 100 02/28/20 23:37 107 25 100 Bi-Pap 100 02/28/20 21:17 150 129/75 02/28/20 21:00 100 02/28/20 20:00 97.7 119 24 111/83 (92) 90 02/28/20 20:00 100 02/28/20 20:00 Bi-pap 02/28/20 20:00 127 02/28/20 18:45 126 20 96 60 02/28/20 16:30 135 131/73 02/28/20 16:00 Bi-pap 02/28/20 16:00 96.1 133 25 131/73 (92) 90 02/28/20 15:51 50 02/28/20 15:40 90 24 95 50 02/28/20 15:32 133 02/28/20 14:18 154 02/28/20 13:38 89 154/69 02/28/20 12:00 Bi-pap 02/28/20 11:47 96.4 83 25 154/69 (97) 91 02/28/20 11:27 77 Intake and Output 02/28/20 02/29/20 19:00 07:00 Intake Total 892 ml 594 ml Output Total 800 ml 800 ml Balance 92 ml -206 ml IV Total 892 ml 594 ml Output Urine Total 800 ml 800 ml General Appearance: no acute distress HEENT: normocephalic Respiratory: chest wall non-tender, lungs clear Cardiovascular: normal peripheral pulses Abdomen: normal bowel sounds Laboratory Tests 02/28/20 11:27: POC Whole Blood Glucose [Pending] 02/28/20 16:37: POC Whole Blood Glucose [Pending] 02/28/20 19:45: Arterial Blood pH 7.482H, Arterial Blood Partial Pressure CO2 34.4L, Arterial Blood Partial Pressure O2 65.3L, Arterial Blood HCO3 25.2, Arterial Blood Oxygen Saturation 92.2L, Arterial Blood Base Excess 2.0, Trevon Test Positive 02/29/20 05:39: White Blood Count 23.8*H, Red Blood Count 4.55, Hemoglobin 13.3, Hematocrit 42.6, Mean Corpuscular Volume 94, Mean Corpuscular Hemoglobin 29.3, Mean Corpuscular Hemoglobin Concent 31.3L, Red Cell Distribution Width 13.6, Platelet Count 322, Mean Platelet Volume 8.4, Neutrophils (%) (Auto) , Lymphocytes (%) (Auto) , Monocytes (%) (Auto) , Eosinophils (%) (Auto) , Basophils (%) (Auto) , Differential Total Cells Counted 100, Neutrophils % (Manual) 95H, Lymphocytes % (Manual) 3L, Monocytes % (Manual) 2, Eosinophils % (Manual) 0, Basophils % (Manual) 0, Band Neutrophils 0, Platelet Estimate Adequate, Platelet Morphology Normal, Red Blood Cell Morphology , Hypochromasia 1+, Sodium Level 161*H, Potassium Level 4.6, Chloride Level 124H, Carbon Dioxide Level 27, Anion Gap 10, Blood Urea Nitrogen 106H, Creatinine 1.7H, Estimat Glomerular Filtration Rate 28.9, Glucose Level 175H, Uric Acid 8.4H, Calcium Level 10.0, Phosphorus Level 3.9, Magnesium Level 3.5H, Total Bilirubin 0.7, Aspartate Amino Transf (AST/SGOT) 81H, Alanine Aminotransferase (ALT/SGPT) 88H, Alkaline Phosphatase 96, Total Protein 7.1, Albumin 2.2L, Globulin 4.9, Albumin/Globulin Ratio 0.4L, Triglycerides Level 244H, Cholesterol Level 171, LDL Cholesterol 107H, HDL Cholesterol 22L, Cholesterol/HDL Ratio 7.8H Current Medications Medications (Trade) Dose Ordered Sig/Eze Route PRN Reason Start Time Stop Time Status Last Admin Dose Admin Acetaminophen (Tylenol) 500 mg Q6H PRN ORAL Mild Pain (Pain Scale 1-3) 02/19/20 00:00 03/20/20 00:00 02/28/20 21:18 Allopurinol (allopurinoL) 300 mg DAILY ORAL 02/25/20 09:00 03/26/20 08:59 02/29/20 08:40 Apixaban (Eliquis) 5 mg BID ORAL 02/21/20 18:00 05/21/20 17:59 02/29/20 08:40 Aspirin (ASA) 81 mg DAILY ORAL 02/24/20 09:00 04/09/20 08:59 02/29/20 08:40 Atorvastatin Calcium (Lipitor) 10 mg BEDTIME ORAL 02/19/20 21:00 05/19/20 20:59 02/28/20 20:17 Cefepime HCl 1 gm/ Dextrose 55 ml @ 110 mls/hr Q24H IVPB 02/29/20 11:15 03/07/20 11:14 UNV Chlorhexidine Gluconate (Carole-Hex 2%) 1 applic DAILY@2000 TOPIC 02/26/20 20:00 05/26/20 19:59 02/28/20 20:16 Clonidine HCl (Catapres Tab) 0.1 mg Q4H PRN ORAL BP over 166 systolic 02/19/20 15:45 05/19/20 15:44 Dextrose 1,000 ml @ 0 mls/hr Q24H PRN IV PN interrupted or unavailable 02/27/20 20:00 03/28/20 19:59 Dextrose (Dextrose 50%) 25 ml Q30M PRN IV Hypoglycemia 02/27/20 20:15 05/27/20 20:14 Dextrose (Dextrose 50%) 50 ml Q30M PRN IV Hypoglycemia 02/27/20 20:15 05/27/20 20:14 Diltiazem HCl (Cardizem Tab) 90 mg EVERY 8 HOURS ORAL 02/27/20 14:00 03/21/20 13:59 02/29/20 05:26 Fat Emulsion Intravenous 144 ml/Amino Acids/ Electrolytes/ Dextrose 1,584 ml @ 66 mls/hr Q24H IV 02/27/20 20:00 02/29/20 19:59 02/28/20 20:16 Fat Emulsion Intravenous 144 ml/Amino Acids/ Electrolytes/ Dextrose 1,584 ml @ 66 mls/hr Q24H IV 02/29/20 20:00 03/30/20 19:59 Hydralazine HCl (Apresoline) 10 mg Q2H PRN IV For High Blood Pressure 02/19/20 00:30 05/19/20 00:29 02/29/20 04:14 Insulin Aspart (NovoLOG) EVERY 6 HOURS SUBQ 02/28/20 00:00 05/28/20 00:00 02/29/20 05:33 Insulin Detemir (Levemir) 8 units Q12HR SUBQ 02/28/20 11:30 05/28/20 11:29 02/29/20 08:48 Assessment/Plan Assessment/Plan 1. COVID-19 pneumonia. 2. Respiratory failure, on BiPAP. 3. Renal failure.Improved 4. Troponin leak. 5. Leukocytosis DISCUSSION: Completed Decadron. On Lovenox Defer Remdesivir use to ID Continue BiPAP. Saturating 96%. FiO2 now back to 90% Will attempt VTM when FiO2 is lower Discussed with RN Now on [email or web address] Pastor Vidal Feb 29, 2020 11:11
[2020-02-29] MEDS ORDERED: Cefepime HCl 1 GM in D5W 55 ML IVPB SCH (12:00)
--- NOTE | 2020-02-29 12:50 | Nephrology Progress Note ---
Assessment/Plan Problem List: (1) JARETH (acute kidney injury) (2) Pneumonia due to COVID-19 virus (3) UTI (urinary tract infection) (4) Sepsis (5) Hypoxia (6) Elevated troponin I level Assessment Acute renal failure Possible underlying chronic kidney disease Hypoxic respiratory failure Sepsis, COVID-19 pneumonia UTI Hypertension, uncontrolled Hyperlipemia Elevated troponin I Electrolyte abnormalities Plan February 28: Patient on TPN. Discussed with pharmacist. Electrolytes adjusted for the next bag. Continue to monitor electrolytes. Continue to monitor renal parameters. February 27: Patient started on TPN since last night. Serum creatinine improving. Electrolytes and chemistries reviewed. Too early to make adjustment as TPN started just a few hours ago. We will continue to monitor electrolytes and renal parameters and adjust the TPN as needed. Continue to monitor renal parameters. February 26: Labs reviewed. Discussed with GI. Initiating TPN as the patient has not been eating for the past 10 days. TPN ordered. Discussed with pharmacy and dietary. Continue to monitor electrolytes and renal parameters. Per orders. February 25: Labs reviewed. Renal parameters are worsening. IV Lasix discontinued. Chest x-ray reviewed. Vitamin D level ordered. Continue to monitor renal parameters. February 24: Labs reviewed. Serum sodium lower at 150. Serum creatinine slightly higher at 1.7. Will discuss with cardiology regarding possible decreases on Lasix dosage. Today's chest x-ray is pending. February 23: Labs reviewed. Serum creatinine up to 1.6. Serum sodium 152. D5W IV to be continued patient remains on intravenous Lasix. Allopurinol for high uric acid added chest x-ray ordered. February 22: No labs drawn today. Medication list reviewed. Patient remains on BiPAP. Patient is a DNI. Continue to monitor renal parameters and electrolytes. Continue per consultants. February 21: Labs reviewed. Serum sodium rising. Change IV to D5W. Continue to monitor renal parameters. Continue per pulmonary. Patient remains on BiPAP. February 20: No CHEM panel drawn today. Previously low potassium replaced. Medication reviewed. Check lab tomorrow. Continue per consultants. February 19: Serum creatinine lowering. Abnormal electrolyte noted and addressed. Continue pulmonary care. Blood pressure under control. Continue to monitor renal parameters. Medication list reviewed. Slow hydrate, normal saline Watch renal parameters on Lasix Recheck chest x-ray tomorrow Keep the blood pressure in check Avoid nephrotoxic's Monitor electrolytes and urine output Per consultants Per orders Subjective ROS Limited/Unobtainable: Yes Objective Objective Last 24 Hour Vital Signs Date Time Temp Pulse Resp B/P (MAP) Pulse Ox O2 Delivery O2 Flow Rate FiO2 02/29/20 11:55 97.3 97 27 148/59 (88) 100 02/29/20 08:00 96.8 85 25 126/51 (76) 100 02/29/20 08:00 82 02/29/20 08:00 100 02/29/20 08:00 Bi-pap 02/29/20 06:30 89 25 100 90 02/29/20 05:26 94 130/74 02/29/20 04:14 172/83 02/29/20 04:00 Bi-pap 02/29/20 04:00 97.7 93 22 172/83 (112) 100 02/29/20 04:00 84 02/29/20 04:00 100 02/29/20 03:05 79 02/29/20 02:50 91 27 99 100 02/29/20 02:48 131 02/29/20 02:47 141 02/29/20 02:30 135 127/74 02/29/20 00:00 105 02/29/20 00:00 97.9 105 19 124/67 (86) 96 02/29/20 00:00 Bi-pap 02/28/20 23:37 107 25 99 100 02/28/20 23:37 107 25 100 Bi-Pap 100 02/28/20 21:17 150 129/75 02/28/20 21:00 100 02/28/20 20:00 97.7 119 24 111/83 (92) 90 02/28/20 20:00 100 02/28/20 20:00 Bi-pap 02/28/20 20:00 127 02/28/20 18:45 126 20 96 60 02/28/20 16:30 135 131/73 02/28/20 16:00 Bi-pap 02/28/20 16:00 96.1 133 25 131/73 (92) 90 02/28/20 15:51 50 02/28/20 15:40 90 24 95 50 02/28/20 15:32 133 02/28/20 14:18 154 02/28/20 13:38 89 154/69 Intake and Output 02/28/20 02/29/20 19:00 07:00 Intake Total 892 ml 594 ml Output Total 800 ml 800 ml Balance 92 ml -206 ml IV Total 892 ml 594 ml Output Urine Total 800 ml 800 ml Current Medications Medications (Trade) Dose Ordered Sig/Eze Route PRN Reason Start Time Stop Time Status Last Admin Dose Admin Acetaminophen (Tylenol) 500 mg Q6H PRN ORAL Mild Pain (Pain Scale 1-3) 02/19/20 00:00 03/20/20 00:00 02/28/20 21:18 Allopurinol (allopurinoL) 300 mg DAILY ORAL 02/25/20 09:00 03/26/20 08:59 02/29/20 08:40 Apixaban (Eliquis) 5 mg BID ORAL 02/21/20 18:00 05/21/20 17:59 02/29/20 08:40 Aspirin (ASA) 81 mg DAILY ORAL 02/24/20 09:00 04/09/20 08:59 02/29/20 08:40 Atorvastatin Calcium (Lipitor) 10 mg BEDTIME ORAL 02/19/20 21:00 05/19/20 20:59 02/28/20 20:17 Cefepime HCl 1 gm/ Dextrose 55 ml @ 110 mls/hr Q24H IVPB 02/29/20 12:00 03/07/20 11:59 02/29/20 12:20 Chlorhexidine Gluconate (Carole-Hex 2%) 1 applic DAILY@2000 TOPIC 02/26/20 20:00 05/26/20 19:59 02/28/20 20:16 Clonidine HCl (Catapres Tab) 0.1 mg Q4H PRN ORAL BP over 166 systolic 02/19/20 15:45 05/19/20 15:44 Dextrose 1,000 ml @ 0 mls/hr Q24H PRN IV PN interrupted or unavailable 02/27/20 20:00 03/28/20 19:59 Dextrose (Dextrose 50%) 25 ml Q30M PRN IV Hypoglycemia 02/27/20 20:15 05/27/20 20:14 Dextrose (Dextrose 50%) 50 ml Q30M PRN IV Hypoglycemia 02/27/20 20:15 05/27/20 20:14 Diltiazem HCl (Cardizem Tab) 90 mg EVERY 8 HOURS ORAL 02/27/20 14:00 03/21/20 13:59 02/29/20 05:26 Fat Emulsion Intravenous 144 ml/Amino Acids/ Electrolytes/ Dextrose 1,584 ml @ 66 mls/hr Q24H IV 02/27/20 20:00 02/29/20 19:59 02/28/20 20:16 Fat Emulsion Intravenous 144 ml/Amino Acids/ Electrolytes/ Dextrose 1,584 ml @ 66 mls/hr Q24H IV 02/29/20 20:00 03/30/20 19:59 Hydralazine HCl (Apresoline) 10 mg Q2H PRN IV For High Blood Pressure 02/19/20 00:30 05/19/20 00:29 02/29/20 04:14 Insulin Aspart (NovoLOG) EVERY 6 HOURS SUBQ 02/28/20 00:00 05/28/20 00:00 02/29/20 11:34 Insulin Detemir (Levemir) 8 units Q12HR SUBQ 02/28/20 11:30 05/28/20 11:29 02/29/20 08:48 Laboratory Tests 02/28/20 16:37: POC Whole Blood Glucose [Pending] 02/28/20 19:45: Arterial Blood pH 7.482H, Arterial Blood Partial Pressure CO2 34.4L, Arterial Blood Partial Pressure O2 65.3L, Arterial Blood HCO3 25.2, Arterial Blood Oxygen Saturation 92.2L, Arterial Blood Base Excess 2.0, Trevon Test Positive 02/29/20 05:39: White Blood Count 23.8*H, Red Blood Count 4.55, Hemoglobin 13.3, Hematocrit 42.6, Mean Corpuscular Volume 94, Mean Corpuscular Hemoglobin 29.3, Mean Corpuscular Hemoglobin Concent 31.3L, Red Cell Distribution Width 13.6, Platelet Count 322, Mean Platelet Volume 8.4, Neutrophils (%) (Auto) , Lymphocytes (%) (Auto) , Monocytes (%) (Auto) , Eosinophils (%) (Auto) , Basophils (%) (Auto) , Differential Total Cells Counted 100, Neutrophils % (Manual) 95H, Lymphocytes % (Manual) 3L, Monocytes % (Manual) 2, Eosinophils % (Manual) 0, Basophils % (Manual) 0, Band Neutrophils 0, Platelet Estimate Adequate, Platelet Morphology Normal, Red Blood Cell Morphology , Hypochromasia 1+, Sodium Level 161*H, Potassium Level 4.6, Chloride Level 124H, Carbon Dioxide Level 27, Anion Gap 10, Blood Urea Nitrogen 106H, Creatinine 1.7H, Estimat Glomerular Filtration Rate 28.9, Glucose Level 175H, Uric Acid 8.4H, Calcium Level 10.0, Phosphorus Level 3.9, Magnesium Level 3.5H, Total Bilirubin 0.7, Aspartate Amino Transf (AST/SGOT) 81H, Alanine Aminotransferase (ALT/SGPT) 88H, Alkaline Phosphatase 96, Total Protein 7.1, Albumin 2.2L, Globulin 4.9, Albumin/Globulin Ratio 0.4L, Triglycerides Level 244H, Cholesterol Level 171, LDL Cholesterol 107H, HDL Cholesterol 22L, Cholesterol/HDL Ratio 7.8H 02/29/20 11:19: POC Whole Blood Glucose 264H Height (Feet): 5 Weight (Pounds): 160 General Appearance: mild distress EENT: other - On BiPAP Cardiovascular: tachycardia Respiratory/Chest: decreased breath sounds Abdomen: distended Reji Byrne MD Feb 29, 2020 12:50
--- NOTE | 2020-02-29 13:35 | NUR ---
NURSE NOTES: EKG done and sent to Dr Evans and Dr Guerra. Dr Evans acknowledged. Awaiting Dr Guerra's response.
[2020-02-29] MEDS ORDERED: NS 275ml ONE (13:40)
--- NOTE | 2020-02-29 14:05 | Diagnostic Imaging Report ---
Indication: Shortness of breath Technique: One view of the chest Comparison: 02/27/2020 post PICC radiograph Findings: Bilateral infiltrates are unchanged. The heart is enlarged. The aorta is tortuous and ectatic. Left arm PICC is unchanged Impression: Unchanged, over one day, findings as above.
--- NOTE | 2020-02-29 14:20 | NUR ---
RADIOLOGY DEPT., CHEST X-RAY DONE.-P.DYE
--- NOTE | 2020-02-29 14:46 | Cardiac Electrophysiology PN ---
Assessment/Plan Assessment/Plan 1. Congestive heart failure with BNP of more than 15,000. EF 60%. Off Lasix in view of ARF 2. Elevated troponin could be due to renal failure No CP and echo Nl EF. 3. Atrial fib with RVR. Increase Cardizem to 120 po Q 6hr and off Lopressor On Eliquis 5 bid. Add Amiodarone 400 po bid 4. Accelerated hypertension. Continue Cardizem 5. Respiratory failure due to COVID on BiPAP as well as dexamethasone. 6. Acute renal failure BUN/Cr 118/2.0 . Off Lasix per Dr Byrne Slightly better 7. NPO X meds due to BIPAP. Got PICC line on TPN DW RN Subjective Subjective In SR on BIPAP. Again had atrial fib with RVR overnight that required 2 doses of 10 mg iv Cardizem S/P PICC line for TPN . NPO except meds due to BIPAP Objective Last 24 Hour Vital Signs Date Time Temp Pulse Resp B/P (MAP) Pulse Ox O2 Delivery O2 Flow Rate FiO2 02/29/20 13:14 97 148/59 02/29/20 12:00 Bi-pap 02/29/20 12:00 100 02/29/20 11:55 97.3 97 27 148/59 (88) 100 02/29/20 11:51 90 33 100 80 02/29/20 11:32 96 02/29/20 08:00 96.8 85 25 126/51 (76) 100 02/29/20 08:00 82 02/29/20 08:00 100 02/29/20 08:00 Bi-pap 02/29/20 06:30 89 25 100 90 02/29/20 05:26 94 130/74 02/29/20 04:14 172/83 02/29/20 04:00 Bi-pap 02/29/20 04:00 97.7 93 22 172/83 (112) 100 02/29/20 04:00 84 02/29/20 04:00 100 02/29/20 03:05 79 02/29/20 02:50 91 27 99 100 02/29/20 02:48 131 02/29/20 02:47 141 02/29/20 02:30 135 127/74 02/29/20 00:00 105 02/29/20 00:00 97.9 105 19 124/67 (86) 96 02/29/20 00:00 Bi-pap 02/28/20 23:37 107 25 99 100 02/28/20 23:37 107 25 100 Bi-Pap 100 02/28/20 21:17 150 129/75 02/28/20 21:00 100 02/28/20 20:00 97.7 119 24 111/83 (92) 90 02/28/20 20:00 100 02/28/20 20:00 Bi-pap 02/28/20 20:00 127 02/28/20 18:45 126 20 96 60 02/28/20 16:30 135 131/73 02/28/20 16:00 Bi-pap 02/28/20 16:00 96.1 133 25 131/73 (92) 90 02/28/20 15:51 50 02/28/20 15:40 90 24 95 50 02/28/20 15:32 133 Intake and Output 02/28/20 02/29/20 19:00 07:00 Intake Total 892 ml 594 ml Output Total 800 ml 800 ml Balance 92 ml -206 ml IV Total 892 ml 594 ml Output Urine Total 800 ml 800 ml Laboratory Tests Test 02/28/20 16:37 02/28/20 19:45 02/29/20 05:39 02/29/20 11:19 POC Whole Blood Glucose Pending 264 MG/DL (74-106) H Arterial Blood pH 7.482 (7.350-7.450) Arterial Blood Partial Pressure CO2 34.4 mmHg (35.0-45.0) L Arterial Blood Partial Pressure O2 65.3 mmHg (75.0-100.0) L Arterial Blood HCO3 25.2 mmol/L (22.0-26.0) Arterial Blood Oxygen Saturation 92.2 % (95-100) L Arterial Blood Base Excess 2.0 (-2-2) Trevon Test Positive White Blood Count 23.8 K/UL (4.8-10.8) *H Red Blood Count 4.55 M/UL (4.20-5.40) Hemoglobin 13.3 G/DL (12.0-16.0) Hematocrit 42.6 % (37.0-47.0) Mean Corpuscular Volume 94 FL (80-99) Mean Corpuscular Hemoglobin 29.3 PG (27.0-31.0) Mean Corpuscular Hemoglobin Concent 31.3 G/DL (32.0-36.0) L Red Cell Distribution Width 13.6 % (11.6-14.8) Platelet Count 322 K/UL (150-450) Mean Platelet Volume 8.4 FL (6.5-10.1) Neutrophils (%) (Auto) % (45.0-75.0) Lymphocytes (%) (Auto) % (20.0-45.0) Monocytes (%) (Auto) % (1.0-10.0) Eosinophils (%) (Auto) % (0.0-3.0) Basophils (%) (Auto) % (0.0-2.0) Differential Total Cells Counted 100 Neutrophils % (Manual) 95 % (45-75) H Lymphocytes % (Manual) 3 % (20-45) L Monocytes % (Manual) 2 % (1-10) Eosinophils % (Manual) 0 % (0-3) Basophils % (Manual) 0 % (0-2) Band Neutrophils 0 % (0-8) Platelet Estimate Adequate Platelet Morphology Normal Red Blood Cell Morphology Hypochromasia 1+ Sodium Level 161 MMOL/L (136-145) *H Potassium Level 4.6 MMOL/L (3.5-5.1) Chloride Level 124 MMOL/L (98-107) H Carbon Dioxide Level 27 MMOL/L (21-32) Anion Gap 10 mmol/L (5-15) Blood Urea Nitrogen 106 mg/dL (7-18) H Creatinine 1.7 MG/DL (0.55-1.30) H Estimat Glomerular Filtration Rate 28.9 mL/min (>60) Glucose Level 175 MG/DL (74-106) H Uric Acid 8.4 MG/DL (2.6-7.2) H Calcium Level 10.0 MG/DL (8.5-10.1) Phosphorus Level 3.9 MG/DL (2.5-4.9) Magnesium Level 3.5 MG/DL (1.8-2.4) H Total Bilirubin 0.7 MG/DL (0.2-1.0) Aspartate Amino Transf (AST/SGOT) 81 U/L (15-37) H Alanine Aminotransferase (ALT/SGPT) 88 U/L (12-78) H Alkaline Phosphatase 96 U/L (46-116) Total Protein 7.1 G/DL (6.4-8.2) Albumin 2.2 G/DL (3.4-5.0) L Globulin 4.9 g/dL Albumin/Globulin Ratio 0.4 (1.0-2.7) L Triglycerides Level 244 MG/DL (30-150) H Cholesterol Level 171 MG/DL (< 200) LDL Cholesterol 107 mg/dL (<100) H HDL Cholesterol 22 MG/DL (40-60) L Cholesterol/HDL Ratio 7.8 (3.3-4.4) H Objective HEAD AND SHOWED: No JVD.BIPAP on LUNGS: Decreased breath sounds. CARDIOVASCULAR: Regular S1 and S2 with no gallop. ABDOMEN: Soft. EXTREMITIES: No pitting edema. Adonay Guerra MD Feb 29, 2020 14:46
--- NOTE | 2020-02-29 15:56 | NUR ---
NURSE NOTES: Restraint orders for one wrist ordered by Dr Lopez, noted and carried out.
[2020-02-29] MEDS: dilTIAZem HCl 60mg tab ORAL SCH ×2 (17:17→23:35)
--- NOTE | 2020-02-29 18:36 | NUR ---
NURSE NOTES: Monitor in room shows blank heart rate, patient unresponsive, no pulse felt but with faint heart sounds upon auscultation, STEVEDORING SUPERINTENDENT called and RT Ana responded. Pulse rate once again showed on the monitor, at 80's HR. Patient still unresponsive. Rhythm converted to afib at [address] Evans made aware, with orders to transfer to ICU. Dr Guerra made aware, left message, awaiting response.
--- NOTE | 2020-02-29 19:00 | NUR ---
NURSE NOTES: Received report from OCHOA MARTI. Pt is lethargic, bipap on and fio2-80% 97% o2 sat. On electronic device monitor pt is on AFIB,but has episodes of Asystole at 18:30pm, - Dr. Evans aware ordered to transfer pt to ICU. Pt is critacally guarded and unstable, pt is tachypneic and labored breathing. DRAKE PICC line patent and intact. Pt barker is running yellow urine. Non- verbal response right now but stimulated by chest rub and light pain. HR- 117. RR:28. Will continue to monitor. Waiting for ICU bed for transfer.
--- NOTE | 2020-02-29 19:11 | NUR ---
NURSE NOTES: Patient asystole then converted to afib at 131 HR, Dr Evans aware, with orders to transfer patient to ICU. Dr Guerra made aware, left message, awaiting response.
--- NOTE | 2020-02-29 19:15 | NUR ---
NURSE HAND-OFF REPORT: Important Events on Shift: unresponsive, converted to afib. Patient for transfer to ICU. Patient Status: unresponsive Diet: TPN at 66 cc/hr Pending Orders: Pending Results/Labs: Pending MD notification: Latest Vital Signs: Temperature 97.9 , Pulse 144 , B/P 132 /51 , Respiratory Rate 28 , O2 SAT 91 , Bi-pap, O2 Flow Rate 15.0 . Vital Sign Comment: EKG Rhythm: Atrial Fibrillation Rhythm change?: Y Notified?: Y -Dr Evans, Dr Mari ZUNIGA Response: Order Received& Read Back Latest Navarro Fall Score: 30 Fall Risk: Medium Risk Safety Measures: Call light Within Reach, Bed Alarm Zone 2, Side Rails Side Rails x3, Bed position Low and Locked. Fall Precautions: Yellow Socks Yellow Gown Door Sign Patient Fall Education Report given to Princess PACKER.
[2020-02-29] MEDS: Dyna-Hex 2% Top Sol 2oz TOPIC SCH (19:57)
[2020-02-29] MEDS ORDERED: FAT EMULSION 20% IV SCH ×2 (20:00)
[2020-02-29] MEDS ORDERED: TPN IV SCH ×2 (20:00)
--- NOTE | 2020-02-29 20:02 | General Progress Note ---
Subjective ROS Limited/Unobtainable: Yes Allergies: Coded Allergies: No Known Allergies (Unverified , 02/18/20) Objective Last 24 Hour Vital Signs Date Time Temp Pulse Resp B/P (MAP) Pulse Ox O2 Delivery O2 Flow Rate FiO2 02/29/20 19:13 144 28 91 02/29/20 17:17 98 132/51 02/29/20 16:23 35 02/29/20 16:00 80 02/29/20 16:00 Bi-pap 02/29/20 15:43 97.7 98 28 132/51 (78) 98 02/29/20 15:32 95 15 95 80 02/29/20 15:29 94 02/29/20 13:14 97 148/59 02/29/20 12:00 Bi-pap 02/29/20 12:00 100 02/29/20 11:55 97.3 97 27 148/59 (88) 100 02/29/20 11:51 90 33 100 80 02/29/20 11:32 96 02/29/20 08:00 96.8 85 25 126/51 (76) 100 02/29/20 08:00 82 02/29/20 08:00 100 02/29/20 08:00 Bi-pap 02/29/20 06:30 89 25 100 90 02/29/20 05:26 94 130/74 02/29/20 04:14 172/83 02/29/20 04:00 Bi-pap 02/29/20 04:00 97.7 93 22 172/83 (112) 100 02/29/20 04:00 84 02/29/20 04:00 100 02/29/20 03:05 79 02/29/20 02:50 91 27 99 100 02/29/20 02:48 131 02/29/20 02:47 141 02/29/20 02:30 135 127/74 02/29/20 00:00 105 02/29/20 00:00 97.9 105 19 124/67 (86) 96 02/29/20 00:00 Bi-pap 02/28/20 23:37 107 25 99 100 02/28/20 23:37 107 25 100 Bi-Pap 100 02/28/20 21:17 150 129/75 02/28/20 21:00 100 Intake and Output 02/28/20 02/29/20 19:00 07:00 Intake Total 892 ml 594 ml Output Total 800 ml 800 ml Balance 92 ml -206 ml IV Total 892 ml 594 ml Output Urine Total 800 ml 800 ml Laboratory Tests 02/29/20 05:39: White Blood Count 23.8*H, Red Blood Count 4.55, Hemoglobin 13.3, Hematocrit 42.6, Mean Corpuscular Volume 94, Mean Corpuscular Hemoglobin 29.3, Mean Corpuscular Hemoglobin Concent 31.3L, Red Cell Distribution Width 13.6, Platelet Count 322, Mean Platelet Volume 8.4, Neutrophils (%) (Auto) , Lymphocytes (%) (Auto) , Monocytes (%) (Auto) , Eosinophils (%) (Auto) , Basophils (%) (Auto) , Differential Total Cells Counted 100, Neutrophils % (Manual) 95H, Lymphocytes % (Manual) 3L, Monocytes % (Manual) 2, Eosinophils % (Manual) 0, Basophils % (Manual) 0, Band Neutrophils 0, Platelet Estimate Adequate, Platelet Morphology Normal, Red Blood Cell Morphology , Hypochromasia 1+, Sodium Level 161*H, Potassium Level 4.6, Chloride Level 124H, Carbon Dioxide Level 27, Anion Gap 10, Blood Urea Nitrogen 106H, Creatinine 1.7H, Estimat Glomerular Filtration Rate 28.9, Glucose Level 175H, Uric Acid 8.4H, Calcium Level 10.0, Phosphorus Level 3.9, Magnesium Level 3.5H, Total Bilirubin 0.7, Aspartate Amino Transf (AST/SGOT) 81H, Alanine Aminotransferase (ALT/SGPT) 88H, Alkaline Phosphatase 96, Total Protein 7.1, Albumin 2.2L, Globulin 4.9, Albumin/Globulin Ratio 0.4L, Triglycerides Level 244H, Cholesterol Level 171, LDL Cholesterol 107H, HDL Cholesterol 22L, Cholesterol/HDL Ratio 7.8H 02/29/20 11:19: POC Whole Blood Glucose 264H 02/29/20 17:22: POC Whole Blood Glucose [Pending] Height (Feet): 5 Weight (Pounds): 160 Assessment/Plan Problem List: (1) UTI (urinary tract infection) ICD Codes: N39.0 - Urinary tract infection, site not specified SNOMED: 64174618 (2) Hypoxia ICD Codes: R09.02 - Hypoxemia; J12.82 - Pneumonia due to coronavirus disease 2019 SNOMED: 586194904 (3) Sepsis ICD Codes: A41.9 - Sepsis, unspecified organism SNOMED: 91969264 (4) JARETH (acute kidney injury) ICD Codes: N17.9 - Acute kidney failure, unspecified SNOMED: 59302694, 7114381 (5) Pneumonia due to COVID-19 virus ICD Codes: U07.1 - COVID-19; J12.82 - Pneumonia due to coronavirus disease 2019 SNOMED: 670450155318095021 Status: progressing Assessment/Plan: s/p bradycardia arrythmia r/o cardiomyopathy poor prognosis on high oxygen covid + resp insuff sepsis pna Gerson Evans MD Feb 29, 2020 20:02
--- NOTE | 2020-02-29 20:24 | NUR ---
NURSE NOTES: Endorsed to OCHOA Sin. via hospital bed accompanied by RT. O2 sat- 61% on NRB upon transport but still on AFIB. LVM to Dr. Guerra about the transfer and waiting for response. Endorsed to ICU nurse.
--- NOTE | 2020-02-29 20:30 | NUR ---
NURSE NOTES: RECEIVED PATIENT FROM [facility]ERRILL NURSE , PATIENT LETHARGIC, TRIED TO OPEN EYES TO STIMULI, ON BIPAP, ONGOING TPN AT 66ML/HR VIA LEFT UPPER ARM PICC LINE, WILL CONTINUE TO MONITOR.
[2020-02-29] MEDS ORDERED: Amiodarone 200mg tab ORAL SCH (21:00)
--- NOTE | 2020-02-29 22:03 | Psychiatry Consultation ---
Psychiatry Consultation Psychiatry Consultation Chief Complaint: Dyspnea/Respdistress History of Present Illness: has been presenting with agitation, confusion. His medication was adjusted last night. The patient is calm, manageable during my evaluation. The patient presented with disorganized speech and behavior at the facility and was difficult to redirect. The patient is disoriented, unable to be engaged. PAST PSYCHIATRIC HISTORY: Significant for schizophrenia, anxiety disorder. PAST MEDICAL HISTORY: Parkinson disease, BPH. ALLERGIES: No known drug allergies. SUBSTANCE ABUSE HISTORY: No known history of illicit drug use or alcohol. MENTAL STATUS EXAMINATION: The patient is awake, disoriented. Mood is anxious. Affect is blunted. Thought process is concrete. Thought content, no suicidal or homicidal ideation. Cognition is impaired. Insight and judgment impaired. A Allergies: Coded Allergies: No Known Allergies (Unverified , 02/18/20) Medication History Scheduled Losartan Potassium* (Cozaar*), 25 MG ORAL DAILY, (Reported) Metoprolol Succinate* (Metoprolol Succinate*), 50 MG ORAL DAILY, (Reported) Simvastatin (Zocor), 10 MG ORAL BEDTIME, (Reported) Objective Data Height (Feet): 5 Weight (Pounds): 160 Assessment/Plan Diagnosis [place]: SSESSMENT: [place] dementia with bd. Anxiety disorder. PLAN: 1. low dose antipsychotics 2. restraints. 3. Discussed with the nurse. Humphrey Lopez MD Feb 29, 2020 22:03
--- NOTE | 2020-02-29 22:08 | NUR ---
NURSE NOTES: PATIENT LETHARGIC, BP 101/39MMHG, HR 108, O2 SATURATION 100% ON BIPAP, F/C INTACT AND PATENT, YELLOW URINE OUTED, WILL CONTINUE TO MONITOR.
--- NOTE | 2020-02-29 23:50 | NUR ---
NURSE NOTES: PATIENT AWOKE, CONFUSED TO PERSON, PLACE AND TIME, NO PAIN NOTED, O2 SATURATION 1005 NOTED ON BIPAP, BP 89/37MMHG, HR 117 ST NOTED AT THIS TIME, KEPT ELEVATED ALL EXTREMITIES, WILL CONTINUE TO MONITOR.
[2020-03-01] VITALS (12 sets, daily range): BP systolic 57–128; BP diastolic 24–103
--- NOTE | 2020-03-01 01:50 | NUR ---
NURSE NOTES: PATIENT ASLEEP STATUS, ONGOING TPN AT 66ML/HR, NO ACUTE DISTRESS NOTED AT THIS TIME.
--- NOTE | 2020-03-01 03:22 | NUR ---
NURSE NOTES: PATIENT LETHARGIC, OPEN EYES TO NAME, NON VERBAL STATUS.
--- NOTE | 2020-03-01 05:14 | NUR ---
NURSE NOTES: BP 57/24mmhg noted, no response to verbally or tactile stimuli that called Dr. SANDERS, left message await call.
[2020-03-01] MEDS ORDERED: Levophed 4mg/4mL Inj IV ONE (05:26)
[2020-03-01] MEDS ORDERED: Norepinephrine 4mg/NS Premix 250 ML IV SCH (05:30)
[2020-03-01] MEDS: dilTIAZem HCl 60mg tab ORAL SCH (06:00)
[2020-03-01] MEDS: NovoLOG Insulin Flexpen SUBQ SCH (06:02)
--- NOTE | 2020-03-01 06:27 | NUR ---
NURSE NOTES: CALLED DR. SANDERS REGARDING BP 73/44MMHG WITH LEVOPHED DRIP 30MCG/MIN AND SOMETIMES, HR A-FIB W/ RVR NOTED THAT LEFT MESSAGE.
--- NOTE | 2020-03-01 07:05 | NUR ---
HAND-OFF: Report given to OCHOA WATTERS.
--- NOTE | 2020-03-01 07:45 | NUR ---
NURSE NOTES: Received report from OCHOA Sin. After report, pt O2 saturation began dropping. BP low on max levophed. Received report that Dr Guerra had been called. While preparing to enter room to assess pt, pt became asystolic on the monitor tech. CPR started immediately and a code blue was called. ACLS protocol followed except pt not intubated as her code status specified DNI. Code blue team arrival within 2 min. Unable to obtain ROSC. Dr Steen called time of at 0730.
--- NOTE | 2020-03-01 07:56 | Emergency Room Report ---
Physical Exam Was called to ICU for CODE BLUE. Apparently the patient became unresponsive last night. Her oxygen saturations have been decreasing through the morning. Apparently the patient had aspirated just prior. There is evidence of a GI bleed. Last hemoglobin 13.3. Elevated BUN and also creatinine. Sodium high but potassium normal. She is on maximum dose of epinephrine drip. Quality CPR was being performed and 1 epinephrine was given prior to my arrival. Ventilations were assisted with [id number]. Patient has orders not to intubate. Last 24 Hour Vital Signs Date Time Temp Pulse Resp B/P (MAP) Pulse Ox O2 Delivery O2 Flow Rate FiO2 03/01/20 07:00 66 14 72/24 (40) 65 03/01/20 07:00 72/24 03/01/20 06:30 82/28 03/01/20 06:30 106 29 82/28 (46) 78 03/01/20 06:15 116 18 71/26 (41) 85 03/01/20 06:10 60/24 03/01/20 06:00 74/31 03/01/20 06:00 123 76/34 03/01/20 06:00 122 26 74/31 (45) 77 03/01/20 05:55 58/27 03/01/20 05:47 87/26 03/01/20 05:45 93 15 73/43 (53) 95 03/01/20 05:37 68/27 03/01/20 05:30 93 17 60/29 (39) 100 03/01/20 05:00 93 18 57/24 (35) 100 03/01/20 04:00 115 03/01/20 04:00 99.5 115 36 79/35 (50) 100 03/01/20 04:00 100 03/01/20 04:00 Bi-pap 03/01/20 03:00 117 38 128/103 (111) 100 03/01/20 02:00 116 37 67/47 (54) 100 03/01/20 01:46 96 32 100 100 03/01/20 01:00 119 36 80/36 (51) 100 03/01/20 00:00 116 03/01/20 00:00 Bi-pap 03/01/20 00:00 99.1 116 39 98/48 (65) 100 03/01/20 00:00 100 02/29/20 23:35 115 99/44 02/29/20 22:00 107 39 95/36 (55) 100 02/29/20 21:30 107 43 100/50 (67) 100 02/29/20 21:00 112 43 87/56 (66) 100 02/29/20 20:45 111 43 78/52 (61) 100 02/29/20 20:30 98.4 109 40 67/23 (38) 99 02/29/20 20:22 110 02/29/20 20:00 Bi-pap 02/29/20 20:00 80 02/29/20 19:51 103 22 99 100 02/29/20 19:13 144 28 91 02/29/20 17:17 98 132/51 02/29/20 16:23 35 02/29/20 16:00 80 02/29/20 16:00 Bi-pap 02/29/20 15:43 97.7 98 28 132/51 (78) 98 02/29/20 15:32 95 15 95 80 02/29/20 15:29 94 02/29/20 13:14 97 148/59 02/29/20 12:00 Bi-pap 02/29/20 12:00 100 02/29/20 11:55 97.3 97 27 148/59 (88) 100 02/29/20 11:51 90 33 100 80 02/29/20 11:32 96 02/29/20 08:00 96.8 85 25 126/51 (76) 100 02/29/20 08:00 82 02/29/20 08:00 100 02/29/20 08:00 Bi-pap Sp02 EP Interpretation: reviewed, abnormal - Hypoxemia as reviewed by me General Appearance: other - Unresponsive Head: normocephalic, atraumatic Eyes: bilateral eye other - Pupils unreactive ENT: other - Copious amounts of coffee-ground and bloody material which is being suctioned from the patient Neck: supple Respiratory: other - No respirations without assisted ventilation Cardiovascular #1: other - Pulses only with CPR Cardiovascular #2: 1+ femoral (R) Gastrointestinal: overweight Rectal: other - Melanotic stool Musculoskeletal: other - No deformity Neurologic: other - Unresponsive Psychiatric: other - Unresponsive Skin: cyanosis, mottled CPR/Code Blue CPR/Code Blue Narrative The patient suffered a PEA arrest after possible aspiration. CODE BLUE was jay led 07:20 When I arrived effective CPR was being performed and the patient had assisted ventilations. There was evidence of copious bloody and coffee-ground materials which were suctioned from the upper airway. 1 dose of epinephrine had been given prior to my arrival. Pulses were present with CPR only. During rhythm check the patient had deteriorated to asystole. A second epinephrine was given by me. Pulses were present with CPR. Without the ability to perform an advanced airway and with the patient's remai remigio in asystole further resuscitative attempts are futile. CPR was stopped and the patient was pronounced at 730. Medical Decision Making Diagnostic Impression: Primary Impression: Cardiopulmonary arrest Additional Impressions: GI bleed Qualified Codes: K92.2 - Gastrointestinal hemorrhage, unspecified Aspiration into respiratory tract Qualified Codes: T17.908A - Unspecified foreign body in respiratory tract, part unspecified causing other injury, initial encounter ER Course CODE BLUE was called. Patient with probable aspiration and GI bleed. I was told patient was in PEA. (According to documentation the initial rhythm might have been asystole.) Patient was DNI status. Patient asystolic after 2 epinephrines delivered. Possibility of resuscitation futile particularly with inability to control airway aside from [id number]. Patient demonstrates cardiopulmonary responsiveness. Code stopped and patient pronounced at 730. Rhythm Strip Diag. Results EP Interpretation: yes Rhythm: other - Asystole Status: worsened Disposition: Condition: Referrals: [facility],REFERRING (PCP) Pollo Steen MD Mar 01, 2020 07:56
[2020-03-01] MEDS ORDERED: NS 275ml ONE (10:01)
[2020-03-01] MEDS ORDERED: Tubing IV Secondary IV ONE (10:01)
--- NOTE | 2020-03-01 14:24 | Pulmonology Progress Note ---
Subjective ROS Limited/Unobtainable: Yes Interval Events: Remains on BiPAP; FiO2 better Constitutional: Denies: fever HEENT: Repors: no symptoms Respiratory: Reports: no symptoms Cardiovascular: Reports: no symptoms Gastrointestinal/Abdominal: Reports: other - started on TPN Genitourinary: Reports: no symptoms Allergies: Coded Allergies: No Known Allergies (Unverified , 02/18/20) Objective Last 24 Hour Vital Signs Date Time Temp Pulse Resp B/P (MAP) Pulse Ox O2 Delivery O2 Flow Rate FiO2 03/01/20 07:00 66 14 72/24 (40) 65 03/01/20 07:00 72/24 03/01/20 06:30 82/28 03/01/20 06:30 106 29 82/28 (46) 78 03/01/20 06:15 116 18 71/26 (41) 85 03/01/20 06:10 60/24 03/01/20 06:00 74/31 03/01/20 06:00 123 76/34 03/01/20 06:00 122 26 74/31 (45) 77 03/01/20 05:55 58/27 03/01/20 05:47 87/26 03/01/20 05:45 93 15 73/43 (53) 95 03/01/20 05:37 68/27 03/01/20 05:30 93 17 60/29 (39) 100 03/01/20 05:00 93 18 57/24 (35) 100 03/01/20 04:00 115 03/01/20 04:00 99.5 115 36 79/35 (50) 100 03/01/20 04:00 100 03/01/20 04:00 Bi-pap 03/01/20 03:00 117 38 128/103 (111) 100 03/01/20 02:00 116 37 67/47 (54) 100 03/01/20 01:46 96 32 100 100 03/01/20 01:00 119 36 80/36 (51) 100 03/01/20 00:00 116 03/01/20 00:00 Bi-pap 03/01/20 00:00 99.1 116 39 98/48 (65) 100 03/01/20 00:00 100 02/29/20 23:35 115 99/44 02/29/20 22:00 107 39 95/36 (55) 100 02/29/20 21:30 107 43 100/50 (67) 100 02/29/20 21:00 112 43 87/56 (66) 100 02/29/20 20:45 111 43 78/52 (61) 100 02/29/20 20:30 98.4 109 40 67/23 (38) 99 02/29/20 20:22 110 02/29/20 20:00 Bi-pap 02/29/20 20:00 80 02/29/20 19:51 103 22 99 100 02/29/20 19:13 144 28 91 02/29/20 17:17 98 132/51 02/29/20 16:23 35 02/29/20 16:00 80 02/29/20 16:00 Bi-pap 02/29/20 15:43 97.7 98 28 132/51 (78) 98 02/29/20 15:32 95 15 95 80 02/29/20 15:29 94 Intake and Output 02/29/20 03/01/20 19:00 07:00 Intake Total 726 ml Output Total 300 ml 335 ml Balance -300 ml 391 ml IV Total 726 ml Output Urine Total 300 ml 335 ml # Bowel Movements 1 General Appearance: no acute distress HEENT: normocephalic Respiratory: chest wall non-tender, lungs clear Cardiovascular: normal peripheral pulses Abdomen: normal bowel sounds Laboratory Tests 02/29/20 17:22: POC Whole Blood Glucose [Pending] Current Medications Medications (Trade) Dose Ordered Sig/Eze Route PRN Reason Start Time Stop Time Status Last Admin Dose Admin Acetaminophen (Tylenol) 500 mg Q6H PRN ORAL Mild Pain (Pain Scale 1-3) 02/19/20 00:00 03/20/20 00:00 02/28/20 21:18 Allopurinol (allopurinoL) 300 mg DAILY ORAL 02/25/20 09:00 03/26/20 08:59 02/29/20 08:40 Amiodarone HCl (Cordarone) 400 mg EVERY 12 HOURS ORAL 02/29/20 21:00 05/29/20 20:59 Apixaban (Eliquis) 5 mg BID ORAL 02/21/20 18:00 05/21/20 17:59 02/29/20 16:53 Aspirin (ASA) 81 mg DAILY ORAL 02/24/20 09:00 04/09/20 08:59 02/29/20 08:40 Atorvastatin Calcium (Lipitor) 10 mg BEDTIME ORAL 03/01/20 21:00 05/19/20 20:59 Cefepime HCl 1 gm/ Dextrose 55 ml @ 110 mls/hr Q24H IVPB 02/29/20 12:00 03/07/20 11:59 02/29/20 12:20 Chlorhexidine Gluconate (Carole-Hex 2%) 1 applic DAILY@2000 TOPIC 02/26/20 20:00 05/26/20 19:59 02/29/20 19:57 Clonidine HCl (Catapres Tab) 0.1 mg Q4H PRN ORAL BP over 166 systolic 02/19/20 15:45 05/19/20 15:44 Dextrose 1,000 ml @ 0 mls/hr Q24H PRN IV PN interrupted or unavailable 02/27/20 20:00 03/28/20 19:59 Dextrose (Dextrose 50%) 25 ml Q30M PRN IV Hypoglycemia 02/27/20 20:15 05/27/20 20:14 Dextrose (Dextrose 50%) 50 ml Q30M PRN IV Hypoglycemia 02/27/20 20:15 05/27/20 20:14 Diltiazem HCl (Cardizem Tab) 120 mg EVERY 6 HOURS ORAL 02/29/20 18:00 03/21/20 17:59 02/29/20 17:17 Fat Emulsion Intravenous 144 ml/Amino Acids/ Electrolytes/ Dextrose 1,584 ml @ 66 mls/hr Q24H IV 02/29/20 20:00 03/30/20 19:59 02/29/20 19:56 Hydralazine HCl (Apresoline) 10 mg Q2H PRN IV For High Blood Pressure 02/19/20 00:30 05/19/20 00:29 02/29/20 04:14 Insulin Aspart (NovoLOG) EVERY 6 HOURS SUBQ 02/28/20 00:00 05/28/20 00:00 03/01/20 06:02 Insulin Detemir (Levemir) 8 units Q12HR SUBQ 02/28/20 11:30 05/28/20 11:29 02/29/20 21:38 Norepinephrine Bitartrate 4 mg/ Dextrose 250 ml @ 0 mls/hr Q24H PRN IV For hypotension 03/01/20 05:30 03/04/20 05:29 03/01/20 05:37 Assessment/Plan Assessment/Plan 1. COVID-19 pneumonia. 2. Respiratory failure, on BiPAP. 3. Renal failure.Improved 4. Troponin leak. 5. Leukocytosis DISCUSSION: Completed Decadron. On Lovenox Defer Remdesivir use to ID Continue BiPAP. Saturating 96%. FiO2 now back to 90% Will attempt VTM when FiO2 is lower Discussed with RN Now on cefepime Patient coded and this morning before she has been seen Pastor Vidal Mar 01, 2020 14:24
--- NOTE | 2020-03-01 15:36 | Cardiac Electrophysiology PN ---
Assessment/Plan Assessment/Plan 1. Congestive heart failure with BNP of more than 15,000. EF 60%. 2. Elevated troponin could be due to renal failure 3. Atrial fib with RVR. Was on Cardizem 120 po Q 6hr and Amiodarone 400 po bid 4. Accelerated hypertension. 5. Respiratory failure due to COVID 6. Acute renal failure BUN/Cr 118/2.0 . 7. NPO X meds due to BIPAP. 8. DNI Patient Coded and at 7.30 AM. SAMSON RN Subjective Subjective Late Entry I was called several times overnight as patient was getting hypotensive and bradycardic. Patient was DNI. Levophed started and communicated with [facility] [facility]. Patient was coded at around 7 AM due to persistent hypotension despite Levo. ACLS protocol followed except pt not intubated as her code status specified DNI. Code blue team arrival within 2 min. Unable to obtain ROSC. Dr Steen called time of at 0730 Objective Last 24 Hour Vital Signs Date Time Temp Pulse Resp B/P (MAP) Pulse Ox O2 Delivery O2 Flow Rate FiO2 03/01/20 07:00 66 14 72/24 (40) 65 03/01/20 07:00 72/24 03/01/20 06:30 82/28 03/01/20 06:30 106 29 82/28 (46) 78 03/01/20 06:15 116 18 71/26 (41) 85 03/01/20 06:10 60/24 03/01/20 06:00 74/31 03/01/20 06:00 123 76/34 03/01/20 06:00 122 26 74/31 (45) 77 03/01/20 05:55 58/27 03/01/20 05:47 87/26 03/01/20 05:45 93 15 73/43 (53) 95 03/01/20 05:37 68/27 03/01/20 05:30 93 17 60/29 (39) 100 03/01/20 05:00 93 18 57/24 (35) 100 03/01/20 04:00 115 03/01/20 04:00 99.5 115 36 79/35 (50) 100 03/01/20 04:00 100 03/01/20 04:00 Bi-pap 03/01/20 03:00 117 38 128/103 (111) 100 03/01/20 02:00 116 37 67/47 (54) 100 03/01/20 01:46 96 32 100 100 03/01/20 01:00 119 36 80/36 (51) 100 03/01/20 00:00 116 03/01/20 00:00 Bi-pap 03/01/20 00:00 99.1 116 39 98/48 (65) 100 03/01/20 00:00 100 02/29/20 23:35 115 99/44 02/29/20 22:00 107 39 95/36 (55) 100 02/29/20 21:30 107 43 100/50 (67) 100 02/29/20 21:00 112 43 87/56 (66) 100 02/29/20 20:45 111 43 78/52 (61) 100 02/29/20 20:30 98.4 109 40 67/23 (38) 99 02/29/20 20:22 110 02/29/20 20:00 Bi-pap 02/29/20 20:00 80 02/29/20 19:51 103 22 99 100 02/29/20 19:13 144 28 91 02/29/20 17:17 98 132/51 02/29/20 16:23 35 02/29/20 16:00 80 02/29/20 16:00 Bi-pap 02/29/20 15:43 97.7 98 28 132/51 (78) 98 02/29/20 15:32 95 15 95 80 Intake and Output 02/29/20 03/01/20 19:00 07:00 Intake Total 726 ml Output Total 300 ml 335 ml Balance -300 ml 391 ml IV Total 726 ml Output Urine Total 300 ml 335 ml # Bowel Movements 1 Laboratory Tests Test 02/29/20 17:22 POC Whole Blood Glucose Pending Objective Adonay Guerra MD Mar 01, 2020 15:36
[2020-03-01] MEDS ORDERED: Atorvastatin 20mg tab ORAL SCH (21:00)
--- NOTE | 2020-03-01 21:56 | General Progress Note ---
Subjective ROS Limited/Unobtainable: Yes Allergies: Coded Allergies: No Known Allergies (Unverified , 02/18/20) Objective Last 24 Hour Vital Signs Date Time Temp Pulse Resp B/P (MAP) Pulse Ox O2 Delivery O2 Flow Rate FiO2 03/01/20 07:00 66 14 72/24 (40) 65 03/01/20 07:00 72/24 03/01/20 06:30 82/28 03/01/20 06:30 106 29 82/28 (46) 78 03/01/20 06:15 116 18 71/26 (41) 85 03/01/20 06:10 60/24 03/01/20 06:00 74/31 03/01/20 06:00 123 76/34 03/01/20 06:00 122 26 74/31 (45) 77 03/01/20 05:55 58/27 03/01/20 05:47 87/26 03/01/20 05:45 93 15 73/43 (53) 95 03/01/20 05:37 68/27 03/01/20 05:30 93 17 60/29 (39) 100 03/01/20 05:00 93 18 57/24 (35) 100 03/01/20 04:00 115 03/01/20 04:00 99.5 115 36 79/35 (50) 100 03/01/20 04:00 100 03/01/20 04:00 Bi-pap 03/01/20 03:00 117 38 128/103 (111) 100 03/01/20 02:00 116 37 67/47 (54) 100 03/01/20 01:46 96 32 100 100 03/01/20 01:00 119 36 80/36 (51) 100 03/01/20 00:00 116 03/01/20 00:00 Bi-pap 03/01/20 00:00 99.1 116 39 98/48 (65) 100 03/01/20 00:00 100 02/29/20 23:35 115 99/44 02/29/20 22:00 107 39 95/36 (55) 100 Intake and Output 02/29/20 03/01/20 19:00 07:00 Intake Total 726 ml Output Total 300 ml 335 ml Balance -300 ml 391 ml IV Total 726 ml Output Urine Total 300 ml 335 ml # Bowel Movements 1 Height (Feet): 5 Weight (Pounds): 160 Assessment/Plan Problem List: (1) UTI (urinary tract infection) ICD Codes: N39.0 - Urinary tract infection, site not specified SNOMED: 21432389 (2) Hypoxia ICD Codes: R09.02 - Hypoxemia; J12.82 - Pneumonia due to coronavirus disease 2019 SNOMED: 954157272 (3) Sepsis ICD Codes: A41.9 - Sepsis, unspecified organism SNOMED: 98219290 (4) JARETH (acute kidney injury) ICD Codes: N17.9 - Acute kidney failure, unspecified SNOMED: 19515336, 2756628 (5) Pneumonia due to COVID-19 virus ICD Codes: U07.1 - COVID-19; J12.82 - Pneumonia due to coronavirus disease 2019 SNOMED: 817304293675485092 Status: progressing Assessment/Plan: s/p bradycardia not improving poor prognosis supportive care covid + resp insuff sepsis pna Gerson Evans MD Mar 01, 2020 21:56
--- NOTE | 2020-03-01 23:40 | Psychiatric Progress Note ---
Psychiatry Progress Note Psychiatry Progress Note Medications Current Medications Medications (Trade) Dose Ordered Sig/Eze Route PRN Reason Start Time Stop Time Status Last Admin Dose Admin Acetaminophen (Tylenol) 500 mg Q6H PRN ORAL Mild Pain (Pain Scale 1-3) 02/19/20 00:00 03/20/20 00:00 02/28/20 21:18 Allopurinol (allopurinoL) 300 mg DAILY ORAL 02/25/20 09:00 03/26/20 08:59 02/29/20 08:40 Amiodarone HCl (Cordarone) 400 mg EVERY 12 HOURS ORAL 02/29/20 21:00 05/29/20 20:59 Apixaban (Eliquis) 5 mg BID ORAL 02/21/20 18:00 05/21/20 17:59 02/29/20 16:53 Aspirin (ASA) 81 mg DAILY ORAL 02/24/20 09:00 04/09/20 08:59 02/29/20 08:40 Atorvastatin Calcium (Lipitor) 10 mg BEDTIME ORAL 03/01/20 21:00 05/19/20 20:59 Cefepime HCl 1 gm/ Dextrose 55 ml @ 110 mls/hr Q24H IVPB 02/29/20 12:00 03/07/20 11:59 02/29/20 12:20 Chlorhexidine Gluconate (Carole-Hex 2%) 1 applic DAILY@2000 TOPIC 02/26/20 20:00 05/26/20 19:59 02/29/20 19:57 Clonidine HCl (Catapres Tab) 0.1 mg Q4H PRN ORAL BP over 166 systolic 02/19/20 15:45 05/19/20 15:44 Dextrose 1,000 ml @ 0 mls/hr Q24H PRN IV PN interrupted or unavailable 02/27/20 20:00 03/28/20 19:59 Dextrose (Dextrose 50%) 25 ml Q30M PRN IV Hypoglycemia 02/27/20 20:15 05/27/20 20:14 Dextrose (Dextrose 50%) 50 ml Q30M PRN IV Hypoglycemia 02/27/20 20:15 05/27/20 20:14 Diltiazem HCl (Cardizem Tab) 120 mg EVERY 6 HOURS ORAL 02/29/20 18:00 03/21/20 17:59 02/29/20 17:17 Fat Emulsion Intravenous 144 ml/Amino Acids/ Electrolytes/ Dextrose 1,584 ml @ 66 mls/hr Q24H IV 02/29/20 20:00 03/30/20 19:59 02/29/20 19:56 Hydralazine HCl (Apresoline) 10 mg Q2H PRN IV For High Blood Pressure 02/19/20 00:30 05/19/20 00:29 02/29/20 04:14 Insulin Aspart (NovoLOG) EVERY 6 HOURS SUBQ 02/28/20 00:00 05/28/20 00:00 03/01/20 06:02 Insulin Detemir (Levemir) 8 units Q12HR SUBQ 02/28/20 11:30 05/28/20 11:29 02/29/20 21:38 Norepinephrine Bitartrate 4 mg/ Dextrose 250 ml @ 0 mls/hr Q24H PRN IV For hypotension 03/01/20 05:30 03/04/20 05:29 03/01/20 05:37 Allergies: Coded Allergies: No Known Allergies (Unverified , 02/18/20) Objective Data Height (Feet): 5 Weight (Pounds): 160 General Appearance: mild distress Assessment/Plan Status: progressing Humphrey Lopez MD Mar 01, 2020 23:40
[2020-03-01] MEDS ORDERED: D5W 275ml ONE (23:46)
--- NOTE | 2020-03-03 13:42 | Discharge Summary ---
Discharge Summary Discharge Summary _ Date of admission: 02/18/2020 Date of expiration: 03/01/2020 History of Present Illness and Brief Hospital Course Ms. Sidney Kaiser was an 79-year-old female with a history of schizophrenia, anxiety, hypertension and hyperlipidemia, who presented to the ED from home for evaluation of shortness of breath over a few days. She was found to be hypoxic on arrival. She was immediately placed on 15 L nonrebreather but her oxygen saturation remained suboptimal at 88%. She was started on BiPAP. She tested positive for COVID-19 via rapid gene assay. Chest x-ray showed diffuse patchy infiltrates consistent with pneumonia. She was treated with ceftriaxone and azithromycin as well as IV steroids. Patient was DNI per family request. Her D-dimer was elevated in her labs. She was treated with Lovenox. UTI was identified but she was already on ceftriaxone at this point. Her urine culture later grew E. coli and Proteus mirabilis. She was admitted to the hospital for further management. For COVID-19 pneumonia, she was continued on Decadron, and ceftriaxone. Given her respiratory failure, she was on BiPAP. At a later stage of her admission, she was able to be weaned down from 100% FiO2 to eventually 70%. Given her prolonged use of BiPAP, PICC line and TPN were initiated. Her initial laboratory studies revealed BNP of greater than 15,000. 2D echocardiogram estimated her left ventricular ejection fraction to be 60%. She was started on Lasix. Given her elevated BUN and creatinine at the later stage of her admission, Lasix was discontinued. Her laboratory studies revealed elevated troponin, which was likely due to her renal failure. She did not have any chest pain and her ejection fraction was at 60%. She also showed to have atrial fibrillation with RVR. She was started on Cardizem, and later Eliquis a nd Lopressor were added. Throughout her admission, her prognosis remained poor. On 03/01/2020, patient was found to be lethargic and hypotensive. She was given Levophed drip. Atrial fibrillation with RVR was noted. At 07:45 patient was found to be in asystole on the laboratory monitor. CPR was started immediately and a CODE BLUE was called. ACLS protocol was followed except patient was not intubated as she was on DNI CODE STATUS. Unfortunately, ROSC was unable to be obtained. Patient was pronounced at 0 730. Cause of : Cardiopulmonary arrest Consultants: Cardiology Dr. Guerra Gastroenterology Dr. Palomares Pulmonology Dr. Briggs Nephrology Dr. Arnold Infectious disease Dr. Sun Final diagnoses History of schizophrenia Anxiety Dementia Congestive heart failure Atrial fibrillation with RVR Accelerated hypertension Hypoxemic respiratory failure Acute renal failure Leukocytosis COVID-19 pneumonia Lactic acidosis Hyperlipidemia Hyponatremia UTI Sepsis I have been assigned to dictate discharge summary for this account. Pastor Vidal Mar 03, 2020 13:46
== END 2020-03-01 23:47 | disposition expired | DRG 720 ==
LOC: EDBD 16:39 → EMR 17:17 → 2W 18:00 → EDBEDREQ 19:10 → 2W 02-19 13:10 → ICU 02-29 20:24
DX: A41.9 Sepsis, unspecified organism (principal); U07.1 COVID-19; N39.0 Urinary tract infection, site not specified; N17.9 Acute kidney failure, unspecified; J12.82 Pneumonia due to coronavirus disease 2019; I13.0 Hypertensive heart and chronic kidney disease with heart failure and stage 1 through stage 4 chronic kidney disease, or unspecified chronic kidney disease; I50.9 Heart failure, unspecified; N18.9 Chronic kidney disease, unspecified; K21.9 Gastro-esophageal reflux disease without esophagitis; K92.2 Gastrointestinal hemorrhage, unspecified; T17.998A Other foreign object in respiratory tract, part unspecified causing other injury, initial encounter; X58.XXXA Exposure to other specified factors, initial encounter; Y92.230 Patient room in hospital as the place of occurrence of the external cause; E87.0 Hyperosmolality and hypernatremia; E46 Unspecified protein-calorie malnutrition; Z68.31 Body mass index [BMI] 31.0-31.9, adult; K59.00 Constipation, unspecified; F20.9 Schizophrenia, unspecified; F41.9 Anxiety disorder, unspecified; F03.91 Unspecified dementia, unspecified severity, with behavioral disturbance
CPT/HCPCS: 36415; 36569; 71045; 76937; 80053; 80061; 81003; 82248; 82306; 82550; 82553; 82728; 82803; 82962; 82977; 83036; 83605; 83615; 83690; 83735; 83880; 84100; 84484; 84550; 85007; 85025; 85379; 85610; 85730; 86140; 87040; 87086; 87181; 92950; 93005; 93306; 93970; 94660; 96361; 96365; 96367; 96375; 99291; J1815; J7030; J8499; S5561; U0002